=== PATIENT | female | born 1965 | race Hispanic/Latino ===

== ENCOUNTER 2017-08-22 13:16 | Day surgery (SDC) | payer MEDICAID ==
[2017-08-20 08:46] VITALS: BMI 32.5
[2017-08-22] MEDS ORDERED: Lidocaine 2% Inj (20ml) ONE (13:44)
[2017-08-22] MEDS ORDERED: Midazolam 2 MG/2 ML VIAL ONE ×3 (13:45→16:02)
[2017-08-22] MEDS ORDERED: Iodixanol 320 MG/ML 100 ML BOTTLE IV ONE (13:46)
[2017-08-22 13:48] LABS: BASO # 0.06 K/mm3 (0.0-2.0); BASO % 0.6 % (0.0-3.0); EOS # 0.1 (0.0-0.7); EOS % 1.5 % (1.5-5.0); GRAN # 7.24 (1.4-6.5); GRAN % 77.8 % (50.0-68.0); HEMOGLOBIN 13.5 g/dL (12.0-16.0); LYMPH # 1.4 (1.2-3.4); LYMPH % 14.9 % (22.0-35.0); MEAN CELL VOLUME 86.4 fl (80.0-105.0); MEAN CORPUSCULAR HEMOGLOBIN 30.1 pg (25.0-35.0); MEAN CORPUSCULAR HGB CONC 34.9 g/dl (31.0-37.0); MEAN PLATELET VOLUME 8.6 fl (7.0-11.0); MONO # 0.5 (0.1-0.6); MONO % 5.2 % (1.0-6.0); RBC 4.48 10^6/uL (3.5-6.1); RED CELL DISTRIBUTION WIDTH 13.7 % (11.5-14.5); WHITE BLOOD COUNT 9.3 10^3/ul (4.5-11.0)
[2017-08-22 13:58] LABS: BLOOD UREA NITROGEN 11 mg/dL (7-21); CALCIUM 9.7 mg/dL (8.4-10.5); GFR AFRICAN-AMERICAN > 60; GFR NON-AFRICAN AMERICAN > 60
[2017-08-22 14:03] LABS: INR 1.01 (0.93-1.08); PARTIAL THROMBOPLASTIN TIME 30.9 Seconds (25.1-36.5); PROTHROMBIN TIME 11.6 SECONDS (9.4-12.5)
[2017-08-22 14:18] VITALS: TEMP 98.4
[2017-08-22] MEDS ORDERED: Oxycodone/Acetaminophen 5/325 mg Tab PO PRN (16:42)
[2017-08-22] MEDS ORDERED: Sodium Chloride 0.45% 1,000 ML IV SCH (16:45)
[2017-08-22 16:54] VITALS: RESP 16
--- NOTE | 2017-08-22 17:00 | VASCULAR ---
PROCEDURE: Ultrasound and fluoroscopic right internal jugular venous access port. CLINICAL HISTORY: Metastatic breast carcinoma. Venous port for chemotherapy. PHYSICIAN(S): Zeus Blevins M.D. TECHNIQUE: The relative risks and indications of the procedure were explained to the patient and consent obtained. The patient was placed supine on the arteriogram table and the right neck and chest prepped and draped in the usual sterile fashion. Conscious sedation monitoring was provided throughout the procedure by a nurse. Antibiotics were given prior to the procedure. Under direct ultrasound guidance, the right internal jugular vein was punctured with a micro-puncture set. A 0.035 angled Glidewire was advanced into the IVC. A 4 cm incision was made below the right clavicle and the pocket blunted dissected. A 8French single-lumen catheter, 22 cm long, was advanced to the SVC/RA junction. The catheter was trimmed and attached to the port. The port aspirates and injects easily. The port was placed in the pocket and closed in 2 layers. The patient tolerated the procedure well. IMPRESSION: Ultrasound and fluoroscopically placed right internal jugular venous access port.
[2017-08-22 17:02] VITALS: O2SAT 98
[2017-08-22 17:24] VITALS: BP 129/88; PULSE 66
== END 2017-08-22 18:30 | disposition home or self-care (01) ==
LOC: SDS 13:16
PROVIDERS: ATTEND Radiology Vascular & Interventional Radiology
DX: C50.919 Malignant neoplasm of unspecified site of unspecified female breast (principal); C79.9 Secondary malignant neoplasm of unspecified site
CPT/HCPCS: 36415; 36561; 76937; 77001; 80048; 85025; 85610; 85730; 99152; C1769; C1788; J0690; J1644; J2250; J2405; J3010; J7030; Q9967

== ENCOUNTER 2017-10-04 12:44 | Observation (INO) | payer MEDICAID ==
--- NOTE | 2017-10-04 13:39 | ED PDOC ---
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 Patient states that she that for the past 2 months she has had back pain that radiates down her right leg posteriorly then wraps around anterior at the knee and goes down to her ankle. Patient states that ambulating is difficult. Patient denies LE paresthesias, saddle paresthesias, bowel/bladder incontinence, CP, SOB, n/v/d , abdominal pain, fever, chills, BRITO, or dizziness. PMD: Mirza Heme/onc: Fili (Vincent Robertson) Past Medical History - Provider Review Nursing Documentation Reviewed: Yes - Cardiac Hx Pacemaker: No - Neurological Hx Paralysis: No - Endocrine/Metabolic Hx Diabetes Mellitus Type 2: Yes - Hematological/Oncological Hx Blood Transfusions: No - Musculoskeletal/Rheumatological Hx Musculoskeletal Disorders: No - Genitourinary/Gynecological Other/Comment: Stage 4 metastatic breast cancer - Psychiatric Hx Emotional Abuse: No Hx Physical Abuse: No Hx Substance Use: No - Anesthesia Hx Anesthesia: Yes Hx Anesthesia Reactions: No Hx Malignant Hyperthermia: No - Suicidal Assessment Feels Threatened In Home Enviroment: No Family/Social History - Physician Review Nursing Documentation Reviewed: Yes Family/Social History: No Known Family HX Smoking Status: Never Smoked Hx Alcohol Use: Yes (PAST ETOH-NONE X 3 YRS) Hx Substance Use: No Allergies/Home Meds Allergies/Adverse Reactions: Allergies CONTRAST Allergy (Severe, Uncoded 08/20/17 08:48) RASH/HIVES Home Medications: Home Meds Medication Instructions Recorded Confirmed Alprazolam [Xanax] 0.5 mg PO QID 08/21/17 10/04/17 Ibuprofen [Motrin Tab] 200 mg PO QID 08/21/17 10/04/17 Levothyroxine [Synthroid] 125 mcg PO DAILY 08/21/17 10/04/17 PARoxetine [Paxil] 20 mg PO DAILY 08/21/17 10/04/17 Turmeric Root Extract [[facility] 500 mg PO DAILY 08/21/17 10/04/17 Turmeric] Ativan 0.5 mg PO BID PRN 08/30/17 10/04/17 Dexamethasone [Decadron] 4 mg PO BID 09/06/17 10/04/17 Docusate Sodium [Colace] 200 mg PO BID 09/06/17 10/04/17 Omeprazole [Omeprazole] 20 mg PO BID 09/06/17 10/04/17 Prochlorperazine [Compazine] 10 mg PO Q8H 09/06/17 10/04/17 Sucralfate [Carafate] 10 ml PO BID 09/06/17 10/04/17 Famotidine [Pepcid] 20 mg PO DAILY 10/04/17 10/04/17 Lactobacillus Combination No.8 1 cap PO DAILY 10/04/17 10/04/17 [Adult Probiotic] Morphine [Morphine Sulfate] 15 mg PO Q12 PRN 10/04/17 10/04/17 Mv,Min10/Folic Acid/D3/Ala/Lut 1 tab PO DAILY 10/04/17 10/04/17 [Strovite One Caplet] Review of Systems - Review of Systems Constitutional: Normal Eyes: Normal ENT: Normal Respiratory: Normal Cardiovascular: Normal Gastrointestinal: Normal Genitourinary Female: Normal Musculoskeletal: Back Pain Skin: Normal Neurological: Normal Endocrine: Normal Hemo/Lymphatic: Normal Psychiatric: Normal Physical Exam Temperature: Afebrile Blood Pressure: Normal Pulse: Regular Respiratory Rate: Normal Appearance: Positive for: Non-Toxic Pain Distress: Moderate Mental Status: Positive for: Alert and Oriented X 3 - Systems Exam Head: Present: Atraumatic, Normocephalic Pupils: Present: PERRL Extroacular Muscles: Present: EOMI Conjunctiva: Present: Normal Mouth: Present: Moist Mucous Membranes Neck: Present: Normal Range of Motion Respiratory/Chest: Present: Clear to Auscultation, Good Air Exchange. No: Respiratory Distress, Accessory Muscle Use Cardiovascular: Present: Regular Rate and Rhythm, Normal S1, S2. No: Murmurs Abdomen: No: Tenderness, Distention, Peritoneal Signs Back: Present: Normal Inspection Upper Extremity: Present: Normal Inspection. No: Cyanosis, Edema Lower Extremity: Present: NORMAL PULSES, Normal ROM (limited 2/2 pain), Neurovascularly Intact, Capillary Refill < 2 s, Other (positive straight leg raise R>L). No: Edema, CALF TENDERNESS, Cyanosis, Swelling, Erythema, Deformity Neurological: Present: GCS=15, CN II-XII Intact, Speech Normal Skin: Present: Warm, Dry, Normal Color. No: Rashes Psychiatric: Present: Alert, Oriented x 3, Normal Insight, Normal Concentration Vital Signs Temp Pulse Resp BP Pulse Ox 10/04/17 19:56 89 18 126/62 95 10/04/17 16:00 79 18 131/72 96 10/04/17 14:23 98.2 F 73 18 126/70 95 Medical Decision Making ED Course and Treatment: 10/04/17 13:43 52 yo F presents to ED with back pain. Plan: - CBC, CMP - Coags - UA - Nicotine patch - MRI without contrast ordered as patient has allergy to gadolinium - Thoracic wo contrast MRI - Lumbar wo contrast MRI - Pelvis wo contrast MRI - Hip wo contrast MRI - Reassess and disposition 10/04/17 17:58 Thoracic MRI Marrow: There are multifocal T1 hypo intense and T2/STIR hyperintense lesion throughout the visualized cervical and thoracic spine including the posterior elements. Impression: Findings are most compatible with diffuse osseous metastasis. No evidence for pathologic fracture or cord compression. Lumbar MRI Impression: Findings are most compatible with diffuse osseous metastasis in the lumbar spine and sacrum. No evidence for acute fracture, spinal canal stenosis or cord compression. Pelvis MRI Impression: Diffuse heterogeneous hypointense T1, hyperintense T2, lesions throughout the visualized bones, most consistent with metastatic disease. No definite fracture identified. Hip MRI Impression: Findings are consistent with diffuse osseous metastasis. no acute fracture 10/04/17 18:[address] Choudhary, who agrees with plan and accepts patient under his service. Patient admitted to med/surg. (Vincent Robertson) 10/05/17 08:01 pt seen with resident. 52 yo female, h/o ofbreast ca with back pain for 2 weeks difficulty ambulating. sent in to eval to ro cord comrpession. mri neg for cord comrpession dr carlton rquests inpt admission. (Jaguar Xiong) - Lab Interpretations Lab Results: 10/04/17 13:45 10/04/17 13:45 Lab Results 10/04/17 13:45: Sodium 137, Potassium 4.4, Chloride 104, Carbon Dioxide 22, Anion Gap 15, BUN 12, Creatinine 0.7, Est GFR ( Amer) > 60, Est GFR (Non- Af Amer) > 60, Random Glucose 186 H, Calcium 9.1, Magnesium 2.4 H, Total Bilirubin 0.2, AST 38 H, ALT 30, Alkaline Phosphatase 132 H, Total Protein 6.9, Albumin 4.1, Globulin 2.9, Albumin/Globulin Ratio 1.4 10/04/17 13:45: PT 10.7, INR 0.94, APTT 27.7 10/04/17 13:45: WBC 7.4, RBC 3.79, Hgb 11.3 L, Hct 33.3 L, MCV 87.9, MCH 29.8, MCHC 33.9, RDW 17.3 H, Plt Count 281, MPV 8.5, Gran % 87.7 H, Lymph % (Auto) 10.7 L, Bremer % (Auto) 1.5, Eos % (Auto) 0.0 L, Baso % (Auto) 0.1, Gran # 6.45, Lymph # (Auto) 0.8 L, Bremer # (Auto) 0.1, Eos # (Auto) 0.0, Baso # (Auto) 0.01 - RAD Interpretation Radiology Orders: 10/04/17 14:01 HIP W/O CONTRAST BILATERAL [MRI] Stat SPINAL CANAL LUMBAR W/O CONT [MRI] Stat SPINAL CANAL THORACIC W/O CONT [MRI] Stat 10/04/17 14:06 PELVIS WITHOUT CONTRAST [MRI] Stat 10/04/17 17:52 BRAIN WITHOUT CONTRAST [MRI] Routine SPINAL CANAL CERVICAL W/O CONT [MRI] Routine 10/05/17 08:00 BONE SCAN WHOLE BODY [NM] Urgent - Medication Orders Current Medication Orders: Acetaminophen (Tylenol 325mg Tab) 650 mg PO Q6H PRN PRN Reason: Fever >100.4 F Alprazolam (Xanax) 0.5 mg PO QID PRN; Protocol PRN Reason: Anxiety Last Admin: 10/04/17 22:56 Dose: 0.5 mg Behavioural Document 10/04/17 22:56 SD (Rec: 10/04/17 22:56 SD [id number]) Maintenance Maintenance Dose Yes Re-Assess: Reassess Psych Meds Document 10/04/17 23:56 SD (Rec: 10/05/17 06:19 SD [facility]-6) Reassess Psych Med Effective Docusate Sodium (Colace) 200 mg PO BID [facility] Last Admin: 10/04/17 19:49 Dose: 200 mg Levothyroxine Sodium (Synthroid) 125 mcg PO 0600 [facility] Last Admin: 10/05/17 06:33 Dose: 125 mcg Morphine Sulfate (Morphine Extended Release Tab) 15 mg PO Q12 [facility] Last Admin: 10/04/17 22:56 Dose: 15 mg [facility] Pain Assessment Document 10/04/17 22:56 SD (Rec: 10/04/17 22:[address]-6) Pain Reassessment Is this a pain reassessment? No Sleep Is patient sleeping during reassessment? No Presence of Pain Presence of Pain Yes Re-Assess: [facility] Pain Assessment Document 10/04/17 23:56 SD (Rec: 10/05/17 06:[address]-6) Pain Reassessment Is this a pain reassessment? No Sleep Is patient sleeping during reassessment? No Presence of Pain Presence of Pain No Morphine Sulfate (Morphine) 2 mg IVP Q6 PRN PRN Reason: PAIN, SEVERE[8-10] Multivitamins (Thera Tab) 1 tab PO DAILY [facility] Nicotine (Nicoderm Cq) 1 patch TD DAILY [facility] Last Admin: 10/04/17 15:01 Dose: 1 patch [facility] Transdermal Patch Site Document 10/04/17 15:01 EQ (Rec: 10/04/17 15:01 EQ [id number]) Transdermal Patch Site Transdermal Patch Site Left Shoulder Re-Assess: [facility] Transdermal Patch Removal Document 10/05/17 03:01 SD (Rec: 10/05/17 06:[address]) Transdermal Patch Removal Removal of Transdermal Patch done? No Pantoprazole Sodium (Protonix Ec Tab) 20 mg PO 0600,1600 [facility] Last Admin: 10/05/17 06:34 Dose: 20 mg Paroxetine HCl (Paxil) 20 mg PO DAILY [facility] Last Admin: 10/04/17 19:54 Dose: 20 mg Prochlorperazine (Compazine Tab) 5 mg PO TID PRN PRN Reason: Nausea/Vomiting Sucralfate (Carafate Oral Susp) 1 gm PO BID [facility] Last Admin: 10/04/17 19:54 Dose: 1 gm Discontinued Medications Morphine Sulfate (Morphine) 2 mg IVP Q6H PRN PRN Reason: Pain, severe (8-10) Disposition/Present on Arrival - Present on Arrival Any Indicators Present on Arrival: No History of DVT/PE: No History of Uncontrolled Diabetes: No Urinary Catheter: No History of Decub. Ulcer: No History Surgical Site Infection Following: None - Disposition Have Diagnosis and Disposition been Completed?: Yes Disposition Time: 18:52 Patient Plan: Admission - Disposition Diagnosis: Back pain Disposition: HOSPITALIZED Condition: STABLE
[2017-10-04 14:24] VITALS: RESP 18
[2017-10-04 14:26] LABS: BASO # 0.01 K/mm3 (0.0-2.0); BASO % 0.1 % (0.0-3.0); GRAN # 6.45 (1.4-6.5); GRAN % 87.7 % (50.0-68.0); HEMOGLOBIN 11.3 g/dL (12.0-16.0); LYMPH # 0.8 (1.2-3.4); LYMPH % 10.7 % (22.0-35.0); MEAN CELL VOLUME 87.9 fl (80.0-105.0); MEAN CORPUSCULAR HEMOGLOBIN 29.8 pg (25.0-35.0); MEAN CORPUSCULAR HGB CONC 33.9 g/dl (31.0-37.0); MEAN PLATELET VOLUME 8.5 fl (7.0-11.0); MONO # 0.1 (0.1-0.6); MONO % 1.5 % (1.0-6.0); RBC 3.79 10^6/uL (3.5-6.1); RED CELL DISTRIBUTION WIDTH 17.3 % (11.5-14.5); WHITE BLOOD COUNT 7.4 10^3/ul (4.5-11.0)
[2017-10-04 14:35] LABS: INR 0.94 (0.93-1.08); PARTIAL THROMBOPLASTIN TIME 27.7 Seconds (25.1-36.5); PROTHROMBIN TIME 10.7 SECONDS (9.4-12.5)
[2017-10-04 15:11] LABS: BLOOD UREA NITROGEN 12 mg/dL (7-21); GFR AFRICAN-AMERICAN > 60; GFR NON-AFRICAN AMERICAN > 60
[2017-10-04 15:12] LABS: CALCIUM 9.1 mg/dL (8.4-10.5)
[2017-10-04 15:13] LABS: ALB/GLOB RATIO 1.4 (1.1-1.8); ALBUMIN 4.1 g/dL (3.0-4.8); ALT/SGPT 30 U/L (7-56); AST/SGOT 38 U/L (14-36)
[2017-10-04] MEDS ORDERED: Morphine 5 MG/ML SYRINGE IVP PRN (15:43)
[2017-10-04] MEDS ORDERED: Morphine 2 mg/2 mL syringe IVP PRN (15:57)
--- NOTE | 2017-10-04 17:54 | CP.PCM.CON ---
History of Present Illness - History of Present Illness History of Present Illness: Neurology Consultation Note: Mrs. Franco is a 52-year-old woman with a past medical history of Stage IV breast cancer metastatic to multiple alexi and soft tissue areas including the cervical, thoracic and lumbar spine, who presents for progressive lower and upper extremity pain/weakness that appears to have worsened since having her most recent dose of chemotherapy on last Saturday. She states that she is feeling much better now, with regard to the numbness and pain/tingling in the extremities. On the first day after her chemo treatment, she felt that her "whole body was numb" and states that she had a dissociative feeling. Due to the pain/weakness and difficulty in ambulation, along with the history of spinal mets, there was concern that the patient may have cord compression. She was referred to the ED for further neurological evaluation. Review of Systems - Review of Systems All systems: reviewed and no additional remarkable complaints except Past Patient History - Past Social History Smoking Status: Never Smoked - CARDIAC Hx Pacemaker: No - NEUROLOGICAL Hx Paralysis: No - ENDOCRINE/METABOLIC Hx Diabetes Mellitus Type 2: Yes - HEMATOLOGICAL/ONCOLOGICAL Hx Blood Transfusions: No - MUSCULOSKELETAL/RHEUMATOLOGICAL Hx Musculoskeletal Disorders: No - GENITOURINARY/GYNECOLOGICAL Other/Comment: Stage 4 metastatic breast cancer - PSYCHIATRIC Hx Emotional Abuse: No Hx Physical Abuse: No Hx Substance Use: No - SURGICAL HISTORY Hx Surgeries: Yes - ANESTHESIA Hx Anesthesia: Yes Hx Anesthesia Reactions: No Hx Malignant Hyperthermia: No Meds Allergies/Adverse Reactions: Allergies Allergy/AdvReac Type Severity Reaction Status Date / Time CONTRAST Allergy Severe RASH/HIVES Uncoded 08/20/17 08:48 - Medications Medications: Current Medications Acetaminophen (Tylenol 325mg Tab) 650 mg PO Q6H PRN PRN Reason: Fever >100.4 F Alprazolam (Xanax) 0.5 mg PO QID PRN; Protocol PRN Reason: Anxiety Docusate Sodium (Colace) 200 mg PO BID [facility] Levothyroxine Sodium (Synthroid) 125 mcg PO 0600 [facility] Morphine Sulfate (Morphine Extended Release Tab) 15 mg PO Q12 [facility] Morphine Sulfate (Morphine) 2 mg IVP Q6 PRN PRN Reason: PAIN, SEVERE[8-10] Multivitamins (Thera Tab) 1 tab PO DAILY [facility] Nicotine (Nicoderm Cq) 1 patch TD DAILY [facility] Last Admin: 10/04/17 15:01 Dose: 1 patch Pantoprazole Sodium (Protonix Ec Tab) 20 mg PO 0600,1600 [facility] Paroxetine HCl (Paxil) 20 mg PO DAILY [facility] Prochlorperazine (Compazine Tab) 5 mg PO TID PRN PRN Reason: Nausea/Vomiting Sucralfate (Carafate Oral Susp) 1 gm PO BID [facility] Physical Exam - Neurological Exam Neurological exam: Abnormal Gait, Alert, CN II-XII Intact, Oriented x3 Additional comments: Reflexes are brisk throughout, more brisk on the left side. There was a slight pronator drift on the left side. Sensation was intact throughout to LT/P. Plantar responses were downgoing bilaterally. Gait was antalgic. Results - Vital Signs Recent Vital Signs: Last Vital Signs Temp 98.2 F 10/04/17 14:23 Pulse 73 10/04/17 14:23 Resp 18 10/04/17 14:23 BP 126/70 10/04/17 14:23 Pulse Ox 95 10/04/17 14:23 - Labs Result Diagrams: 10/04/17 13:45 10/04/17 13:45 Labs: Laboratory Results - last 24 hr 10/04/17 10/04/17 10/04/17 13:45 13:45 13:45 WBC 7.4 RBC 3.79 Hgb 11.3 L Hct 33.3 L MCV 87.9 MCH 29.8 MCHC 33.9 RDW 17.3 H Plt Count 281 MPV 8.5 Gran % 87.7 H Lymph % (Auto) 10.7 L Allen % (Auto) 1.5 Eos % (Auto) 0.0 L Baso % (Auto) 0.1 Gran # 6.45 Lymph # (Auto) 0.8 L Allen # (Auto) 0.1 Eos # (Auto) 0.0 Baso # (Auto) 0.01 PT 10.7 INR 0.94 APTT 27.7 Sodium 137 Potassium 4.4 Chloride 104 Carbon Dioxide 22 Anion Gap 15 BUN 12 Creatinine 0.7 Est GFR ( Amer) > 60 Est GFR (Non-Af Amer) > 60 Random Glucose 186 H Calcium 9.1 Magnesium 2.4 H Total Bilirubin 0.2 AST 38 H ALT 30 Alkaline Phosphatase 132 H Total Protein 6.9 Albumin 4.1 Globulin 2.9 Albumin/Globulin Ratio 1.4 Assessment & Plan (1) Right sided weakness Assessment and Plan: This is likely due to pain from alexi metastases, but could be due to cord or nerve root compression as well. I recommend obtaining an MRI of the cervical spine since the lumbar and thoracic do not show spinal cord involvement. Furthermore, the patient did have a slight pronator drift, I recommend obtaining MRI of the brain as well to rule out any potential brain mets. In addition, I recommend the followin. PT/OT eval and treatment 2. Fluids with NS at 100 mL/hr 3. Consider steroids depending on the MRI results Thank you for this consultation. Status: Acute
--- NOTE | 2017-10-04 17:57 | MRI ---
PROCEDURE: MR LUMBAR SPINE WITHOUT CONTRAST HISTORY: r/o cord compression COMPARISON: None available. TECHNIQUE: Multiecho multiplanar sequences were performed through the lumbar spine without the use of intravenous contrast. FINDINGS: There is normal alignment of the lumbar vertebral bodies. There is normal lumbar lordosis. There are multifocal T1 hypointense, T2 and STIR hyperintense lesion in the visualized lumbar spine and sacrum. There is no acute fracture. The conus medullaris terminates at a normal level and the nerve roots of cauda equina are normal. T12-L1: No disc herniation, spinal canal stenosis or neural foraminal narrowing. L1-2: No disc herniation, spinal canal stenosis or neural foraminal narrowing. L2-3: No disc herniation, spinal canal stenosis or neural foraminal narrowing. L3-4: No disc herniation, spinal canal stenosis or neural foraminal narrowing. L4-5: Mild posterior disc bulge and mild facet arthropathy with mild neural foraminal narrowing. No spinal canal stenosis. L5-S1: No disc herniation, spinal canal stenosis or neural foraminal narrowing. OTHER FINDINGS: The paraspinous soft tissues are normal. Imaged portion of the retroperitoneum is within normal limits. IMPRESSION: Findings are most compatible with diffuse osseous metastasis in the lumbar spine and sacrum. No evidence for acute fracture, spinal canal stenosis or cord compression.
--- NOTE | 2017-10-04 17:59 | MRI ---
PROCEDURE: MRI pelvis without contrast HISTORY: mets COMPARISON: Right hip x-rays 09/16/2017. TECHNIQUE: Multiplanar, multi sequence MR images of the pelvis were obtained. No intravenous gadolinium contrast was administered. FINDINGS: Motion artifact limits evaluation of the axial T1 sequence. UTERUS: Surgically absent. BOWEL: There is no abnormal small or large bowel dilatation of the visualized bowel. LYMPH NODES: There is no significant pelvic or inguinal lymphadenopathy. BLADDER: Incompletely distended. FREE FLUID: None. PELVIC BONES: There are diffuse heterogeneous hypointense T1, hyperintense T2 lesions throughout the visualized bones, most consistent with metastatic disease. No definite fracture identified. OTHER FINDINGS: None. IMPRESSION: Diffuse bony lesions as above, most consistent with metastatic disease.
[2017-10-04] MEDS ORDERED: Sucralfate 1 gm/10 ml Oral Susp UD PO SCH (18:00)
--- NOTE | 2017-10-04 18:06 | MRI ---
PROCEDURE: MR THORACIC SPINE WITHOUT CONTRAST HISTORY: r/o cord compression COMPARISON: None available. TECHNIQUE: Multiecho multiplanar sequences were performed through the thoracic spine without the use of intravenous contrast. FINDINGS: ALIGNMENT: There is normal alignment of the thoracic vertebral bodies. There is normal thoracic kyphosis. VERTEBRA: Vertebral body height are preserved. MARROW: There are multifocal T1 hypo intense and T2/ STIR hyperintense lesion throughout the visualized cervical and thoracic spine including the posterior elements. PARASPINAL SOFT TISSUES: The paraspinous soft tissues are normal. CORD: The thoracic cord is normal in contour, caliber and has normal intrinsic signal. DISCS: Mild posterior disc bulges in the mid thoracic spine. No large disc herniation, spinal canal stenosis, or neuroforaminal narrowing. OTHER FINDINGS: None. IMPRESSION: Findings are most compatible with diffuse osseous metastasis. No evidence for pathologic fracture or cord compression.
--- NOTE | 2017-10-04 18:16 | MRI ---
PROCEDURE: MRI bilateral hips TECHNIQUE: Multiecho multiplanar sequences were performed through bilateral hips without the use of intravenous contrast. HISTORY: Pain. COMPARISON: Plain radiographs from 09/26/2017. FINDINGS: BONES: There is multifocal abnormal T1 hypo intense and T2/stir hyperintense lesions in the visualized pelvis, sacrum and proximal femora. There is no acute fracture. Bone alignment is normal. MUSCLES:: No tear or myositis. JOINT FLUID:: There is a small right joint effusion. OTHER FINDINGS: None. IMPRESSION: Findings are consistent with diffuse osseous metastasis. No acute fracture.
[2017-10-04] MEDS: Pantoprazole 20 mg EC Tab PO SCH (19:50)
[2017-10-04 19:57] VITALS: O2SAT 95
[2017-10-04] MEDS ORDERED: Morphine 15 mg SR Tab PO SCH (22:00)
[2017-10-05 01:16] VITALS: BP 122/78; PULSE 86; TEMP 98.1; BMI 25.7
--- NOTE | 2017-10-05 03:52 | HP ---
DATE OF EXAM: 10/04/[address] Penn. CHIEF COMPLAINT: Numbness, weakness of the lower extremities. HISTORY OF PRESENT ILLNESS: The patient is a 52-year-old white female, admitted via the emergency room for evaluation of recent onset of gait weakness, numbness of her legs, post chemotherapy approximately 7 days prior. As patient received chemotherapy on Saturday, she reports last Saturday and Saturday, she was unable to walk due to severe numbness and weakness of the legs. She now ambulates with a cane with modest improvement. She states in the past 2 days it has modestly improved. She reports also that previous chemotherapy treatments here have caused different sensation changes including to her arms and hands with picking up a glass and forks which were dropped and now the gait weakness. She also previously had issues with headaches, at one point loose stool, nausea and vomiting which all are self-limited after approximately 3 days post treatment with her regimen of Taxol and Herceptin as per Dr. Penn's protocols. At present, she was due for chemotherapy; however, due to these most recent findings and since the gait is still quite unsteady, Dr. Penn recommends that the patient be evaluated for possible cord compression due to her bony metastatic disease from her stage IV metastatic breast cancer. Patient also suffers from intractable pain of cancer for which she is taking narcotic analgesics with modest effect. She is also a heavy smoker, at least 2 packs per day, which was the reason why the patient refused evaluation when the symptoms were more acute earlier in the week and now her daughter convinced the patient that there is a need for evaluation on an urgent basis as this may deteriorate with time. At present she is now being admitted via the emergency room reporting that her analgesics helped her pain; however her leg changes, she reports, have modestly improved. 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 Patient also suffers from hypothyroidism. Reports that she was within [place] miles of the [place] when living in [facility] with the patient speaking Indonesian as her first language. Patient also has anxiety, GERD, insomnia and again strong smoking history along with intractable pain of cancer, obesity, and status post hysterectomy. ALLERGIES: TO CONTRAST. ON FURTHER QUESTIONING, THE PATIENT REPORTS THAT SHE HAD AN MRI OF HER BREAST DONE IN JULY AT [facility] IN [place] WITH THE PATIENT HAVING AN ALLERGIC PHENOMENON REACTION AFTER THE CONTRAST WAS GIVEN. MEDICATIONS: Patient's medicines were reviewed. They include Strovite, probiotic, Xanax, Carafate, Compazine, Paxil, omeprazole, Synthroid, ibuprofen, Colace, Ativan, famotidine, morphine extended release and now a nicotine patch with dexamethasone have been discontinued recently. FAMILY HISTORY AND SOCIAL HISTORY: The patient admits to at least 2 packs per day smoking history over 35 years. She quit alcohol 3 years ago after increased use. 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 She has one daughter alive and well. She has no brothers, no sisters. Father at 82 years old of old age, mother at 79 years old of pneumonia and a CVA, with the father possibly having had tuberculosis and heart disease, the mother with dementia. REVIEW OF SYSTEMS: Twelve-point review of systems was done, which was negative to questions except for items mentioned in the history of present illness. PHYSICAL EXAMINATION: VITAL SIGNS: Temperature 98.2, pulse 73, respirations 18, blood pressure 126/70, pulse ox 95%. HEENT: Unremarkable. Tongue is moist and midline. NECK: Supple. HEART: Regular rate. LUNGS: Clear. ABDOMEN: Obese, soft, nontender. EXTREMITIES: No edema. NEUROLOGIC: Awake, alert, and oriented with equal audit clerk bilaterally with equal strength at this point; however, the patient does have a gait disturbance, uses a cane to ambulate. SKIN: She has resolving rash to the upper and lower breast for which Nizoral cream was recommended. LABORATORY DATA: The patient's labs were done to include white blood cell count of 7.4; hemoglobin 11.3; hematocrit 33.3; platelet count of 291,000 with a chem metabolic panel showing non-fasting glucose of 186, magnesium 2.4, AST of 38 with an alk phos of 132. Her INR is 0.94. The patient did have testing done recently to include a x-ray of her thoracic and lumbar spine, x-ray of the hips and pelvis on 09/26/2017, all these reports were read as negative with the hip only on the right side being done with her pain described on the left also. The patient also had treatment with Dr. Bryant in Radiosurgery in [facility] [place] with evaluation at that time in July with no treatment at that time. With this, patient also had a PET CT scan done on 07/23/2017. PET CT scan was read as FDG-avid nodule, right breast suggesting neoplasm, right axillary mediastinal bilateral hilar lymphadenopathy, multiple patchy osseous sclerotic lesions with increased FDG uptake concerning for osseous metastases including bilateral ribs, cervical, thoracic, lumbar spine, sacrum, right and left pelvis, right femoral head and neck, index lesion of the medial right ilium measures maximum SUV of 17.2. Hard copies of her previous testing will be uploaded to the computer system. Patient did have echocardiogram done on 08/06/2017 at [facility]. The impression showed normal biventricular dimension and systolic function. Ejection fraction of 60%. Trace mitral and tricuspid insufficiency. A CA 27-29 was done on 08/07/2017, it was 250.2 with a CA value of 2.5 and a CA 15-3 pending at that time, is not available. Other labs that have withdrawn and sent and will be reviewed upon return. PLAN: For this patient, after conversation with Dr. Penn, is to admit via the emergency room MRI to be done; however,without contrast at this point to the LS spine, thoracic spine, pelvis, hips. We will also ask for a bone scan to be done along with evaluation by Dr. Vicente, Neurology with the patient's cord compression evaluation paramount at this point. She will be at bedrest except for bathroom privileges with assist only. We will give her nicotine patch for her strong smoking history with monitoring clinically and with labs. Prognosis for this patient is guarded. This is a comprehensive medical evaluation in a complex patient with 90 minutes evaluation [id number] with the patient, also daughter was contacted. Dr. Vicente was contacted by phone and physically brought the patient to the emergency room in a wheelchair from the outpatient clinic where she was to have chemotherapy earlier today with patient's questions answered to her satisfaction. Alan Choudhary MD [facility] # [id number]
[2017-10-05] MEDS ORDERED: Levothyroxine 125 MCG TAB PO SCH (06:00)
[2017-10-05] MEDS: Pantoprazole 20 mg EC Tab PO SCH (06:34)
[2017-10-05 06:55] LABS: ALB/GLOB RATIO 1.4 (1.1-1.8); ALBUMIN 3.8 g/dL (3.0-4.8); ALT/SGPT 33 U/L (7-56); AST/SGOT 40 U/L (14-36); BLOOD UREA NITROGEN 13 mg/dL (7-21); CALCIUM 7.9 mg/dL (8.4-10.5); GFR AFRICAN-AMERICAN > 60; GFR NON-AFRICAN AMERICAN > 60
[2017-10-05 07:19] LABS: BASO # 0.01 K/mm3 (0.0-2.0); BASO % 0.1 % (0.0-3.0); GRAN # 5.64 (1.4-6.5); GRAN % 78.1 % (50.0-68.0); HEMOGLOBIN 10.4 g/dL (12.0-16.0); LYMPH # 0.8 (1.2-3.4); LYMPH % 11.4 % (22.0-35.0); MEAN CELL VOLUME 88.6 fl (80.0-105.0); MEAN CORPUSCULAR HEMOGLOBIN 29.7 pg (25.0-35.0); MEAN CORPUSCULAR HGB CONC 33.5 g/dl (31.0-37.0); MEAN PLATELET VOLUME 8.4 fl (7.0-11.0); MONO # 0.8 (0.1-0.6); MONO % 10.4 % (1.0-6.0); RBC 3.5 10^6/uL (3.5-6.1); RED CELL DISTRIBUTION WIDTH 17.6 % (11.5-14.5); WHITE BLOOD COUNT 7.2 10^3/ul (4.5-11.0)
--- NOTE | 2017-10-05 08:21 | CP.PCM.PN ---
Subjective - Date & Time of Evaluation Date of Evaluation: 10/05/17 Time of Evaluation: 08:00 - Subjective Subjective: [id number] Aguilar Ms Jenkins, 52 F, Hx stage 4 breast cancer, admitted for acute gait weakness , numbness, chemo 7 days prior to admission. pt wants to sign out AMA because she wants to smoke. She is dressed, with all her belongings, IV out, standing by nurse station with a cane. she refuse nicoderm. This is the first time she came to hospital in . I have explained to her in front of the nurse station that once she leaves the floor, she consider signed out AMA and cannot came straight to hospital. She will not get the original treatment scheduled for her at a later time. Pt understood, refuse nicoderm, insist going out in smoking. PE AAO x 3 able to ambulate independently with a cane A/P: AMA - AMA risk/benefit explained. pt understood and reasoned that she really has to leave for personal reason. nicoderm was offered. AMA form explained. Pt signed. - told to return to ed as needed. - call Dr. Choudhary answering service and left message Objective - Vital Signs/Intake and Output Vital Signs (last 24 hours): Temp Pulse Resp BP Pulse Ox 98.1 F 86 18 122/78 95 10/04/17 22:48 10/04/17 22:48 10/04/17 22:48 10/04/17 22:48 10/04/17 19:56 - Medications Medications: Current Medications Acetaminophen (Tylenol 325mg Tab) 650 mg PO Q6H PRN PRN Reason: Fever >100.4 F Alprazolam (Xanax) 0.5 mg PO QID PRN; Protocol PRN Reason: Anxiety Last Admin: 10/04/17 22:56 Dose: 0.5 mg Docusate Sodium (Colace) 200 mg PO BID LEXY Last Admin: 10/04/17 19:49 Dose: 200 mg Levothyroxine Sodium (Synthroid) 125 mcg PO 0600 LEXY Last Admin: 10/05/17 06:33 Dose: 125 mcg Morphine Sulfate (Morphine Extended Release Tab) 15 mg PO Q12 LEXY Last Admin: 10/04/17 22:56 Dose: 15 mg Morphine Sulfate (Morphine) 2 mg IVP Q6 PRN PRN Reason: PAIN, SEVERE[8-10] Multivitamins (Thera Tab) 1 tab PO DAILY [facility] Nicotine (Nicoderm Cq) 1 patch TD DAILY [facility] Last Admin: 10/04/17 15:01 Dose: 1 patch Pantoprazole Sodium (Protonix Ec Tab) 20 mg PO 0600,1600 [facility] Last Admin: 10/05/17 06:34 Dose: 20 mg Paroxetine HCl (Paxil) 20 mg PO DAILY [facility] Last Admin: 10/04/17 19:54 Dose: 20 mg Prochlorperazine (Compazine Tab) 5 mg PO TID PRN PRN Reason: Nausea/Vomiting Sucralfate (Carafate Oral Susp) 1 gm PO BID [facility] Last Admin: 10/04/17 19:54 Dose: 1 gm - Labs Labs: 10/05/17 05:00 10/05/17 05:00 PT 10.7 SECONDS (9.4-12.5) 10/04/17 13:45 INR 0.94 (0.93-1.08) 10/04/17 13:45 APTT 27.7 Seconds (25.1-36.5) 10/04/17 13:45
--- NOTE | 2017-10-05 08:57 | CP.PCM.PCO ---
Physician Communication Note - Physician Communication Note Physician Communication Note: pt left AMA
[2017-10-05] MEDS ORDERED: Multivitamin Therapeutic Tab PO SCH (10:00)
--- NOTE | 2017-10-05 11:34 | CP.PCM.CON ---
History of Present Illness - History of Present Illness History of Present Illness: Ms Franco has stage IV breast cancer with diffuse bone metastases. We were asked to see her today for possible palliative radiation. Unfortunately, when we came this morning, we found out that she had signed out AMA. We will be in touch with Dr Penn about her case. Past Patient History - Past Social History Smoking Status: Heavy Smoker > 10 Cigarettes Daily - CARDIAC Hx Pacemaker: No - NEUROLOGICAL Hx Paralysis: No - ENDOCRINE/METABOLIC Hx Diabetes Mellitus Type 2: Yes - HEMATOLOGICAL/ONCOLOGICAL Hx Blood Transfusions: No - MUSCULOSKELETAL/RHEUMATOLOGICAL Hx Falls: No - GENITOURINARY/GYNECOLOGICAL Other/Comment: Stage 4 metastatic breast cancer - PSYCHIATRIC Hx Emotional Abuse: No Hx Physical Abuse: No Hx Substance Use: No - SURGICAL HISTORY Hx Surgeries: Yes - ANESTHESIA Hx Anesthesia: Yes Hx Anesthesia Reactions: No Hx Malignant Hyperthermia: No Meds Allergies/Adverse Reactions: Allergies Allergy/AdvReac Type Severity Reaction Status Date / Time CONTRAST Allergy Severe RASH/HIVES Uncoded 08/20/17 08:48 Results - Vital Signs Recent Vital Signs: Last Vital Signs Temp 98.1 F 10/04/17 22:48 Pulse 86 10/04/17 22:48 Resp 18 10/04/17 22:48 BP 122/78 10/04/17 22:48 Pulse Ox 95 10/04/17 19:56 - Labs Result Diagrams: 10/05/17 05:00 10/05/17 05:00 Labs: Laboratory Results - last 24 hr 10/05/17 10/05/17 10/05/17 05:00 05:00 05:00 WBC 7.2 RBC 3.50 Hgb 10.4 L Hct 31.0 L MCV 88.6 MCH 29.7 MCHC 33.5 RDW 17.6 H Plt Count 273 MPV 8.4 Gran % 78.1 H Lymph % (Auto) 11.4 L [place] % (Auto) 10.4 H Eos % (Auto) 0.0 L Baso % (Auto) 0.1 Gran # 5.64 Lymph # (Auto) 0.8 L [place] # (Auto) 0.8 H Eos # (Auto) 0.0 Baso # (Auto) 0.01 Sodium 135 Potassium 4.6 Chloride 102 Carbon Dioxide 18 L Anion Gap 20 BUN 13 Creatinine 0.5 L Est GFR ( Amer) > 60 Est GFR (Non-Af Amer) > 60 Random Glucose 112 H Calcium 7.9 L Total Bilirubin 0.7 AST 40 H ALT 33 Alkaline Phosphatase 113 Total Protein 6.6 Albumin 3.8 Globulin 2.8 Albumin/Globulin Ratio 1.4 TSH 3rd Generation 3.91
== END 2017-10-05 09:38 | disposition left against medical advice (07) ==
LOC: ED 12:44 → INTOOBSV 18:29 → ERH 18:29 → 3RNO 20:19
PROVIDERS: ADMIT Family Medicine; ATTEND Family Medicine
DX: C79.51 Secondary malignant neoplasm of bone (principal); C50.919 Malignant neoplasm of unspecified site of unspecified female breast; G89.3 Neoplasm related pain (acute) (chronic); E11.9 Type 2 diabetes mellitus without complications; F41.9 Anxiety disorder, unspecified; R53.1 Weakness; E03.9 Hypothyroidism, unspecified; K21.9 Gastro-esophageal reflux disease without esophagitis; G47.00 Insomnia, unspecified; E66.9 Obesity, unspecified; Z68.25 Body mass index [BMI] 25.0-25.9, adult; F17.210 Nicotine dependence, cigarettes, uncomplicated; Z17.1 Estrogen receptor negative status [ER-]; Z90.710 Acquired absence of both cervix and uterus
CPT/HCPCS: 36415; 72146; 72148; 72195; 73721; 80053; 83735; 84443; 85025; 85610; 85730; 99285; G0378

== ENCOUNTER 2018-01-03 14:42 | Inpatient (IN) | payer MEDICAID ==
[2018-01-03 14:44] VITALS: BMI 25.7
--- NOTE | 2018-01-03 15:19 | ED PDOC ---
Arrival/HPI <David Pat - Last Filed: 01/03/18 20:59> - General Historian: Patient - History of Present Illness Narrative History of Present Illness (Text): 01/03/18 15:05 52 y/o female, pmh including stage 4 breast cancer with on going chemotherapy with metasis to spine and pelvis/gerd/hypothyroidism, post menopausal, allergic to contrast with systemic hives, biba daughter (power of welding machine operator electroslag), send in by Dr. Penn for evaluation of the rt. upper extremity weakness. As per daughter and patient, the patient has rt. upper extremity numbness and tingling for over 1 week and worsened for the past 4 days (last seen well) with weakness as she is unable to move it which she denies any pain or discomfort, no slurred speech, no night sweat, no dizziness, no change in vision, no chest pain or palpitation, no night sweat, no change in vision, no other medical or psychological complaints. <Luis Felipe Tilley - Last Filed: 01/03/18 21:28> - General Chief Complaint: Finger,Hand,&Wrist Time Seen by Provider: 01/03/18 15:03 Past Medical History - Provider Review Nursing Documentation Reviewed: Yes - Infectious Disease Hx of Infectious Diseases: None - Cardiac Hx Cardiac Disorders: No - Neurological Hx Paralysis: No - Endocrine/Metabolic Hx Diabetes Mellitus Type 2: Yes - Hematological/Oncological Hx Blood Transfusions: No Hx Cancer: Yes (Breast) - Musculoskeletal/Rheumatological Hx Falls: No - Genitourinary/Gynecological Other/Comment: Stage 4 metastatic breast cancer - Psychiatric Hx Emotional Abuse: No Hx Physical Abuse: No Hx Substance Use: No - Anesthesia Hx Anesthesia: Yes Hx Anesthesia Reactions: No Hx Malignant Hyperthermia: No - Suicidal Assessment Feels Threatened In Home Enviroment: No <Luis Felipe Tilley - Last Filed: 01/03/18 21:28> Family/Social History - Physician Review Nursing Documentation Reviewed: Yes Family/Social History: Unknown Family HX Smoking Status: Heavy Smoker > 10 Cigarettes Daily Hx Alcohol Use: Yes (PAST ETOH-NONE X 3 YRS) Hx Substance Use: No <Luis Felipe Tilley - Last Filed: 01/03/18 21:28> Allergies/Home Meds <David Pat - Last Filed: 01/03/18 20:59> <Tilley,Luis Felipe Q - Last Filed: 01/03/18 21:28> Allergies/Adverse Reactions: Allergies CONTRAST Allergy (Severe, Uncoded 01/03/18 14:54) RASH/HIVES Home Medications: Home Meds Medication Instructions Recorded Confirmed Alprazolam [Xanax] 0.5 mg PO QID 08/21/17 11/07/17 Ibuprofen [Motrin Tab] 200 mg PO QID 08/21/17 11/07/17 PARoxetine [Paxil] 20 mg PO DAILY 08/21/17 11/07/17 Turmeric Root Extract [[facility] 500 mg PO DAILY 08/21/17 11/07/17 Turmeric] Ativan 0.5 mg PO BID PRN 08/30/17 11/07/17 Dexamethasone [Decadron] 4 mg PO BID 09/06/17 11/07/17 Docusate Sodium [Colace] 200 mg PO BID 09/06/17 11/07/17 Omeprazole 20 mg PO BID 09/06/17 11/07/17 Prochlorperazine [Compazine] 10 mg PO Q8H 09/06/17 11/07/17 Sucralfate [Carafate] 10 ml PO BID 09/06/17 11/07/17 Lactobacillus Combination No.8 1 cap PO DAILY 10/04/17 11/07/17 [Adult Probiotic] Mv,Min10/Folic Acid/D3/Ala/Lut 1 tab PO DAILY 10/04/17 11/07/17 [Strovite One Caplet] Gas Relief 125 mg PO Q4 PRN 11/07/17 11/07/17 Hyoscyamine [Levsin] 0.125 mg PO Q4 PRN 11/07/17 11/07/17 Levothyroxine [Synthroid] 125 mcg PO DAILY 11/07/17 11/07/17 Loperamide [Imodium] 2 mg PO Q4 11/07/17 11/07/17 Ondansetron [Zofran] 8 mg PO Q8H 11/07/17 11/07/17 Pepto-Bismol 30 ml PO Q4H PRN 11/07/17 11/07/17 Zolpidem [Ambien] 10 mg PO HS 11/07/17 11/07/17 Levothyroxine Sodium [Levothroid] 137 mcg PO QAM 11/14/17 11/14/17 Morphine [Morphine Extended 60 mg PO Q12 11/14/17 11/14/17 Release Tab] Morphine [Morphine Sulfate] 30 mg PO Q4 11/14/17 12/05/17 metOLazone [Zaroxolyn] 2.5 mg PO MWF 11/14/17 11/14/17 Hemp Extract Drops 1 - 2 % PO TID 12/05/17 12/05/17 Review of Systems - Review of Systems Constitutional: absent: Fatigue, Fevers Eyes: absent: Vision Changes ENT: absent: Hearing Changes Respiratory: absent: SOB, Cough Cardiovascular: absent: Chest Pain Gastrointestinal: absent: Abdominal Pain, Diarrhea, Nausea, Vomiting, Hematemesis Skin: absent: Rash, Pruritis Neurological: Focal Weakness. absent: Headache, Dizziness, Gait Changes, Speech Changes, Facial Droop, Disequilibrium, Seizure Psychiatric: absent: Anxiety, Depression <Luis Felipe Tilley - Last Filed: 01/03/18 21:28> Physical Exam Vital Signs Temp Pulse Resp BP Pulse Ox 01/03/18 20:28 19 95 01/03/18 20:24 98.5 F 75 20 117/68 96 01/03/18 17:51 97.8 F 86 18 111/68 99 01/03/18 16:17 86 18 106/73 98 <Ryan Patoper - Last Filed: 01/03/18 20:59> Vital Signs Reviewed: Yes Temperature: Afebrile Blood Pressure: Normal Pulse: Regular Respiratory Rate: Normal Appearance: Positive for: Well-Appearing, Non-Toxic, Comfortable Pain Distress: None Mental Status: Positive for: Alert and Oriented X 3 - Systems Exam Head: Present: Atraumatic, Normocephalic Pupils: Present: PERRL Extroacular Muscles: Present: EOMI Conjunctiva: Present: Normal Ears: Present: NORMAL TM, Normal Canal. No: Erythema Mouth: Present: Moist Mucous Membranes Nose (External): Present: Atraumatic. No: Abrasion, Contusion, Laceration Nose (Internal): Present: Normal Inspection, No Active Bleeding. No: Rhinorrhea, Septal Hematoma, Epistaxis Neck: Present: Normal Range of Motion, Trachea Midline. No: Meningeal Signs, MIDLINE TENDERNESS, Paraspinal Tenderness, Lymphadenopathy Respiratory/Chest: Present: Clear to Auscultation, Good Air Exchange. No: Respiratory Distress, Accessory Muscle Use Cardiovascular: Present: Regular Rate and Rhythm, Normal S1, S2. No: Murmurs Abdomen: No: Tenderness, Distention, Peritoneal Signs, Rebound, Guarding Back: Present: Normal Inspection. No: CVA Tenderness, Midline Tenderness, Paraspinal Tenderness, Pain with Leg Raise, Decubitus Ulcer Upper Extremity: Present: Normal Inspection, NORMAL PULSES, Capillary Refill < 2s, Other (RUE: mild swelling, full sensation intact to sharp and dull, motor 1/5 on the RUE vs. LUE motor 5/5, +radial pulse, capillary refill< 2 seconds, neurovascular intact. ). No: Cyanosis, Edema, Deformity Lower Extremity: Present: Normal Inspection, NORMAL PULSES, Normal ROM, Neurovascularly Intact. No: Edema, Tenderness, Swelling, Deformity Neurological: Present: GCS=15, CN II-XII Intact, Speech Normal, Gait Normal, Memory Normal, Other (NIHSS is 3 as she is RUE drift) Skin: Present: Warm, Dry, Normal Color. No: Rashes Psychiatric: Present: Alert, Oriented x 3, Normal Insight, Normal Concentration <Luis Felipe Tilley Q - Last Filed: 01/03/18 21:28> Medical Decision Making - Lab Interpretations Lab Results: 01/03/18 15:59 01/03/18 15:59 Lab Results 01/03/18 18:22: Blood Type Confirm O POSITIVE 01/03/18 16:06: Urine Color Dark yellow, Urine Appearance Slight-cloudy, Urine pH 6.5, Ur Specific [place] 1.020, Urine Protein 30 H, Urine Glucose (UA) Negative, Urine Ketones Trace H, Urine Blood Large H, Urine Nitrate Negative, Urine Bilirubin Small H, Urine Urobilinogen 1.0 H, Ur Leukocyte Esterase Trace H , Urine RBC 25 - 30, Urine WBC 1 - 3, Ur Epithelial Cells 6 - 8, Urine Bacteria Mod 01/03/18 15:59: Sodium 134, Potassium 3.6, Chloride 104, Carbon Dioxide 24, Anion Gap 10, BUN 17, Creatinine 0.6 L, Est GFR ( Amer) > 60, Est GFR (Non-Af Amer) > 60, Random Glucose 95, Calcium 8.5, Magnesium 2.1, Total Bilirubin 0.4, AST 113 H D, ALT 79 H, Alkaline Phosphatase 346 H, Total Protein 6.0, Albumin 3.4, Globulin 2.6, Albumin/Globulin Ratio 1.3 01/03/18 15:59: PT 11.8, INR 1.03, APTT 23.1 L 01/03/18 15:59: WBC 10.3, RBC 3.21 L, Hgb 9.5 L, Hct 28.7 L, MCV 89.4, MCH 29.6, MCHC 33.1, RDW 19.8 H, Plt Count 183, MPV 9.1, Gran % 77.6 H, Lymph % (Auto) 14.4 L, [place] % (Auto) 6.8 H, Eos % (Auto) 0.2 L, Baso % (Auto) 1.0, Gran # 7.96 H, Lymph # (Auto) 1.5, [place] # (Auto) 0.7 H, Eos # (Auto) 0.0, Baso # (Auto) 0.10, Corrected WBC (Man) 9.7, Neutrophils % (Manual) 73 H, Band Neutrophils % 3 H, Lymphocytes % (Manual) 11 L, Monocytes % (Manual) 7 H, Eosinophils % (Manual) 1, Metamyelocytes % 5, Nucleated RBC % 6, Platelet Evaluation Normal, Polychromasia Slight, Anisocytosis (manual) Slight 01/03/18 15:59: Blood Type O POSITIVE, Antibody Screen Negative, BBK History Checked No verified bt 01/03/18 15:55: POC Glucose (mg/dL) 106 - RAD Interpretation Radiology Orders: 01/03/18 15:19 CHEST PORTABLE [RAD] Stat SPINAL CANAL CERVICAL W/O CONT [MRI] Stat 01/03/18 15:21 DUPLEX UPPER EXTRM VEIN RIGHT [US] Stat 01/03/18 15:25 HEAD W/O CONTRAST [CT] Stat 01/03/18 16:30 BRAIN WITHOUT CONTRAST [MRI] Stat 01/03/18 16:32 CERVICAL SPINE W/O CONTRAST [CT] Stat - Medication Orders Current Medication Orders: Discontinued Medications Dexamethasone (Decadron Inj) 10 mg IVP STAT STA Stop: 01/03/18 19:54 Last Admin: 01/03/18 20:10 Dose: 10 mg IVP Administration Document 01/03/18 20:10 OCS (Rec: 01/03/18 20:10 OCS [id number]) Charges for Administration # of IVP Administrations 1 Nicotine (Nicoderm Cq) 1 patch TD DAILY LEXY Nicotine (Nicoderm Cq) 1 patch TD STAT STA Stop: 01/03/18 19:54 Last Admin: 01/03/18 20:09 Dose: 1 patch MAR Transdermal Patch Site Document 01/03/18 20:09 OCS (Rec: 01/03/18 20:09 OCS [id number]) Transdermal Patch Site Transdermal Patch Site Left Outer Upper Arm <David Pat - Last Filed: 01/03/18 20:59> ED Course and Treatment: 01/03/18 15:30 -Labs/coag panel -CT head r/o bleed -MRI Head/Cervical w/o contrast (pt. had systematic hives) -RUE Venuous doppler r/o dvt as she is hypercoagulable -IVF -Observe and reassess 01/03/18 16:33 -MRI is backed up and busy, stated that the test can not be performed until 10pm tonight, will proceed with CT head/cervical first 01/03/18 18:00 -NIHSS is 3 -EKG: NSR @ 71 BPM, no ST elevation or depression, no T wave inversion. -Chest xray: Lower lobe infiltrates/atelectasis radiographically new findings. -CT head show Multiple intracranial metastases as described above with surrounding edema. No evidence of midline shift. A 2.1 cm high left parietal metastasis may contain a tiny amount of hemorrhage centrally. No evidence of epidural, subdural or subarachnoid hemorrhage. No gross calvarial metastasis. -CT Cervical: Straightening of the normal cervical lordosis may be related to muscle spasm or positioning. Mild grade 1 anterolisthesis of C4 on C5. Fracture involving the right temporomandibular joint in region of lucency possibly pathologic fracture. Multilevel sclerotic foci involving the cervical spine and included upper thoracic spine worrisome for metastases. Recommend further evaluation with nuclear medicine bone scan or MRI without and with IV contrast. Qjju-[id number]-zodr-right small effusions and ground-glass infiltrates/atelectasis. Limited visualization of the brain demonstrates evidence of metastases within the cerebellum and brainstem; please refer to CT performed concurrently for more detailed discussion. -RUE Venuous doppler: as per preliminary report, no acute DVT -Labs show no acute findings except hgb 9.5 from 10.1 (chronic anemia) -Mag within normal limit -UA show +UTI, IV rocephine and urine culture ordered -Pt. feels -All labs/radiology result discussed with the patient/daughter and DR. Pat, paged out to DR. Penn about these results. As per daughter, the patient is DNR and not DNI. 01/03/18 18:08 -DR. Ramirez/DR. Penn paged due to the inconclusive 2.1cm lt. parietal mass metasis with possible hemorrhage found. 01/03/18 18:23 -I consulted with DR. Padron and discussed about the case/CT head result, recommend decadron 10mg IV stat (ordered), recommend consult with Dr. Penn and neurologist on this case as well. Dr. Ramirez stated that this is not surgical removal case. no aspirin or anticoagulant ordered as the CT can not rule bleed, will order statin once the MRI r/o cord compression. 01/03/18 18:39 -I spoke to Dr. Penn, recommend to consult with neurologist pavel, request to r/o cored compression, discussed about the labs/radiology results, paged out to Dr. Estrella already. Pending MRI result -Pt. request nicotine patch, ordered. 01/03/18 19:32 -Dr. Penn called back, recommend to admit to his service to ICU. -I spoke to Dr. Zimmerman, discussed about the case/labs 01/03/18 20:09 -Dr. Penn on the blue list, will admit to his partner Dr. Alan Georges 01/03/18 21:02 MR Cervical Spine CONTRAST: Without COMPARISON: None provided. FINDINGS: VERTEBRAE: No acute fracture or aggressive appearing osseous lesion. ALIGNMENT: Bony alignment is anatomic. SPINAL CORD: Normal signal and contour. FINDINGS BY LEVEL: C2-C3: No central canal or foraminal stenosis. C3-C4: No central canal or foraminal stenosis. C4-C5: 1.5 mm central disk herniation. No central canal or foraminal stenosis. C5-C6: 2 mm broad based disk herniation. Both foramina are narrowed. Canal is patent. C6-C7: 2 mm broad based disk herniation. Both foramina are narrowed. Canal is patent. C7-T1: No central canal or foraminal stenosis. PARASPINAL SOFT TISSUES: Unremarkable. IMPRESSION: No acute cervical spinal abnormality Disk herniations as above. No cord compression. No evidence of metastatic disease. MR Brain CONTRAST: Without COMPARISON: None provided. FINDINGS: BRAIN: Multiple parenchymal masses are scattered throughout the brain associated with diffuse vasogenic edema compatible with metastatic disease including left parietal (larget mass with large are of edema), right frontoparietal, left basal ganglia, right internal capsule, flakito, right temporal, left occipital, right and left cerebellum as well medulla. Local mass effect. Further evaluation with contrast enhanced MRI is recommended. VENTRICLES: No hydrocephalus. ORBITS: The orbits are normal. SINUSES AND MASTOIDS: The sinuses and mastoid air cells are clear. BONES: No focal osseous lesion. IMPRESSION: Diffuse metastatic disease as above. No midline shift. Further evaluation with contract enhanced MRI is recommended. - Critical Care Critical Care Minutes: 30 minutes Critical Care Time: Unstable - Lab Interpretations I have reviewed the lab results: Yes - RAD Interpretation Narrative RAD Interpretations (Text): 01/03/18 16:25 CT head: PROCEDURE: CT HEAD WITHOUT CONTRAST. HISTORY: RUE drift, breast CA, r/o bleed COMPARISON: None available. TECHNIQUE: Axial computed tomography images were obtained through the head/brain without intravenous contrast. Radiation dose: Total exam DLP = 845.3 mGy-cm. This CT exam was performed using one or more of the following dose reduction techniques: Automated exposure control, adjustment of the mA and/or kV according to patient size, and/or use of iterative reconstruction technique. FINDINGS: HEMORRHAGE: Questionable focal area of central hemorrhage within a high left parietal lobe metastasis. BRAIN: Multiple cerebral and cerebellar metastases with surrounding edema. For example in the high left parietal lobe there is a 2.1 x 1.8 cm metastasis with surrounding edema. Edema is seen within the right frontal lobe adjacent to a 0.6 x 0.8 cm diastasis. A 1.2 cm metastasis is seen in the left caudate head. Additional metastases are seen in the right basal ganglia, flakito and both cerebellar hemispheres. No atrophy or chronic microvascular ischemic changes. VENTRICLES: Unremarkable. No hydrocephalus. CALVARIUM: Unremarkable. PARANASAL SINUSES: Unremarkable as visualized. No significant inflammatory changes. MASTOID AIR CELLS: Unremarkable as visualized. No inflammatory changes. OTHER FINDINGS: None. IMPRESSION: Multiple intracranial metastases as described above with surrounding edema. No evidence of midline shift. A 2.1 cm high left parietal metastasis may contain a tiny amount of hemorrhage centrally. No evidence of epidural, subdural or coello barachnoid hemorrhage. No gross calvarial metastasis. CT Cervical: CT cervical spine without IV contrast Indication: Right upper extremity drift, breast cancer stage IV Comparison: None available. Technique: Axial computed tomography images were obtained of the cervical spine without the use of intravenous contrast. Coronal and sagittal reformatted images were created and reviewed. This CT exam was performed using 1 or more of the following dose reduction techniques: Automated exposure control, adjustment of the MAA and/or kV according to patient size, and/or use of iterative reconstruction technique. Radiation dose: Total exam DLP = 209.22 mGy-cm. Findings: Straightening of the normal cervical lordosis may be related to muscle spasm or positioning. Apparent fracture involving the right temporomandibular joint in region lucency possibly pathologic fracture. Multilevel sclerosis worrisome for metastases. Mild grade 1 anterolisthesis of C4 on C5. No evidence of cervical spine fracture. Alignment appears satisfactory intervertebral disc space narrowing most prominent at C5-C6. The prevertebral soft tissues and spinolaminar lines appear intact. The lateral masses are preserved. The dens tip is intact. There is proper alignment of the lateral masses of C1 with the C2 vertebral body. Included portions of the thyroid gland appear unremarkable. Included portions of lung apices demonstrates moni-zqqxjyi-onjm-right small effusions and ground- glass infiltrates/atelectasis. Limited visualization of the brain demonstrates evidence of metastases within the cerebellum and brainstem; please refer to CT performed concurrently for more detailed discussion. Right-sided MediPort. Impression: Straightening of the normal cervical lordosis may be related to muscle spasm or positioning. Mild grade 1 anterolisthesis of C4 on C5. Fracture involving the right temporomandibular joint in region of lucency possibly pathologic fracture. Multilevel sclerotic foci involving the cervical spine and included upper thoracic spine worrisome for metastases. Recommend further evaluation with nuclear medicine bone scan or MRI without and with IV contrast. Oudg-fyheund-iaxm-right small effusions and ground-glass infiltrat es/atelectasis. Limited visualization of the brain demonstrates evidence of metastases within the cerebellum and brainstem; please refer to CT performed concurrently for more detailed discussion. Chest xray: Date of service: 01/03/2018 HISTORY: medical clearance COMPARISON: 11/07/2017 abdomen includes lower lung jang. FINDINGS: LUNGS: Lower lobe infiltrates/atelectasis. PLEURA: Possible small pleural effusions. CARDIOVASCULAR: No radiographic findings to suggest acute or significant cardiovascular disease. Venous access catheter in satisfactory position. OSSEOUS STRUCTURES: No significant abnormalities. VISUALIZED UPPER ABDOMEN: Normal. OTHER FINDINGS: None. IMPRESSION: Lower lobe infiltrates/atelectasis radiographically new findings. RUE Venuous doppler: as per preliminary report, no acute DVT MRI Head: MRI Cervical: MR Cervical Spine CONTRAST: Without COMPARISON: None provided. FINDINGS: VERTEBRAE: No acute fracture or aggressive appearing osseous lesion. ALIGNMENT: Bony alignment is anatomic. SPINAL CORD: Normal signal and contour. FINDINGS BY LEVEL: C2-C3: No central canal or foraminal stenosis. C3-C4: No central canal or foraminal stenosis. C4-C5: 1.5 mm central disk herniation. No central canal or foraminal stenosis. C5-C6: 2 mm broad based disk herniation. Both foramina are narrowed. Canal is patent. C6-C7: 2 mm broad based disk herniation. Both foramina are narrowed. Canal is patent. C7-T1: No central canal or foraminal stenosis. PARASPINAL SOFT TISSUES: Unremarkable. IMPRESSION: No acute cervical spinal abnormality Disk herniations as above. No cord compression. No evidence of metastatic disease. MR Brain CONTRAST: Without COMPARISON: None provided. FINDINGS: BRAIN: Multiple parenchymal masses are scattered throughout the brain associated with diffuse vasogenic edema compatible with metastatic disease including left parietal (larget mass with large are of edema), right frontoparietal, left basal ganglia, right internal capsule, flakito, right temporal, left occipital, right and left cerebellum as well medulla. Local mass effect. Further evaluation with contrast enhanced MRI is recommended. VENTRICLES: No hydrocephalus. ORBITS: The orbits are normal. SINUSES AND MASTOIDS: The sinuses and mastoid air cells are clear. BONES: No focal osseous lesion. IMPRESSION: Diffuse metastatic disease as above. No midline shift. Further evaluation with contract enhanced MRI is recommended. Automatic Door Mechanic: Radiologist - EKG Interpretation EKG Interpretation (Text): 01/03/18 15:45 NSR @ 71 BPM, no ST elevation or depression, no T wave inversion. Interpreted by ED Physician: Yes Type: 12 lead EKG <Luis Felipe Tilley - Last Filed: 01/03/18 21:28> NIHSS Scale ([place]) Time Performed: 15:33 - How Severe is the [place] Baseline Level of Consciousness: 0=Alert LOC to Questions: 0=Both comments correct LOC to commands: 0=Obeys both correctly Best Gaze: 0=Normal Visual: 0=No visual loss Facial: 0=Normal Motor Arm - Left: 0=No drift Motor Arm - Right: 3=No effort against gravity (falls immediately) Motor Leg - Left: 0=No drift Motor Leg - Right: 0=No drift Limb Ataxia: 0=Absent Sensory: 0=Normal Best Language: 0=No aphasia Dysarthia: 0=Normal articulation Extinction & Inattention (Neglect): 0=Normal, no object Score: 3 Risk Level: Minor Stroke Risk <Luis Felipe Tilley - Last Filed: 01/03/18 21:28> rTPA Inclusion/Exclusion - Refusal of Treatment Patient Refused Treatment: No - Inclusion Criteria for Altepase Patient is 18 years or Older: Yes The Clinical Diagnosis of Ischemic Stroke That is Causing a Potentially Disabling Neurological Deficit: Yes Time of Onset is Well Established to be Less Than 270 Minute Before Treatment Would Begin: No Risk/Benefit Discussed With Patient/Family Member Present: Yes - Exclusion Criteria for Altepase Uncontrolled Hypertension at Time of Treatment (Systolic BP above 185 or Diastolic BP above 110 mmHg): No Active Internal Bleeding: No Known Bleeding Diathesis Including but Not Limited to: Platelets Below 100,000/mm,PTT Above 40 sec After Heparin Use, Current Use of Oral Anitcoagulant With INR Greater Than 1.7 or PT Greater Than 15 secs: No Evidence of an Intracranial Hemorrhage: Yes Evidence of Major Acute Infarct With Signs Greater Than 1/3 MCA Territory: No Suspicion of Subarachnoid Hemorrhage on Pretreatment Evaluation Even if CT Head Negative For Hemorrhage: No - Warning to TPA With Conditions Following Conditions Weighed Against Anticipated Benefit: Yes Condition: Stroke Serevity Too Mild <Luis Felipe Tilley - Last Filed: 01/03/18 21:28> - PA / CERTIFIED MASTER LOCKSMITH / Resident Statement CLEVE has reviewed & agrees with the documentation as recorded. <David Pat - Last Filed: 01/03/18 20:59> - PA / CERTIFIED MASTER LOCKSMITH / Resident Statement CLEVE has reviewed & agrees with the documentation as recorded. <Luis Felipe Tilley - Last Filed: 01/03/18 21:28> Disposition/Present on Arrival <David Pat - Last Filed: 01/03/18 20:59> - Present on Arrival Any Indicators Present on Arrival: No History of DVT/PE: No History of Uncontrolled Diabetes: No Urinary Catheter: No History of Decub. Ulcer: No History Surgical Site Infection Following: None - Disposition Have Diagnosis and Disposition been Completed?: Yes Disposition Time: 15:45 Patient Plan: Admission, ICU <Luis Felpie Tilley - Last Filed: 01/03/18 21:28> - Disposition Diagnosis: Metastasis to brain, Spine metastasis, Arm weakness, Abnormal CT scan, head, Breast cancer metastasized to bone Disposition: HOSPITALIZED Patient Problems: Current Active Problems Problem Status Onset Metastasis to brain Acute Spine metastasis Acute Arm weakness Acute Abnormal CT scan, head Acute Breast cancer metastasized to bone Acute Condition: GUARDED
[2018-01-03 16:04] LABS: EOS % 0.2 % (1.5-5.0); GRAN # 7.96 (1.4-6.5); GRAN % 77.6 % (50.0-68.0); HEMOGLOBIN 9.5 g/dL (12.0-16.0); LYMPH # 1.5 (1.2-3.4); LYMPH % 14.4 % (22.0-35.0); MEAN CELL VOLUME 89.4 fl (80.0-105.0); MEAN CORPUSCULAR HEMOGLOBIN 29.6 pg (25.0-35.0); MEAN CORPUSCULAR HGB CONC 33.1 g/dl (31.0-37.0); MEAN PLATELET VOLUME 9.1 fl (7.0-11.0); MONO # 0.7 (0.1-0.6); MONO % 6.8 % (1.0-6.0); PLATELET COUNT 183 10^3/uL (120.0-450.0); RBC 3.21 10^6/uL (3.5-6.1); RED CELL DISTRIBUTION WIDTH 19.8 % (11.5-14.5); WHITE BLOOD COUNT 10.3 10^3/ul (4.5-11.0)
[2018-01-03 16:11] LABS: PH,URINE 6.5 (4.7-8.0); URINE APPEARANCE SLIGHT-CLOUDY (CLEAR); URINE BILIRUBIN SMALL (NEGATIVE); URINE BLOOD LARGE (NEGATIVE); URINE COLOR DARK YELLOW (YELLOW); URINE GLUCOSE (UA) NEGATIVE (NEGATIVE); URINE LEUKOCYTE ESTERASE TRACE Leu/uL (NEGATIVE); URINE PROTEIN 30 mg/dL (<30 mg/dL)
[2018-01-03 16:13] LABS: INR 1.03; PARTIAL THROMBOPLASTIN TIME 23.1 Seconds (25.1-36.5); PROTHROMBIN TIME 11.8 SECONDS (9.4-12.5)
[2018-01-03 16:16] LABS: ALB/GLOB RATIO 1.3 (1.1-1.8); ALBUMIN 3.4 g/dL (3.0-4.8); ALT/SGPT 79 U/L (7-56); AST/SGOT 113 U/L (14-36); BLOOD UREA NITROGEN 17 mg/dL (7-21); CALCIUM 8.5 mg/dL (8.4-10.5); GFR NON-AFRICAN AMERICAN > 60
--- NOTE | 2018-01-03 16:21 | RAD ---
Date of service: 01/03/2018 HISTORY: medical clearance COMPARISON: 11/07/2017 abdomen includes lower lung jang. FINDINGS: LUNGS: Lower lobe infiltrates/atelectasis. PLEURA: Possible small pleural effusions. CARDIOVASCULAR: No radiographic findings to suggest acute or significant cardiovascular disease. Venous access catheter in satisfactory position. OSSEOUS STRUCTURES: No significant abnormalities. VISUALIZED UPPER ABDOMEN: Normal. OTHER FINDINGS: None. IMPRESSION: Lower lobe infiltrates/atelectasis radiographically new findings.
[2018-01-03 16:28] LABS: URINE BACTERIA MOD (NEG); URINE RBC 25 - 30 /hpf (0-2)
[2018-01-03 16:37] LABS: ANISOCYTOSIS SLIGHT; BAND 3 % (0-2); CORRECTED WBC 9.7 K/mm3 (4.5-11.0); EOSINOPHIL 1 % (0.0-3.0); LYMPHOCYTE 11 % (22.0-35.0); METAMYELOCYTE 5 %; MONOCYTE 7 % (1.0-6.0); NEUTROPHIL 73 % (50.0-70.0); NUCLEATED RED BLOOD CELL 6 %; PLATELET ESTIMATE NORMAL (NORMAL); POLYCHROMASIA SLIGHT
--- NOTE | 2018-01-03 17:23 | CT ---
Date of service: 01/03/2018 PROCEDURE: CT HEAD WITHOUT CONTRAST. HISTORY: RUE drift, breast CA, r/o bleed COMPARISON: None available. TECHNIQUE: Axial computed tomography images were obtained through the head/brain without intravenous contrast. Radiation dose: Total exam DLP = 845.3 mGy-cm. This CT exam was performed using one or more of the following dose reduction techniques: Automated exposure control, adjustment of the mA and/or kV according to patient size, and/or use of iterative reconstruction technique. FINDINGS: HEMORRHAGE: Questionable focal area of central hemorrhage within a high left parietal lobe metastasis. BRAIN: Multiple cerebral and cerebellar metastases with surrounding edema. For example in the high left parietal lobe there is a 2.1 x 1.8 cm metastasis with surrounding edema. Edema is seen within the right frontal lobe adjacent to a 0.6 x 0.8 cm diastasis. A 1.2 cm metastasis is seen in the left caudate head. Additional metastases are seen in the right basal ganglia, flakito and both cerebellar hemispheres. No atrophy or chronic microvascular ischemic changes. VENTRICLES: Unremarkable. No hydrocephalus. CALVARIUM: Unremarkable. PARANASAL SINUSES: Unremarkable as visualized. No significant inflammatory changes. MASTOID AIR CELLS: Unremarkable as visualized. No inflammatory changes. OTHER FINDINGS: None. IMPRESSION: Multiple intracranial metastases as described above with surrounding edema. No evidence of midline shift. A 2.1 cm high left parietal metastasis may contain a tiny amount of hemorrhage centrally. No evidence of epidural, subdural or subarachnoid hemorrhage. No gross calvarial metastasis. Findings discussed with KONSTANTIN Tilley by Dr. Alvarez at 5:20 p.m. on 01/03/2018.
--- NOTE | 2018-01-03 17:36 | CT ---
Date of service: 01/03/18 CT cervical spine without IV contrast Indication: Right upper extremity drift, breast cancer stage IV Comparison: None available. Technique: Axial computed tomography images were obtained of the cervical spine without the use of intravenous contrast. Coronal and sagittal reformatted images were created and reviewed. This CT exam was performed using 1 or more of the following dose reduction techniques: Automated exposure control, adjustment of the MAA and/or kV according to patient size, and/or use of iterative reconstruction technique. Radiation dose: Total exam DLP = 209.22 mGy-cm. Findings: Straightening of the normal cervical lordosis may be related to muscle spasm or positioning. Apparent fracture involving the right temporomandibular joint in region lucency possibly pathologic fracture. Multilevel sclerosis worrisome for metastases. Mild grade 1 anterolisthesis of C4 on C5. No evidence of cervical spine fracture. Alignment appears satisfactory intervertebral disc space narrowing most prominent at C5-C6. The prevertebral soft tissues and spinolaminar lines appear intact. The lateral masses are preserved. The dens tip is intact. There is proper alignment of the lateral masses of C1 with the C2 vertebral body. Included portions of the thyroid gland appear unremarkable. Included portions of lung apices demonstrates [id number]-right small effusions and ground-glass infiltrates/atelectasis. Limited visualization of the brain demonstrates evidence of metastases within the cerebellum and brainstem; please refer to CT performed concurrently for more detailed discussion. Right-sided MediPort. Impression: Straightening of the normal cervical lordosis may be related to muscle spasm or positioning. Mild grade 1 anterolisthesis of C4 on C5. Fracture involving the right temporomandibular joint in region of lucency possibly pathologic fracture. Multilevel sclerotic foci involving the cervical spine and included upper thoracic spine worrisome for metastases. Recommend further evaluation with nuclear medicine bone scan or MRI without and with IV contrast. Bcsv-[id number]-[id number]-right small effusions and ground-glass infiltrates/atelectasis. Limited visualization of the brain demonstrates evidence of metastases within the cerebellum and brainstem; please refer to CT performed concurrently for more detailed discussion. Findings discussed with KONSTANTIN Jamison on 01/03/18 at 5:29 p.m.
[2018-01-03] MEDS ORDERED: Morphine 4 mg/ml ISec IM STA (21:07)
[2018-01-03] MEDS ORDERED: Morphine 2 mg/ml ISec IVP PRN (21:47)
--- NOTE | 2018-01-03 21:56 | CP.PCM.CON ---
<Quang Pollack - Last Filed: 01/04/18 02:09> History of Present Illness - History of Present Illness History of Present Illness: Quang Pollack PGY1 ICU Consult Note for Dr Zimmerman Pt is a 52yo female with a PMH of Stage IV breast cancer (no lumpectomy, no mastectomy) with metastasis to the pelvis, spine and brain which was diagnosed in July 2017, and hypothyroidism presents to the ED after being sent in by Dr Penn, complaining of weakness, numbness, and tingling of her RUE. Pt daughter Ella, her POA, is at bedside and acting as a district manager in training. Pt has been experiencing paralysis of her RUE with comes and goes. Pt states this has been made worse by the chemotherapy which she received yesterday, taxol and Herceptin. She noticed that the weakness, numbness, tingling has gotten progr essively worse since Saturday or Saturday and exacerbated by her chemo treatment. Pt reports trouble with walking, which could possibly be due to the mets to her hip. Pt also reports some "double vision" which occurs off and on. Pt daughter reports she has had some difficulty with speaking, but no trouble comprehension. Pt daughter also relates that she has noticed that her mother has had memory problems recently. Pt denies headache, chest pain, SOB, dizziness, or vomiting. A 12 point ROS was obtained and added to the HPI where appropriate. PMH: Stage IV breast cancer, Her2/cale positive, R breast radiation 16 sessions, R hip radiation 10 sessions hypothyroidism, anxiety, depression PSH: hysterectomy 2018 FH: Mother 78 dementia. Father 80 PAD double LE amputation. SH: tobacco 2ppd for over 30 years, current smoker, alcohol quit 3 years ago, used to drink heavily, denies drugs. Home Meds: levothyroxine 137mcg, Allergies: contrast, rash PMD/ Heme onc: Fili Review of Systems - Review of Systems Review of Systems: a 12 point ROS was obtained and added to the HPI where appropriate Past Patient History - Infectious Disease Hx of Infectious Diseases: None - Past Social History Smoking Status: Heavy Smoker > 10 Cigarettes Daily - CARDIAC Hx Cardiac Disorders: No - NEUROLOGICAL Hx Paralysis: No - ENDOCRINE/METABOLIC Hx Diabetes Mellitus Type 2: Yes - HEMATOLOGICAL/ONCOLOGICAL Hx Blood Transfusions: No Hx Cancer: Yes (Breast) - MUSCULOSKELETAL/RHEUMATOLOGICAL Hx Falls: No - GENITOURINARY/GYNECOLOGICAL Other/Comment: Stage 4 metastatic breast cancer - PSYCHIATRIC Hx Emotional Abuse: No Hx Physical Abuse: No Hx Substance Use: No - SURGICAL HISTORY Hx Surgeries: Yes - ANESTHESIA Hx Anesthesia: Yes Hx Anesthesia Reactions: No Hx Malignant Hyperthermia: No Meds Allergies/Adverse Reactions: Allergies Allergy/AdvReac Type Severity Reaction Status Date / Time CONTRAST Allergy Severe RASH/HIVES Uncoded 01/03/18 14:54 Physical Exam - Constitutional Appears: No Acute Distress - Head Exam Head Exam: ATRAUMATIC, NORMOCEPHALIC - Eye Exam Eye Exam: EOMI - ENT Exam ENT Exam: Mucous Membranes Moist - Respiratory Exam Respiratory Exam: Clear to Auscultation Bilateral, NORMAL BREATHING PATTERN. absent: Accessory Muscle Use, Respiratory Distress - Cardiovascular Exam Cardiovascular Exam: RRR, +S1, +S2 - GI/Abdominal Exam GI & Abdominal Exam: Normal Bowel Sounds, Soft - Neurological Exam Neurological exam: Alert, CN II-XII Intact, Oriented x3 Additional comments: 3/5 line manager strength in her RUE, 5/5 in LUE 4/5 strength in RLE, 5/5 LLE - Psychiatric Exam Psychiatric exam: Normal Affect, Normal Mood - Skin Skin Exam: Dry, Normal Color, Warm Results - Vital Signs Recent Vital Signs: Last Vital Signs Temp 98.5 F 01/03/18 20:24 Pulse 75 01/03/18 20:24 Resp 19 01/03/18 20:28 BP 117/68 01/03/18 20:24 Pulse Ox 95 01/03/18 20:28 - Labs Result Diagrams: 01/03/18 15:59 01/03/18 15:59 Labs: Laboratory Results - last 24 hr 01/03/18 01/03/18 01/03/18 15:55 15:59 15:59 WBC 10.3 RBC 3.21 L Hgb 9.5 L Hct 28.7 L MCV 89.4 MCH 29.6 MCHC 33.1 RDW 19.8 H Plt Count 183 MPV 9.1 Gran % 77.6 H Lymph % (Auto) 14.4 L [place] % (Auto) 6.8 H Eos % (Auto) 0.2 L Baso % (Auto) 1.0 Gran # 7.96 H Lymph # (Auto) 1.5 Z[place]ata # (Auto) 0.7 H Eos # (Auto) 0.0 Baso # (Auto) 0.10 Corrected WBC (Man) 9.7 Neutrophils % (Manual) 73 H Band Neutrophils % 3 H Lymphocytes % (Manual) 11 L Monocytes % (Manual) 7 H Eosinophils % (Manual) 1 Metamyelocytes % 5 Nucleated RBC % 6 Platelet Evaluation Normal Polychromasia Slight Anisocytosis (manual) Slight PT INR APTT Sodium Potassium Chloride Carbon Dioxide Anion Gap BUN Creatinine Est GFR ( Amer) Est GFR (Non-Af Amer) POC Glucose (mg/dL) 106 Random Glucose Calcium Magnesium Total Bilirubin AST ALT Alkaline Phosphatase Total Protein Albumin Globulin Albumin/Globulin Ratio Urine Color Urine Appearance Urine pH Ur Specific [place] Urine Protein Urine Glucose (UA) Urine Ketones Urine Blood Urine Nitrate Urine Bilirubin Urine Urobilinogen Ur Leukocyte Esterase Urine RBC Urine WBC Ur Epithelial Cells Urine Bacteria Blood Type O POSITIVE Blood Type Confirm Antibody Screen Negative BBK History Checked No verified bt 01/03/18 01/03/18 01/03/18 15:59 15:59 16:06 WBC RBC Hgb Hct MCV MCH MCHC RDW Plt Count MPV Gran % Lymph % (Auto) Z[place] % (Auto) Eos % (Auto) Baso % (Auto) Gran # Lymph # (Auto) [place] # (Auto) Eos # (Auto) Baso # (Auto) Corrected WBC (Man) Neutrophils % (Manual) Band Neutrophils % Lymphocytes % (Manual) Monocytes % (Manual) Eosinophils % (Manual) Metamyelocytes % Nucleated RBC % Platelet Evaluation Polychromasia Anisocytosis (manual) PT 11.8 INR 1.03 APTT 23.1 L Sodium 134 Potassium 3.6 Chloride 104 Carbon Dioxide 24 Anion Gap 10 BUN 17 Creatinine 0.6 L Est GFR ( Amer) > 60 Est GFR (Non-Af Amer) > 60 POC Glucose (mg/dL) Random Glucose 95 Calcium 8.5 Magnesium 2.1 Total Bilirubin 0.4 AST 113 H D ALT 79 H Alkaline Phosphatase 346 H Total Protein 6.0 Albumin 3.4 Globulin 2.6 Albumin/Globulin Ratio 1.3 Urine Color Dark yellow Urine Appearance Slight-cloudy Urine pH 6.5 Ur Specific [place] 1.020 Urine Protein 30 H Urine Glucose (UA) Negative Urine Ketones Trace H Urine Blood Large H Urine Nitrate Negative Urine Bilirubin Small H Urine Urobilinogen 1.0 H Ur Leukocyte Esterase Trace H Urine RBC 25 - 30 Urine WBC 1 - 3 Ur Epithelial Cells 6 - 8 Urine Bacteria Mod Blood Type Blood Type Confirm Antibody Screen BBK History Checked 01/03/18 18:22 WBC RBC Hgb Hct MCV MCH MCHC RDW Plt Count MPV Gran % Lymph % (Auto) Zap[place] % (Auto) Eos % (Auto) Baso % (Auto) Gran # Lymph # (Auto) [place] # (Auto) Eos # (Auto) Baso # (Auto) Corrected WBC (Man) Neutrophils % (Manual) Band Neutrophils % Lymphocytes % (Manual) Monocytes % (Manual) Eosinophils % (Manual) Metamyelocytes % Nucleated RBC % Platelet Evaluation Polychromasia Anisocytosis (manual) PT INR APTT Sodium Potassium Chloride Carbon Dioxide Anion Gap BUN Creatinine Est GFR ( Amer) Est GFR (Non-Af Amer) POC Glucose (mg/dL) Random Glucose Calcium Magnesium Total Bilirubin AST ALT Alkaline Phosphatase Total Protein Albumin Globulin Albumin/Globulin Ratio Urine Color Urine Appearance Urine pH Ur Specific [place] Urine Protein Urine Glucose (UA) Urine Ketones Urine Blood Urine Nitrate Urine Bilirubin Urine Urobilinogen Ur Leukocyte Esterase Urine RBC Urine WBC Ur Epithelial Cells Urine Bacteria Blood Type Blood Type Confirm O POSITIVE Antibody Screen BBK History Checked Assessment & Plan - Assessment and Plan (Free Text) Assessment: Pt is a 52yo female with a PMH of Stage IV breast cancer (no lumpectomy, no mastectomy) with metastasis to the pelvis, spine and brain which was diagnosed in July 2017, and hypothyroidism presents to the ED after being sent in by Dr Penn, complaining of weakness, numbness, and tingling of her RUE, being treated for a possible hemorrhagic stroke. Plan: Neuro Focal neurologic deficit - Decadron 10mg x1 was given in ED, day team should contact Dr Estrella regarding whether to start decadron, and what is the dosage to prevent cerebral edema - Dr Ramirez contacted in the ED, recommends no surgical intervention at this time. - will give 4mg of Decadron in the morning at 7am - neuro checks - speech and swallow eval - aspiration precautions - seizure precautions - fall precautions - atorvastain 20mg PO stat - CT head: Multiple intracranial metastases as described above with surrounding edema. No evidence of midline shift. A 2.1 cm high left parietal metastasis may contain a tiny amount of hemorrhage centrally. No evidence of epidural, subdural or subarachnoid hemorrhage. No gross calvarial metastasis. - neurosurgery following - neuro consulted, Dr Estrella - Brain MRI: results pending - hold zolpidem, until results of speech and swallow - 01/03/18 18:00 - NIHSS is 3 Heme/Onc History of Breast Cancer with mets - pain control, Morphine 2mg q4 PRN - continue to follow with Dr Penn - CT Cervical: Mild grade 1 anterolisthesis of C4 on C5. Fracture involving the right temporomandibular joint in region of lucency possibly pathologic fracture. Multilevel sclerotic foci involving the cervical spine and included upper th oracic spine worrisome for metastases. Recommend further evaluation with nuclear medicine bone scan or MRI without and with IV contrast. Pilf-[id number]-right small effusions and ground-glass infil trates/atelectasis. Limited visualization of the brain demonstrates evidence of metastases within the cerebellum and brainstem; please refer to CT performed concurrently for more detailed discussion. - consider ENT consult for orbital fracture Endocrinology History of Hypothyroidism - hold Levothyroxine 137mcg, until speech and swallow has been performed - follow up TSH - maintain euglycemia Cardio - HR 72, 112/65 - EKG: NSR, possible old anterior infarct - maintain MAP over 65 GI - hold docusate until speech and swallow Psyc History of Anxiety and Depression - psyc consulted, appreciate recommendations - hold paroxitine, until results of speech and swallow Pulm - keep PAO2 above 92% / Nephro UTI - follow up urine culture - monitor I/O - monitor electrolytes Ppx/ Diet - SCD - Protonix - NPO, until speech and swallow eval Pt seen, examined, assessment and plan with Dr Erasmo Pollack PGY1 - Date & Time Date: 01/03/18 Time: 23:22 NIHSS Stroke Scale - Date/Time Evaluation Performed Date Performed: 01/04/18 Time Performed: 00:32 When Was NIHSS Performed: Other - How Severe is the Stoke Level of Consciousness: 0=Alert LOC to Questions: 0=Both comments correct LOC to commands: 0=Obeys both correctly Best Gaze: 0=Normal Visual: 0=No visual loss Facial: 0=Normal Motor Arm - Left: 0=No drift Motor Arm - Right: 1=Drift noted before 10 sec Motor Leg - Left: 0=No drift Motor Leg - Right: 1=Drift before 5 sec Limb Ataxia: 0=Absent Sensory: 0=Normal Best Language: 0=No aphasia Dysarthia: 0=Normal articulation Extinction & Inattention (Neglect): 0=Normal, no object Score: 2 Severity Of Stroke: 1-4= Minor Stroke <John Zimmerman - Last Filed: 01/04/18 04:46> Meds - Medications Medications: Current Medications Dexamethasone (Decadron Inj) 4 mg IVP ONCE ONE Stop: 01/04/18 07:01 Morphine Sulfate (Morphine) 2 mg IVP Q4 PRN PRN Reason: Pain, moderate (4-7) Last Admin: 01/04/18 03:47 Dose: 2 mg Results - Vital Signs Recent Vital Signs: Last Vital Signs Temp 98.6 F 01/04/18 01:44 Pulse 77 01/04/18 01:44 Resp 18 01/04/18 01:44 BP 112/65 01/04/18 00:42 Pulse Ox 98 01/04/18 00:42 - Labs Result Diagrams: 01/03/18 15:59 01/03/18 15:59 Labs: Laboratory Results - last 24 hr 01/03/18 01/03/18 01/03/18 15:55 15:59 15:59 WBC 10.3 RBC 3.21 L Hgb 9.5 L Hct 28.7 L MCV 89.4 MCH 29.6 MCHC 33.1 RDW 19.8 H Plt Count 183 MPV 9.1 Gran % 77.6 H Lymph % (Auto) 14.4 L Zap[place] % (Auto) 6.8 H Eos % (Auto) 0.2 L Baso % (Auto) 1.0 Gran # 7.96 H Lymph # (Auto) 1.5 [place] # (Auto) 0.7 H Eos # (Auto) 0.0 Baso # (Auto) 0.10 Corrected WBC (Man) 9.7 Neutrophils % (Manual) 73 H Band Neutrophils % 3 H Lymphocytes % (Manual) 11 L Monocytes % (Manual) 7 H Eosinophils % (Manual) 1 Metamyelocytes % 5 Nucleated RBC % 6 Platelet Evaluation Normal Polychromasia Slight Anisocytosis (manual) Slight PT INR APTT Sodium Potassium Chloride Carbon Dioxide Anion Gap BUN Creatinine Est GFR ( Amer) Est GFR (Non-Af Amer) POC Glucose (mg/dL) 106 Random Glucose Calcium Magnesium Total Bilirubin AST ALT Alkaline Phosphatase Total Protein Albumin Globulin Albumin/Globulin Ratio Urine Color Urine Appearance Urine pH Ur Specific [place] Urine Protein Urine Glucose (UA) Urine Ketones Urine Blood Urine Nitrate Urine Bilirubin Urine Urobilinogen Ur Leukocyte Esterase Urine RBC Urine WBC Ur Epithelial Cells Urine Bacteria Blood Type O POSITIVE Blood Type Confirm Antibody Screen Negative BBK History Checked No verified bt 01/03/18 01/03/18 01/03/18 15:59 15:59 16:06 WBC RBC Hgb Hct MCV MCH MCHC RDW Plt Count MPV Gran % Lymph % (Auto) Z[place] % (Auto) Eos % (Auto) Baso % (Auto) Gran # Lymph # (Auto) [place] # (Auto) Eos # (Auto) Baso # (Auto) Corrected WBC (Man) Neutrophils % (Manual) Band Neutrophils % Lymphocytes % (Manual) Monocytes % (Manual) Eosinophils % (Manual) Metamyelocytes % Nucleated RBC % Platelet Evaluation Polychromasia Anisocytosis (manual) PT 11.8 INR 1.03 APTT 23.1 L Sodium 134 Potassium 3.6 Chloride 104 Carbon Dioxide 24 Anion Gap 10 BUN 17 Creatinine 0.6 L Est GFR ( Amer) > 60 Est GFR (Non-Af Amer) > 60 POC Glucose (mg/dL) Random Glucose 95 Calcium 8.5 Magnesium 2.1 Total Bilirubin 0.4 AST 113 H D ALT 79 H Alkaline Phosphatase 346 H Total Protein 6.0 Albumin 3.4 Globulin 2.6 Albumin/Globulin Ratio 1.3 Urine Color Dark yellow Urine Appearance Slight-cloudy Urine pH 6.5 Ur Specific [place] 1.020 Urine Protein 30 H Urine Glucose (UA) Negative Urine Ketones Trace H Urine Blood Large H Urine Nitrate Negative Urine Bilirubin Small H Urine Urobilinogen 1.0 H Ur Leukocyte Esterase Trace H Urine RBC 25 - 30 Urine WBC 1 - 3 Ur Epithelial Cells 6 - 8 Urine Bacteria Mod Blood Type Blood Type Confirm Antibody Screen BBK History Checked 01/03/18 18:22 WBC RBC Hgb Hct MCV MCH MCHC RDW Plt Count MPV Gran % Lymph % (Auto) [place] % (Auto) Eos % (Auto) Baso % (Auto) Gran # Lymph # (Auto) [place] # (Auto) Eos # (Auto) Baso # (Auto) Corrected WBC (Man) Neutrophils % (Manual) Band Neutrophils % Lymphocytes % (Manual) Monocytes % (Manual) Eosinophils % (Manual) Metamyelocytes % Nucleated RBC % Platelet Evaluation Polychromasia Anisocytosis (manual) PT INR APTT Sodium Potassium Chloride Carbon Dioxide Anion Gap BUN Creatinine Est GFR ( Amer) Est GFR (Non-Af Amer) POC Glucose (mg/dL) Random Glucose Calcium Magnesium Total Bilirubin AST ALT Alkaline Phosphatase Total Protein Albumin Globulin Albumin/Globulin Ratio Urine Color Urine Appearance Urine pH Ur Specific [place] Urine Protein Urine Glucose (UA) Urine Ketones Urine Blood Urine Nitrate Urine Bilirubin Urine Urobilinogen Ur Leukocyte Esterase Urine RBC Urine WBC Ur Epithelial Cells Urine Bacteria Blood Type Blood Type Confirm O POSITIVE Antibody Screen BBK History Checked Attending/Attestation - Attestation I have personally seen and examined this patient.: Yes I have fully participated in the care of the patient.: Yes I have reviewed all pertinent clinical information: Yes Notes (Text): 01/04/18 04:34 Patient was seen when she was in bed # 19 in the ER. Medical record was reviewed. Agree with history , physical examination, assessment and plan. This 52 year old woman with history of stage IV breast cancer ,hypothyroidism, had right hip pain,right arm floppiness, speech difficulty, CT head showed left parietal metastasis with tiny hemorrahge.
[2018-01-04] MEDS: Morphine 2 mg/ml ISec IVP PRN ×2 (03:47→10:17)
[2018-01-04] MEDS ORDERED: Morphine 2 mg/ml ISec IVP STA (05:55)
[2018-01-04] MEDS ORDERED: Dexamethasone 4 mg/1 ml IVP ONE (07:00)
--- NOTE | 2018-01-04 08:41 | PN ---
DATE: 01/04/2018 [facility] NOTE SUBJECTIVE: The patient is resting in bed, comfortable at this time, hemodynamically stable, O2 via nasal cannula. No respiratory distress. No complaints of significant pain.. No fever, chills, nausea or vomiting. She continues to have the weakness on the right lower right side. The patient is waiting for swollowing and evaluation for possible aphasia. PHYSICAL EXAMINATION: VITAL SIGNS: Note that her temperature is 98.4, her pulse is 74, respirations are 18, BP is 112/65. O2 saturation is 98%. HEENT: Head is atraumatic, normocephalic. Eyes: No change. Ears, nose and throat seemed to be within normal limits. NECK: Supple. No JVD. No thyroid enlargement. No lymph nodes. HEART: Has regular rate and rhythm. Normal S1, S2. LUNGS: Reveal good breath sounds bilaterally. ABDOMEN: Soft. Decreased bowel sounds. GENITALIA: Deferred. RECTAL: Deferred. MUSCULOSKELETAL: No joint deformities. EXTREMITIES: Reveal trace lower extremity edema. NEUROLOGIC: She has the weakness on the right side. DATA: The patient's laboratories reveal a white count of 10.3, hemoglobin of 9.5, hematocrit 28.7 with platelets of 183,000. Sodium is 134, potassium 3.6, chloride 104, CO2 of 24 with a BUN of 17, creatinine of 0.6 and a glucose of 95. Note that these are labs from 01/03/2018. Today's labs are pending. IMPRESSION: As far as impression, this patient has history of breast carcinoma stage IV with bone as well as brain metastatic lesions. She has a small cerebral hemorrhage and presents with right-sided weakness and aphasia. The patient has a history of right hip pathological fracture, hypothyroidism, mild increase in liver function tests as well as anemia. PLAN: As far as our plan, we will continue to observe closely in the Intensive Care Unit. She is being followed by Neurosurgery as well as Neurology and Oncology. The patient is scheduled for a MRI of the head and is getting morphine p.r.n. for pain. We will continue to treat aggressively along with the other consultants and the primary care doctor. Caesar Arzate MD MTDKevan
--- NOTE | 2018-01-04 09:01 | CARD ---
APPROVED REPORT Date of service: 01/03/2018 EKG Measurement Heart [id number] <Conclusion> Normal sinus rhythm Low voltage lateral precordial leads.
--- NOTE | 2018-01-04 09:43 | CP.PCM.PN ---
Subjective - Date & Time of Evaluation Date of Evaluation: 01/04/18 Time of Evaluation: 09:41 - Subjective Subjective: pt with stage [address]/MRI mult brain and bony spine mets mets included in flakito and cerebellum This is not surgical disease C-spine is stable suggest palliative care If pt and family want to be agressive then chemo/RT no place for surgery in managment Objective - Vital Signs/Intake and Output Vital Signs (last 24 hours): Temp Pulse Resp BP Pulse Ox 98.4 F 72 18 112/65 98 01/04/18 04:00 01/04/18 05:57 01/04/18 01:44 01/04/18 00:42 01/04/18 00:42 Intake and Output: 01/04/18 01/04/18 06:59 18:59 Intake Total 10 Output Total 600 Balance -590 - Medications Medications: Current Medications Morphine Sulfate (Morphine) 2 mg IVP Q4 PRN PRN Reason: Pain, moderate (4-7) Last Admin: 01/04/18 03:47 Dose: 2 mg - Labs Labs: 01/03/18 15:59 01/03/18 15:59 PT 11.8 SECONDS (9.4-12.5) 01/03/18 15:59 INR 1.03 01/03/18 15:59 APTT 23.1 Seconds (25.1-36.5) L 01/03/18 15:59
[2018-01-04 10:19] LABS: BASO # 0.03 K/mm3 (0.0-2.0); BASO % 0.3 % (0.0-3.0); GRAN # 7.6 (1.4-6.5); GRAN % 84.4 % (50.0-68.0); HEMOGLOBIN 9.2 g/dL (12.0-16.0); LYMPH # 0.9 (1.2-3.4); LYMPH % 9.9 % (22.0-35.0); MEAN CELL VOLUME 90.2 fl (80.0-105.0); MEAN CORPUSCULAR HEMOGLOBIN 29.1 pg (25.0-35.0); MEAN CORPUSCULAR HGB CONC 32.3 g/dl (31.0-37.0); MEAN PLATELET VOLUME 8.9 fl (7.0-11.0); MONO # 0.5 (0.1-0.6); MONO % 5.4 % (1.0-6.0); RBC 3.16 10^6/uL (3.5-6.1); RED CELL DISTRIBUTION WIDTH 19.9 % (11.5-14.5)
[2018-01-04 10:31] LABS: ALB/GLOB RATIO 1.2 (1.1-1.8); ALBUMIN 3.1 g/dL (3.0-4.8); ALT/SGPT 66 U/L (7-56); AST/SGOT 92 U/L (14-36); BLOOD UREA NITROGEN 16 mg/dL (7-21); CALCIUM 8.5 mg/dL (8.4-10.5); GFR NON-AFRICAN AMERICAN > 60
--- NOTE | 2018-01-04 10:34 | CP.PCM.PCO ---
Addendum Addendum: I met with patient at bedside. She is fairly alert and superficially oriented to location and circumstances. She defers on any psychiatric management at this time. She is not suicidal and denies thoughts to harm others. Delusions or paranoia were not elicited. Patient does not present as an acute danger to herself or others. At this time psychiatry will respect patient's wishes and sign off. Patient aware she may request our f/u at any time if she should change her mind.
[2018-01-04] MEDS ORDERED: HYDROmorphone 1 mg/ml ISec IVP STA (12:15)
[2018-01-04] MEDS: Enoxaparin 40 mg Syringe SC SCH (12:40)
[2018-01-04] MEDS: Dextrose 5%/0.45% NS 1,000 ML IV SCH (12:40)
[2018-01-04] MEDS: HYDROmorphone 1 mg/ml ISec IVP SCH ×5 (14:28→22:07)
--- NOTE | 2018-01-04 16:02 | CON ---
DATE: 01/04/2018 HISTORY OF PRESENT ILLNESS: The patient is a 52-year-old female, originally from [facility], has a history of stage IV breast cancer, underwent chemotherapy as well as local radiation therapy. According to the daughter, the patient had pelvic metastasis at the time of her diagnosis and was recently referred for x-ray. It revealed fracture in the right hip. The patient was noted to have flaccid right arm of acute onset. There is known cardiac history according to the daughter. MEDICATIONS: Current medications are Decadron 6 mg intravenously every 6 hours, Dilaudid 1 mg intravenously every 2 hours, Lovenox 40 mg subcutaneously once a day, Nicoderm patch, Protonix 40 mg intravenously once a day, Synthroid 125 mcg once a day. PHYSICAL EXAMINATION: GENERAL: The patient is a middle-aged female, who does not appear to be in acute respiratory distress. VITAL SIGNS: Blood pressure 112/65, heart rate 72, temperature 98.2, respirations 18. HEENT: Pale conjunctivae. NECK: No JVD. CHEST: Diminished breath sounds over the bases. HEART: S1 and S2 regular. EXTREMITIES: 1+ pitting edema. LABORATORY DATA: Today's SMA-7 is within normal limit except for creatinine of 0.5. AST and ALT are 92 and 66 respectively. TSH level is elevated at 6.22, alkaline phosphatase 323. INR 1.03, PTT 23.1. Hemoglobin and hematocrit 9.2 and 28.5. White count and platelet count are within normal limit. Cervical spine CT scan revealed straightening of the cervical lordosis. Mild grade I anterolisthesis of C4 on C5. Fracture involving the right temporomandibular joint in the region of lucency, possibly a pathologic fracture. Multiple sclerotic foci involving the cervical spine and included upper thoracic spine, worrisome for metastasis. Left greater than right small effusion and ground-glass infiltrate/atelectasis. Limited visualization of the brain demonstrated evidence of metastasis within the cerebellum and brainstem. Head CT scan done earlier revealed multiple intracranial metastasis. No evidence of midline shift. EKG revealed sinus rhythm at rate of 71. Reversed R-wave progression. A brain MRI was performed, the report is still pending. Pelvic CT scan performed 5 days ago revealed acute pathologic fracture through the right hemipelvis centered above the acetabulum with comminution and distracted fragments anteriorly and posteriorly. Femoral head, femoral neck regions are unaffected. ASSESSMENT: 1. Metastatic breast cancer with bilateral brain metastasis and comminuted fracture of the right hemipelvis as well as possible metastasis involving the cervical spines and the temporomandibular joint. 2. Anemia. 3. Hypothyroidism. RECOMMENDATIONS: Continue current Decadron 6 mg intravenously every 6 hours, Lovenox 40 mg subcutaneously once a day, Protonix 40 mg intravenously daily, Synthroid 125 mcg once a day. Venous Doppler of lower extremity was ordered and is still pending. The overall prognosis is grave and supportive and comfort measures are practically only justified at this time. Ang Whitman MD
[2018-01-04] MEDS: Dexamethasone 4 mg/1 ml IVP SCH (17:10)
--- NOTE | 2018-01-04 18:03 | MRI ---
Date of service: 01/03/2018 PROCEDURE: MRI BRAIN WITHOUT CONTRAST HISTORY: TIM sandra, breast cancer mestasis patient COMPARISON: Comparison made with prior CT scan brain 01/03/2018.. TECHNIQUE: Multiplanar, multisequence MR images of the brain were obtained without intravenous contrast enhancement. FINDINGS: HEMORRHAGE: The current study reveals numerous varying sized rounded metastatic lesions scattered throughout the supratentorial as well as the infratentorial compartment. Lesions are seen within both cerebral and cerebellar hemispheres as well as both basal nuclei and brainstem. The largest of these lesions is located in the left parietal lobe measuring approximately 18 mm and a exhibits a large surrounding rim of vasogenic white matter edema and secondary mass effect with overlying sulcal effacement and compression and slight inferior displacement of the posterior margin of the left lateral ventricle.. Note that this lesion also exhibits faint restricted diffusion. Additional lesions are present within both basal nuclei as well as scattered throughout the right cerebral hemisphere. The brainstem lesion of also is surrounded by a moderate amount of vasogenic edema with apparent early compression of the aqueduct and 4th ventricle. DWI: No evidence of acute infarct however see above discussion for additional details.. BRAIN PARENCHYMA: There may also be some minimal chronic periventricular white matter ischemic changes. VENTRICLES: No obstructive hydrocephalus seen at this time. CRANIUM: No obvious metastatic calvarial lesions seen at this time. ORBITS: Grossly unremarkable. PARANASAL SINUSES/MASTOIDS: Clear VASCULAR SYSTEM: Visualized major vascular flow voids at skull base appear patent. OTHER FINDINGS: None. IMPRESSION: There are numerous varying sized rounded metastatic lesions throughout both both cerebral and cerebellar hemispheres, both basal nuclei as well as within the brainstem. The largest lesion in the left parietal lobe has a very large surrounding rim of vasogenic edema exerts considerable surrounding mass effect. See above discussion for additional findings and details.
[2018-01-05] MEDS: HYDROmorphone 1 mg/ml ISec IVP SCH ×12 (01:55→22:07)
[2018-01-05] MEDS: Dexamethasone 4 mg/1 ml IVP SCH ×4 (05:15→17:00)
[2018-01-05 06:18] LABS: BASO # 0.02 K/mm3 (0.0-2.0); BASO % 0.3 % (0.0-3.0); GRAN # 6.22 (1.4-6.5); GRAN % 83.8 % (50.0-68.0); HEMOGLOBIN 9.7 g/dL (12.0-16.0); LYMPH # 0.8 (1.2-3.4); LYMPH % 10.4 % (22.0-35.0); MEAN CELL VOLUME 89.7 fl (80.0-105.0); MEAN CORPUSCULAR HEMOGLOBIN 28.6 pg (25.0-35.0); MEAN CORPUSCULAR HGB CONC 31.9 g/dl (31.0-37.0); MEAN PLATELET VOLUME 8.9 fl (7.0-11.0); MONO # 0.4 (0.1-0.6); MONO % 5.5 % (1.0-6.0); RBC 3.39 10^6/uL (3.5-6.1); RED CELL DISTRIBUTION WIDTH 19.5 % (11.5-14.5); WHITE BLOOD COUNT 7.4 10^3/ul (4.5-11.0)
[2018-01-05 06:23] LABS: INR 0.97; PROTHROMBIN TIME 11.1 SECONDS (9.4-12.5)
[2018-01-05] MEDS: Levothyroxine 125 MCG TAB PO SCH (07:31)
--- NOTE | 2018-01-05 08:10 | HP ---
LOCATION: The patient is admitted to the emergency room and currently is in ICU bed 7. HISTORY OF PRESENT ILLNESS: This is a 52-year-old female with documented diagnosis of ER negative, VT negative, HER-2/cale 3+ by IHC, breast carcinoma involving the right breast, which had presented as inflammatory type of breast carcinoma with documented mets to the spine and possibly in the liver based on the initial PET/CT scan, had been started on radiation to the breast by Dr. Bryant in [place] and then completed the radiation to the breast at his place while we started the patient on systemic chemotherapy with Taxol and Herceptin along with IV bisphosphonate for her widespread metastatic bone disease. The patient then went on to have increasing low back and right hip pain, which was secondary to worsening metastatic disease for which she had radiation to those areas while continuing the Taxol and Herceptin. More recently, the patient had developed ageing pain in the right hip. She was having trouble in lifting her right leg especially the foot, the ankle and she was dragging the foot. Because of this, additional x-rays were done including CT of the right hip, which showed a pathological fracture of the right acetabulum secondary to progressive tumor that was eroding into the acetabulum. In conjunction with this, when the patient was seen in the Outpatient Oncology Clinic for assessment and treatment plan for continuation of Taxol and Herceptin, she has been complaining of intermittent weakness, numbness, and tingling of the right upper extremity. She had noticed recent onset of weakness in the right upper extremity that was new in onset. The patient has also been complaining of tingling and numbness and pain along the right arm and also extending to involve the posterior aspect of right scapula and the right chest wall posteriorly. The patient also had been complaining in addition to this intermittently of double vision, but had no difficulty with speaking and no difficulty in comprehension. The patient has had some recent issues with the memory, but she has been on lot of narcotics for pain as the pain score throughout the treatment course has been in the range between 8 and 10, for which more recently she was started on MSIR long acting and short acting medicine along with oxycodone. The patient after having this documented complex fracture in the right hip, was evaluated by Dr. Oconnell at [facility] to see anything complex surgery moran could be done for the hip in the near future. By that time, he saw the patient, the patient's weakness in the right arm and the neck area was concerning to the doctor, who asked the patient to come back to see me and the patient was asked to go to the emergency room to prompt CAT scans of the head and CAT scans of the neck. In addition to that, the patient went on to have an MRI, all of which will be dictated in the dictation below. The patient denies any history of headache. She has been having increasing pain, cutting across the right chest wall in the inframammary region, which has improved since completion of radiation to the right breast area. No history of nausea or vomiting. Appetite has decreased. She tends to be constipated for which she is on medications for her bowels. The patient has been wheelchair bound and she gets help from her daughter to get up out of the chair or going to the bed or being getting up to use the bathroom. PAST MEDICAL HISTORY: The patient was diagnosed to have stage IV metastatic breast cancer in 05/2017 when she had initially presented with rapidly enlarging breast lesion, which was biopsied at [facility] and confirmed to be ER/VT negative and HER-2/cale positive. The patient had been seen by Dr. Bryant in [facility], where she initiated right breast radiation for 16 sessions. Since then, the patient had progressive pain in the hip and in the lower back for which she underwent 10 sessions. The patient's medical history is also significant for hypothyroidism for which she is on replacement Synthroid, which has been gradually up to 137 mcg. The patient has history of anxiety and depression for which she is on Zoloft. PAST SURGICAL HISTORY: The patient had history of hysterectomy in 2018. FAMILY HISTORY: Mother at 78 of dementia. Father at age 80 with peripheral arterial disease with double lower extremity amputation. 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 The patient smokes 2 packs of cigarettes a day for over 30 years. Current smoker. Quit alcohol 3 years ago. Used to drink heavily. Denies drugs, but has been taking Ampol to relieve the pain recently after the diagnosis of her cancer. HOME MEDICATIONS: Include several including levothyroxine, Marcaine extended release, Marcaine immediate release. MiraLax for constipation and Colace for constipation. In addition to this, the patient has also been in the past on prednisone as well. ALLERGIES: THE PATIENT HAS ALLERGIES TO CONTRAST WITH RASH A RESULT OF THE CONTRAST. REVIEW OF SYSTEMS: A 12-point review of systems was obtained and added to the HPI that appropriate. The patient in the pertinent review of system has been having progressive pain in multiple areas of bones including the right posterior chest wall involving the scapula, right shoulder, right arm, lower back, hip on the right side, hip on the left side, sacral area preventing her from being ambulatory and more recently with a documented fracture in the right hip, the patient has been wheelchair bound. PHYSICAL EXAMINATION: VITAL SIGNS: The patient is examined in bed. T-max is 98.4, pulse is 75, respirations 19, blood pressure 117/68, pulse ox is 94% on room air. GENERAL: The patient's daughter, Ella is at the bedside to act as an automobile sales representative if needed for complex discussion, but the patient is able to communicate with me and understand Cuban as well. Currently the patient appears to be in no acute distress, but definitely looks ill. She has had progressive weakness in the right arm, unable to raise her arm or move her arm to very minimal extent at this point in time. HEENT: Head is normocephalic and atraumatic. Conjunctivae are pale. Sclerae are anicteric. Pupils are equally reactive to light and accommodation. Examination of the oropharynx reveals pharyngeal lesions. Tongue is moist. No ulcerations are noted. NECK: Supple. There is no adenopathy. The patient has no meningismus at this time. LUNGS: Reveal it to be clear to percussion and auscultation bilaterally without any adventitious sounds. CARDIOVASCULAR SYSTEM: Reveals PMI to be in the fifth intercostal space inside the midclavicular line. S1 and S2 are normal. No gallop or murmur is heard. BREASTS: Reveals erythema of the right breast, previously noted mass, induration have all resolved. Right axilla reveals no palpable mass. The patient is unable to raise the arm, specifically the entire right arm and she has minimal movements in her right hand. Left breast is unremarkable. Left axilla is negative. Supraclavicular nodes are negative for any palpable adenopathy. ABDOMEN: Protuberant, nontender. Liver and spleen are not palpable. Bowel sounds are present. No rebound, rigidity, or guarding is noted. NEUROLOGIC: The patient is awake, alert, and oriented x3. The patient definitely has lack of strength and unable to move her right upper extremity. She has blender/braze applicator strength in the right upper extremity of 1/5 and 5/5 in the left upper extremity. She has 4/5 strength right lower extremity and 5/5 strength in the left lower extremity. PSYCHIATRIC: Normal affect. The patient has normal mood, though she is depressed. SKIN: Dry. No skin lesions per se are noted. GENITOURINARY AND RECTAL: Deferred. The patient has been having problems urinating as she is unable to get up because of the complex fracture in the right acetabulum. LABORATORY DATA: Reviewed from the emergency room. White count is 10.3, hemoglobin 9.5, hematocrit 28.7, platelet count is 183,000. Sodium is 134, K is 3.6, chloride is 104, CO2 is 24, BUN is 17, creatinine is 0.6, and blood sugar is 95. CAT scan of the head was done and CT of the spine was done as well. MRI of the cervical spine has been done, has not been officially read yet. Review of the x-ray including CAT scans showed that the patient has extensive metastatic disease in the brain both above and below the tentorium. Many of these lesions had hemorrhagic foci with significant edema. The patient has also lesion involving the mandibular joint as well. There is straightening of the cervical spine curvature probably secondary to spasm and there is extensive metastatic disease in the spine and there is possibility of discogenic disease or mets at C4-C5 region as well. MRI of the brain is pending. ASSESSMENT, NOTES AND PLAN: This is a 52-year-old female with history of stage IV ER/VT negative, HER-2 3+ metastatic carcinoma of the breast, currently on active chemotherapy, on radiation with steady progression as evidence on the more CTs, current CAT scan of the head and neck along with multiple other comorbid medical issues, who was admitted with progressive weakness, inability to ambulate with newly documented complex acetabular fracture in addition to progressive weakness of the right arm, the right lower extremity. The patient has already been seen by Neurosurgery, Dr. Ramirez, who felt that at this point in time, no surgical intervention is possible and they could recommend systemic therapy and palliative radiation. Neurologic evaluation has also been requested. Neurologic resident has seen the patient and we are awaiting the neurologist's input as well. In the meantime, the patient is going to be started on IV Decadron. Dr. Estrella, the neurologist has been contacted as well. The patient is also going to get Decadron 6 mg IV every 6-8, they going to control the pain. The patient has been given morphine. We will switch her to Dilaudid for relief of pain as the pain score on level of 0 to 10, it to be 9 out of 10. The patient to be on neuro check. Speech and swallow evaluation has been done. Aspiration precautions have been requested. Seizure precautions have been requested. Fall precautions had been requested. The patient has been started on atorvastatin p.o. stat. On the CAT scan, please make a note, there is no evidence of epidural, subdural, or subarachnoid hemorrhage. There is no gross curvier metastasis. We will continue to monitor the patient very aggressively in the unit over the next 48 to [address] Goddard has also been obtained. Our plan is to address the patient to see if she is a candidate for aggressive therapy. The patient is a DNR/DNI, but wants to still seek aggressive medical therapy. The patient is going to be assessed for radiation to the head and possibly the neck after assessment by Dr. Goddard. We are also planning to give her high-dose chemotherapy that will cross the blood-brain barrier as routine chemotherapy may not cross the blood-brain barrier to affect the metastasis. Plan would be to assess the patient for high-dose carboplatin, which crosses the blood-brain barrier and which is also effective in ER/VT negative tumors. In addition to that, we may have to assess for a drug, such as Kadcyla, which is targeted Herceptin based therapy, which can also be included into the regimen later on. Plan is to be aggressive while being cautiously optimistic. The patient is also going to be seen by Palliative team as well. We will put in a consult for Christina Tubbs as well. Overall condition and prognosis had been discussed in detail with the patient while the daughter is present in the room. The patient is fully cognizant of what is going on and what are limits are and where the lines have been drawn at this point in time. This is a complex patient with multiple comorbid medical issues. Time spent with the patient was greater than 80 minutes, out of which more than 50% of the time was [id number] contact. I told the patient we are going to give her the first dose of Dilaudid and recheck her in about 2 hours to see if the pain has been effectively controlled. The patient is also going to be placed on nicotine patches to alleviate the craving for her smoking. We will hold off on heavy duty sedation for sleeping at this point in time just to avoid aspiration. Kashif Penn MD
[2018-01-05] MEDS: Enoxaparin 40 mg Syringe SC SCH (10:37)
[2018-01-05] MEDS: Morphine 2 mg/ml ISec IVP PRN ×2 (11:19→23:30)
--- NOTE | 2018-01-05 11:30 | CP.PCM.CON ---
History of Present Illness - History of Present Illness History of Present Illness: 52 yr old woman, patient of Dr. Santoyo who is here for subacute onset of right arm weakness. As per daughter, Miss Franco who has metastasis to the brain previously and is undergoing oncology treatment, developed progressive weakness of her right arm over the last week, and is admitted for this weakness. MRI brain shows that she has several mets to the brain, including high left parietal and a left sided lesion that is close to the motor strip. No stroke is noted on the MRI brain from yesterday. She is otherwise well, with no headache, no left arm weakness or aphasia. PMh/PSH: Breast and lung ca FH/SH: Lives with daughter, no tobacco, no etoh. All: nkda on exam: AAOX3. PERRL. Cn 2-12 normal. Motor: Left arm is 3/5 proximally, and guest services lead is 4/5, deltoid is 3+/5, and triceps are 4/5 Rest of the neurological examination is normal. Past Patient History - Infectious Disease Hx of Infectious Diseases: None - Past Social History Smoking Status: Heavy Smoker > 10 Cigarettes Daily - CARDIAC Hx Cardiac Disorders: No - PULMONARY Other/Comment: active smoker - NEUROLOGICAL Hx Paralysis: No - RENAL Hx Chronic Kidney Disease: No - ENDOCRINE/METABOLIC Hx Diabetes Mellitus Type 2: Yes - HEMATOLOGICAL/ONCOLOGICAL Hx Cancer: Yes (breast, mets to spine) - INTEGUMENTARY Hx Dermatological Problems: No - MUSCULOSKELETAL/RHEUMATOLOGICAL Hx Falls: No - GASTROINTESTINAL Hx Gastrointestinal Disorders: No - GENITOURINARY/GYNECOLOGICAL Other/Comment: Stage 4 metastatic breast cancer - PSYCHIATRIC Hx Emotional Abuse: No Hx Physical Abuse: No Hx Substance Use: No - SURGICAL HISTORY Hx Surgeries: Yes - ANESTHESIA Hx Anesthesia: Yes Hx Anesthesia Reactions: No Hx Malignant Hyperthermia: No Meds Allergies/Adverse Reactions: Allergies Allergy/AdvReac Type Severity Reaction Status Date / Time CONTRAST Allergy Severe RASH/HIVES Uncoded 01/03/18 14:54 - Medications Medications: Current Medications Dexamethasone (Decadron Inj) 6 mg IVP Q6 LEXY Last Admin: 01/05/18 05:15 Dose: 6 mg Enoxaparin Sodium (Lovenox) 40 mg SC DAILY LEXY; Protocol Last Admin: 01/05/18 10:37 Dose: 40 mg Hydromorphone HCl (Dilaudid) 1 mg IVP Q2 LEXY Last Admin: 01/05/18 09:55 Dose: 1 mg Dextrose/Sodium Chloride (Dextrose 5%/0.45% Ns 1000 Ml) 1,000 mls @ 75 mls/hr IV .[id number] [facility] Last Admin: 01/04/18 12:40 Dose: 75 mls/hr Levothyroxine Sodium (Synthroid) 125 mcg PO 0600 [facility] Last Admin: 01/05/18 07:31 Dose: 125 mcg Morphine Sulfate (Morphine) 2 mg IVP Q4 PRN PRN Reason: Pain, moderate (4-7) Last Admin: 01/05/18 11:19 Dose: 2 mg Nicotine (Nicoderm Cq) 1 patch TD DAILY [facility] Last Admin: 01/05/18 10:00 Dose: 1 patch Pantoprazole Sodium (Protonix Inj) 40 mg IVP DAILY [facility] Last Admin: 01/05/18 10:38 Dose: 40 mg Results - Vital Signs Recent Vital Signs: Last Vital Signs Temp 97.5 F L 01/04/18 16:00 Pulse 67 01/05/18 06:50 Resp 14 01/05/18 06:50 BP 126/46 L 01/05/18 06:00 Pulse Ox 93 L 01/05/18 06:50 - Labs Result Diagrams: 01/12/18 05:30 01/12/18 05:30 Labs: Laboratory Results - last 24 hr 01/04/18 01/05/18 01/05/18 17:15 05:00 05:00 WBC 7.4 RBC 3.39 L Hgb 9.7 L Hct 30.4 L MCV 89.7 MCH 28.6 MCHC 31.9 RDW 19.5 H Plt Count 177 MPV 8.9 Gran % 83.8 H Lymph % (Auto) 10.4 L Jerauld % (Auto) 5.5 Eos % (Auto) 0.0 L Baso % (Auto) 0.3 Gran # 6.22 Lymph # (Auto) 0.8 L Jerauld # (Auto) 0.4 Eos # (Auto) 0.0 Baso # (Auto) 0.02 PT 11.1 INR 0.97 POC Glucose (mg/dL) 133 H 01/05/18 06:01 WBC RBC Hgb Hct MCV MCH MCHC RDW Plt Count MPV Gran % Lymph % (Auto) Jerauld % (Auto) Eos % (Auto) Baso % (Auto) Gran # Lymph # (Auto) Jerauld # (Auto) Eos # (Auto) Baso # (Auto) PT INR POC Glucose (mg/dL) 151 H Assessment & Plan - Assessment and Plan (Free Text) Assessment: Ct head: shows several intracranial lesions, with left parietal lesion with metastasis. MRI brain: shows significant edema in the left parietal region Patient with subacute onset of right sided weakness that is most likely secondary to either new metastasis to left parietal region, or to increasing edema from old lesion. We have asked daughter to obtain films from [facility]. PLan; 1. Physical therapy 2. Decadron 8 mg iV q 8 hours 3. protonix for gi prophylaxis. 4. no aeds at this point. Case discussed with Dr. Penn Thank you for consulting neurology Dr. trevizo
--- NOTE | 2018-01-05 16:18 | US ---
PROCEDURE: Right upper extremity venous US CLINICAL HISTORY: Arm pain and swelling Evaluate for deep venous thrombosis. PHYSICIAN(S): Zeus Blevins M.D FINDINGS: The visualized rightinternal jugular vein is sonographically normal and compressible. No evidence of obstruction or thrombus is seen. The visualized segments of the right subclavian vein are patent with normal waveforms. No sonographic evidence of obstruction or thrombosis is seen. The visualized deep venous system of the proximal right upper extremity is sonographically normal and compressible. IMPRESSION: 1. No sonographic evidence for deep venous thrombosis in the visualized segments of the right upper extremity.
[2018-01-05] MEDS: Silver Sulfadiazine 1% Cream (25 gm) TP SCH (16:55)
[2018-01-05] MEDS: Dextrose 5%/0.45% NS 1,000 ML IV SCH (16:55)
--- NOTE | 2018-01-05 16:58 | MRI ---
Date of service: 01/03/2018 PROCEDURE: MR CERVICAL SPINE WITHOUT CONTRAST HISTORY: TIM sandraing, r/o cord compression COMPARISON: Correlation made with CT scan of the cervical spine dated 01/03/2018. TECHNIQUE: Multiecho multiplanar sequences were performed through the cervical spine without the use of intravenous contrast. FINDINGS: No acute compression fractures nor retropulsed fragments. Vertebral bodies exhibit relatively normal stature. Diffuse prolonged T1 signal changes throughout the vertebral bodies with inhomogeneous prolonged T2 signal best seen on the sagittal T1 and sagittal STIR sequences respectively. Findings suggest an infiltrative marrow disease process including metastases.. There are no acute compression fractures no retropulsed fragments.. Vertebral bodies exhibit relatively normal stature. Chronic appearing Schmorl's node changes seen along the inferior C5 endplate. Previously noted slight anterior subluxation of C4 over C5 is not appreciated on this exam possibly due to some instability and motion. C2-C3: Minor age related disc desiccation with slight posterior disc space narrowing.. No disc herniation, spinal canal stenosis or neural foraminal narrowing. C3-C4: Mild age related disc desiccation and minimal posterior disc space narrowing. Minimal broad-based bulge of the posterior annulus flattens the ventral surface of the thecal sac though does not cause significant central canal stenosis nor cord compression. No significant neural foraminal narrowing. C4-C5: Mild age related disc desiccation. Minimal degenerative squaring of the uncovertebral joints. Additionally, there is right-sided facet joint is quite hypertrophic with mild right-sided foraminal narrowing. C5-C6: Disc desiccation and disc space narrowing with small broad-based disc ridge complex that flattens the ventral surface of the thecal sac and minimally flattens the ventral surface of the cord. Changes are contiguous with slightly over grown uncovertebral joints. Facets are prominent. Exit foramina are narrowed bilaterally. C6-C7: Disc desiccation with mild posterior disc space narrowing. Small broad-based bulge of the posterior annulus is present that flattens the ventral surface of the thecal sac without cord compression.. Central canal and exit foramina appear adequate. C7-T1: No disc herniation, spinal canal stenosis or neural foraminal narrowing. OTHER FINDINGS: Note is also made of multiple metastatic lesions within the cerebellum and brainstem. Please refer to concurrent MRI of the brain and corresponding report. IMPRESSION: Diffuse prolonged T1 signal changes throughout the vertebral bodies with inhomogeneous prolonged T2 signal best seen on the sagittal T1 and sagittal STIR sequences respectively. Findings suggest an infiltrative marrow disease process including metastases.. Multiple metastatic lesions seen within the cerebellum and brainstem; please refer to concurrent MRI of the brain and corresponding report.. Minor multilevel degenerative spondylosis as above.
--- NOTE | 2018-01-05 17:13 | PN ---
DATE: 01/05/2018 NEUROLOGY PROGRESS NOTE SUBJECTIVE: This morning, Ms. Doty is doing well. Her strength has improved minimally in her right arm and hand. She lifted the arm above the bed and squeezed my hand. There is no headache. There is no aphasia. There is no weakness. PHYSICAL EXAMINATION: GENERAL: A and O x3. HEENT: PERRL. NEUROLOGIC: Cranial nerves II through XII intact. Motor: Right deltoid is 4/5. Right sound engineer audio control is 4/5. Triceps is 4+/5. Rest of the muscle occupational therapist assistant are 5/5. Sensory: Intact to fine touch, pin, position, and vibration sense. Gait is not tested. [id number], there is dysmetria on the right arm secondary to weakness. MRI of the brain, no new findings as per previous imaging results. IMPRESSION: This is a 52-year-old woman with metastasis to the brain. MRI of the C-spine so far is normal which shows no pathological fracture. The patient also has a hip fracture which is chronic. Ms. Doty has new right-sided weakness secondary to vasogenic edema and/or new metastasis to the left parietotemporal region. Daughter has a pack of discs and we will review them to find a change in her metastasis level. PLAN: 1. Continue Decadron 8 mg every 8 hours. 2. Continue GI prophylaxis. 3. DVT prophylaxis on Venodyne. 4. Physical therapy need as soon as possible. Thank you for this consult. Nathaniel Estrella MD
--- NOTE | 2018-01-05 18:09 | PN ---
DATE: 01/05/2018 SUBJECTIVE: The patient is experiencing hip, shoulder, and neck pain. PHYSICAL EXAMINATION: VITAL SIGNS: Blood pressure 126/46, heart rate 67, respirations 18, temperature 97.5. HEENT: Pale conjunctivae. CHEST: Clear. HEART: S1 and S2 regular. EXTREMITIES: No edema. LABORATORY DATA: Hemoglobin and hematocrit 9.7 and 30.4, white count and platelet count are within normal limits. Today's blood sugars are 151 and 178 respectively. ASSESSMENT: 1. Stage IV metastatic breast cancer with comminuted fracture to right hemipelvis with possible cervical spine metastasis and temporomandibular joint metastasis. 2. Anemia. 3. Hypothyroidism. RECOMMENDATIONS: Continue current Decadron 6 mg intravenously every 6 hours, Dilaudid 1 mg intravenously every 2 hours, Lovenox 40 mg subcutaneously daily, Synthroid 125 mcg once a day. Optimize pain management. Venous Doppler of lower extremities is still pending. Ang Whitman MD
[2018-01-06] MEDS: HYDROmorphone 1 mg/ml ISec IVP SCH ×11 (00:20→22:30)
[2018-01-06] MEDS: Dextrose 5%/0.45% NS 1,000 ML IV SCH ×2 (01:00→21:12)
--- NOTE | 2018-01-06 04:46 | PN ---
DATE: 01/05/2018 ONCOLOGY PROGRESS NOTE LOCATION: Patient is in ICU, bed 7. PROBLEMS: This is a 52-year-old female with metastatic stage IV carcinoma of the breast, progressive, admitted to the hospital with progressive weakness involving the right arm, right shoulder, right lower extremities along with complex acetabular fracture of the right hip and new findings of metastatic disease in the brain, both above and below the tentorium, with multiple mets including the vital areas of the flakito and the cerebellum. Patient has been started on high dose IV steroids with TBI protection. She is also on venous DVT prophylaxis as well. It has improved significantly since admission, as she was completely having flaccidity of the right upper extremity and the right lower extremity. Patient's pain which on the scale was 10/10 in multiple areas including the shoulder, neck, both hips and lower back with Dilaudid has come down to a scale of 5-6, which is manageable at this time. Patient has been getting the pain medicines every 3 hours as needed for pain. Subjectively, patient feels a little bit better with pain. No nausea. No vomiting. She has been cleared by . Even though she has a left facial droop, she has no physiological issues with swallowing or aspiration. PHYSICAL EXAMINATION: GENERAL: Patient is examined in bed. VITAL SIGNS: Stable. Blood pressure is 125/46, heart rate is 67, respirations 18, T-max is 97.5. HEENT: Head is normocephalic and atraumatic. Left facial droop is noted. Examination of the oropharynx reveals no oropharyngeal lesions. NECK: Supple. There is no adenopathy. No jugular venous distention noted. BREASTS: Examination of the breast reveals no new findings. There is erythema of the right breast post radiation. New masses actually are negative. Supraclavicular nodes are negative. LUNGS: Clear to percussion and auscultation. HEART: S1 and S2 to be normal. No gallop or murmur is heard. ABDOMEN: Mildly distended. Liver and spleen are not palpable. No rebound, rigidity, or guarding is noted. EXTREMITIES: Reveal no cyanosis, clubbing, or edema. NEUROLOGIC: Grossly reveals improved function of the right upper extremity. Patient is able to raise her arm when I asked her to grasp my finger. She is able to raise all the way up to the shoulder, which is a fine and definite improvement. Patient is also able to move her right lower extremity, bend it on her own with gravity eliminated. No obvious focal findings are noted neurologically. GENITOURINARY AND RECTAL: Deferred. Patient is urinating well at this point in time. LABORATORY DATA: Reveals a hemoglobin of 9.7, hematocrit 30, white count and platelet count are within normal limits. Today's blood sugars are 151 and 178. ASSESSMENT, NOTES AND PLAN: Stage IV metastatic carcinoma of the breast with complex fracture of the right hip, extensive bone metastasis, brain metastasis with significant cerebrospinal edema, on intravenous steroids at this point in time, being assessed for radiation, high-dose chemotherapy, anemia, hypothyroidism, extensive bone metastasis, intractable pain of cancer. PLAN: Patient is still going to continue with Decadron IV every 6 hours, Dilaudid 1 mg IV every 3 hours, she is on Lovenox subcu daily, Synthroid 125 mcg daily. We are optimizing pain management and we are assessing for the treatment with radiation and systemic chemotherapy. Venous Dopplers of the lower extremity, results are still pending. Time spent with the patient is greater than 45 minutes. Discussed in detail with the patient and her daughter in the unit. I tying to tell her the plan will be to give her palliative radiation and then see which direction continues to improve. We will definitely give her chemotherapy while in the hospital, high-dose carboplatin, and then plan on the cooperating drugs such as Kadcyla. Labs for a.m. have been requested. Please make a note, this is a complex patient with multiple comorbid issues, and that is why a lot of time has to be spent in taking to the nurses, correlating the factors involving the management. Notes from both Neurology and Cardiology were noted and appreciated. Kashif Penn MD
[2018-01-06] MEDS: Dexamethasone 4 mg/1 ml IVP SCH ×4 (07:00→17:56)
[2018-01-06] MEDS: Levothyroxine 125 MCG TAB PO SCH (07:05)
[2018-01-06 07:17] LABS: BASO # 0.02 K/mm3 (0.0-2.0); BASO % 0.2 % (0.0-3.0); GRAN # 7.09 (1.4-6.5); MEAN CELL VOLUME 89.4 fl (80.0-105.0); MEAN CORPUSCULAR HGB CONC 32.5 g/dl (31.0-37.0); MONO # 0.6 (0.1-0.6); MONO % 6.8 % (1.0-6.0); RBC 3.1 10^6/uL (3.5-6.1); RED CELL DISTRIBUTION WIDTH 19.5 % (11.5-14.5); WHITE BLOOD COUNT 8.7 10^3/ul (4.5-11.0)
[2018-01-06 08:22] LABS: BLOOD UREA NITROGEN 11 mg/dL (7-21)
[2018-01-06 08:23] LABS: CALCIUM 8.2 mg/dL (8.4-10.5); GFR NON-AFRICAN AMERICAN > 60
[2018-01-06 08:24] LABS: ALB/GLOB RATIO 1.2 (1.1-1.8); ALT/SGPT 75 U/L (7-56); AST/SGOT 71 U/L (14-36)
--- NOTE | 2018-01-06 08:52 | CP.PCM.PN ---
Subjective - Date & Time of Evaluation Date of Evaluation: 01/06/18 Time of Evaluation: 08:49 - Subjective Subjective: post op day 1 pt has no deficits ambulating abdominal wound appears little less indurated flank and back wounds clean PT c/o sever pain in legs reports HEALTH AND WELLNESS COORDINATOR not adequate Abdominal dressing changed Called wound care team for further managment of abdominal wound Dr Caebzas on consult for pain management Would not consider reimplantation of intrathecal drug pump or even temporary catheter until infection is cleared Objective - Vital Signs/Intake and Output Vital Signs (last 24 hours): Temp Pulse Resp BP Pulse Ox 98 F 69 17 129/81 93 L 01/06/18 08:00 01/06/18 08:00 01/06/18 08:00 01/06/18 08:00 01/06/18 08:00 Intake and Output: 01/06/18 01/06/18 06:59 18:59 Intake Total 1300 Output Total 1650 Balance -350 - Medications Medications: Current Medications Dexamethasone (Decadron Inj) 6 mg IVP Q6 [facility] Last Admin: 01/06/18 07:00 Dose: 6 mg Enoxaparin Sodium (Lovenox) 40 mg SC DAILY [facility]; Protocol Last Admin: 01/05/18 10:37 Dose: 40 mg Hydromorphone HCl (Dilaudid) 1 mg IVP Q2 [facility] Last Admin: 01/06/18 08:16 Dose: Not Given Dextrose/Sodium Chloride (Dextrose 5%/0.45% Ns 1000 Ml) 1,000 mls @ 75 mls/hr IV .[id number] [facility] Last Admin: 01/06/18 01:00 Dose: 75 mls/hr Insulin Human Regular (Humulin R Med) 0 units SC [facility]; Protocol Levothyroxine Sodium (Synthroid) 125 mcg PO 0600 [facility] Last Admin: 01/06/18 07:05 Dose: 125 mcg Morphine Sulfate (Morphine) 2 mg IVP Q4 PRN PRN Reason: Pain, moderate (4-7) Last Admin: 01/05/18 23:30 Dose: 2 mg Nicotine (Nicoderm Cq) 1 patch TD DAILY [facility] Last Admin: 01/05/18 10:00 Dose: 1 patch Pantoprazole Sodium (Protonix Inj) 40 mg IVP DAILY [facility] Last Admin: 01/05/18 10:38 Dose: 40 mg Silver Sulfadiazine (Silvadene 1% 25 Gm) 1 gm TP DAILY [facility] Last Admin: 01/05/18 16:55 Dose: 1 gm - Labs Labs: 01/06/18 06:18 01/06/18 06:00 PT 11.1 SECONDS (9.4-12.5) 01/05/18 05:00 INR 0.97 01/05/18 05:00 APTT 23.1 Seconds (25.1-36.5) L 01/03/18 15:59
--- NOTE | 2018-01-06 08:59 | PN ---
DATE: 01/05/2018 NEW PATIENT ESCORT NOTE SUBJECTIVE: Patient is resting this morning, awake and alert. States that her pain is much better controlled with the pain medications that Dr. Penn had started. She is hemodynamically stable, comfortable with no respiratory distress. The patient is having no fever, chills or nauseousness or vomiting this morning. She is able to swallow and her speech is normal as well this morning. PHYSICAL EXAMINATION: VITAL SIGNS: Note that her temperature is 97.5, pulse is 67, respirations of 14, BP is 126/46. SKIN: Warm and dry. HEENT: Head atraumatic, normocephalic. Eyes reactive to light. Ears, nose and throat seemed to be within normal limits. NECK: Supple. No JVD. No thyroid enlargement. No lymph nodes. HEART: Has regular rate and rhythm. Normal S1, S2. LUNGS: Reveal good breath sounds bilaterally. ABDOMEN: Soft. Decreased bowel sounds. GENITALIA: Deferred. RECTAL: Deferred. MUSCULOSKELETAL: No joint deformities. EXTREMITIES: Reveal no significant edema. NEUROLOGIC: The patient still has weakness in her extremities, but no obvious aphasia. DATA: As far as laboratories are concerned, her white count is 7.4, hemoglobin is 9.7, hematocrit 30.4 with platelets of 177,000. Her sodium is 134, potassium 4.1, chloride 105, CO2 of 23 with a BUN of 16, creatinine 0.5 and a glucose of 151. IMPRESSION: As far as our impression, the patient has a history of breast carcinoma stage IV with bone metastases and brain metastases. She has a small cerebral hemorrhage and presents with right-sided weakness. The patient has pathological right hip fracture, hypothyroidism and anemia. PLAN: As far as our plan, we will continue with pain medications. The patient is on Decadron, IV fluids, Dilaudid, Lovenox, morphine, nicotine patch Protonix as well as Synthroid. We will continue to treat aggressively along with the other consultants and the primary care doctor. Caesar Arzate MD
--- NOTE | 2018-01-06 09:52 | CP.CCUPN ---
<Lane Austin - Last Filed: 01/06/18 13:26> CCU Subjective - Physician Review Subjective (Free Text): Lane Asutin DO, PGY-1 ICU Progress Note for Dr. Parker Adamson Patient was seen and examined at bedside this AM. She reports no change in her weakness but that her pain is worse. She states that her current dose helps her for about 45 minutes but then the pain returns. CCU Objective - Vital Signs / Intake & Output Vital Signs (Last 4 hours): Vital Signs Temp Pulse Resp BP Pulse Ox 01/06/18 08:00 98 F 69 17 129/81 93 L 01/06/18 07:00 75 17 130/76 94 L 01/06/18 06:00 73 14 145/81 94 L Intake and Output (Last 8hrs): Intake & Output 01/05/18 01/06/18 01/06/18 22:59 06:59 14:59 Intake Total 2140 1300 Output Total 1100 1650 Balance 1040 -350 Intake: IV 900 900 Left Forearm 900 900 Oral 1240 400 Output: Urine 1100 1650 Urine, Voided 1100 1650 Other: # Bowel Movements 0 0 - Physical Exam Head: Positive for: Atraumatic, Normocephalic Pupils: Positive for: PERRL Extroacular Muscles: Positive for: EOMI Conjunctiva: Positive for: Normal Mouth: Positive for: Moist Mucous Membranes Nose (External): Positive for: Atraumatic Nose (Internal): Positive for: Normal Inspection Neck: Positive for: Normal Range of Motion. Negative for: JVD, Lymphadenopathy Respiratory/Chest: Positive for: Clear to Auscultation, Good Air Exchange. Negative for: Respiratory Distress, Accessory Muscle Use, Wheezes, Rales, Rhonchi Cardiovascular: Positive for: Regular Rate and Rhythm, Normal S1, S2. Negative for: Murmurs, Rub, Gallop Abdomen: Negative for: Tenderness, Distention, Rebound, Guarding Breast/Axillary: Negative for: Axillary Lymphad Upper Extremity: Positive for: Normal Inspection, NORMAL PULSES, Neurovascularly Intact, Capillary Refill < 2s. Negative for: Cyanosis, Edema, Temperature Abnormalties, Deformity Lower Extremity: Positive for: Normal Inspection, NORMAL PULSES. Negative for: Edema, Swelling Neurological: Positive for: GCS=15, CN II-XII Intact, Speech Normal, Gait Normal, Memory Normal, Other (RUE quantitative associate 4/5, triceps 4/5, deltoid 4/5) Skin: Positive for: Warm, Dry, Normal Color. Negative for: Rashes Psychiatric: Positive for: Alert, Oriented x 3, Normal Affect, Normal Mood - Medications Active Medications: Active Medications Generic Name Dose Route Start Last Admin Trade Name Freq PRN Reason Stop Dose Admin Dexamethasone 6 mg 01/04/18 18:00 01/06/18 07:00 Decadron Inj IVP 6 mg Q6 LEXY Administration Enoxaparin Sodium 40 mg 01/04/18 12:15 01/05/18 10:37 Lovenox SC 40 mg DAILY LEXY Administration Protocol Hydromorphone HCl 1 mg 01/04/18 14:00 01/06/18 08:16 Dilaudid IVP Not Given Q2 LEXY Dextrose/Sodium Chloride 1,000 mls @ 75 mls/hr 01/04/18 12:15 01/06/18 01:00 Dextrose 5%/0.45% Ns 1000 Ml IV 75 mls/hr .[id number] LEXY Administration Insulin Human Regular 0 units 01/06/18 11:30 Humulin R Med SC ACHS [facility] Protocol Levothyroxine Sodium 125 mcg 01/05/18 06:00 01/06/18 07:05 Synthroid PO 125 mcg 0600 LEXY Administration Morphine Sulfate 2 mg 01/03/18 21:54 01/05/18 23:30 Morphine IVP 2 mg Q4 PRN Administration Pain, moderate (4-7) Nicotine 1 patch 01/04/18 14:00 01/05/18 10:00 Nicoderm Cq TD 1 patch DAILY LEXY Administration Pantoprazole Sodium 40 mg 01/04/18 12:30 01/05/18 10:38 Protonix Inj IVP 40 mg DAILY LEXY Administration Silver Sulfadiazine 1 gm 01/05/18 16:15 01/05/18 16:55 Silvadene 1% 25 Gm TP 1 gm DAILY LEXY Administration - Patient Studies Lab Studies: Microbiology Studies 01/04/18 03:00 MRSA Culture (Admit) - Final Nose MRSA NOT DETECTED Lab Studies 01/06/18 01/06/18 01/06/18 Range/Units 06:40 06:37 06:18 WBC 8.7 (4.5-11.0) 10^3/ul RBC 3.10 L (3.5-6.1) 10^6/uL Hgb 9.0 L (12.0-16.0) g/dL Hct 27.7 L (36.0-48.0) % MCV 89.4 (80.0-105.0) fl MCH 29.0 (25.0-35.0) pg MCHC 32.5 (31.0-37.0) g/dl RDW 19.5 H (11.5-14.5) % Plt Count 179 (120.0-450.0) 10^3/uL MPV 9.0 (7.0-11.0) fl Gran % 82.0 H (50.0-68.0) % Lymph % (Auto) 11.0 L (22.0-35.0) % [place] % (Auto) 6.8 H (1.0-6.0) % Eos % (Auto) 0.0 L (1.5-5.0) % Baso % (Auto) 0.2 (0.0-3.0) % Gran # 7.09 H (1.4-6.5) Lymph # (Auto) 1.0 L (1.2-3.4) [place] # (Auto) 0.6 (0.1-0.6) Eos # (Auto) 0.0 (0.0-0.7) Baso # (Auto) 0.02 (0.0-2.0) K/mm3 Sodium (132-148) mmol/L Potassium (3.6-5.0) mmol/L Chloride (98-107) mmol/L Carbon Dioxide (21-33) mmol/L Anion Gap (10-20) BUN (7-21) mg/dL Creatinine (0.7-1.2) mg/dl Est GFR ( Amer) Est GFR (Non-Af Amer) POC Glucose (mg/dL) 147 H > 500 H* (65-110) mg/dL Random Glucose (70-110) mg/dL Calcium (8.4-10.5) mg/dL Phosphorus (2.5-4.5) mg/dL Magnesium (1.7-2.2) mg/dL Total Bilirubin (0.2-1.3) mg/dL AST (14-36) U/L ALT (7-56) U/L Alkaline Phosphatase (38-126) U/L Total Protein (5.8-8.3) g/dL Albumin (3.0-4.8) g/dL Globulin gm/dL Albumin/Globulin Ratio (1.1-1.8) 01/06/18 01/06/18 01/05/18 Range/Units 06:00 00:36 18:16 WBC (4.5-11.0) 10^3/ul RBC (3.5-6.1) 10^6/uL Hgb (12.0-16.0) g/dL Hct (36.0-48.0) % MCV (80.0-105.0) fl MCH (25.0-35.0) pg MCHC (31.0-37.0) g/dl RDW (11.5-14.5) % Plt Count (120.0-450.0) 10^3/uL MPV (7.0-11.0) fl Gran % (50.0-68.0) % Lymph % (Auto) (22.0-35.0) % [place] % (Auto) (1.0-6.0) % Eos % (Auto) (1.5-5.0) % Baso % (Auto) (0.0-3.0) % Gran # (1.4-6.5) Lymph # (Auto) (1.2-3.4) [place] # (Auto) (0.1-0.6) Eos # (Auto) (0.0-0.7) Baso # (Auto) (0.0-2.0) K/mm3 Sodium 129 L (132-148) mmol/L Potassium 3.9 (3.6-5.0) mmol/L Chloride 99 (98-107) mmol/L Carbon Dioxide 22 (21-33) mmol/L Anion Gap 12 (10-20) BUN 11 (7-21) mg/dL Creatinine 0.5 L (0.7-1.2) mg/dl Est GFR ( Amer) > 60 Est GFR (Non-Af Amer) > 60 POC Glucose (mg/dL) 156 H 153 H (65-110) mg/dL Random Glucose 321 H* D (70-110) mg/dL Calcium 8.2 L (8.4-10.5) mg/dL Phosphorus 3.7 (2.5-4.5) mg/dL Magnesium 1.8 (1.7-2.2) mg/dL Total Bilirubin 0.2 (0.2-1.3) mg/dL AST 71 H D (14-36) U/L ALT 75 H (7-56) U/L Alkaline Phosphatase 291 H (38-126) U/L Total Protein 5.5 L (5.8-8.3) g/dL Albumin 3.0 (3.0-4.8) g/dL Globulin 2.5 gm/dL Albumin/Globulin Ratio 1.2 (1.1-1.8) 01/05/18 Range/Units 11:55 WBC (4.5-11.0) 10^3/ul RBC (3.5-6.1) 10^6/uL Hgb (12.0-16.0) g/dL Hct (36.0-48.0) % MCV (80.0-105.0) fl MCH (25.0-35.0) pg MCHC (31.0-37.0) g/dl RDW (11.5-14.5) % Plt Count (120.0-450.0) 10^3/uL MPV (7.0-11.0) fl Gran % (50.0-68.0) % Lymph % (Auto) (22.0-35.0) % [place] % (Auto) (1.0-6.0) % Eos % (Auto) (1.5-5.0) % Baso % (Auto) (0.0-3.0) % Gran # (1.4-6.5) Lymph # (Auto) (1.2-3.4) [place] # (Auto) (0.1-0.6) Eos # (Auto) (0.0-0.7) Baso # (Auto) (0.0-2.0) K/mm3 Sodium (132-148) mmol/L Potassium (3.6-5.0) mmol/L Chloride (98-107) mmol/L Carbon Dioxide (21-33) mmol/L Anion Gap (10-20) BUN (7-21) mg/dL Creatinine (0.7-1.2) mg/dl Est GFR ( Amer) Est GFR (Non-Af Amer) POC Glucose (mg/dL) 178 H (65-110) mg/dL Random Glucose (70-110) mg/dL Calcium (8.4-10.5) mg/dL Phosphorus (2.5-4.5) mg/dL Magnesium (1.7-2.2) mg/dL Total Bilirubin (0.2-1.3) mg/dL AST (14-36) U/L ALT (7-56) U/L Alkaline Phosphatase (38-126) U/L Total Protein (5.8-8.3) g/dL Albumin (3.0-4.8) g/dL Globulin gm/dL Albumin/Globulin Ratio (1.1-1.8) Laboratory Results - last 24 hr 01/05/18 01/05/18 01/06/18 11:55 18:16 00:36 WBC RBC Hgb Hct MCV MCH MCHC RDW Plt Count MPV Gran % Lymph % (Auto) [place] % (Auto) Eos % (Auto) Baso % (Auto) Gran # Lymph # (Auto) [place] # (Auto) Eos # (Auto) Baso # (Auto) Sodium Potassium Chloride Carbon Dioxide Anion Gap BUN Creatinine Est GFR ( Amer) Est GFR (Non-Af Amer) POC Glucose (mg/dL) 178 H 153 H 156 H Random Glucose Calcium Phosphorus Magnesium Total Bilirubin AST ALT Alkaline Phosphatase Total Protein Albumin Globulin Albumin/Globulin Ratio 01/06/18 01/06/18 01/06/18 06:00 06:18 06:37 WBC 8.7 RBC 3.10 L Hgb 9.0 L Hct 27.7 L MCV 89.4 MCH 29.0 MCHC 32.5 RDW 19.5 H Plt Count 179 MPV 9.0 Gran % 82.0 H Lymph % (Auto) 11.0 L [place] % (Auto) 6.8 H Eos % (Auto) 0.0 L Baso % (Auto) 0.2 Gran # 7.09 H Lymph # (Auto) 1.0 L [place] # (Auto) 0.6 Eos # (Auto) 0.0 Baso # (Auto) 0.02 Sodium 129 L Potassium 3.9 Chloride 99 Carbon Dioxide 22 Anion Gap 12 BUN 11 Creatinine 0.5 L Est GFR ( Amer) > 60 Est GFR (Non-Af Amer) > 60 POC Glucose (mg/dL) > 500 H* Random Glucose 321 H* D Calcium 8.2 L Phosphorus 3.7 Magnesium 1.8 Total Bilirubin 0.2 AST 71 H D ALT 75 H Alkaline Phosphatase 291 H Total Protein 5.5 L Albumin 3.0 Globulin 2.5 Albumin/Globulin Ratio 1.2 01/06/18 06:40 WBC RBC Hgb Hct MCV MCH MCHC RDW Plt Count MPV Gran % Lymph % (Auto) [place] % (Auto) Eos % (Auto) Baso % (Auto) Gran # Lymph # (Auto) [place] # (Auto) Eos # (Auto) Baso # (Auto) Sodium Potassium Chloride Carbon Dioxide Anion Gap BUN Creatinine Est GFR ( Amer) Est GFR (Non-Af Amer) POC Glucose (mg/dL) 147 H Random Glucose Calcium Phosphorus Magnesium Total Bilirubin AST ALT Alkaline Phosphatase Total Protein Albumin Globulin Albumin/Globulin Ratio Fingerstick Blood Sugar Results: 120 Review of Systems - Constitutional Constitutional: absent: Fever, Chills - EENT Eyes: absent: Blurred Vision, Change in Vision - Cardiovascular Cardiovascular: absent: Chest Pain, Diaphoresis, Dyspnea - Respiratory Respiratory: absent: Cough, Wheezing - Gastrointestinal Gastrointestinal: absent: Abdominal Pain, Nausea, Vomiting - Genitourinary Genitourinary: absent: Change in Urinary Stream - Neurological Neurological: absent: Confusion, Dizziness Critical Care Progress Note - Nutrition Nutrition: Nutrition Category Date Time Status Regular Diet [DIET] Diets 01/04/18 Lunch Ordered Assessment/Plan - Assessment and Plan (Free Text) Assessment: 52 year old F with known stage IV breast cancer with multiple brain and bone mets sent by Dr. Penn for RUE weakness. She was subsequently admitted to the ICU for concern of brain hemorrhage from left parietal metastatic lesion. Plan: Neuro: -A/o x 3 -RUE weakness unchanged from prior exams -RUE weakness 2/2 brain mets -Brain and C-spine MRI without infarct or other acute findings compared to CT head -Continue decadron 6 mg IVP Q6 hours -Neurology is following, recs appreciated Cardio: -RRR, normotensive, no signs of HD compromise -Maintain MAP>65 -Monitor for S/S, HD compromise Pulm: -No signs of respiratory distress. CTA B/L -Patient is stating well on room air -Maintain O2 saturation>95% -O2 NC PRN Heme/Onc: -Stage IV breast cancer -S/p 16 sessions of radiation of breast and 10 sessions of radiation for spine mets -Plan for brain radiation of mets today per Dr. Goddard -Further management per Dr. Penn and Dr. Goddard Endocrine: -Patient has hx of hypothyroidism -Last TSH 6.2 -Continue synthroid /Nephro: -Maintain euvolemia -BUN/Cr stable -UOP of 2750 overnight -Replete electrolytes as needed ID: -Afebrile, no leukocytosis -Continue to monitor for s/s of infection GI prophlaxis: protonix, DVT prophlaxis SCDs only Will transfer to med/surg Case and plan reviewed with my attending Dr. Parker Austin, DO IM Resident PGY-1 <Darryl Adamsno - Last Filed: 01/06/18 17:59> CCU Objective - Vital Signs / Intake & Output Vital Signs (Last 4 hours): Vital Signs Pulse Resp BP Pulse Ox 01/06/18 14:56 70 15 94 L 01/06/18 14:01 77 25 H 152/74 H 94 L 01/06/18 14:00 77 24 94 L Intake and Output (Last 8hrs): Intake & Output 01/06/18 01/06/18 01/06/18 06:59 14:59 22:59 Intake Total 1300 Output Total 1650 Balance -350 Intake: IV 900 Left Forearm 900 Oral 400 Output: Urine 1650 Urine, Voided 1650 Other: # Bowel Movements 0 - Medications Active Medications: Active Medications Generic Name Dose Route Start Last Admin Trade Name Freq PRN Reason Stop Dose Admin Dexamethasone 6 mg 01/04/18 18:00 01/06/18 12:34 Decadron Inj IVP 6 mg Q6 LEXY Administration Hydromorphone HCl 1 mg 01/04/18 14:00 01/06/18 16:06 Dilaudid IVP 1 mg Q2 LEXY Administration Dextrose/Sodium Chloride 1,000 mls @ 75 mls/hr 01/04/18 12:15 01/06/18 01:00 Dextrose 5%/0.45% Ns 1000 Ml IV 75 mls/hr .[id number] LEXY Administration Insulin Human Regular 0 units 01/06/18 11:30 01/06/18 16:44 Humulin R Med SC Not Given ACHS [facility] Protocol Levothyroxine Sodium 125 mcg 01/05/18 06:00 01/06/18 07:05 Synthroid PO 125 mcg 0600 LEXY Administration Morphine Sulfate 2 mg 01/03/18 21:54 01/05/18 23:30 Morphine IVP 2 mg Q4 PRN Administration Pain, moderate (4-7) Nicotine 1 patch 01/04/18 14:00 01/06/18 10:08 Nicoderm Cq TD 1 patch DAILY LEXY Administration Pantoprazole Sodium 40 mg 01/07/18 07:30 Protonix Ec Tab PO ACB LEXY Silver Sulfadiazine 1 gm 01/05/18 16:15 01/06/18 10:10 Silvadene 1% 25 Gm TP Not Given DAILY [facility] - Patient Studies Lab Studies: Microbiology Studies 01/03/18 20:37 Urine Culture - Final Urine,Clean Catch <10,000 CFU/ML. MULTIPLE SPECIES. PROBABLE CONTAMINATION. 01/04/18 03:00 MRSA Culture (Admit) - Final Nose MRSA NOT DETECTED Lab Studies 01/06/18 01/06/18 01/06/18 Range/Units 12:30 08:34 06:40 WBC (4.5-11.0) 10^3/ul RBC (3.5-6.1) 10^6/uL Hgb (12.0-16.0) g/dL Hct (36.0-48.0) % MCV (80.0-105.0) fl MCH (25.0-35.0) pg MCHC (31.0-37.0) g/dl RDW (11.5-14.5) % Plt Count (120.0-450.0) 10^3/uL MPV (7.0-11.0) fl Gran % (50.0-68.0) % Lymph % (Auto) (22.0-35.0) % [place] % (Auto) (1.0-6.0) % Eos % (Auto) (1.5-5.0) % Baso % (Auto) (0.0-3.0) % Gran # (1.4-6.5) Lymph # (Auto) (1.2-3.4) [place] # (Auto) (0.1-0.6) Eos # (Auto) (0.0-0.7) Baso # (Auto) (0.0-2.0) K/mm3 Sodium (132-148) mmol/L Potassium (3.6-5.0) mmol/L Chloride (98-107) mmol/L Carbon Dioxide (21-33) mmol/L Anion Gap (10-20) BUN (7-21) mg/dL Creatinine (0.7-1.2) mg/dl Est GFR ( Amer) Est GFR (Non-Af Amer) POC Glucose (mg/dL) 116 H 120 H 147 H (65-110) mg/dL Random Glucose (70-110) mg/dL Calcium (8.4-10.5) mg/dL Phosphorus (2.5-4.5) mg/dL Magnesium (1.7-2.2) mg/dL Total Bilirubin (0.2-1.3) mg/dL AST (14-36) U/L ALT (7-56) U/L Alkaline Phosphatase (38-126) U/L Total Protein (5.8-8.3) g/dL Albumin (3.0-4.8) g/dL Globulin gm/dL Albumin/Globulin Ratio (1.1-1.8) 01/06/18 01/06/18 01/06/18 Range/Units 06:37 06:18 06:00 WBC 8.7 (4.5-11.0) 10^3/ul RBC 3.10 L (3.5-6.1) 10^6/uL Hgb 9.0 L (12.0-16.0) g/dL Hct 27.7 L (36.0-48.0) % MCV 89.4 (80.0-105.0) fl MCH 29.0 (25.0-35.0) pg MCHC 32.5 (31.0-37.0) g/dl RDW 19.5 H (11.5-14.5) % Plt Count 179 (120.0-450.0) 10^3/uL MPV 9.0 (7.0-11.0) fl Gran % 82.0 H (50.0-68.0) % Lymph % (Auto) 11.0 L (22.0-35.0) % [place] % (Auto) 6.8 H (1.0-6.0) % Eos % (Auto) 0.0 L (1.5-5.0) % Baso % (Auto) 0.2 (0.0-3.0) % Gran # 7.09 H (1.4-6.5) Lymph # (Auto) 1.0 L (1.2-3.4) [place] # (Auto) 0.6 (0.1-0.6) Eos # (Auto) 0.0 (0.0-0.7) Baso # (Auto) 0.02 (0.0-2.0) K/mm3 Sodium 129 L (132-148) mmol/L Potassium 3.9 (3.6-5.0) mmol/L Chloride 99 (98-107) mmol/L Carbon Dioxide 22 (21-33) mmol/L Anion Gap 12 (10-20) BUN 11 (7-21) mg/dL Creatinine 0.5 L (0.7-1.2) mg/dl Est GFR ( Amer) > 60 Est GFR (Non-Af Amer) > 60 POC Glucose (mg/dL) > 500 H* (65-110) mg/dL Random Glucose 321 H* D (70-110) mg/dL Calcium 8.2 L (8.4-10.5) mg/dL Phosphorus 3.7 (2.5-4.5) mg/dL Magnesium 1.8 (1.7-2.2) mg/dL Total Bilirubin 0.2 (0.2-1.3) mg/dL AST 71 H D (14-36) U/L ALT 75 H (7-56) U/L Alkaline Phosphatase 291 H (38-126) U/L Total Protein 5.5 L (5.8-8.3) g/dL Albumin 3.0 (3.0-4.8) g/dL Globulin 2.5 gm/dL Albumin/Globulin Ratio 1.2 (1.1-1.8) 01/06/18 01/05/18 Range/Units 00:36 18:16 WBC (4.5-11.0) 10^3/ul RBC (3.5-6.1) 10^6/uL Hgb (12.0-16.0) g/dL Hct (36.0-48.0) % MCV (80.0-105.0) fl MCH (25.0-35.0) pg MCHC (31.0-37.0) g/dl RDW (11.5-14.5) % Plt Count (120.0-450.0) 10^3/uL MPV (7.0-11.0) fl Gran % (50.0-68.0) % Lymph % (Auto) (22.0-35.0) % [place] % (Auto) (1.0-6.0) % Eos % (Auto) (1.5-5.0) % Baso % (Auto) (0.0-3.0) % Gran # (1.4-6.5) Lymph # (Auto) (1.2-3.4) [place] # (Auto) (0.1-0.6) Eos # (Auto) (0.0-0.7) Baso # (Auto) (0.0-2.0) K/mm3 Sodium (132-148) mmol/L Potassium (3.6-5.0) mmol/L Chloride (98-107) mmol/L Carbon Dioxide (21-33) mmol/L Anion Gap (10-20) BUN (7-21) mg/dL Creatinine (0.7-1.2) mg/dl Est GFR ( Amer) Est GFR (Non-Af Amer) POC Glucose (mg/dL) 156 H 153 H (65-110) mg/dL Random Glucose (70-110) mg/dL Calcium (8.4-10.5) mg/dL Phosphorus (2.5-4.5) mg/dL Magnesium (1.7-2.2) mg/dL Total Bilirubin (0.2-1.3) mg/dL AST (14-36) U/L ALT (7-56) U/L Alkaline Phosphatase (38-126) U/L Total Protein (5.8-8.3) g/dL Albumin (3.0-4.8) g/dL Globulin gm/dL Albumin/Globulin Ratio (1.1-1.8) Laboratory Results - last 24 hr 01/05/18 01/06/18 01/06/18 18:16 00:36 06:00 WBC RBC Hgb Hct MCV MCH MCHC RDW Plt Count MPV Gran % Lymph % (Auto) [place] % (Auto) Eos % (Auto) Baso % (Auto) Gran # Lymph # (Auto) [place] # (Auto) Eos # (Auto) Baso # (Auto) Sodium 129 L Potassium 3.9 Chloride 99 Carbon Dioxide 22 Anion Gap 12 BUN 11 Creatinine 0.5 L Est GFR ( Amer) > 60 Est GFR (Non-Af Amer) > 60 POC Glucose (mg/dL) 153 H 156 H Random Glucose 321 H* D Calcium 8.2 L Phosphorus 3.7 Magnesium 1.8 Total Bilirubin 0.2 AST 71 H D ALT 75 H Alkaline Phosphatase 291 H Total Protein 5.5 L Albumin 3.0 Globulin 2.5 Albumin/Globulin Ratio 1.2 01/06/18 01/06/18 01/06/18 06:18 06:37 06:40 WBC 8.7 RBC 3.10 L Hgb 9.0 L Hct 27.7 L MCV 89.4 MCH 29.0 MCHC 32.5 RDW 19.5 H Plt Count 179 MPV 9.0 Gran % 82.0 H Lymph % (Auto) 11.0 L [place] % (Auto) 6.8 H Eos % (Auto) 0.0 L Baso % (Auto) 0.2 Gran # 7.09 H Lymph # (Auto) 1.0 L [place] # (Auto) 0.6 Eos # (Auto) 0.0 Baso # (Auto) 0.02 Sodium Potassium Chloride Carbon Dioxide Anion Gap BUN Creatinine Est GFR ( Amer) Est GFR (Non-Af Amer) POC Glucose (mg/dL) > 500 H* 147 H Random Glucose Calcium Phosphorus Magnesium Total Bilirubin AST ALT Alkaline Phosphatase Total Protein Albumin Globulin Albumin/Globulin Ratio 01/06/18 01/06/18 08:34 12:30 WBC RBC Hgb Hct MCV MCH MCHC RDW Plt Count MPV Gran % Lymph % (Auto) [place] % (Auto) Eos % (Auto) Baso % (Auto) Gran # Lymph # (Auto) [place] # (Auto) Eos # (Auto) Baso # (Auto) Sodium Potassium Chloride Carbon Dioxide Anion Gap BUN Creatinine Est GFR ( Amer) Est GFR (Non-Af Amer) POC Glucose (mg/dL) 120 H 116 H Random Glucose Calcium Phosphorus Magnesium Total Bilirubin AST ALT Alkaline Phosphatase Total Protein Albumin Globulin Albumin/Globulin Ratio Critical Care Progress Note - Nutrition Nutrition: Nutrition Category Date Time Status Regular Diet [DIET] Diets 01/04/18 Lunch Ordered Addendum Addendum: 01/06/18 17:58 ICU Attending Addendum: Patient seen and examined. Case reviewed on round with housestaff. Agree with resident note above with the following additions/exceptions: 52F with stage IV breast cancer with mets admitted for RUE weakness. Intially admitted to the ICU for concern of brain hemorrhage from left parietal metastatic lesion. F/u imaging does not specify actualy bleed; significant brain mets seen, neuro is on board, following their recs Onc on board as well for management of br cancer and mets hemodyncamically she is stable for transfer out of the ICU rest of care above Darryl Adamson MD Fermentation Scientist
[2018-01-06] MEDS: Enoxaparin 40 mg Syringe SC SCH (10:08)
[2018-01-06] MEDS: Silver Sulfadiazine 1% Cream (25 gm) TP SCH (10:10)
--- NOTE | 2018-01-06 11:42 | CP.PCM.CON ---
History of Present Illness - History of Present Illness History of Present Illness: Ms Franco is a 52 year old female with stage IV breast cancer. She completed palliative radiation to the right hemipelvis on October 30, 2017. She then started having increasing right hip pain with inability to ambulate on her leg. She had a CT of the pelvis which recently showed a fracture of the right acetabulum. She was evaluated by the orthopedic oncologist. He did not recommend surgical intervention given her other acute neurologic issues. On Saturday, she and her daughter noticed worsening right upper weakness and numbness. She also had been having issues with word finding difficulty. She was sent to [facility] [place] evaluation and management. A CT of the cervical spine on January 03, 2018 revealed multilevel foci of disease in the cervical and upper thoracic spine. A MRI of the brain on January 03, 2018 revealed lesions throughout supratentorial and infratentorial lesions. The largest was in the left parietal lobe measuring 1.8cm with edema. A MRI of the cervical spine revealed diffuse prolonged T1 signal changes throughout the vertebral bodies suggestive of infiltrative marrow disease. We were asked to see her for palliative radiation. Review of Systems - Constitutional Constitutional: Weakness - Musculoskeletal Musculoskeletal: Abnormal Gait, Back Pain, Muscle Weakness Past Patient History - Infectious Disease Hx of Infectious Diseases: None - Past Social History Smoking Status: Heavy Smoker > 10 Cigarettes Daily Alcohol: None Home Situation {Lives}: Alone - CARDIAC Hx Cardiac Disorders: No - PULMONARY Other/Comment: active smoker - NEUROLOGICAL Hx Paralysis: No - RENAL Hx Chronic Kidney Disease: No - ENDOCRINE/METABOLIC Hx Diabetes Mellitus Type 2: Yes - HEMATOLOGICAL/ONCOLOGICAL Hx Cancer: Yes (breast, mets to spine) - INTEGUMENTARY Hx Dermatological Problems: No - MUSCULOSKELETAL/RHEUMATOLOGICAL Hx Falls: No - GASTROINTESTINAL Hx Gastrointestinal Disorders: No - GENITOURINARY/GYNECOLOGICAL Other/Comment: Stage 4 metastatic breast cancer - PSYCHIATRIC Hx Emotional Abuse: No Hx Physical Abuse: No Hx Substance Use: No - SURGICAL HISTORY Hx Surgeries: Yes - ANESTHESIA Hx Anesthesia: Yes Hx Anesthesia Reactions: No Hx Malignant Hyperthermia: No Meds Allergies/Adverse Reactions: Allergies Allergy/AdvReac Type Severity Reaction Status Date / Time CONTRAST Allergy Severe RASH/HIVES Uncoded 01/03/18 14:54 - Medications Medications: Current Medications Dexamethasone (Decadron Inj) 6 mg IVP Q6 [facility] Last Admin: 01/06/18 07:00 Dose: 6 mg Enoxaparin Sodium (Lovenox) 40 mg SC DAILY [facility]; Protocol Last Admin: 01/06/18 10:08 Dose: 40 mg Hydromorphone HCl (Dilaudid) 1 mg IVP Q2 [facility] Last Admin: 01/06/18 10:02 Dose: 1 mg Dextrose/Sodium Chloride (Dextrose 5%/0.45% Ns 1000 Ml) 1,000 mls @ 75 mls/hr IV .[id number] [facility] Last Admin: 01/06/18 01:00 Dose: 75 mls/hr Insulin Human Regular (Humulin R Med) 0 units SC ACHS [facility]; Protocol Levothyroxine Sodium (Synthroid) 125 mcg PO 0600 [facility] Last Admin: 01/06/18 07:05 Dose: 125 mcg Morphine Sulfate (Morphine) 2 mg IVP Q4 PRN PRN Reason: Pain, moderate (4-7) Last Admin: 01/05/18 23:30 Dose: 2 mg Nicotine (Nicoderm Cq) 1 patch TD DAILY [facility] Last Admin: 01/06/18 10:08 Dose: 1 patch Pantoprazole Sodium (Protonix Ec Tab) 40 mg PO ACB [facility] Silver Sulfadiazine (Silvadene 1% 25 Gm) 1 gm TP DAILY [facility] Last Admin: 01/06/18 10:10 Dose: Not Given Physical Exam - Head Exam Head Exam: NORMAL INSPECTION - Eye Exam Eye Exam: EOMI - Respiratory Exam Respiratory Exam: Clear to Auscultation Bilateral - Cardiovascular Exam Cardiovascular Exam: REGULAR RHYTHM - GI/Abdominal Exam GI & Abdominal Exam: Normal Bowel Sounds - Neurological Exam Neurological exam: CN II-XII Intact, Oriented x3 Additional comments: right hand and arm strength is 4/5. Right leg range of motion limited due to fracture. Right dorsiflexion and plantar flexion is intact. Left arm and leg s trength is 5/5 Results - Vital Signs Recent Vital Signs: Last Vital Signs Temp 98 F 01/06/18 08:00 Pulse 69 01/06/18 08:00 Resp 17 01/06/18 08:00 BP 129/81 01/06/18 08:00 Pulse Ox 93 L 01/06/18 08:00 - Labs Result Diagrams: 01/06/18 06:18 01/06/18 06:00 Labs: Laboratory Results - last 24 hr 09/01/05/18 01/06/18 11:55 18:16 00:36 WBC RBC Hgb Hct MCV MCH MCHC RDW Plt Count MPV Gran % Lymph % (Auto) Thayer % (Auto) Eos % (Auto) Baso % (Auto) Gran # Lymph # (Auto) Thayer # (Auto) Eos # (Auto) Baso # (Auto) Sodium Potassium Chloride Carbon Dioxide Anion Gap BUN Creatinine Est GFR ( Amer) Est GFR (Non-Af Amer) POC Glucose (mg/dL) 178 H 153 H 156 H Random Glucose Calcium Phosphorus Magnesium Total Bilirubin AST ALT Alkaline Phosphatase Total Protein Albumin Globulin Albumin/Globulin Ratio 01/06/18 01/06/18 01/06/18 06:00 06:18 06:37 WBC 8.7 RBC 3.10 L Hgb 9.0 L Hct 27.7 L MCV 89.4 MCH 29.0 MCHC 32.5 RDW 19.5 H Plt Count 179 MPV 9.0 Gran % 82.0 H Lymph % (Auto) 11.0 L Thayer % (Auto) 6.8 H Eos % (Auto) 0.0 L Baso % (Auto) 0.2 Gran # 7.09 H Lymph # (Auto) 1.0 L Thayer # (Auto) 0.6 Eos # (Auto) 0.0 Baso # (Auto) 0.02 Sodium 129 L Potassium 3.9 Chloride 99 Carbon Dioxide 22 Anion Gap 12 BUN 11 Creatinine 0.5 L Est GFR ( Amer) > 60 Est GFR (Non-Af Amer) > 60 POC Glucose (mg/dL) > 500 H* Random Glucose 321 H* D Calcium 8.2 L Phosphorus 3.7 Magnesium 1.8 Total Bilirubin 0.2 AST 71 H D ALT 75 H Alkaline Phosphatase 291 H Total Protein 5.5 L Albumin 3.0 Globulin 2.5 Albumin/Globulin Ratio 1.2 01/06/18 06:40 WBC RBC Hgb Hct MCV MCH MCHC RDW Plt Count MPV Gran % Lymph % (Auto) Thayer % (Auto) Eos % (Auto) Baso % (Auto) Gran # Lymph # (Auto) Thayer # (Auto) Eos # (Auto) Baso # (Auto) Sodium Potassium Chloride Carbon Dioxide Anion Gap BUN Creatinine Est GFR ( Amer) Est GFR (Non-Af Amer) POC Glucose (mg/dL) 147 H Random Glucose Calcium Phosphorus Magnesium Total Bilirubin AST ALT Alkaline Phosphatase Total Protein Albumin Globulin Albumin/Globulin Ratio Assessment & Plan - Assessment and Plan (Free Text) Assessment: Ms Franco has metastatic breast cancer with new brain metastases. She is currently on decadron. We would concur that she would benefit from whole brain radiation therapy. We spoke to her about the radiation including the risks and benefits. Informed consent was obtained. We will schedule her for a simulation and start treatment today.
[2018-01-06] MEDS: Insulin Reg-MEDIUM-Coverage SC SCH ×3 (12:33→22:00)
--- NOTE | 2018-01-06 14:36 | CP.PCM.CON ---
History of Present Illness - History of Present Illness History of Present Illness: Palliative consult requested by Dr Kevan Penn Reason: Goals of care 52 year old female with history of ER+, [place]+, HER2/ cale + metastatic breast cancer who presented on 01/03/18 with right upper extremity weakness, limited ROM and tingling of one weak duration. She is currently receiving chemotherapy Taxol/Herceptin and had completed localized XRT to right breast . She denied chest/abdominal pain, palpitations, shortness of breath, nausea, vomiting, headache,dizziness, visual changes or dysphagia. She most recently was diagnosed with pathologic fracture of right acetabulum. CT of head: showed multiple intracranial metastasis with surrounding edema A 2.1 cm high left parietal metastasis which may contain small hemorrhage MRI of brain: numerous varying sized round metastatic lesions through out both the cerebral and cerebellar hemispheres, largest lesion in left parietal lobe has a very large surrounding rim vasogenic edema with considerable surrounding mass effect. Cervical CT: fractrue of right temporomandibular jont in region of lucency possibly pathological, multilevel sclerotic foci involving cervical spine and upper thoracic spine worrisome for metastasis, L>R small effusions ground glass infiltrates. Cervical MRI: diffuse prolonged T1 signal changes through out vertebral bodies with inhogonenous prolonged T2 signal suggestive of infiltrative marrow disease process of metastasis PHMx:ER+, [place]+, HER2/ cale + breast cancer metastatic to liver and bone,pathologic fracture of right acetabulum, intractable pain. PSH: hysterectomy Family History: Mother ,dementia.Father , PAD s/p double lower extremity amputations Social History: Current heavy smoker, used to drink Etoh regularly but quit three years ago, does not use recreational drugs. 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 Lived alone until recently,her daughter Maureen is now with her. Advance Care Planning: The patient has an advanced Directive, she is DNR/DNI. Her daughter Maureen Scott ( [phone])is her POA. Past Patient History - Infectious Disease Hx of Infectious Diseases: None - Past Social History Smoking Status: Heavy Smoker > 10 Cigarettes Daily Alcohol: None Home Situation {Lives}: Alone - CARDIAC Hx Cardiac Disorders: No - PULMONARY Other/Comment: active smoker - NEUROLOGICAL Hx Paralysis: No - RENAL Hx Chronic Kidney Disease: No - ENDOCRINE/METABOLIC Hx Diabetes Mellitus Type 2: Yes - HEMATOLOGICAL/ONCOLOGICAL Hx Cancer: Yes (breast, mets to spine) - INTEGUMENTARY Hx Dermatological Problems: No - MUSCULOSKELETAL/RHEUMATOLOGICAL Hx Falls: No - GASTROINTESTINAL Hx Gastrointestinal Disorders: No - GENITOURINARY/GYNECOLOGICAL Other/Comment: Stage 4 metastatic breast cancer - PSYCHIATRIC Hx Emotional Abuse: No Hx Physical Abuse: No Hx Substance Use: No - SURGICAL HISTORY Hx Surgeries: Yes - ANESTHESIA Hx Anesthesia: Yes Hx Anesthesia Reactions: No Hx Malignant Hyperthermia: No Meds Allergies/Adverse Reactions: Allergies Allergy/AdvReac Type Severity Reaction Status Date / Time CONTRAST Allergy Severe RASH/HIVES Uncoded 01/03/18 14:54 - Medications Medications: Current Medications Dexamethasone (Decadron Inj) 6 mg IVP Q6 [facility] Last Admin: 01/06/18 12:34 Dose: 6 mg Hydromorphone HCl (Dilaudid) 1 mg IVP Q2 [facility] Last Admin: 01/06/18 14:02 Dose: 1 mg Dextrose/Sodium Chloride (Dextrose 5%/0.45% Ns 1000 Ml) 1,000 mls @ 75 mls/hr IV .[id number] [facility] Last Admin: 01/06/18 01:00 Dose: 75 mls/hr Insulin Human Regular (Humulin R Med) 0 units SC ACHS [facility]; Protocol Last Admin: 01/06/18 12:33 Dose: Not Given Levothyroxine Sodium (Synthroid) 125 mcg PO 0600 [facility] Last Admin: 01/06/18 07:05 Dose: 125 mcg Morphine Sulfate (Morphine) 2 mg IVP Q4 PRN PRN Reason: Pain, moderate (4-7) Last Admin: 01/05/18 23:30 Dose: 2 mg Nicotine (Nicoderm Cq) 1 patch TD DAILY [facility] Last Admin: 01/06/18 10:08 Dose: 1 patch Pantoprazole Sodium (Protonix Ec Tab) 40 mg PO ACB [facility] Silver Sulfadiazine (Silvadene 1% 25 Gm) 1 gm TP DAILY [facility] Last Admin: 01/06/18 10:10 Dose: Not Given Physical Exam - Constitutional Appears: Chronically Ill - Head Exam Head Exam: NORMAL INSPECTION - Eye Exam Eye Exam: Normal appearance, PERRL - ENT Exam ENT Exam: Mucous Membranes Moist, Normal Oropharynx - Respiratory Exam Respiratory Exam: Decreased Breath Sounds, NORMAL BREATHING PATTERN - Cardiovascular Exam Cardiovascular Exam: REGULAR RHYTHM, +S1, +S2 - GI/Abdominal Exam GI & Abdominal Exam: Normal Bowel Sounds, Soft - Back Exam Back exam: vertebral tenderness - Neurological Exam Neurological exam: Altered, Oriented x3 - Skin Skin Exam: Dry, Pallor, Warm - Additional Findings Additional findings: palliative performance scale rating 40 % Results - Vital Signs Recent Vital Signs: Last Vital Signs Temp 98.4 F 01/06/18 12:00 Pulse 77 01/06/18 14:01 Resp 25 H 01/06/18 14:01 BP 152/74 H 01/06/18 14:01 Pulse Ox 94 L 01/06/18 14:01 - Labs Result Diagrams: 01/07/18 05:30 01/07/18 05:30 Labs: Laboratory Results - last 24 hr 01/05/18 01/06/18 01/06/18 18:16 00:36 06:00 WBC RBC Hgb Hct MCV MCH MCHC RDW Plt Count MPV Gran % Lymph % (Auto) Alexander % (Auto) Eos % (Auto) Baso % (Auto) Gran # Lymph # (Auto) Alexander # (Auto) Eos # (Auto) Baso # (Auto) Sodium 129 L Potassium 3.9 Chloride 99 Carbon Dioxide 22 Anion Gap 12 BUN 11 Creatinine 0.5 L Est GFR ( Amer) > 60 Est GFR (Non-Af Amer) > 60 POC Glucose (mg/dL) 153 H 156 H Random Glucose 321 H* D Calcium 8.2 L Phosphorus 3.7 Magnesium 1.8 Total Bilirubin 0.2 AST 71 H D ALT 75 H Alkaline Phosphatase 291 H Total Protein 5.5 L Albumin 3.0 Globulin 2.5 Albumin/Globulin Ratio 1.2 01/06/18 01/06/18 01/06/18 06:18 06:37 06:40 WBC 8.7 RBC 3.10 L Hgb 9.0 L Hct 27.7 L MCV 89.4 MCH 29.0 MCHC 32.5 RDW 19.5 H Plt Count 179 MPV 9.0 Gran % 82.0 H Lymph % (Auto) 11.0 L Alexander % (Auto) 6.8 H Eos % (Auto) 0.0 L Baso % (Auto) 0.2 Gran # 7.09 H Lymph # (Auto) 1.0 L Alexander # (Auto) 0.6 Eos # (Auto) 0.0 Baso # (Auto) 0.02 Sodium Potassium Chloride Carbon Dioxide Anion Gap BUN Creatinine Est GFR ( Amer) Est GFR (Non-Af Amer) POC Glucose (mg/dL) > 500 H* 147 H Random Glucose Calcium Phosphorus Magnesium Total Bilirubin AST ALT Alkaline Phosphatase Total Protein Albumin Globulin Albumin/Globulin Ratio 01/06/18 01/06/18 08:34 12:30 WBC RBC Hgb Hct MCV MCH MCHC RDW Plt Count MPV Gran % Lymph % (Auto) Alexander % (Auto) Eos % (Auto) Baso % (Auto) Gran # Lymph # (Auto) Alexander # (Auto) Eos # (Auto) Baso # (Auto) Sodium Potassium Chloride Carbon Dioxide Anion Gap BUN Creatinine Est GFR ( Amer) Est GFR (Non-Af Amer) POC Glucose (mg/dL) 120 H 116 H Random Glucose Calcium Phosphorus Magnesium Total Bilirubin AST ALT Alkaline Phosphatase Total Protein Albumin Globulin Albumin/Globulin Ratio Assessment & Plan - Assessment and Plan (Free Text) Assessment: 52 year old female with history of metastatic Er,[place], Her 2/cale positive breast cancer who was admitted with weakness and tingling in LUE, found to have multiple brain metastasis. The patient is pleasant, alert and oriented. Daughter Maureen is at bedside. The patient/daughter are aware of diagnosis, the extent of her illness as well as prognosis. The patient states she has started XRT to brain and intends to continue chemotherapy. She expressed some concerns about being able to compete XRT as she found it to be very taxing on her system the last time. She reports having extreme fatigue and " stomach issues" . She was also worried about traveling back and forth to appointments. Encouraged to take one day at the time. I explained that medical management of her symptoms would be incorporated inter her treatment plan. Raul CUADRA also present and able to assist patient with information regarding transportation and home care needs. I also explained that if she felt that treatment was impacting quality of life to a point that she no longer wished to continue, that hospice care could be provided. Hospice services explained in detail. Questions answered. Family appreciative of palliative interaction. Time spent in goals of care and advance care planning, 60 minutes
[2018-01-06] MEDS: Morphine 2 mg/ml ISec IVP PRN (21:13)
[2018-01-07] MEDS: HYDROmorphone 1 mg/ml ISec IVP SCH ×9 (00:15→12:26)
[2018-01-07] MEDS: Dexamethasone 4 mg/1 ml IVP SCH ×4 (02:22→17:56)
[2018-01-07] MEDS: Morphine 2 mg/ml ISec IVP PRN ×2 (03:51→18:59)
[2018-01-07] MEDS: Levothyroxine 125 MCG TAB PO SCH (06:33)
[2018-01-07 06:44] LABS: BASO # 0.03 K/mm3 (0.0-2.0); BASO % 0.3 % (0.0-3.0); GRAN # 7.87 (1.4-6.5); HEMOGLOBIN 9.4 g/dL (12.0-16.0); LYMPH # 1.1 (1.2-3.4); LYMPH % 11.4 % (22.0-35.0); MEAN CELL VOLUME 89.4 fl (80.0-105.0); MEAN CORPUSCULAR HEMOGLOBIN 29.2 pg (25.0-35.0); MEAN CORPUSCULAR HGB CONC 32.6 g/dl (31.0-37.0); MONO # 0.5 (0.1-0.6); MONO % 5.3 % (1.0-6.0); RBC 3.22 10^6/uL (3.5-6.1); RED CELL DISTRIBUTION WIDTH 19.4 % (11.5-14.5); WHITE BLOOD COUNT 9.5 10^3/ul (4.5-11.0)
[2018-01-07 07:18] LABS: ALB/GLOB RATIO 1.2 (1.1-1.8); ALBUMIN 3.1 g/dL (3.0-4.8); ALT/SGPT 89 U/L (7-56); AST/SGOT 74 U/L (14-36); BLOOD UREA NITROGEN 17 mg/dL (7-21); CALCIUM 8.5 mg/dL (8.4-10.5); GFR NON-AFRICAN AMERICAN > 60
[2018-01-07] MEDS: Insulin Reg-MEDIUM-Coverage SC SCH ×3 (08:04→21:59)
[2018-01-07] MEDS: Pantoprazole 40 mg EC Tab PO SCH (08:08)
--- NOTE | 2018-01-07 08:21 | PN ---
DATE: 01/06/2018 LOCATION: The patient is in ICU, bed 7. PROBLEM: This is a 52-year-old female with metastatic carcinoma of breast with documented bone metastasis, was admitted to the emergency room, the ER with progressive weakness of the right side including right arm, right leg, along with complex acetabular fracture of the right hip associated with increasing and progressively worsening pain involving multiple areas of body with failure to thrive as an outpatient, was admitted for further management. The patient was admitted to the unit because of the concern that the CAT scan of the head showed multiple mets and that patient could be evolving into herniation. The patient was promptly seen by the neurologist, neurosurgeon and started on broad-spectrum medications including high dose of IV Decadron. Since the admission, pain has gotten better with IV Dilaudid hours, weakness on the right arm has improved. The patient was able to raise her arm and make a fist, which she was completely on the day of the admission. She can move also her right lower extremity by herself. Overall the patient is feeling better since admission. The patient is going to be starting radiation today as Dr. Goddard has already seen her. PHYSICAL EXAMINATION: VITAL SIGNS: Stable. T-max is 98.4, pulse of 70, blood pressure is 129/81, pulse ox is 93% on 2 L of oxygen. HEENT: Head is normocephalic and atraumatic. Conjunctivae are pale. Sclerae are anicteric. Pupils are equally reactive to light and accommodation. Examination of the mouth, no oropharyngeal lesions. NECK: Supple. There is no adenopathy. No jugular venous distention noted. LUNGS: Clear to percussion and auscultation. HEART: Reveals PMI to be in the fifth intercostal space inside the midclavicular line. ABDOMEN: Soft and nontender. Mildly distended. Liver and spleen are palpable. No rebound, rigidity, or guarding is noted. BREASTS: Right breast to be erythematous. No masses per se felt in the breast. Left breast is unremarkable. Axilla negative. Supraclavicular nodes are negative. EXTREMITIES: Right upper extremity has edema, which has decreased, also found right upper extremity was negative. The patient is able to raise her arm with minimal help. Examination of the lower extremities revealed no cyanosis, clubbing or edema. NEUROLOGIC: Higher functions are normal except for weakness. 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 Right lower extremity again 4/5. Left lower extremity unremarkable. The patient has limitation of range of motion to right hip secondary to complex acetabular fracture. SKIN: Skin turgor is decreased. No skin lesions are noted. MEDICATIONS: The patient's medications are reviewed. She is on dexamethasone every 6 hours, Lovenox 40 mg subcu daily, 1 mg of Dilaudid IV every 2 hours. She is on D5 half normal saline at 75 mL/hour. She is on insulin coverage. She is on levothyroxine mcg p.o. daily. She is on morphine 2 mg IV every 4 hours p.r.n. Nicoderm patch 21 mg patch once a day, Protonix 40 mg IV daily, cream topically to the site above the port site on the right chest wall for protection. LABORATORY DATA: The patient's labs were reviewed. White count is 8.7, hemoglobin 9, hematocrit 27, and platelet count of 179,000. Electrolytes are grossly unremarkable. Blood sugars have been running over 147. Sodium is 129, K is 3.9, chloride 99, CO2 of 22, BUN of 11, and creatinine 0.5. ASSESSMENT AND PLAN: The patient is currently on regular diet. The patient is going to be seen by Radiation Oncology to start immediate radiation for the multiple mets on the head and currently starting the patient on high-dose chemotherapy as well with single agent carboplatin. While evaluating the patient for therapy with drugs such as Kadcyla once the patient's clinical condition improved. Brain and C spine MRI's are consistent with multifocal metastasis in the brain, both infra and supratentorially with edema associated with it. Neurology is following the patient. Cardiology is following the patient. We will continue to monitor the patient in the unit for another 24 hours before planning on transferring the patient to regular med-surg floor. Meantime, we will continue to maintain euvolemia, watch the BUN and creatinine, gastric prophylaxis, and DVT prophylaxis. We will continue all the medicines that previously ordered. Labs for a.m. have been requested. Kashif Penn MD
[2018-01-07] MEDS: Silver Sulfadiazine 1% Cream (25 gm) TP SCH (09:50)
[2018-01-07] MEDS: Dextrose 5%/0.45% NS 1,000 ML IV SCH (09:51)
--- NOTE | 2018-01-07 09:57 | CP.PCM.PN ---
Subjective - Date & Time of Evaluation Date of Evaluation: 01/07/18 Time of Evaluation: 09:38 - Subjective Subjective: Zander Echols PGY2 Heme/Onc Progress Note for Dr. Penn Patient was seen and examined at bedside in ICU. She states that her shoulder pain is a 10/10 and is exacerbated when she moves. She denies chest pain, abdominal pain, leg swelling, changes in vision/hearing and is moving all extremities. Otherwise there were no acute overnight events, and patient passed swallow eval and is tolerating her current diet. Per Dr. Goddard, the patient would benefit from whole brain radiation therapy, and she was mapped yesterday and will be receiving XRT today. Objective - Vital Signs/Intake and Output Vital Signs (last 24 hours): Temp Pulse Resp BP Pulse Ox 98.2 F 83 16 120/70 95 01/07/18 07:51 01/07/18 08:23 01/07/18 06:59 01/07/18 07:00 01/07/18 03:00 Intake and Output: 01/07/18 01/07/18 06:59 18:59 Intake Total 1300 Output Total 900 Balance 400 - Medications Medications: Current Medications Dexamethasone (Decadron Inj) 6 mg IVP Q6 [facility] Last Admin: 01/07/18 06:32 Dose: 6 mg Hydromorphone HCl (Dilaudid) 1 mg IVP Q2 [facility] Last Admin: 01/07/18 09:53 Dose: 1 mg Pamidronate Disodium 90 mg/ (Sodium Chloride) 510 mls @ 127.5 mls/hr IVPB ONCE ONE Stop: 01/07/18 13:11 Sodium Chloride (Sodium Chloride 0.9%) 1,000 mls @ 60 mls/hr IV .[id number] [facility] Insulin Human Regular (Humulin R Med) 0 units SC ACHS [facility]; Protocol Last Admin: 01/07/18 08:04 Dose: Not Given Levothyroxine Sodium (Synthroid) 125 mcg PO 0600 [facility] Last Admin: 01/07/18 06:33 Dose: 125 mcg Morphine Sulfate (Morphine) 2 mg IVP Q4 PRN PRN Reason: Pain, moderate (4-7) Last Admin: 01/07/18 03:51 Dose: 2 mg Nicotine (Nicoderm Cq) 1 patch TD DAILY [facility] Last Admin: 01/07/18 09:50 Dose: 1 patch Pantoprazole Sodium (Protonix Ec Tab) 40 mg PO ACB [facility] Last Admin: 01/07/18 08:08 Dose: 40 mg Silver Sulfadiazine (Silvadene 1% 25 Gm) 1 gm TP DAILY [facility] Last Admin: 01/07/18 09:50 Dose: Not Given Zolpidem Tartrate (Ambien) 5 mg PO HS PRN; Protocol PRN Reason: Insomnia - Labs Labs: 01/07/18 05:30 01/07/18 05:30 PT 11.1 SECONDS (9.4-12.5) 01/05/18 05:00 INR 0.97 01/05/18 05:00 APTT 23.1 Seconds (25.1-36.5) L 01/03/18 15:59 - Constitutional Appears: Well, Non-toxic, No Acute Distress - Head Exam Head Exam: NORMAL INSPECTION - Eye Exam Eye Exam: EOMI, Normal appearance, PERRL - ENT Exam ENT Exam: Mucous Membranes Moist - Neck Exam Neck Exam: Full ROM, Normal Inspection - Respiratory Exam Respiratory Exam: NORMAL BREATHING PATTERN. absent: Respiratory Distress - Cardiovascular Exam Cardiovascular Exam: RRR, +S1, +S2 - GI/Abdominal Exam GI & Abdominal Exam: Soft. absent: Distended, Tenderness - Extremities Exam Extremities Exam: Full ROM. 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 The patient also has associated pain. She is on Decadron IVP for the brain edema and has been started on XRT. Plan: Continue XRT per Dr. Goddard Patient will be started on chemo per Dr. Penn Patient is hemodynamically stable to transfer off ICU to [facility] D5/ 1/2 NS switched to NS due to hyperglycemia and pt now tolerating diet Pain regimen increased to Dilaudid to 2mg q2 and Morphine 2mg q4 PRN Continue Synthroid ISS for hypoglycemia (exacerbated by steroids) Continue Nicoderm PTX for GI PPX PT Eval recommending [facility] Palliative Care is following DNR/DNI Case was reviewed and discussed with attending, Dr. Fili Echols PGY2
[2018-01-07] MEDS: Sodium Chloride 0.9% 1,000 ML IV SCH (10:04)
[2018-01-07] MEDS: HYDROmorphone 2 mg/ml ISec IVP SCH ×5 (13:46→22:17)
[2018-01-08] MEDS: HYDROmorphone 2 mg/ml ISec IVP SCH ×11 (00:11→20:22)
[2018-01-08] MEDS: Dexamethasone 4 mg/1 ml IVP SCH ×4 (00:14→17:37)
[2018-01-08] MEDS: Levothyroxine 125 MCG TAB PO SCH (05:07)
[2018-01-08] MEDS: Sodium Chloride 0.9% 1,000 ML IV SCH ×2 (05:10→22:57)
[2018-01-08 05:53] LABS: BASO # 0.03 K/mm3 (0.0-2.0); BASO % 0.3 % (0.0-3.0); EOS % 0.1 % (1.5-5.0); GRAN # 9.43 (1.4-6.5); GRAN % 84.1 % (50.0-68.0); HEMOGLOBIN 9.3 g/dL (12.0-16.0); LYMPH % 8.9 % (22.0-35.0); MEAN CELL VOLUME 89.6 fl (80.0-105.0); MEAN CORPUSCULAR HEMOGLOBIN 29.3 pg (25.0-35.0); MEAN CORPUSCULAR HGB CONC 32.7 g/dl (31.0-37.0); MEAN PLATELET VOLUME 8.6 fl (7.0-11.0); MONO # 0.7 (0.1-0.6); MONO % 6.6 % (1.0-6.0); PLATELET COUNT 200 10^3/uL (120.0-450.0); RBC 3.17 10^6/uL (3.5-6.1); RED CELL DISTRIBUTION WIDTH 19.5 % (11.5-14.5); WHITE BLOOD COUNT 11.2 10^3/ul (4.5-11.0)
[2018-01-08 07:18] LABS: ALB/GLOB RATIO 1.2 (1.1-1.8); ALBUMIN 2.9 g/dL (3.0-4.8); ALT/SGPT 97 U/L (7-56); AST/SGOT 68 U/L (14-36); BLOOD UREA NITROGEN 21 mg/dL (7-21); CALCIUM 8.6 mg/dL (8.4-10.5); GFR NON-AFRICAN AMERICAN > 60
[2018-01-08] MEDS: Insulin Reg-MEDIUM-Coverage SC SCH ×4 (08:15→22:53)
[2018-01-08] MEDS: Pantoprazole 40 mg EC Tab PO SCH (08:23)
[2018-01-08 09:18] LABS: BAND 7 % (0-2); CORRECTED WBC 10.4 K/mm3 (4.5-11.0); LYMPHOCYTE 7 % (22.0-35.0); METAMYELOCYTE 6 %; MONOCYTE 3 % (1.0-6.0); NEUTROPHIL 77 % (50.0-70.0); NUCLEATED RED BLOOD CELL 8 %; PLATELET ESTIMATE NORMAL (NORMAL)
--- NOTE | 2018-01-08 11:28 | CP.PCM.PN ---
Subjective - Date & Time of Evaluation Date of Evaluation: 01/08/18 Time of Evaluation: 10:02 - Subjective Subjective: Zander Echols PGY2 Heme/Onc Progress Note for Dr. Penn Patient was seen and examined at bedside. She has been transferred out of ICU. She is still complaining of shoulder pain but it is better controlled on the updated pain regimen. There were no acute overnight events. Objective - Vital Signs/Intake and Output Vital Signs (last 24 hours): Temp Pulse Resp BP Pulse Ox 98.1 F 66 20 120/75 95 01/07/18 22:19 01/07/18 22:19 01/07/18 22:19 01/07/18 22:19 01/07/18 22:19 - Medications Medications: Current Medications Dexamethasone (Decadron Inj) 6 mg IVP Q6 [facility] Last Admin: 01/08/18 05:06 Dose: 6 mg Hydromorphone HCl (Dilaudid) 2 mg IVP Q2 [facility] Last Admin: 01/08/18 10:26 Dose: 2 mg Sodium Chloride (Sodium Chloride 0.9%) 1,000 mls @ 60 mls/hr IV .[id number] [facility] Last Admin: 01/08/18 05:10 Dose: 60 mls/hr Ibuprofen (Motrin Tab) 400 mg PO Q6H PRN PRN Reason: Headache Insulin Human Regular (Humulin R Med) 0 units SC ACHS [facility]; Protocol Last Admin: 01/08/18 11:27 Dose: Not Given Levothyroxine Sodium (Synthroid) 125 mcg PO 0600 [facility] Last Admin: 01/08/18 05:07 Dose: 125 mcg Nicotine (Nicoderm Cq) 1 patch TD DAILY [facility] Last Admin: 01/08/18 10:26 Dose: 1 patch Pantoprazole Sodium (Protonix Ec Tab) 40 mg PO ACB [facility] Last Admin: 01/08/18 08:23 Dose: 40 mg Silver Sulfadiazine (Silvadene 1% 25 Gm) 1 gm TP DAILY [facility] Last Admin: 01/07/18 09:50 Dose: Not Given Zolpidem Tartrate (Ambien) 5 mg PO HS PRN; Protocol PRN Reason: Insomnia - Labs Labs: 01/08/18 05:30 01/08/18 05:30 PT 11.1 SECONDS (9.4-12.5) 01/05/18 05:00 INR 0.97 01/05/18 05:00 APTT 23.1 Seconds (25.1-36.5) L 01/03/18 15:59 - Additional Findings Additional findings: - Constitutional Appears: Well, Non-toxic, No Acute Distress - Head Exam Head Exam: NORMAL INSPECTION - Eye Exam Eye Exam: EOMI, Normal appearance, PERRL - ENT Exam ENT Exam: Mucous Membranes Moist - Neck Exam Neck Exam: Full ROM, Normal Inspection - Respiratory Exam Respiratory Exam: NORMAL BREATHING PATTERN. absent: Respiratory Distress - Cardiovascular Exam Cardiovascular Exam: RRR, +S1, +S2 - GI/Abdominal Exam GI & Abdominal Exam: Soft. absent: Distended, Tenderness - Extremities Exam Extremities Exam: Full ROM. 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 The patient also has associated pain. She is on Decadron IVP for the brain edema and has been started on XRT. She was given Aredia yesterday. Plan: Continue XRT per Dr. Goddard Patient will be started on chemo per Dr. Penn, possibly after discharge cont Dilaudid 2mg q2 and Morphine 2mg q4 PRN Continue Synthroid ISS for hyperglycemia (exacerbated by steroids) Continue Nicoderm PTX for GI PPX PT Eval recommending [facility] Palliative Care is following DNR/DNI Case was reviewed and discussed with attending, Dr. Fili Echols PGY2
[2018-01-08] MEDS ORDERED: HYDROmorphone 1 mg/ml ISec IVP STA (16:04)
[2018-01-08] MEDS: Silver Sulfadiazine 1% Cream (25 gm) TP SCH (18:04)
[2018-01-09] MEDS: Dexamethasone 4 mg/1 ml IVP SCH ×4 (00:02→17:53)
[2018-01-09] MEDS: HYDROmorphone 2 mg/ml ISec IVP SCH ×5 (00:03→12:52)
[2018-01-09] MEDS: Levothyroxine 125 MCG TAB PO SCH (06:01)
[2018-01-09] MEDS: Insulin Reg-MEDIUM-Coverage SC SCH ×4 (07:00→22:21)
[2018-01-09 07:17] LABS: ALB/GLOB RATIO 1.2 (1.1-1.8); ALBUMIN 2.9 g/dL (3.0-4.8); ALT/SGPT 105 U/L (7-56); AST/SGOT 76 U/L (14-36); BLOOD UREA NITROGEN 25 mg/dL (7-21); CALCIUM 8.5 mg/dL (8.4-10.5); GFR NON-AFRICAN AMERICAN > 60
[2018-01-09 07:18] LABS: BASO # 0.03 K/mm3 (0.0-2.0); BASO % 0.3 % (0.0-3.0); EOS % 0.2 % (1.5-5.0); GRAN # 8.48 (1.4-6.5); GRAN % 83.9 % (50.0-68.0); LYMPH # 0.8 (1.2-3.4); LYMPH % 8.1 % (22.0-35.0); MEAN CELL VOLUME 88.7 fl (80.0-105.0); MEAN CORPUSCULAR HGB CONC 32.7 g/dl (31.0-37.0); MEAN PLATELET VOLUME 8.9 fl (7.0-11.0); MONO # 0.8 (0.1-0.6); MONO % 7.5 % (1.0-6.0); RBC 3.1 10^6/uL (3.5-6.1); RED CELL DISTRIBUTION WIDTH 19.9 % (11.5-14.5); WHITE BLOOD COUNT 10.1 10^3/ul (4.5-11.0)
--- NOTE | 2018-01-09 07:40 | CP.PCM.PN ---
Subjective - Date & Time of Evaluation Date of Evaluation: 01/09/18 Time of Evaluation: 07:15 - Subjective Subjective: Zander Echols PGY2 Heme/Onc Progress Note for Dr. Penn Patient was seen and examined at bedside. Per nursing notes, the patient is complaining of continued shoulder and pelvic pain but that is relieved on the increased pain regimen but recurs, and she has been noted to have episodes of moaning/groaning. There were no other overnight events. Objective - Vital Signs/Intake and Output Vital Signs (last 24 hours): Temp Pulse Resp BP Pulse Ox 98.1 F 66 20 120/75 95 01/07/18 22:19 01/07/18 22:19 01/07/18 22:19 01/07/18 22:19 01/07/18 22:19 Intake and Output: 01/09/18 01/09/18 06:59 18:59 Intake Total 1740 Balance 1740 - Medications Medications: Current Medications Dexamethasone (Decadron Inj) 6 mg IVP Q6 [facility] Last Admin: 01/09/18 06:01 Dose: 6 mg Hydromorphone HCl (Dilaudid) 3 mg IVP Q3 [facility] Last Admin: 01/09/18 06:00 Dose: 3 mg Sodium Chloride (Sodium Chloride 0.9%) 1,000 mls @ 60 mls/hr IV .[id number] [facility] Last Admin: 01/08/18 22:57 Dose: 60 mls/hr Ibuprofen (Motrin Tab) 400 mg PO Q6H PRN PRN Reason: Headache Insulin Human Regular (Humulin R Med) 0 units SC ACHS [facility]; Protocol Last Admin: 01/08/18 22:53 Dose: Not Given Levothyroxine Sodium (Synthroid) 125 mcg PO 0600 [facility] Last Admin: 01/09/18 06:01 Dose: 125 mcg Nicotine (Nicoderm Cq) 1 patch TD DAILY [facility] Last Admin: 01/08/18 10:26 Dose: 1 patch Pantoprazole Sodium (Protonix Ec Tab) 40 mg PO ACB [facility] Last Admin: 01/08/18 08:23 Dose: 40 mg Silver Sulfadiazine (Silvadene 1% 25 Gm) 1 gm TP DAILY [facility] Last Admin: 01/08/18 18:04 Dose: Not Given Zolpidem Tartrate (Ambien) 5 mg PO HS PRN; Protocol PRN Reason: Insomnia Last Admin: 01/08/18 22:56 Dose: 5 mg - Labs Labs: 01/09/18 06:40 01/09/18 06:40 PT 11.1 SECONDS (9.4-12.5) 01/05/18 05:00 INR 0.97 01/05/18 05:00 APTT 23.1 Seconds (25.1-36.5) L 01/03/18 15:59 - Additional Findings Additional findings: - Constitutional Appears: Well, Non-toxic, No Acute Distress - Head Exam Head Exam: NORMAL INSPECTION - Eye Exam Eye Exam: EOMI, Normal appearance, PERRL - ENT Exam ENT Exam: Mucous Membranes Moist - Neck Exam Neck Exam: Full ROM, Normal Inspection - Respiratory Exam Respiratory Exam: NORMAL BREATHING PATTERN. absent: Respiratory Distress - Cardiovascular Exam Cardiovascular Exam: RRR, +S1, +S2 - GI/Abdominal Exam GI & Abdominal Exam: Soft. absent: Distended, Tenderness - Extremities Exam Extremities Exam: Full ROM. 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 The patient also has associated pain. She is on Decadron IVP for the brain edema and has been started on XRT. Patient will require carboplatin chemorx. Plan: Continue XRT per Dr. Goddard Patient will be started on chemo per Dr. Penn, possibly after discharge will start dilaudid creative writer for pain Continue Synthroid ISS for hyperglycemia (exacerbated by steroids) Continue Nicoderm PTX for GI PPX PT Eval recommending [facility] Palliative Care is following DNR/DNI Case was reviewed and discussed with attending, Dr. Fili Echols PGY2
[2018-01-09] MEDS: Pantoprazole 40 mg EC Tab PO SCH (10:15)
[2018-01-09] MEDS: Silver Sulfadiazine 1% Cream (25 gm) TP SCH (10:18)
[2018-01-09] MEDS: Sodium Chloride 0.9% 1,000 ML IV SCH (11:35)
--- NOTE | 2018-01-09 12:36 | CP.PCM.PN ---
Subjective - Date & Time of Evaluation Date of Evaluation: 01/09/18 Time of Evaluation: 11:00 - Subjective Subjective: Alert, forgetful at times. Offers no complaints Objective - Vital Signs/Intake and Output Vital Signs (last 24 hours): Temp Pulse Resp BP Pulse Ox 98.2 F 64 20 94/60 L 99 01/09/18 06:00 01/09/18 06:00 01/09/18 06:00 01/09/18 06:00 01/09/18 06:00 Intake and Output: 01/09/18 01/09/18 06:59 18:59 Intake Total 1740 Balance 1740 - Medications Medications: Current Medications Dexamethasone (Decadron Inj) 6 mg IVP Q6 [facility] Last Admin: 01/09/18 11:34 Dose: 6 mg Hydromorphone HCl (Dilaudid) 3 mg IVP Q3 [facility] Last Admin: 01/09/18 10:15 Dose: 3 mg Sodium Chloride (Sodium Chloride 0.9%) 1,000 mls @ 60 mls/hr IV .[id number] [facility] Last Admin: 01/09/18 11:35 Dose: 60 mls/hr Ibuprofen (Motrin Tab) 400 mg PO Q6H PRN PRN Reason: Headache Insulin Human Regular (Humulin R Med) 0 units SC ACHS [facility]; Protocol Last Admin: 01/09/18 11:35 Dose: Not Given Levothyroxine Sodium (Synthroid) 125 mcg PO 0600 [facility] Last Admin: 01/09/18 06:01 Dose: 125 mcg Nicotine (Nicoderm Cq) 1 patch TD DAILY [facility] Last Admin: 01/09/18 10:15 Dose: 1 patch Pantoprazole Sodium (Protonix Ec Tab) 40 mg PO ACB [facility] Last Admin: 01/09/18 10:15 Dose: 40 mg Silver Sulfadiazine (Silvadene 1% 25 Gm) 1 gm TP DAILY [facility] Last Admin: 01/09/18 10:18 Dose: Not Given Zolpidem Tartrate (Ambien) 5 mg PO HS PRN; Protocol PRN Reason: Insomnia Last Admin: 01/08/18 22:56 Dose: 5 mg - Labs Labs: 01/09/18 06:40 01/09/18 06:40 PT 11.1 SECONDS (9.4-12.5) 01/05/18 05:00 INR 0.97 01/05/18 05:00 APTT 23.1 Seconds (25.1-36.5) L 01/03/18 15:59 - Constitutional Appears: No Acute Distress, Chronically Ill - Eye Exam Eye Exam: Normal appearance, PERRL - ENT Exam ENT Exam: Mucous Membranes Moist - Neck Exam Neck Exam: Normal Inspection - Respiratory Exam Respiratory Exam: Decreased Breath Sounds, NORMAL BREATHING PATTERN - Cardiovascular Exam Cardiovascular Exam: REGULAR RHYTHM, +S1, +S2 - GI/Abdominal Exam GI & Abdominal Exam: Soft, Normal Bowel Sounds - Extremities Exam Additional comments: right sided weakness - Neurological Exam Neurological Exam: Alert - Skin Skin Exam: Dry, Pallor Assessment and Plan - Assessment and Plan (Free Text) Assessment: 52 year old female with history of metastatic ER/SC/Her 2neu positive breast cancer who is admitted with weakness, intractable pain,anemia, altered mental status and new findings of brain metastasis. She is currently receiving XRT to brain The patient is alert. States she tolerating radiation treatments and plans on completing them in entirety. She affirms that she intends on continuing with chemotherapy treatment plan as recommended by [place]. She states that she wants to get her strength back.She knows that she will likely go to sub acute rehab once medically cleared. I spoke with patients daughter Maureen via phone.Maureen also in agreement with mother plans to continue treatment. Tie spent in goals of care discussion with patient and family, 40 minutes Plan: Pain: Receiving Dilaudid 3mg IVP every 3 hours, tolerating well. Would consider transitioning to continuous [facility] Brain metastasis: Continue Decadron, daily XRT Weakness/deconditioning: PT/OT Smoking cessation: Consuelo, counseling Goals of care
[2018-01-09] MEDS ORDERED: HYDROmorphone 1 mg/ml PCA 30 ML IV PRN ×5 (12:40→17:35)
[2018-01-09] MEDS ORDERED: HYDROmorphone 1 mg/ml PCA IV PRN (17:18)
[2018-01-09] MEDS: POLYETHYLENE GLYCOL 3350 17 GM/Dose PACKET PO SCH (17:53)
[2018-01-09] MEDS: HYDROmorphone 1 mg/ml PCA 30 ML IV PRN (17:56)
[2018-01-10] MEDS: Dexamethasone 4 mg/1 ml IVP SCH ×4 (00:26→18:18)
[2018-01-10] MEDS: HYDROmorphone 1 mg/ml PCA 30 ML IV PRN ×2 (04:58→21:09)
[2018-01-10] MEDS: Levothyroxine 125 MCG TAB PO SCH (05:13)
[2018-01-10 07:02] LABS: BASO # 0.02 K/mm3 (0.0-2.0); BASO % 0.2 % (0.0-3.0); GRAN # 6.65 (1.4-6.5); GRAN % 82.9 % (50.0-68.0); HEMOGLOBIN 8.4 g/dL (12.0-16.0); LYMPH # 0.6 (1.2-3.4); LYMPH % 7.2 % (22.0-35.0); MEAN CELL VOLUME 89.2 fl (80.0-105.0); MEAN CORPUSCULAR HEMOGLOBIN 29.2 pg (25.0-35.0); MEAN CORPUSCULAR HGB CONC 32.7 g/dl (31.0-37.0); MEAN PLATELET VOLUME 8.6 fl (7.0-11.0); MONO # 0.8 (0.1-0.6); MONO % 9.7 % (1.0-6.0); RBC 2.88 10^6/uL (3.5-6.1); RED CELL DISTRIBUTION WIDTH 19.9 % (11.5-14.5)
[2018-01-10 07:14] LABS: ALB/GLOB RATIO 1.1 (1.1-1.8); ALBUMIN 2.7 g/dL (3.0-4.8); ALT/SGPT 102 U/L (7-56); AST/SGOT 75 U/L (14-36); BLOOD UREA NITROGEN 25 mg/dL (7-21); CALCIUM 8.2 mg/dL (8.4-10.5); GFR NON-AFRICAN AMERICAN > 60
[2018-01-10] MEDS: Insulin Reg-MEDIUM-Coverage SC SCH ×4 (08:52→22:30)
--- NOTE | 2018-01-10 09:04 | CP.PCM.PN ---
<Zander Echols - Last Filed: 01/10/18 20:16> Subjective - Date & Time of Evaluation Date of Evaluation: 01/10/18 Time of Evaluation: 07:04 - Subjective Subjective: Zander Echols PGY2 Heme/Onc Progress Note for Dr. Penn Patient was seen and examined at bedside. Overnight, the patient's pain was tolerated much better using a HYDRO ELECTRIC STATION OPERATOR pump. The patient was informed that she will be receiving chemotherapy today, and consent is provided. The patient denies any symptoms of chest pain, abdominal pain, weakness or fever/chills. Objective - Vital Signs/Intake and Output Vital Signs (last 24 hours): Temp Pulse Resp BP Pulse Ox 98.2 F 71 18 110/75 94 L 01/09/18 16:58 01/09/18 16:58 01/09/18 16:58 01/09/18 16:58 01/09/18 16:58 Intake and Output: 01/10/18 01/10/18 06:59 18:59 Intake Total 480 Output Total 2000 Balance -1520 - Medications Medications: Current Medications Alprazolam (Xanax) 0.5 mg PO QID [facility]; Protocol Last Admin: 01/09/18 22:21 Dose: 0.5 mg Dexamethasone (Decadron Inj) 6 mg IVP Q6 [facility] Last Admin: 01/10/18 05:13 Dose: 6 mg Docusate Sodium (Colace) 100 mg PO TID [facility] Last Admin: 01/09/18 17:53 Dose: 100 mg Hydromorphone HCl (Dilaudid-Hp 1 Mg/Ml Plate And Frame Filter Operator) 30 mls @ 2 mls/hr IV PRN PRN; Protocol PRN Reason: HYDRO ELECTRIC STATION OPERATOR PER MD ORDER Last Admin: 01/10/18 04:58 Dose: 2 mls/hr Ibuprofen (Motrin Tab) 400 mg PO Q6H PRN PRN Reason: Headache Insulin Human Regular (Humulin R Med) 0 units SC ACHS [facility]; Protocol Last Admin: 01/09/18 22:21 Dose: Not Given Levothyroxine Sodium (Synthroid) 125 mcg PO 0600 [facility] Last Admin: 01/10/18 05:13 Dose: 125 mcg Nicotine (Nicoderm Cq) 1 patch TD DAILY [facility] Last Admin: 01/09/18 10:15 Dose: 1 patch Pantoprazole Sodium (Protonix Ec Tab) 40 mg PO ACB [facility] Last Admin: 01/09/18 10:15 Dose: 40 mg Polyethylene Glycol (Miralax) 17 gm PO BID [facility] Last Admin: 01/09/18 17:53 Dose: 17 gm Silver Sulfadiazine (Silvadene 1% 25 Gm) 1 gm TP DAILY [facility] Last Admin: 01/09/18 10:18 Dose: Not Given Zolpidem Tartrate (Ambien) 5 mg PO HS PRN; Protocol PRN Reason: Insomnia Last Admin: 01/09/18 22:21 Dose: 5 mg - Labs Labs: 01/10/18 06:30 01/10/18 06:30 PT 11.1 SECONDS (9.4-12.5) 01/05/18 05:00 INR 0.97 01/05/18 05:00 APTT 23.1 Seconds (25.1-36.5) L 01/03/18 15:59 - Additional Findings Additional findings: - Constitutional Appears: Well, Non-toxic, No Acute Distress - Head Exam Head Exam: NORMAL INSPECTION - Eye Exam Eye Exam: EOMI, Normal appearance, PERRL - ENT Exam ENT Exam: Mucous Membranes Moist - Neck Exam Neck Exam: Full ROM, Normal Inspection - Respiratory Exam Respiratory Exam: NORMAL BREATHING PATTERN. absent: Respiratory Distress - Cardiovascular Exam Cardiovascular Exam: RRR, +S1, +S2 - GI/Abdominal Exam GI & Abdominal Exam: Soft. absent: Distended, Tenderness - Extremities Exam Extremities Exam: Full ROM. 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 The patient also has associated pain. She is on Decadron IVP for the brain edema and has been started on XRT. Patient will receive carboplatin chemorx today and will be premedicated and hydrated to prevent side effects. Plan: Infuse carboplatin today Premedicate w/ Decardon (for anti-emetic purpose), benadryl, pepcid and zofran Continue XRT per Dr. Goddard Continue dilaudid racebook writer for pain Continue Synthroid ISS for hyperglycemia (exacerbated by steroids) Continue Nicoderm PTX for GI PPX PT Barry recommending [facility] Palliative Care is following DNR/DNI Case was reviewed and discussed with attending, Dr. Fili Echols PGY2 <Kashif Penn P - Last Filed: 01/11/18 12:12> Objective - Vital Signs/Intake and Output Vital Signs (last 24 hours): Temp Pulse Resp BP Pulse Ox 98.2 F 62 20 104/65 96 01/11/18 08:07 01/11/18 08:07 01/11/18 08:07 01/11/18 08:07 01/11/18 08:07 Intake and Output: 01/11/18 01/11/18 06:59 18:59 Intake Total 240 Output Total 1250 Balance -1010 - Medications Medications: Current Medications Alprazolam (Xanax) 0.5 mg PO QID [facility]; Protocol Last Admin: 01/11/18 10:17 Dose: 0.5 mg Dexamethasone (Decadron Inj) 6 mg IVP Q6 [facility] Last Admin: 01/11/18 06:41 Dose: 6 mg Docusate Sodium (Colace) 100 mg PO TID [facility] Last Admin: 01/11/18 10:14 Dose: 100 mg Hydromorphone HCl (Dilaudid-Hp 1 Mg/Ml Plate And Frame Filter Operator) 30 mls @ 2 mls/hr IV PRN PRN; Protocol PRN Reason: HYDRO ELECTRIC STATION OPERATOR PER MD ORDER Last Admin: 01/10/18 21:09 Dose: 2 mls/hr Ibuprofen (Motrin Tab) 400 mg PO Q6H PRN PRN Reason: Headache Last Admin: 01/10/18 11:06 Dose: 400 mg Insulin Human Regular (Humulin R Med) 0 units SC ACHS [facility]; Protocol Last Admin: 01/11/18 10:16 Dose: Not Given Levothyroxine Sodium (Synthroid) 125 mcg PO 0600 [facility] Last Admin: 01/11/18 06:42 Dose: 125 mcg Nicotine (Nicoderm Cq) 1 patch TD DAILY [facility] Last Admin: 01/11/18 10:16 Dose: 1 patch Pantoprazole Sodium (Protonix Ec Tab) 40 mg PO ACB [facility] Last Admin: 01/11/18 10:56 Dose: 40 mg Polyethylene Glycol (Miralax) 17 gm PO BID [facility] Last Admin: 01/11/18 10:16 Dose: 17 gm Silver Sulfadiazine (Silvadene 1% 25 Gm) 1 gm TP DAILY [facility] Last Admin: 01/10/18 14:11 Dose: Not Given Zolpidem Tartrate (Ambien) 5 mg PO HS PRN; Protocol PRN Reason: Insomnia Last Admin: 01/09/18 22:21 Dose: 5 mg - Labs Labs: 01/11/18 06:30 01/11/18 06:30 PT 11.1 SECONDS (9.4-12.5) 01/05/18 05:00 INR 0.97 01/05/18 05:00 APTT 23.1 Seconds (25.1-36.5) L 01/03/18 15:59 Attending/Attestation - Attestation I have personally seen and examined this patient.: Yes I have fully participated in the care of the patient.: Yes I have reviewed all pertinent clinical information, including history, physical exam and plan: Yes
[2018-01-10] MEDS: Pantoprazole 40 mg EC Tab PO SCH (11:07)
[2018-01-10] MEDS: POLYETHYLENE GLYCOL 3350 17 GM/Dose PACKET PO SCH ×2 (11:08→18:26)
[2018-01-10] MEDS ORDERED: Sodium Chloride 0.9% 750 ML IV SCH (13:30)
[2018-01-10] MEDS ORDERED: Dexamethasone 20 MG, DiphenhydrAMINE 25 MG, Famotidine 20 MG, Ondansetron 16 MG in Sodi... IVPB ONE (13:30)
[2018-01-10] MEDS: Silver Sulfadiazine 1% Cream (25 gm) TP SCH (14:11)
[2018-01-11] MEDS: Dexamethasone 4 mg/1 ml IVP SCH ×4 (06:41→23:08)
[2018-01-11] MEDS: Levothyroxine 125 MCG TAB PO SCH (06:42)
[2018-01-11 06:59] LABS: BASO # 0.03 K/mm3 (0.0-2.0); BASO % 0.5 % (0.0-3.0); GRAN # 5.44 (1.4-6.5); GRAN % 83.5 % (50.0-68.0); HEMOGLOBIN 8.5 g/dL (12.0-16.0); LYMPH # 0.7 (1.2-3.4); MEAN CELL VOLUME 90.2 fl (80.0-105.0); MEAN CORPUSCULAR HEMOGLOBIN 29.6 pg (25.0-35.0); MEAN CORPUSCULAR HGB CONC 32.8 g/dl (31.0-37.0); MEAN PLATELET VOLUME 8.4 fl (7.0-11.0); MONO # 0.4 (0.1-0.6); RBC 2.87 10^6/uL (3.5-6.1); RED CELL DISTRIBUTION WIDTH 20.1 % (11.5-14.5); WHITE BLOOD COUNT 6.5 10^3/ul (4.5-11.0)
[2018-01-11 07:24] LABS: ALB/GLOB RATIO 1.1 (1.1-1.8); ALBUMIN 2.7 g/dL (3.0-4.8); ALT/SGPT 208 U/L (7-56); AST/SGOT 145 U/L (14-36); BLOOD UREA NITROGEN 26 mg/dL (7-21); CALCIUM 7.9 mg/dL (8.4-10.5); GFR NON-AFRICAN AMERICAN > 60
[2018-01-11] MEDS ORDERED: Dexamethasone 20 MG, DiphenhydrAMINE 25 MG, Famotidine 20 MG, Ondansetron 16 MG in Sodi... IVPB ONE (10:00)
[2018-01-11] MEDS: POLYETHYLENE GLYCOL 3350 17 GM/Dose PACKET PO SCH ×2 (10:16→17:49)
[2018-01-11] MEDS: Insulin Reg-MEDIUM-Coverage SC SCH ×4 (10:16→21:53)
[2018-01-11] MEDS: Pantoprazole 40 mg EC Tab PO SCH (10:56)
[2018-01-11] MEDS: HYDROmorphone 1 mg/ml PCA 30 ML IV PRN (12:59)
[2018-01-11] MEDS: Silver Sulfadiazine 1% Cream (25 gm) TP SCH (13:12)
[2018-01-12] MEDS: HYDROmorphone 1 mg/ml PCA 30 ML IV PRN ×2 (03:20→17:48)
[2018-01-12] MEDS: Levothyroxine 125 MCG TAB PO SCH (05:52)
[2018-01-12] MEDS: Dexamethasone 4 mg/1 ml IVP SCH ×3 (05:52→17:35)
[2018-01-12 06:29] LABS: BASO # 0.03 K/mm3 (0.0-2.0); BASO % 0.5 % (0.0-3.0); EOS % 0.3 % (1.5-5.0); GRAN # 5.53 (1.4-6.5); GRAN % 85.3 % (50.0-68.0); HEMOGLOBIN 8.4 g/dL (12.0-16.0); LYMPH # 0.5 (1.2-3.4); LYMPH % 7.4 % (22.0-35.0); MEAN CELL VOLUME 90.2 fl (80.0-105.0); MEAN CORPUSCULAR HEMOGLOBIN 29.5 pg (25.0-35.0); MEAN CORPUSCULAR HGB CONC 32.7 g/dl (31.0-37.0); MEAN PLATELET VOLUME 8.5 fl (7.0-11.0); MONO # 0.4 (0.1-0.6); MONO % 6.5 % (1.0-6.0); RBC 2.85 10^6/uL (3.5-6.1); RED CELL DISTRIBUTION WIDTH 20.3 % (11.5-14.5); WHITE BLOOD COUNT 6.5 10^3/ul (4.5-11.0)
[2018-01-12] MEDS: Pantoprazole 40 mg EC Tab PO SCH (06:32)
[2018-01-12] MEDS: Insulin Reg-MEDIUM-Coverage SC SCH ×4 (08:33→22:49)
[2018-01-12] MEDS: POLYETHYLENE GLYCOL 3350 17 GM/Dose PACKET PO SCH ×2 (10:02→17:40)
[2018-01-12] MEDS: Silver Sulfadiazine 1% Cream (25 gm) TP SCH (10:03)
[2018-01-12 10:47] LABS: BLOOD UREA NITROGEN 21 mg/dL (7-21); CALCIUM 8.2 mg/dL (8.4-10.5); GFR NON-AFRICAN AMERICAN > 60
[2018-01-12 10:48] LABS: ALB/GLOB RATIO 1.1 (1.1-1.8); ALBUMIN 2.7 g/dL (3.0-4.8); ALT/SGPT 235 U/L (7-56); AST/SGOT 133 U/L (14-36)
[2018-01-12] MEDS ORDERED: DiphenhydrAMINE 50 mg/ml Inj IVP ONE (11:24)
--- NOTE | 2018-01-12 13:23 | RAD ---
Date of service: 01/12/2018 HISTORY: r/o bowel obstruction COMPARISON: CT 12/30/2017 FINDINGS: BOWEL: Normal. No obstruction. No free air. BONES: There is a right pelvic/acetabular fracture there was demonstrated previously. OTHER FINDINGS: None. IMPRESSION: No active disease.
[2018-01-13] MEDS: Dexamethasone 4 mg/1 ml IVP SCH ×4 (00:15→17:49)
[2018-01-13] MEDS: Levothyroxine 125 MCG TAB PO SCH (06:30)
[2018-01-13 07:08] LABS: BASO # 0.02 K/mm3 (0.0-2.0); BASO % 0.3 % (0.0-3.0); EOS % 0.2 % (1.5-5.0); GRAN # 5.22 (1.4-6.5); GRAN % 84.7 % (50.0-68.0); LYMPH # 0.4 (1.2-3.4); MEAN CELL VOLUME 87.6 fl (80.0-105.0); MEAN CORPUSCULAR HGB CONC 33.1 g/dl (31.0-37.0); MEAN PLATELET VOLUME 8.8 fl (7.0-11.0); MONO # 0.5 (0.1-0.6); MONO % 8.8 % (1.0-6.0); RBC 3.62 10^6/uL (3.5-6.1); WHITE BLOOD COUNT 6.2 10^3/ul (4.5-11.0)
[2018-01-13 07:15] LABS: HEMOGLOBIN 10.5 g/dL (12.0-16.0)
[2018-01-13] MEDS: Insulin Reg-MEDIUM-Coverage SC SCH ×4 (07:30→21:43)
[2018-01-13 07:44] LABS: ALB/GLOB RATIO 1.1 (1.1-1.8); ALBUMIN 2.8 g/dL (3.0-4.8); ALT/SGPT 209 U/L (7-56); AST/SGOT 113 U/L (14-36); BLOOD UREA NITROGEN 23 mg/dL (7-21); CALCIUM 8.1 mg/dL (8.4-10.5); GFR NON-AFRICAN AMERICAN > 60
--- NOTE | 2018-01-13 08:54 | PN ---
DATE: 01/12/2018 LOCATION: Patient is in room 362, bed 2. PROBLEM: This is a 52-year-old female with metastatic progressive stage IV carcinoma of the breast with documented brain and bone metastasis, right acetabular metastasis, was admitted with progressive pain, weakness on the right side with progressive weakness of the right arm along with intractable pain via the emergency room, while being assessed recently at [facility] for the complex fracture in the right hip. Patient is ER/AZ negative, HER-2/cale 3+ positive breast cancer, for which she is on Taxol and Herceptin along with intravenous bisphosphonate as an outpatient. Patient in the hospital had rapid imaging including CT of the head along with CT and MRI of the spine, which revealed extensive bone metastasis and multiple brain metastases both infra and supratentorial, some of which had point hemorrhages. Along with this, patient also had evidence of edema related to the metastatic disease. Patient since then has been started on IV steroids, had a Parker catheter inserted, and started with CATERING SERVICE MANAGER Dilaudid for pain control, received radiation and has one dose of chemotherapy with carboplatin AUC of 5 given yesterday. Patient also received IV Aredia for her bone metastasis. Patient was noted to become more anemic, especially, post chemotherapy, we decided to give 2 units of blood, which is infusing right now. SUBJECTIVE: Patient is examined in bed. She tells me pain is better. She was very anxious and agitated, for which she received IV Ativan along with p.o. Xanax she has been on that seemed to relax her nicely and the pain score right now on a scale of 0 to 10 is 3. Patient is constipated, for which she has an anticonstipation regimen, had of the abdomen and also received one dose of Relistor 10 mg. PHYSICAL EXAMINATION: GENERAL: Patient was examined in bed. VITAL SIGNS: T-max is 98.4, pulse is 68, blood pressure 111/69, respirations 18 per minute. HEENT: Head is normocephalic, atraumatic. Conjunctivae pale. Sclerae anicteric. Pupils are equally reactive to light and accommodation. Examination of the oropharynx reveals no oropharyngeal lesions. No fungal infection is noted. NECK: Supple. There is no adenopathy. LUNGS: Clear to percussion and auscultation. HEART: Reveals the PMI to be in the fifth intercostal space inside the midclavicular line. S1 and S2 are normal. No gallop or murmur is heard. ABDOMEN: Mildly distended, soft, nontender, tympanitic. Bowel sounds are noted. EXTREMITIES: There is no cyanosis, clubbing or edema. Patient is able to move both her lower extremities, still has complaints of pain in the right groin, though appears to be improved. NEUROLOGIC: The patient is awake, alert, and oriented. She was able to raise her arm above her shoulder, specifically the right arm, which she could not do so before. Patient has a Parker catheter in place. Appears to be awake, alert and oriented to time, place and person. LABORATORY DATA: Lab data from today were reviewed that revealed the following. Patient's white count is 6.5, hemoglobin 8.4, hematocrit 25.7, platelet count 176,000. Chemistries were reviewed and chemistries revealed sodium of 132, K 4.7, electrolytes are normal. BUN is 21, creatinine is 0.5, calcium is 8.2, magnesium is 2.4, total bilirubin is 0.5. AST is 133, ALT is 235, alkaline phosphatase is 302. Blood sugars have been running in the 120's and 150. MEDICATIONS: Patient's medications were reviewed. She is on zolpidem 5 mg at night p.r.n. for nausea, 0.5 mg of Ativan every 8 hours p.r.n. for agitation. She is on Colace 100 t.i.d. She is on dexamethasone every 6 hours. She is on hydromorphone CATERING SERVICE MANAGER continuous at rate of 2 mg an hour and 0.5 mg every 15 minutes bolus doses with no ceiling. She is on MiraLax 17 g b.i.d. She is on ibuprofen 400 mg every 6 hours p.r.n. She is on nicotine patch one daily, Protonix 40 mg p.o. daily. She is on silver sulfadiazine/Silvadene topically to the sites above the Port-A-Cath, it as an open area which is being treated. She is on levothyroxine 125 mcg daily. She is on Xanax 0.5 mg p.o. four times daily. ASSESSMENT, NOTES AND PLAN: Patient has progressive metastatic stage IV carcinoma of the breast, currently on radiation, status post chemotherapy, on IV Decadron, neurologically slightly improved, still in considerable amount of pain, for which she is on CATERING SERVICE MANAGER Dilaudid. At this time, it seems to be pain controlled. Patient has documented bone, brain and liver metastasis. Liver metastasis is most likely based on the current elevation of liver function tests, though in the past patient had on the PET/CT scan evidence definitely of brain metastasis, mediastinal disease and bone metastasis. PLAN: I had a long discussion with the daughter, spoke to the patient in great detail as well. Plan is continue radiation for the next treatment while in the hospital. We are going to see how the patient does over the next 3 to 5 days. The plan would be to try to get her into a subacute rehab if feasible, where she can continue to get all the medicines that she is currently on while we are waiting to see what else we can add to the regimen. Patient would be a candidate for Kadcyla which would not be eligible as an inpatient, we will try to get it as an outpatient in the outpatient oncology clinic once the patient is able to be discharged and transferred to home or to a subacute rehab. the patient is currently affected by and since her daughter is the only caregiver, it may be difficult for the patient to be discharged home and may have to go to subacute rehab where she can get all these combination of medicines that she is currently on. Patient at this point is total care and that also makes it difficult for the patient to be sent to a in-home situation. Daughter is quite cognizant of all these facts. We are going to see how patient does for the next 48 to 72 hours. Hospice evaluation is also entertained. At this time, daughter and the patient want to be as aggressive as possible given the fact that a sudden change in the nature of the disease as patient was still ambulatory till about a week ago. Time spent with the patient greater than 80 minutes, of which more than 50% of time was spent in face-to face contact with the patient. Blood work for a.m. has been requested to make sure it follow through on the labs in the a.m. I will also speak to the social director regarding the logistics for the patient once she is able to be transferred to either subacute rehab or to home like situation. Kashif Penn MD [facility] # [id number]
--- NOTE | 2018-01-13 09:08 | CP.PCM.PN ---
Subjective - Date & Time of Evaluation Date of Evaluation: 01/13/18 Time of Evaluation: 08:57 - Subjective Subjective: Zander Echols PGY2 Heme/Onc Progress Note for Dr. Penn Patient was seen and examined at bedside. The patient's pain has been better controlled with the BAKER PASTRY pump and she is more comfortable. She does wax and wane mentally and at times makes more sense than other times when she's confused. However, she does not become altered to the point that she cannot protect her airway. The patient has XRT planned for today. Per nursing staff, the patient is constipated and received Relistor and Miralax yesterday with no improvement. Objective - Vital Signs/Intake and Output Vital Signs (last 24 hours): Temp Pulse Resp BP Pulse Ox 98.2 F 70 20 116/69 95 01/13/18 08:16 01/13/18 08:16 01/13/18 08:16 01/13/18 08:16 01/13/18 08:16 Intake and Output: 01/13/18 01/13/18 06:59 18:59 Intake Total 570 Output Total 475 Balance 95 - Medications Medications: Current Medications Alprazolam (Xanax) 0.5 mg PO QID [facility]; Protocol Last Admin: 01/12/18 22:48 Dose: 0.5 mg Dexamethasone (Decadron Inj) 6 mg IVP Q6 [facility] Last Admin: 01/13/18 06:05 Dose: 6 mg Docusate Sodium (Colace) 100 mg PO TID [facility] Last Admin: 01/12/18 17:34 Dose: 100 mg Hydromorphone HCl (Dilaudid-Hp 1 Mg/Ml Administrative Manager) 30 mls @ 2 mls/hr IV PRN PRN; Protocol PRN Reason: BAKER PASTRY PER MD ORDER Last Admin: 01/12/18 17:48 Dose: 2 mls/hr Ibuprofen (Motrin Tab) 400 mg PO Q6H PRN PRN Reason: Headache Last Admin: 01/10/18 11:06 Dose: 400 mg Insulin Human Regular (Humulin R Med) 0 units SC ACHS [facility]; Protocol Last Admin: 01/12/18 22:49 Dose: Not Given Levothyroxine Sodium (Synthroid) 125 mcg PO 0600 [facility] Last Admin: 01/13/18 06:30 Dose: 125 mcg Lorazepam (Ativan) 0.5 mg IVP Q8H PRN; Protocol PRN Reason: Anxiety Last Admin: 01/13/18 07:01 Dose: 0.5 mg Nicotine (Nicoderm Cq) 1 patch TD DAILY [facility] Last Admin: 01/12/18 10:02 Dose: 1 patch Pantoprazole Sodium (Protonix Ec Tab) 40 mg PO ACB [facility] Last Admin: 01/12/18 06:32 Dose: 40 mg Polyethylene Glycol (Miralax) 17 gm PO BID [facility] Last Admin: 01/12/18 17:40 Dose: 17 gm Silver Sulfadiazine (Silvadene 1% 25 Gm) 1 gm TP DAILY [facility] Last Admin: 01/12/18 10:03 Dose: Not Given Zolpidem Tartrate (Ambien) 5 mg PO HS PRN; Protocol PRN Reason: Insomnia Last Admin: 01/09/18 22:21 Dose: 5 mg - Labs Labs: 01/13/18 06:40 01/13/18 06:40 PT 11.1 SECONDS (9.4-12.5) 01/05/18 05:00 INR 0.97 01/05/18 05:00 APTT 23.1 Seconds (25.1-36.5) L 01/03/18 15:59 - Additional Findings Additional findings: - Constitutional Appears: Well, Non-toxic, No Acute Distress - Head Exam Head Exam: NORMAL INSPECTION - Eye Exam Eye Exam: EOMI, Normal appearance, PERRL - ENT Exam ENT Exam: Mucous Membranes Moist - Neck Exam Neck Exam: Full ROM, Normal Inspection - Respiratory Exam Respiratory Exam: NORMAL BREATHING PATTERN. absent: Respiratory Distress - Cardiovascular Exam Cardiovascular Exam: RRR, +S1, +S2 - GI/Abdominal Exam GI & Abdominal Exam: Soft, Diminshed Bowel Sounds. absent: Distended, Tenderness - Extremities Exam Extremities Exam: Full ROM. 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 The patient also has associated pain. She is on Decadron IVP for the brain edema and has been started on XRT. Patient received carboplatin chemorx on 01/10, which should suffice for 3 weeks till next dose according to Dr. Penn. Her pain has improved as is her ROM. The patient does require large amounts of opioid medication due to her pain caused by metastatic bone lesions. Her length of stay and placement should depend on maximizing her XRT sessions while meeting the comfort measures due to her excessive pain. Plan: Continue XRT per Dr. Goddard Continue dilaudid outreach analyst for pain Will consider pain management consult for better control Continue Synthroid Continue decadron ISS for hyperglycemia (exacerbated by steroids) Continue Nicoderm PTX for GI PPX PT Eval recommending KAREEM Placement should be at facility with means of pain management for patient w/ extensive metastatic cancer Palliative Care is following DNR/DNI Case was reviewed and discussed with attending, Dr. Fili Echols PGY2
[2018-01-13] MEDS: HYDROmorphone 1 mg/ml PCA 30 ML IV PRN (11:52)
[2018-01-13] MEDS: POLYETHYLENE GLYCOL 3350 17 GM/Dose PACKET PO SCH ×2 (11:56→17:48)
[2018-01-13] MEDS: Pantoprazole 40 mg EC Tab PO SCH (11:57)
[2018-01-13] MEDS: Silver Sulfadiazine 1% Cream (25 gm) TP SCH (11:58)
[2018-01-14] MEDS: Dexamethasone 4 mg/1 ml IVP SCH ×4 (00:24→17:39)
[2018-01-14] MEDS: HYDROmorphone 1 mg/ml PCA 30 ML IV PRN (03:11)
[2018-01-14] MEDS: Levothyroxine 125 MCG TAB PO SCH (05:28)
--- NOTE | 2018-01-14 09:38 | CP.PCM.PN ---
Subjective - Date & Time of Evaluation Date of Evaluation: 01/14/18 Time of Evaluation: 09:07 - Subjective Subjective: Zander Echols PGY2 Heme/Onc Progress Note for Dr. Penn Patient was seen and examined at bedside. The patient has completed XRT this morning. Her pain has been better controlled with the APPLIANCE ASSEMBLER pump and she is more comfortable overall but is complaining of a headache today. She does wax and wane and this morning, she is confused and doesn't know where she is. Labs, VS, nursing notes and chart were reviewed. Objective - Vital Signs/Intake and Output Vital Signs (last 24 hours): Temp Pulse Resp BP Pulse Ox 97.9 F 75 20 100/63 95 01/14/18 08:39 01/14/18 08:39 01/14/18 08:39 01/14/18 08:39 01/14/18 08:39 - Medications Medications: Current Medications Alprazolam (Xanax) 0.5 mg PO QID [facility]; Protocol Last Admin: 01/13/18 21:48 Dose: 0.5 mg Dexamethasone (Decadron Inj) 6 mg IVP Q6 [facility] Last Admin: 01/14/18 05:29 Dose: 6 mg Docusate Sodium (Colace) 100 mg PO TID [facility] Last Admin: 01/13/18 17:48 Dose: 100 mg Hydromorphone HCl (Dilaudid-Hp 1 Mg/Ml Rail Car Operator) 30 mls @ 2 mls/hr IV PRN PRN; Protocol PRN Reason: APPLIANCE ASSEMBLER PER MD ORDER Last Admin: 01/14/18 03:11 Dose: 2 mls/hr Ibuprofen (Motrin Tab) 400 mg PO Q6H PRN PRN Reason: Headache Last Admin: 01/10/18 11:06 Dose: 400 mg Insulin Human Regular (Humulin R Med) 0 units SC ACHS [facility]; Protocol Last Admin: 01/13/18 21:43 Dose: Not Given Levothyroxine Sodium (Synthroid) 125 mcg PO 0600 [facility] Last Admin: 01/14/18 05:28 Dose: 125 mcg Lorazepam (Ativan) 0.5 mg IVP Q8H PRN; Protocol PRN Reason: Anxiety Last Admin: 01/13/18 15:01 Dose: 0.5 mg Nicotine (Nicoderm Cq) 1 patch TD DAILY [facility] Last Admin: 01/13/18 11:56 Dose: 1 patch Pantoprazole Sodium (Protonix Ec Tab) 40 mg PO ACB [facility] Last Admin: 01/13/18 11:57 Dose: 40 mg Polyethylene Glycol (Miralax) 17 gm PO BID [facility] Last Admin: 01/13/18 17:48 Dose: 17 gm Silver Sulfadiazine (Silvadene 1% 25 Gm) 1 gm TP DAILY [facility] Last Admin: 01/13/18 11:58 Dose: Not Given Zolpidem Tartrate (Ambien) 5 mg PO HS PRN; Protocol PRN Reason: Insomnia Last Admin: 01/09/18 22:21 Dose: 5 mg - Labs Labs: 01/13/18 06:40 01/13/18 06:40 PT 11.1 SECONDS (9.4-12.5) 01/05/18 05:00 INR 0.97 01/05/18 05:00 APTT 23.1 Seconds (25.1-36.5) L 01/03/18 15:59 - Additional Findings Additional findings: - Constitutional Appears: Well, Non-toxic, No Acute Distress - Head Exam Head Exam: NORMAL INSPECTION - Eye Exam Eye Exam: EOMI, Normal appearance, PERRL - ENT Exam ENT Exam: Mucous Membranes Moist - Neck Exam Neck Exam: Full ROM, Normal Inspection - Respiratory Exam Respiratory Exam: NORMAL BREATHING PATTERN. absent: Respiratory Distress - Cardiovascular Exam Cardiovascular Exam: RRR, +S1, +S2 - GI/Abdominal Exam GI & Abdominal Exam: Soft, Diminshed Bowel Sounds. absent: Distended, Tenderness - Extremities Exam Extremities Exam: Full ROM. 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 The patient also has associated pain. She is on Decadron IVP for the brain edema and has been started on XRT. Patient received carboplatin chemorx on 01/10, which should suffice for 3 weeks till next dose according to Dr. Penn. Her pain is better controlled on Dilaudid APPLIANCE ASSEMBLER. Her length of stay and placement should depend on maximizing her XRT sessions while meeting the comfort measures due to her excessive pain. Medical team did discuss with a pain specialist today regarding her regimen and he recommends Methadone to be titrated up as the dilaudid APPLIANCE ASSEMBLER is titrated down to meet the patient's comfort needs. Plan: Continue XRT per Dr. Goddard Continue dilaudid surgeon/president for pain, but will decreased to 1.5mg/h continuous dose Start methadone 10mg TID and titrate up to meet pain relief requirements Continue Synthroid Continue decadron ISS for hyperglycemia (exacerbated by steroids) Continue Nicoderm PTX for GI PPX PT Eval recommending KAREEM Placement should be at facility with means of pain management for patient w/ extensive metastatic cancer Palliative Care is following DNR/DNI Case was reviewed and discussed with attending, Dr. Fili Echols PGY2
[2018-01-14] MEDS: Pantoprazole 40 mg EC Tab PO SCH (10:19)
[2018-01-14] MEDS: POLYETHYLENE GLYCOL 3350 17 GM/Dose PACKET PO SCH ×2 (10:19→17:39)
[2018-01-14] MEDS: Insulin Reg-MEDIUM-Coverage SC SCH ×4 (10:45→21:35)
[2018-01-14] MEDS ORDERED: HYDROmorphone 1 mg/ml PCA 30 ML IV PRN (11:54)
[2018-01-15] MEDS: Dexamethasone 4 mg/1 ml IVP SCH ×4 (00:31→17:58)
--- NOTE | 2018-01-15 03:57 | CON ---
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 The patient newly diagnosed with numerous new brain lesions which seems to be metastatic disease. Psych consult was called for evaluation of agitation and possible anxiety. This marketing underwriter attempted to speak to the patient. The patient appears to be confused, but was able to hold these in conversation. The patient reported that she feels okay. She denied that she is in any pain or discomfort. The patient's pain is well controlled with current medication management. The patient denied any thoughts of dying, any thoughts of killing herself whatsoever. The patient denied hearing voices or seeing things, but the patient obviously had difficulty to stay focused and concentrate. As per nursing report, the patient does not have any agitation or aggression. Dilaudid was increased today. The patient is on Xanax 0.5 mg four times day schedule. Also, patient is on Humulin, Synthroid, Ativan, methadone 10 mg three times a day scheduled, Nicoderm, also Protonix, MiraLax and Ambien. LABORATORY DATA: Reviewed. Most recent was from yesterday. The patient denied any history of mental illness, denied suicidal attempts in the past. MENTAL STATUS EXAM: The patient appears to be alert. The patient knows that she is in the hospital, was not aware what is the date today and described as I feel better. Affect was constricted and appears to be confused. Thought process circumstantial. Thought content, the patient denied any thoughts of harming herself or others, transient episodes of confusion and anxiety could be related to multiple medical issues what the patient has right now. Insight and judgment seems to be limited, but improving. Impulses are well controlled as of now. IMPRESSION: The patient obviously is in delirium stage. The patient has multiple medical comorbidities including metastasis and brain. The patient is on multiple medication for pain as well as anxiety which could contribute to confusion. The patient does not appear to be agitated or restless. The patient appears to be comfortable. This marketing underwriter will not add any psychotropic medications as of now because Dilaudid was increased and also added methadone. The patient is on Xanax. We will continue everything as it is with the hope that the patient will be start feeling better. The patient is in DNI and DNR, palliative care. I wish the patient best of luck. This marketing underwriter will sign off. Should you have any questions give me a call back. Kenya Campbell MD
[2018-01-15] MEDS: Levothyroxine 125 MCG TAB PO SCH (05:14)
[2018-01-15 06:32] LABS: GRAN # 4.71 (1.4-6.5); GRAN % 87.6 % (50.0-68.0); HEMOGLOBIN 9.7 g/dL (12.0-16.0); LYMPH # 0.3 (1.2-3.4); LYMPH % 6.3 % (22.0-35.0); MEAN CELL VOLUME 88.7 fl (80.0-105.0); MEAN CORPUSCULAR HEMOGLOBIN 28.8 pg (25.0-35.0); MEAN CORPUSCULAR HGB CONC 32.4 g/dl (31.0-37.0); MEAN PLATELET VOLUME 8.5 fl (7.0-11.0); MONO # 0.3 (0.1-0.6); MONO % 6.1 % (1.0-6.0); RBC 3.37 10^6/uL (3.5-6.1); RED CELL DISTRIBUTION WIDTH 18.8 % (11.5-14.5); WHITE BLOOD COUNT 5.4 10^3/ul (4.5-11.0)
[2018-01-15] MEDS: Insulin Reg-MEDIUM-Coverage SC SCH ×4 (07:00→21:46)
[2018-01-15 07:17] LABS: ALB/GLOB RATIO 1.2 (1.1-1.8); ALBUMIN 2.7 g/dL (3.0-4.8); ALT/SGPT 175 U/L (7-56); AST/SGOT 100 U/L (14-36); BLOOD UREA NITROGEN 18 mg/dL (7-21); CALCIUM 8.3 mg/dL (8.4-10.5); GFR NON-AFRICAN AMERICAN > 60
--- NOTE | 2018-01-15 11:00 | CP.PCM.PN ---
Subjective - Date & Time of Evaluation Date of Evaluation: 01/15/18 Time of Evaluation: 09:59 - Subjective Subjective: Zander Echols PGY2 Heme/Onc Progress Note for Dr. Penn Patient was seen and examined at bedside. The patient has completed XRT this morning. Her pain is very well controlled with the methadone combination right now, and she reports pain 0/10. Per nurse, the patient had a BM w/ soap enema. Labs, VS, nursing notes and chart were reviewed. Objective - Vital Signs/Intake and Output Vital Signs (last 24 hours): Temp Pulse Resp BP Pulse Ox 98.0 F 72 19 102/66 95 01/15/18 06:00 01/15/18 06:00 01/15/18 06:00 01/15/18 06:00 01/15/18 06:00 Intake and Output: 01/15/18 01/15/18 06:59 18:59 Intake Total 980 Output Total 800 Balance 180 - Medications Medications: Current Medications Alprazolam (Xanax) 0.5 mg PO QID [facility]; Protocol Last Admin: 01/14/18 22:23 Dose: Not Given Dexamethasone (Decadron Inj) 6 mg IVP Q6 [facility] Last Admin: 01/15/18 05:14 Dose: 6 mg Docusate Sodium (Colace) 100 mg PO TID [facility] Last Admin: 01/14/18 17:39 Dose: 100 mg Hydromorphone HCl (Dilaudid-Hp 1 Mg/Ml Equipment Services Associate) 30 mls @ 1.5 mls/hr IV PRN PRN; Protocol PRN Reason: PROJECT DESIGNER PER MD ORDER Last Admin: 01/14/18 19:45 Dose: 1.5 mls/hr Ibuprofen (Motrin Tab) 400 mg PO Q6H PRN PRN Reason: Headache Last Admin: 01/10/18 11:06 Dose: 400 mg Insulin Human Regular (Humulin R Med) 0 units SC ACHS [facility]; Protocol Last Admin: 01/14/18 21:35 Dose: Not Given Levothyroxine Sodium (Synthroid) 125 mcg PO 0600 [facility] Last Admin: 01/15/18 05:14 Dose: 125 mcg Lorazepam (Ativan) 0.5 mg IVP Q8H PRN; Protocol PRN Reason: Anxiety Last Admin: 10/08/18 15:01 Dose: 0.5 mg Methadone HCl (Methadone) 10 mg PO TID [facility] Last Admin: 01/14/18 17:39 Dose: 10 mg Methylnaltrexone [place] (Relistor) 10 mg SC ONCE ONE Stop: 01/15/18 10:54 Nicotine (Nicoderm Cq) 1 patch TD DAILY [facility] Last Admin: 01/14/18 10:19 Dose: 1 patch Pantoprazole Sodium (Protonix Ec Tab) 40 mg PO ACB [facility] Last Admin: 01/14/18 10:19 Dose: 40 mg Polyethylene Glycol (Miralax) 17 gm PO BID [facility] Last Admin: 01/14/18 17:39 Dose: 17 gm Silver Sulfadiazine (Silvadene 1% 25 Gm) 1 gm TP DAILY [facility] Last Admin: 01/13/18 11:58 Dose: Not Given Zolpidem Tartrate (Ambien) 5 mg PO HS PRN; Protocol PRN Reason: Insomnia Last Admin: 01/09/18 22:21 Dose: 5 mg - Labs Labs: 01/15/18 06:00 01/15/18 06:00 PT 11.1 SECONDS (9.4-12.5) 01/05/18 05:00 INR 0.97 01/05/18 05:00 APTT 23.1 Seconds (25.1-36.5) L 01/03/18 15:59 - Additional Findings Additional findings: - Constitutional Appears: Well, Non-toxic, No Acute Distress - Head Exam Head Exam: NORMAL INSPECTION - Eye Exam Eye Exam: EOMI, Normal appearance, PERRL - ENT Exam ENT Exam: Mucous Membranes Moist - Neck Exam Neck Exam: Full ROM, Normal Inspection - Respiratory Exam Respiratory Exam: NORMAL BREATHING PATTERN. absent: Respiratory Distress - Cardiovascular Exam Cardiovascular Exam: RRR, +S1, +S2 - GI/Abdominal Exam GI & Abdominal Exam: Soft, Diminshed Bowel Sounds. absent: Distended, Tenderness - Extremities Exam Extremities Exam: Full ROM. 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 The patient also has associated pain. She is on Decadron IVP for the brain edema and has been started on XRT. Patient received carboplatin chemorx on 01/10, which should suffice for 3 weeks till next dose according to Dr. Penn. Her pain is better controlled on Dilaudid PROJECT DESIGNER, howeverm we are working on tapering her off it. Her length of stay and placement should depend on maximizing her XRT sessions while meeting the comfort measures due to her excessive pain. Medical team did discuss with a pain specialist regarding her regimen and he recommends Methadone to be titrated up as the dilaudid PROJECT DESIGNER is titrated down to meet the patient's comfort needs. Patient had soap enema with successful BM today. Plan: Continue XRT per Dr. Goddard Continue Dilaudid PROJECT DESIGNER for pain, but will decreased to 0.5mg/h continuous dose Increased methadone to 20mg TID and titrate up to meet pain relief requirements Monitor for BM's, change bowel regimen as needed Continue Synthroid Continue decadron ISS for hyperglycemia (exacerbated by steroids) Continue Nicoderm PTX for GI PPX PT Eval recommending KAREEM Placement should be at facility with means of pain management for patient w/ extensive metastatic cancer Palliative Care is following DNR/DNI Case was reviewed and discussed with attending, Dr. Fili Echols PGY2
[2018-01-15] MEDS: Pantoprazole 40 mg EC Tab PO SCH (11:23)
[2018-01-15] MEDS: POLYETHYLENE GLYCOL 3350 17 GM/Dose PACKET PO SCH ×2 (11:24→17:58)
[2018-01-15] MEDS: Silver Sulfadiazine 1% Cream (25 gm) TP SCH (11:26)
[2018-01-15] MEDS ORDERED: HYDROmorphone 1 mg/ml PCA 30 ML IV PRN ×3 (11:31→16:28)
[2018-01-16] MEDS: Dexamethasone 4 mg/1 ml IVP SCH ×4 (00:07→17:56)
[2018-01-16] MEDS: Levothyroxine 125 MCG TAB PO SCH (05:01)
[2018-01-16 06:19] LABS: BASO # 0.01 K/mm3 (0.0-2.0); BASO % 0.2 % (0.0-3.0); EOS % 0.2 % (1.5-5.0); GRAN # 5.09 (1.4-6.5); GRAN % 88.2 % (50.0-68.0); HEMOGLOBIN 9.5 g/dL (12.0-16.0); LYMPH # 0.3 (1.2-3.4); LYMPH % 4.5 % (22.0-35.0); MEAN CELL VOLUME 88.8 fl (80.0-105.0); MEAN CORPUSCULAR HEMOGLOBIN 28.9 pg (25.0-35.0); MEAN CORPUSCULAR HGB CONC 32.5 g/dl (31.0-37.0); MEAN PLATELET VOLUME 8.6 fl (7.0-11.0); MONO # 0.4 (0.1-0.6); MONO % 6.9 % (1.0-6.0); PLATELET COUNT 110 10^3/uL (120.0-450.0); RBC 3.29 10^6/uL (3.5-6.1); RED CELL DISTRIBUTION WIDTH 18.4 % (11.5-14.5); WHITE BLOOD COUNT 5.8 10^3/ul (4.5-11.0)
[2018-01-16 07:10] LABS: ALB/GLOB RATIO 1.2 (1.1-1.8); ALBUMIN 2.7 g/dL (3.0-4.8); ALT/SGPT 149 U/L (7-56); AST/SGOT 80 U/L (14-36); BLOOD UREA NITROGEN 17 mg/dL (7-21); CALCIUM 8.6 mg/dL (8.4-10.5); GFR NON-AFRICAN AMERICAN > 60
[2018-01-16 07:57] LABS: BAND 3 % (0-2); LYMPHOCYTE 3 % (22.0-35.0); MONOCYTE 6 % (1.0-6.0); NEUTROPHIL 88 % (50.0-70.0); PLATELET ESTIMATE LOW (NORMAL)
[2018-01-16] MEDS: Pantoprazole 40 mg EC Tab PO SCH (08:17)
[2018-01-16] MEDS: Insulin Reg-MEDIUM-Coverage SC SCH ×5 (08:17→22:02)
[2018-01-16] MEDS ORDERED: HYDROmorphone 1 mg/ml PCA 30 ML IV PRN ×2 (09:56→11:27)
--- NOTE | 2018-01-16 09:58 | CP.PCM.PN ---
Subjective - Date & Time of Evaluation Date of Evaluation: 01/16/18 Time of Evaluation: 09:18 - Subjective Subjective: Zander Echols PGY2 Heme/Onc Progress Note for Dr. Penn Patient was seen and examined at bedside. The patient is planned for XRT today, and according to [facility], tomorrow is her last day of XRT for a total of 10 sessions. She is confused today but offers no complaints. Her pain is very well controlled on the combination of Dilaudid MOSQUITO SPRAYER pump with methadone. Objective - Vital Signs/Intake and Output Vital Signs (last 24 hours): Temp Pulse Resp BP Pulse Ox 98 F 63 19 104/67 96 01/16/18 08:16 01/16/18 08:16 01/16/18 08:16 01/16/18 08:16 01/16/18 08:16 Intake and Output: 01/16/18 01/16/18 06:59 18:59 Intake Total 1280 Output Total 3600 Balance -2320 - Medications Medications: Current Medications Alprazolam (Xanax) 0.5 mg PO QID [facility]; Protocol Last Admin: 01/15/18 23:38 Dose: Not Given Dexamethasone (Decadron Inj) 6 mg IVP Q6 [facility] Last Admin: 01/16/18 05:01 Dose: 6 mg Docusate Sodium (Colace) 100 mg PO TID [facility] Last Admin: 01/15/18 17:58 Dose: 100 mg Hydromorphone HCl (Dilaudid-Hp 1 Mg/Ml Store Merchandiser) 30 mls @ 0.2 mls/hr IV PRN PRN; Protocol PRN Reason: MOSQUITO SPRAYER PER MD ORDER Ibuprofen (Motrin Tab) 400 mg PO Q6H PRN PRN Reason: Headache Last Admin: 01/10/18 11:06 Dose: 400 mg Insulin Human Regular (Humulin R Med) 0 units SC ACHS [facility]; Protocol Last Admin: 01/16/18 08:17 Dose: Not Given Levothyroxine Sodium (Synthroid) 125 mcg PO 0600 [facility] Last Admin: 01/16/18 05:01 Dose: 125 mcg Lorazepam (Ativan) 0.5 mg IVP Q8H PRN; Protocol PRN Reason: Anxiety Last Admin: 01/13/18 15:01 Dose: 0.5 mg Methadone HCl (Methadone) 20 mg PO TID [facility] Last Admin: 01/15/18 17:58 Dose: 20 mg Nicotine (Nicoderm Cq) 1 patch TD DAILY [facility] Last Admin: 01/15/18 11:21 Dose: 1 patch Ondansetron HCl (Zofran Inj) 4 mg IVP Q6H PRN PRN Reason: Nausea/Vomiting Last Admin: 01/15/18 20:09 Dose: 4 mg Pantoprazole Sodium (Protonix Ec Tab) 40 mg PO ACB [facility] Last Admin: 01/16/18 08:17 Dose: Not Given Polyethylene Glycol (Miralax) 17 gm PO BID [facility] Last Admin: 01/15/18 17:58 Dose: 17 gm Zolpidem Tartrate (Ambien) 5 mg PO HS PRN; Protocol PRN Reason: Insomnia Last Admin: 01/09/18 22:21 Dose: 5 mg - Labs Labs: 01/16/18 05:40 01/16/18 05:40 PT 11.1 SECONDS (9.4-12.5) 01/05/18 05:00 INR 0.97 01/05/18 05:00 APTT 23.1 Seconds (25.1-36.5) L 01/03/18 15:59 - Additional Findings Additional findings: - Constitutional Appears: Well, Non-toxic, No Acute Distress - Head Exam Head Exam: NORMAL INSPECTION - Eye Exam Eye Exam: EOMI, Normal appearance, PERRL - ENT Exam ENT Exam: Mucous Membranes Moist - Neck Exam Neck Exam: Full ROM, Normal Inspection - Respiratory Exam Respiratory Exam: NORMAL BREATHING PATTERN. absent: Respiratory Distress - Cardiovascular Exam Cardiovascular Exam: RRR, +S1, +S2 - GI/Abdominal Exam GI & Abdominal Exam: Soft, Diminshed Bowel Sounds. absent: Distended, Tenderness - Extremities Exam Extremities Exam: Full ROM. 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 The patient also has associated pain. She is on Decadron IVP for the brain edema and XRT. Patient received carboplatin chemorx on 01/10, which should suffice for 3 weeks till next dose according to Dr. Penn. Her pain is better controlled on Dilaudid MOSQUITO SPRAYER, however, we are working on tapering her off it. Her length of stay and placement is dependent on maximizing her XRT sessions while meeting the comfort measures due to her excessive pain. Medical team did discuss with a pain specialist (Dr. Syeda Wheeler) regarding her regimen and he recommends Methadone to be titrated up as the dilaudid MOSQUITO SPRAYER is titrated down to meet the patient's comfort needs. Tomorrow is the patient's last day and we are working on getting authorization for Kadcyla for her (discussed with pharmacy today, who recommended to speak to administration for clearance prior to administering the drug). Plan: Continue XRT per Dr. Goddard, last session tomorrow Continue Dilaudid MOSQUITO SPRAYER for pain, but will decrease to 0.2mg/h continuous dose; plan to d/c MOSQUITO SPRAYER tomorrow Continue methadone 20mg TID and titrate up to meet pain relief requirements Will reach out to Dr. Hernandez and management regarding Kadcyla Monitor for BM's, change bowel regimen as needed Continue Synthroid Continue decadron ISS for hyperglycemia (exacerbated by steroids) Continue Nicoderm PTX for GI PPX PT Eval recommending KAREEM Placement should be at facility with means of pain management for patient w/ extensive metastatic cancer Palliative Care is following DNR/DNI Case was reviewed and discussed with attending, Dr. Fili Echols PGY2
[2018-01-16] MEDS: POLYETHYLENE GLYCOL 3350 17 GM/Dose PACKET PO SCH ×2 (10:06→17:58)
[2018-01-17] MEDS: Dexamethasone 4 mg/1 ml IVP SCH ×4 (00:55→17:13)
[2018-01-17] MEDS: Levothyroxine 125 MCG TAB PO SCH (05:49)
[2018-01-17 06:36] LABS: GRAN # 5.93 (1.4-6.5); GRAN % 88.3 % (50.0-68.0); HEMOGLOBIN 9.5 g/dL (12.0-16.0); LYMPH # 0.5 (1.2-3.4); MEAN CORPUSCULAR HEMOGLOBIN 29.3 pg (25.0-35.0); MEAN CORPUSCULAR HGB CONC 33.3 g/dl (31.0-37.0); MEAN PLATELET VOLUME 8.9 fl (7.0-11.0); MONO # 0.3 (0.1-0.6); MONO % 3.7 % (1.0-6.0); RBC 3.24 10^6/uL (3.5-6.1); RED CELL DISTRIBUTION WIDTH 18.2 % (11.5-14.5); WHITE BLOOD COUNT 6.7 10^3/ul (4.5-11.0)
[2018-01-17 07:03] LABS: ALBUMIN 2.8 g/dL (3.0-4.8)
[2018-01-17 07:13] LABS: ALT/SGPT 144 U/L (7-56); AST/SGOT 78 U/L (14-36); BLOOD UREA NITROGEN 21 mg/dL (7-21); CALCIUM 8.7 mg/dL (8.4-10.5); GFR NON-AFRICAN AMERICAN > 60
[2018-01-17 07:38] LABS: ALB/GLOB RATIO 1.2 (1.1-1.8)
[2018-01-17] MEDS: Pantoprazole 40 mg EC Tab PO SCH (08:10)
[2018-01-17] MEDS: Insulin Reg-MEDIUM-Coverage SC SCH ×4 (08:37→22:30)
[2018-01-17] MEDS: POLYETHYLENE GLYCOL 3350 17 GM/Dose PACKET PO SCH ×2 (09:12→17:13)
[2018-01-17] MEDS ORDERED: HYDROmorphone 1 mg/ml PCA 30 ML IV PRN (14:11)
--- NOTE | 2018-01-17 14:44 | CP.PCM.PN ---
Subjective - Date & Time of Evaluation Date of Evaluation: 01/17/18 Time of Evaluation: 14:00 - Subjective Subjective: Alert, denies pain Objective - Vital Signs/Intake and Output Vital Signs (last 24 hours): Temp Pulse Resp BP Pulse Ox 97.2 F L 68 19 117/74 94 L 01/17/18 08:00 01/17/18 08:00 01/17/18 08:00 01/17/18 08:00 01/17/18 08:00 - Medications Medications: Current Medications Alprazolam (Xanax) 0.5 mg PO QID [facility]; Protocol Last Admin: 01/17/18 13:54 Dose: 0.5 mg Dexamethasone (Decadron Inj) 6 mg IVP Q6 [facility] Last Admin: 01/17/18 12:52 Dose: 6 mg Docusate Sodium (Colace) 100 mg PO TID [facility] Last Admin: 01/17/18 13:54 Dose: 100 mg Hydromorphone HCl (Dilaudid-Hp 1 Mg/Ml Card Fixer) 30 mls @ 0 mls/hr IV PRN PRN; Protocol PRN Reason: KETTLEMAN PER MD ORDER Insulin Human Regular (Humulin R Med) 0 units SC ACHS [facility]; Protocol Last Admin: 01/17/18 12:46 Dose: Not Given Levothyroxine Sodium (Synthroid) 125 mcg PO 0600 [facility] Last Admin: 01/17/18 05:49 Dose: 125 mcg Lorazepam (Ativan) 0.5 mg IVP Q8H PRN; Protocol PRN Reason: Anxiety Last Admin: 01/17/18 04:49 Dose: 0.5 mg Memantine (Namenda) 10 mg PO DAILY [facility] Last Admin: 01/17/18 13:59 Dose: 10 mg Methadone HCl (Methadone) 20 mg PO Q8 [facility] Last Admin: 01/17/18 13:54 Dose: 20 mg Nicotine (Nicoderm Cq) 1 patch TD DAILY [facility] Last Admin: 01/17/18 09:11 Dose: 1 patch Ondansetron HCl (Zofran Inj) 4 mg IVP Q6H PRN PRN Reason: Nausea/Vomiting Last Admin: 01/15/18 20:09 Dose: 4 mg Pantoprazole Sodium (Protonix Ec Tab) 40 mg PO ACB [facility] Last Admin: 01/17/18 08:10 Dose: 40 mg Polyethylene Glycol (Miralax) 17 gm PO BID [facility] Last Admin: 01/17/18 09:12 Dose: 17 gm Zolpidem Tartrate (Ambien) 5 mg PO HS PRN; Protocol PRN Reason: Insomnia Last Admin: 01/16/18 21:22 Dose: 5 mg - Labs Labs: 01/17/18 06:00 01/17/18 06:00 PT 11.1 SECONDS (9.4-12.5) 01/05/18 05:00 INR 0.97 01/05/18 05:00 APTT 23.1 Seconds (25.1-36.5) L 01/03/18 15:59 - Constitutional Appears: Chronically Ill - Eye Exam Eye Exam: Normal appearance, PERRL - ENT Exam ENT Exam: Mucous Membranes Moist - Respiratory Exam Respiratory Exam: Clear to Ausculation Bilateral, NORMAL BREATHING PATTERN - Cardiovascular Exam Cardiovascular Exam: REGULAR RHYTHM, +S1, +S2 - GI/Abdominal Exam GI & Abdominal Exam: Soft, Normal Bowel Sounds - Extremities Exam Extremities Exam: Full ROM, Normal Capillary Refill - Neurological Exam Neurological Exam: Alert - Skin Skin Exam: Dry, Pallor Assessment and Plan - Assessment and Plan (Free Text) Assessment: 52 year old female with history of ER ,NH, HER 2 cale positive breast cancer who is admitted with intractable pain, altered mental status, brain metastasis s/p palliative XRT, deconditioning. The patient is alert, able to follow simple commands. She is able to move her right arm, appears to have less generalized weakness than when admitted. Patients daughter at bedside. POLST directive explained. POLST DNR/DNI completed. Patients pain medication been adjusted. Dilaudid KETTLEMAN being weaned. Methadone added three time daily. The patient states her pain level is tolerable. She reports no untoward side effects. Her appetite is good ,denies constipation. Patient is expected to transition to [facility] when medically cleared Goals of care and advance care planning, 30 minutes Plan: POLST: DNR/DNI Pain: Methadone 20 mg every 8 hours, Dilaudid 0.5 q 15 /4 hr max. Continue Colace/ Miralax bowel regimen Anxiety: Ativan as needed brain mets: S/p XRT, Decadron daily, Namenda Deconditioning: PT/OT> KAREEM Breast cancer: Dr Penn following
[2018-01-18] MEDS: Dexamethasone 4 mg/1 ml IVP SCH ×4 (00:40→17:20)
[2018-01-18] MEDS: Levothyroxine 125 MCG TAB PO SCH (06:33)
[2018-01-18 07:46] LABS: GRAN # 6.3 (1.4-6.5); GRAN % 88.1 % (50.0-68.0); HEMOGLOBIN 9.4 g/dL (12.0-16.0); LYMPH # 0.4 (1.2-3.4); MEAN CELL VOLUME 88.5 fl (80.0-105.0); MEAN CORPUSCULAR HEMOGLOBIN 29.3 pg (25.0-35.0); MEAN CORPUSCULAR HGB CONC 33.1 g/dl (31.0-37.0); MEAN PLATELET VOLUME 8.5 fl (7.0-11.0); MONO # 0.5 (0.1-0.6); MONO % 6.9 % (1.0-6.0); RBC 3.21 10^6/uL (3.5-6.1); RED CELL DISTRIBUTION WIDTH 18.5 % (11.5-14.5); WHITE BLOOD COUNT 7.2 10^3/ul (4.5-11.0)
[2018-01-18] MEDS: Insulin Reg-MEDIUM-Coverage SC SCH ×4 (07:53→21:51)
[2018-01-18 08:04] LABS: ALB/GLOB RATIO 1.2 (1.1-1.8); ALT/SGPT 126 U/L (7-56); AST/SGOT 66 U/L (14-36); BLOOD UREA NITROGEN 21 mg/dL (7-21); CALCIUM 8.7 mg/dL (8.4-10.5); GFR NON-AFRICAN AMERICAN > 60
[2018-01-18] MEDS: Pantoprazole 40 mg EC Tab PO SCH (08:14)
[2018-01-18] MEDS: POLYETHYLENE GLYCOL 3350 17 GM/Dose PACKET PO SCH ×2 (09:03→17:20)
--- NOTE | 2018-01-18 13:45 | PN ---
DATE: 01/18/2018 FOLLOWUP NOTE SUBJECTIVE: The patient has multiple medical issues including breast cancer, brain metastasis. The patient was admitted on the medical site for evaluation of altered mental status. This business writer evaluated the patient couple of days ago, signed off. Medical team requested consultation again for confusion and the patient was calling her daughter over nighttime frequently. The patient was seen and examined today. The patient presented to be alert, somewhat confused. The patient knows that she is in the hospital. The patient denied feeling depressed or uncomfortable. The patient has some apraxia. The patient was not able to pour milk into the cup, needs assistance. The patient had difficulty to sustain and focus during the conversation, seems to be disengaged, was preoccupied with her task of pouring milk into the cup. The patient does not present to be acutely psychotic, but confused, which is expected with metastasis to the brain. In regards of confusion over night time, as per nursing staff, the patient was calling her daughter, asking why she is in the hospital multiple times. Vital signs reviewed. Temperature 97.7, pulse is 79, blood pressure 117/82, respirations 18, oxygen saturation is 94. Medications reviewed. The patient is on Xanax 0.5 mg four times a day scheduled. The patient is on dexamethasone, Colace, Humulin, Synthroid, Ativan 0.5 mg IV push every 8 hours p.r.n., Namenda 10 mg daily, methadone 20 mg every 8 hours scheduled, Nicoderm, Zofran, Protonix, MiraLax as well as Ambien 5 mg, which was as needed, but this business writer will switch it to scheduled dose. Labs reviewed. Most recent was from today. MENTAL STATUS EXAMINATION: The patient presented to be alert, confused. The patient knows that she is in the hospital. The patient denied being depressed. Denied any thoughts of killing herself. Mood described as okay. Affect was flat. Thought process concrete. Thought content, the patient is not acutely psychotic, but mostly confused. Insight and judgment seems to be limited. Impulses are well controlled. IMPRESSION: Most likely, the patient's confusion is related to the multiple medical issues, which including metastatic cancer into the brain. The patient is on multiple pain medications as well as benzodiazepines. Rule out mood disorder and anxiety disorder due to general medical condition. PLAN: Comfort measures. The patient is DNI and DNR. The patient was seen by Palliative Care. In regards of the patient's presentation, this business writer feels that the patient presented relatively well considering all of the medical issues what the patient is going through. This business writer did not want to give increased dose of Ambien, but we will switch for scheduled dose. Staff was advised to remove telephone during the nighttime and the patient will be not calling frequently to her family if it is possible. The patient is not psychotic. The patient is not anxious. The patient is not depressed based on this business writer's evaluation. This business writer will sign off. Should you have any questions, give me a call back. Thank you very much for letting me participate in the care of your patient. Kenya Campbell MD
--- NOTE | 2018-01-18 15:37 | PN ---
DATE: 01/18/2018 This is [facility] visit on the medical floor. For Dr. Penn. SUBJECTIVE: The patient is a 52-year-old female with stage IV metastatic progressive cancer of the breast with documented brain metastasis and bone metastasis with severe pain, now relieved, PCI pump and methadone with the patient having weakness of the right side with history of fracture of the right hip. With this, the patient is now sitting up in a chair, being treated with IV steroids with narcotic analgesics as listed above, feeling better with mental status change possibly secondary to analgesics as above. With this, the patient is otherwise reporting that her appetite is good and her pain is well controlled. OBJECTIVE PHYSICAL EXAMINATION: VITAL SIGNS: Temperature 97.7, pulse 79, respirations 18, blood pressure 117/82, pulse ox 94%. HEENT: Unremarkable. NECK: Supple. HEART: Regular rate. LUNGS: Clear. ABDOMEN: Obese, soft, nontender. EXTREMITIES: No edema. SKIN: Warm and dry. 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 Otherwise, awake and alert. LABORATORY DATA: The patient's labs were done. White blood cell count is 7.2, hemoglobin 9.4, hematocrit 28.4, platelet count of 116,000. The chem metabolic panel showing a sodium of 130 with a chloride of 95. Nonfasting glucose 196. AST of 66, ALT of 126. Otherwise, normal chem panel. ASSESSMENT: The assessment for this patient is that of metastatic stage IV cancer of the breast, which is progressive, currently on radiation, status post chemotherapy with brain metastasis, on IV steroids with intractable pain, now improved. Bony metastasis. The patient is also a smoker with a history of anxiety. Also, hypothyroidism. PLAN: The plan for this patient after conversation with Dr. Penn is to discontinue her PCI, Dilaudid as she was on tapering doses. We will continue her methadone for her pain and observe her. We will continue her nicotine patch for her smoking cessation with IV steroids to continue as per area development consultant's recommendations. The input by Dr. Campbell, Psychiatry is appreciated with the patient to be reevaluated after the narcotic analgesics are tapered off to see if the patient would qualify for competency. This is a complex patient with comprehensive medically necessary and appropriate visit carried out in excess of 25 minutes with the recommendations to be implemented as above. Alan Choudhary MD
[2018-01-19] MEDS: Dexamethasone 4 mg/1 ml IVP SCH ×4 (00:19→17:18)
[2018-01-19] MEDS: Levothyroxine 125 MCG TAB PO SCH (05:49)
[2018-01-19 06:37] LABS: BASO # 0.01 K/mm3 (0.0-2.0); BASO % 0.1 % (0.0-3.0); EOS % 0.1 % (1.5-5.0); GRAN # 6.56 (1.4-6.5); GRAN % 89.5 % (50.0-68.0); HEMOGLOBIN 9.1 g/dL (12.0-16.0); LYMPH # 0.3 (1.2-3.4); LYMPH % 3.4 % (22.0-35.0); MEAN CELL VOLUME 89.4 fl (80.0-105.0); MEAN CORPUSCULAR HEMOGLOBIN 29.3 pg (25.0-35.0); MEAN CORPUSCULAR HGB CONC 32.7 g/dl (31.0-37.0); MONO # 0.5 (0.1-0.6); MONO % 6.9 % (1.0-6.0); PLATELET COUNT 121 10^3/uL (120.0-450.0); RBC 3.11 10^6/uL (3.5-6.1); RED CELL DISTRIBUTION WIDTH 18.6 % (11.5-14.5); WHITE BLOOD COUNT 7.3 10^3/ul (4.5-11.0)
[2018-01-19 07:34] LABS: ALB/GLOB RATIO 1.2 (1.1-1.8); ALBUMIN 2.8 g/dL (3.0-4.8); ALT/SGPT 112 U/L (7-56); AST/SGOT 63 U/L (14-36); BLOOD UREA NITROGEN 18 mg/dL (7-21); CALCIUM 8.7 mg/dL (8.4-10.5); GFR NON-AFRICAN AMERICAN > 60
[2018-01-19] MEDS: Insulin Reg-MEDIUM-Coverage SC SCH ×4 (08:02→22:16)
[2018-01-19] MEDS: Pantoprazole 40 mg EC Tab PO SCH (08:20)
[2018-01-19] MEDS: POLYETHYLENE GLYCOL 3350 17 GM/Dose PACKET PO SCH ×2 (09:28→17:19)
[2018-01-19 10:17] LABS: BAND 3 % (0-2); LYMPHOCYTE 6 % (22.0-35.0); MONOCYTE 3 % (1.0-6.0); NEUTROPHIL 88 % (50.0-70.0)
[2018-01-19 10:18] LABS: PLATELET ESTIMATE LOW (NORMAL)
[2018-01-19 10:19] LABS: ANISOCYTOSIS SLIGHT; HYPOCHROMIA SLIGHT; TEAR DROP CELLS SLIGHT
--- NOTE | 2018-01-19 20:15 | PN ---
DATE: 01/19/2018 This is [facility]'s hospital visit on the medical floor. For Dr. Penn. SUBJECTIVE: The patient is a 52-year-old female with stage IV metastatic cancer of the breast with documented brain metastasis, bony metastasis with severe pain, now relieved with methadone with a ART INSTALLER pump. Dilaudid now being discontinued with the patient still having relief of her pain. She is now sitting up in the chair with the patient being continued with IV steroids and mental status change, evaluated again by Dr. Campbell with the patient answering questions appropriately, but with lethargy noted and forgetfulness. Otherwise, she is in no acute distress. Reported that her appetite is good and the patient is requesting when she can drive again. This is recommended to be referred to Dr. Penn for further recommendations eventually once the patient is treated. OBJECTIVE/PHYSICAL EXAMINATION: VITAL SIGNS: Temperature 97.9, pulse 70, respirations 19, blood pressure 126/76, and pulse ox 95%. HEENT: Unremarkable. NECK: Supple. HEART: Regular rate. LUNGS: Clear. ABDOMEN: Obese, soft, nontender. EXTREMITIES: No edema. SKIN: Warm and dry. 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 Otherwise, awake and alert, but confused. LABORATORY DATA: The patient's labs were done. White blood cell count of 7.3, hemoglobin 9.1, hematocrit 27.8, and platelet count of 121,000. Chem metabolic panel showing a sodium of 131 with a chloride of 95. AST of 63, ALT of 112. The patient's TSH was also noted to be 6.22 early in her hospital stay, we will repeat this. The patient was transfused early in her hospital stay with her labs being monitored now as per Dr. Penn's recommendation. ASSESSMENT: Stage IV metastatic cancer of the breast, which is progressive, currently on radiation with brain metastasis, on IV steroids with intractable pain, now improved. Bony metastasis. Pain is also improved. History of smoking, anxiety, hypothyroidism, hyponatremia, and anemia of chronic disease. PLAN: The plan for this patient after conversation with Dr. Penn is to continue present medical regimen with her ART INSTALLER Dilaudid being discontinued with IV steroids also continued. Also, reevaluation with Dr. Abduakhadov, Psychiatry is appreciated with the patient's confusion modestly improved after the ART INSTALLER narcotics were discontinued. We will monitor clinically and with labs with continuation of her radiation as indicated. This is a complex patient with comprehensive medically necessary and appropriate visit carried out in excess of 20 minutes with nursing staff informed recommendations for continued care of this patient. She was also advised to add salt her diet in the interim with considerations for a workup for her hyponatremia as indicated and nicotine patch to continue. Alan Choudhary MD
[2018-01-20] MEDS: Dexamethasone 4 mg/1 ml IVP SCH ×4 (00:39→21:47)
[2018-01-20] MEDS: Levothyroxine 125 MCG TAB PO SCH (06:09)
[2018-01-20 07:17] LABS: ALB/GLOB RATIO 1.3 (1.1-1.8); ALBUMIN 3.1 g/dL (3.0-4.8); ALT/SGPT 117 U/L (7-56); AST/SGOT 69 U/L (14-36); BLOOD UREA NITROGEN 19 mg/dL (7-21); CALCIUM 8.3 mg/dL (8.4-10.5); GFR NON-AFRICAN AMERICAN > 60
[2018-01-20 07:18] LABS: BASO # 0.01 K/mm3 (0.0-2.0); BASO % 0.1 % (0.0-3.0); GRAN # 7.28 (1.4-6.5); GRAN % 89.8 % (50.0-68.0); HEMOGLOBIN 9.5 g/dL (12.0-16.0); LYMPH # 0.5 (1.2-3.4); LYMPH % 5.8 % (22.0-35.0); MEAN CELL VOLUME 90.2 fl (80.0-105.0); MEAN CORPUSCULAR HEMOGLOBIN 29.1 pg (25.0-35.0); MEAN CORPUSCULAR HGB CONC 32.3 g/dl (31.0-37.0); MEAN PLATELET VOLUME 8.8 fl (7.0-11.0); MONO # 0.4 (0.1-0.6); MONO % 4.3 % (1.0-6.0); RBC 3.26 10^6/uL (3.5-6.1); WHITE BLOOD COUNT 8.1 10^3/ul (4.5-11.0)
[2018-01-20] MEDS: Pantoprazole 40 mg EC Tab PO SCH (08:01)
[2018-01-20] MEDS: Insulin Reg-MEDIUM-Coverage SC SCH ×4 (08:04→21:41)
[2018-01-20] MEDS: POLYETHYLENE GLYCOL 3350 17 GM/Dose PACKET PO SCH ×2 (10:00→17:28)
--- NOTE | 2018-01-20 10:11 | CP.PCM.PN ---
Subjective - Date & Time of Evaluation Date of Evaluation: 01/20/18 Time of Evaluation: 09:31 - Subjective Subjective: Zander Echols PGY2 Heme/Onc Progress Note for Dr. Penn Patient was seen and examined at bedside. The patient states that her pain is gone, and that it is well controlled with the current regimen. The patient is a bit more confused today but offers no other complaints. Per nursing staff, there were no acute overnight events. Objective - Vital Signs/Intake and Output Vital Signs (last 24 hours): Temp Pulse Resp BP Pulse Ox 98.3 F 74 18 107/61 94 L 01/20/18 08:08 01/20/18 08:08 01/20/18 08:08 01/20/18 08:08 01/20/18 08:08 Intake and Output: 01/20/18 01/20/18 06:59 18:59 Intake Total 500 Output Total 1400 Balance -900 - Medications Medications: Current Medications Alprazolam (Xanax) 0.5 mg PO QID [facility]; Protocol Last Admin: 01/20/18 10:01 Dose: 0.5 mg Dexamethasone (Decadron Inj) 6 mg IVP Q6 [facility] Last Admin: 01/20/18 05:59 Dose: 6 mg Docusate Sodium (Colace) 100 mg PO TID [facility] Last Admin: 01/20/18 10:00 Dose: 100 mg Insulin Human Regular (Humulin R Med) 0 units SC ACHS [facility]; Protocol Last Admin: 01/20/18 08:04 Dose: Not Given Levothyroxine Sodium (Synthroid) 125 mcg PO 0600 [facility] Last Admin: 01/20/18 06:09 Dose: 125 mcg Lorazepam (Ativan) 0.5 mg IVP Q8H PRN; Protocol PRN Reason: Anxiety Last Admin: 01/20/18 05:53 Dose: 0.5 mg Memantine (Namenda) 10 mg PO DAILY [facility] Last Admin: 01/20/18 10:00 Dose: 10 mg Methadone HCl (Methadone) 20 mg PO Q8 [facility] Last Admin: 01/20/18 06:01 Dose: 20 mg Nicotine (Nicoderm Cq) 1 patch TD DAILY [facility] Last Admin: 01/20/18 10:01 Dose: 1 patch Ondansetron HCl (Zofran Inj) 4 mg IVP Q6H PRN PRN Reason: Nausea/Vomiting Last Admin: 01/15/18 20:09 Dose: 4 mg Pantoprazole Sodium (Protonix Ec Tab) 40 mg PO ACB [facility] Last Admin: 01/20/18 08:01 Dose: 40 mg Polyethylene Glycol (Miralax) 17 gm PO BID [facility] Last Admin: 01/20/18 10:00 Dose: 17 gm Zolpidem Tartrate (Ambien) 5 mg PO HS [facility]; Protocol Last Admin: 01/19/18 22:13 Dose: 5 mg - Labs Labs: 01/20/18 06:30 01/20/18 06:30 PT 11.1 SECONDS (9.4-12.5) 01/05/18 05:00 INR 0.97 01/05/18 05:00 APTT 23.1 Seconds (25.1-36.5) L 01/03/18 15:59 - Additional Findings Additional findings: - Constitutional Appears: Well, Non-toxic, No Acute Distress - Head Exam Head Exam: NORMAL INSPECTION - Eye Exam Eye Exam: EOMI, Normal appearance, PERRL - ENT Exam ENT Exam: Mucous Membranes Moist - Neck Exam Neck Exam: Full ROM, Normal Inspection - Respiratory Exam Respiratory Exam: NORMAL BREATHING PATTERN. absent: Respiratory Distress - Cardiovascular Exam Cardiovascular Exam: RRR, +S1, +S2 - GI/Abdominal Exam GI & Abdominal Exam: Soft, Diminshed Bowel Sounds. absent: Distended, Tenderness - Extremities Exam Extremities Exam: Full ROM. absent: Pedal Edema - Neurological Exam Neurological Exam: Alert, Awake, Oriented x1, Confused - Additional Findings Additional findings: obrien catheter inserted right chest port Assessment and Plan - Assessment and Plan (Free Text) Assessment: 52-year-old female with a PMH of stage IV carcinoma of breast with known extensive metastases to bone and complex fracture of right hip, anemia, and hypothyroidism who was admitted for progressive right-sided weakness and found to have numerous new brain lesions consistent with metastatic disease, associated with large amount of vasogenic edema and considerable mass-effect. The patient also has associated pain. She is on Decadron IVP for the brain edema and XRT. Patient received carboplatin chemorx on 01/10, which should suffice for 3 weeks till next dose according to Dr. Penn. Her pain was better controlled on Dilaudid COMPUTER ENGINEER, however, she was tapered off it due to placement issues. Her length of stay and placement is dependent on maximizing her XRT sessions (which she completed 01/17) while meeting the comfort measures due to her excessive pain. Medical team did discuss with a pain specialist (Dr. Syeda Wheeler) regarding her regimen and he recommended Methadone to be titrated up as the dilaudid COMPUTER ENGINEER was titrated down to meet the patient's comfort needs, and then to scale back to meet comfort needs while avoiding side-effects. Plan: D/c pending placement decrease methadone 20mg TID to BID to meet pain relief requirements Monitor for BM's, change bowel regimen as needed Continue Synthroid Continue decadron ISS for hyperglycemia (exacerbated by steroids) Continue Nicoderm PTX for GI PPX PT Eval recommending [facility] Placement should be at facility with means of pain management for patient w/ extensive metastatic cancer Palliative Care is following DNR/DNI Case was reviewed and discussed with attending, Dr. Fili Echols PGY2
--- NOTE | 2018-01-20 10:24 | PN ---
DATE: 01/17/2018 ONCOLOGY PROGRESS NOTE LOCATION: The patient is in room 362, bed 2. SUBJECTIVE: The patient is seen sitting out of bed in the chair. The patient's daughter is by her side. The patient appears to be cognitively alert and oriented though she according to the daughter, has had periods of confusion, specifically at nighttime. The patient completed last day of radiation today to the brain. The patient has no significant complaints at this time. Subjectively, the patient tells me her pain scale on a scale of 0 to 10, which is to be around 14, is down to 0 at this time. The patient is able to move her legs very well. She can make a fist. She has good strength in her hand as well as the left hand as well. The patient was able to stand up for me and she was not able to do so when she got admitted on 01/03/2918. Denies any history of fevers, night sweats. No history of nausea or vomiting. Appetite is fair. The patient had a bowel movement as well. PHYSICAL EXAMINATION: GENERAL: The patient is awake, alert, and oriented as mentioned. VITAL SIGNS: The patient's T-max is 97.2, pulse is 68, respirations 18, blood pressure is 117/74, pulse ox is 84 without any oxygen. HEENT: Head is normocephalic, atraumatic. Conjunctivae pale. Sclerae are anicteric. Examination of the eyes shows that the patient has a narcotic effect with pupils that are constricted, but she is awake, alert, and oriented to time, place and person and fully functional at this point in time. Examination of the oropharynx reveals no oropharyngeal lesions. Tongue is moist. No ulcerations are noted. NECK: Supple. There is no adenopathy. BREASTS: Reveals erythema on the right breast to be decreased. Left breast is unremarkable. Axillae are negative. Previously noted pain in the right subcostal region extending under the surface of the breast has dissipated at this time. CARDIOVASCULAR SYSTEM: Reveals PMI to be in the fifth intercostal space, inside the midclavicular line. S1 and S2 are normal. No gallops or murmurs heard. LUNGS: Clear to percussion and auscultation. ABDOMEN: Soft, mildly protuberant, nontender. No rebound, rigidity, or guarding is noted. Liver and spleen are not palpable. EXTREMITIES: Reveal no significant cyanosis, clubbing, or edema. The patient is able to move all 4 extremities. NEUROLOGIC: The patient definitely has issues with expressing herself, but overall appears to be significantly improved. I was able to have a decent intelligent conversation with her. No focal deficits are noted at this point in time. Previously noted flaccid paralysis of the right upper extremity appears to be improved. The patient was on IV Decadron. GENITOURINARY AND RECTAL: Deferred. LABORATORY DATA: Reveals a white count of 6.7, hemoglobin of 9.5, hematocrit 28.5, platelet count of 115,000. Sodium is 131, K is 4.3, chloride is 93, CO2 is 30, BUN is 21, creatinine is 0.5, blood sugar is 110. PT/INR within normal limits. MEDICATIONS: The patient's medications were reviewed and they include the following: She is on Xanax 0.5 mg p.o. 4 times a day, dexamethasone 6 mg IV every 6 hours, Colace 100 mg t.i.d., she is on Dilaudid FRUIT TESTER at 0.5 an hour which has been tapered. I am going to keep her just on the FRUIT TESTER mode, hopefully will be able to discontinue the IV Dilaudid tomorrow. She is on insulin coverage. She is on Synthroid 125 mcg daily. She is on lorazepam 0.25 mg IV every 8 hours p.r.n., methadone 20 mg p.o. every 8 hours. She is on Nicoderm patch 21 mg every 24 hours. She is on Zofran 4 mg IV every 4 hours p.r.n. for nausea, pantoprazole 40 mg p.o. daily, MiraLax 17 g p.o. daily, Ambien 5 mg at bedtime. ASSESSMENT NOTES: The patient has metastatic stage IV carcinoma of the breast, ER/[place] negative, HER-2/cale positive, status post 1 dose of high-dose carboplatin, status post completion of radiation therapy to the brain for documented with mass edema, which is significantly improved and surveillance is for the documented bone metastasis. PLAN: I had detailed discussion with the patient and the patient's daughter, Maureen. I also spoke to our palliative care nurse, Christina Tubbs, who is going to talk to her about . In the meantime, our plan at this point in time after completion of radiation is going to try to adjust the pain medications. We are going to see if we can take her off the FRUIT TESTER, keep her on Dolophine or methadone 20 mg every 8 hours and see if we can cut back a little bit and make it every 12 hours for easier mode of administration. Plan is to see how she reacts to this. The patient unfortunately cannot be accepted in TCU, she is going to be sent over to subacute rehab probably sometime next week after we assess her response to the tapering of the narcotics. The patient is going to continue aggressive physical therapy for now, we are going to make sure about the moving valve, she is not due for any chemotherapy at least for 3 weeks as an outpatient. We will try to get for her as an outpatient as well. Orders for that will be written in the process. Time spent with the patient is greater than 80 minutes, out of which more than 50% of the time was spent in [id number] contact with the patient, the daughter, and also correlating all the information and coordinating the efforts with the discharge planning nurse, Design Agent and the other doctors involved in her care at this time. I have asked neurologic assessment again to reevaluate her for her intermittent contusion. In the meantime, I am going to proceed to start her on Namenda 10 mg once a day, it has been shown to reduce cognitive deficits post radiation. Kashif Penn MD
--- NOTE | 2018-01-20 13:06 | CP.PCM.PN ---
Subjective - Date & Time of Evaluation Date of Evaluation: 01/20/18 Time of Evaluation: 12:58 - Subjective Subjective: Brooklynn Gorodn, PGY2, Neurology Progress Note for Dr Vicente: Patient seen and examined at bedside. No acute events overnight. Patient alert, awake, answering questions appropriately. Patient having uninhibited motor movements, patient states that "it just happens." States that her right sided weakness has improved, patient walking with PT using a walker. Denies blurred vision, dizziness, nausea, vomiting. Objective - Vital Signs/Intake and Output Vital Signs (last 24 hours): Temp Pulse Resp BP Pulse Ox 98.3 F 74 18 107/61 94 L 01/20/18 08:08 01/20/18 08:08 01/20/18 08:08 01/20/18 08:08 01/20/18 08:08 Intake and Output: 01/20/18 01/20/18 06:59 18:59 Intake Total 500 Output Total 1400 Balance -900 - Medications Medications: Current Medications Alprazolam (Xanax) 0.5 mg PO QID [facility]; Protocol Last Admin: 01/20/18 10:01 Dose: 0.5 mg Dexamethasone (Decadron Inj) 6 mg IVP Q6 [facility] Last Admin: 01/20/18 12:22 Dose: 6 mg Docusate Sodium (Colace) 100 mg PO TID [facility] Last Admin: 01/20/18 10:00 Dose: 100 mg Insulin Human Regular (Humulin R Med) 0 units SC ACHS [facility]; Protocol Last Admin: 01/20/18 08:04 Dose: Not Given Levothyroxine Sodium (Synthroid) 125 mcg PO 0600 [facility] Last Admin: 01/20/18 06:09 Dose: 125 mcg Lorazepam (Ativan) 0.5 mg IVP Q8H PRN; Protocol PRN Reason: Anxiety Last Admin: 01/20/18 05:53 Dose: 0.5 mg Memantine (Namenda) 10 mg PO DAILY [facility] Last Admin: 01/20/18 10:00 Dose: 10 mg Methadone HCl (Methadone) 20 mg PO Q8 [facility] Last Admin: 01/20/18 06:01 Dose: 20 mg Nicotine (Nicoderm Cq) 1 patch TD DAILY [facility] Last Admin: 01/20/18 10:01 Dose: 1 patch Ondansetron HCl (Zofran Inj) 4 mg IVP Q6H PRN PRN Reason: Nausea/Vomiting Last Admin: 01/15/18 20:09 Dose: 4 mg Pantoprazole Sodium (Protonix Ec Tab) 40 mg PO ACB [facility] Last Admin: 01/20/18 08:01 Dose: 40 mg Polyethylene Glycol (Miralax) 17 gm PO BID [facility] Last Admin: 01/20/18 10:00 Dose: 17 gm Zolpidem Tartrate (Ambien) 5 mg PO HS [facility]; Protocol Last Admin: 01/19/18 22:13 Dose: 5 mg - Labs Labs: 01/20/18 06:30 01/20/18 06:30 PT 11.1 SECONDS (9.4-12.5) 01/05/18 05:00 INR 0.97 01/05/18 05:00 APTT 23.1 Seconds (25.1-36.5) L 01/03/18 15:59 - Constitutional Appears: Non-toxic, No Acute Distress - Head Exam Head Exam: ATRAUMATIC, NORMOCEPHALIC - Eye Exam Eye Exam: EOMI, PERRL. absent: Conjunctival injection, Nystagmus, Scleral icterus Pupil Exam: NORMAL ACCOMODATION, PERRL. absent: Irregular, Miosis, Mydriatic, Unequal - ENT Exam ENT Exam: Mucous Membranes Moist - Neck Exam Neck Exam: Full ROM - Respiratory Exam Respiratory Exam: Clear to Ausculation Bilateral, NORMAL BREATHING PATTERN. absent: Chest Wall Tenderness, Rales, Rhonchi, Wheezes, Respiratory Distress, Stridor - Cardiovascular Exam Cardiovascular Exam: RRR, +S1, +S2. absent: Murmur - GI/Abdominal Exam GI & Abdominal Exam: Soft, Normal Bowel Sounds. absent: Guarding, Tenderness - Extremities Exam Extremities Exam: Full ROM, Normal Inspection. absent: Calf Tenderness, Pedal Edema - Back Exam Back Exam: NORMAL INSPECTION. absent: CVA tenderness (L), CVA tenderness (R) - Neurological Exam Neurological Exam: Alert, Awake, CN II-XII Intact, Oriented x3 Neuro motor strength exam: Left Upper Extremity: 5, Right Upper Extremity: 4, Left Lower Extremity: 5, Right Lower Extremity: 4 Additional comments: Follows commands. Having uninhibited motor movements with arms. - Psychiatric Exam Psychiatric exam: Normal Affect - Skin Skin Exam: Dry, Normal Color, Warm Assessment and Plan - Assessment and Plan (Free Text) Assessment: 52 year old female with PMH Stage IV breast cancer, Her2/cale positive, R breast radiation 16 sessions, R hip radiation 10 sessions hypothyroidism, anxiety, de pression, initially presented for right sided weakness, found to have several brain mets involving cerebral, cerebellar hemispheres, brainstem, basal nuclei along with significant edema. Patient started on IV dexamethasone, received 10 session of radiation therapy: - unlikely stroke - will wean down decadron to 6 mg IV q 12h - protonix - PT recommends [facility], patient awaiting placement - monitor Case seen and discussed with Dr Vicente.
[2018-01-21] MEDS: Levothyroxine 125 MCG TAB PO SCH (05:18)
[2018-01-21 07:35] VITALS: BP 100/57; PULSE 65; RESP 20; TEMP 98.2; O2SAT 97
[2018-01-21] MEDS: Insulin Reg-MEDIUM-Coverage SC SCH ×2 (08:09→11:38)
--- NOTE | 2018-01-21 09:10 | CP.PCM.PN ---
Subjective - Date & Time of Evaluation Date of Evaluation: 01/21/18 Time of Evaluation: 07:30 - Subjective Subjective: Zander Echols PGY2 Heme/Onc Progress Note for Dr. Penn Patient was seen and examined at bedside. The patient states that her pain is well controlled. She has no other complaints. there were no acute overnight events, and the dose of her medication has been decreased to methadone 20mg BID. she is pending placement. We discussed with Raul the secondary social studies teacher, and the patient has been accepted to [facility] and will go there for continued strengthening and therapy. The patient's last chemo was carboplatin on 01/10/18 and will be due for another dose of carboplatin and Kadcyla on 01/31/18. Per Raul, the daughter will be able to contact the community leader at the rehab center to be transferred to [facility] and back for her chemotherapy. An appointment will be made for her at the infusion clinic on 01/31/18 for the infusion. Objective - Vital Signs/Intake and Output Vital Signs (last 24 hours): Temp Pulse Resp BP Pulse Ox 98.2 F 65 20 100/57 L 97 01/21/18 07:35 01/21/18 07:35 01/21/18 07:35 01/21/18 07:35 01/21/18 07:35 Intake and Output: 01/21/18 01/21/18 06:59 18:59 Intake Total 120 Output Total 900 Balance -780 - Medications Medications: Current Medications Alprazolam (Xanax) 0.5 mg PO QID [facility]; Protocol Last Admin: 01/20/18 21:48 Dose: 0.5 mg Dexamethasone (Decadron Inj) 6 mg IVP Q12 [facility] Last Admin: 01/20/18 21:47 Dose: 6 mg Docusate Sodium (Colace) 100 mg PO TID [facility] Last Admin: 01/20/18 17:28 Dose: 100 mg Insulin Human Regular (Humulin R Med) 0 units SC ACHS [facility]; Protocol Last Admin: 01/20/18 21:41 Dose: Not Given Levothyroxine Sodium (Synthroid) 125 mcg PO 0600 [facility] Last Admin: 01/21/18 05:18 Dose: 125 mcg Lorazepam (Ativan) 0.5 mg IVP Q8H PRN; Protocol PRN Reason: Anxiety Last Admin: 01/20/18 05:53 Dose: 0.5 mg Memantine (Namenda) 10 mg PO DAILY [facility] Last Admin: 01/20/18 10:00 Dose: 10 mg Methadone HCl (Methadone) 20 mg PO Q12 [facility] Last Admin: 01/20/18 21:48 Dose: 20 mg Nicotine (Nicoderm Cq) 1 patch TD DAILY [facility] Last Admin: 01/20/18 10:01 Dose: 1 patch Ondansetron HCl (Zofran Inj) 4 mg IVP Q6H PRN PRN Reason: Nausea/Vomiting Last Admin: 01/15/18 20:09 Dose: 4 mg Pantoprazole Sodium (Protonix Ec Tab) 40 mg PO ACB [facility] Last Admin: 01/20/18 08:01 Dose: 40 mg Polyethylene Glycol (Miralax) 17 gm PO BID [facility] Last Admin: 01/20/18 17:28 Dose: 17 gm Zolpidem Tartrate (Ambien) 5 mg PO HS [facility]; Protocol Last Admin: 01/20/18 21:47 Dose: 5 mg - Labs Labs: 01/20/18 06:30 01/20/18 06:30 PT 11.1 SECONDS (9.4-12.5) 01/05/18 05:00 INR 0.97 01/05/18 05:00 APTT 23.1 Seconds (25.1-36.5) L 01/03/18 15:59 - Additional Findings Additional findings: - Constitutional Appears: Well, Non-toxic, No Acute Distress - Head Exam Head Exam: NORMAL INSPECTION - Eye Exam Eye Exam: EOMI, Normal appearance, PERRL - ENT Exam ENT Exam: Mucous Membranes Moist - Neck Exam Neck Exam: Full ROM, Normal Inspection - Respiratory Exam Respiratory Exam: NORMAL BREATHING PATTERN. absent: Respiratory Distress - Cardiovascular Exam Cardiovascular Exam: RRR, +S1, +S2 - GI/Abdominal Exam GI & Abdominal Exam: Soft, Diminshed Bowel Sounds. absent: Distended, Tenderness - Extremities Exam Extremities Exam: Full ROM. absent: Pedal Edema - Neurological Exam Neurological Exam: Alert, Awake, Oriented x1, Confused - Additional Findings Additional findings: obrien catheter right chest port Assessment and Plan - Assessment and Plan (Free Text) Assessment: 52-year-old female with a PMH of stage IV carcinoma of breast with known extensive metastases to bone and complex fracture of right hip, anemia, and hypothyroidism who was admitted for progressive right-sided weakness and found to have numerous new brain lesions consistent with metastatic disease, associated with large amount of vasogenic edema and considerable mass-effect. The patient also has associated pain. She is on Decadron IVP for the brain ed chavez and XRT. Patient received carboplatin chemorx on 01/10, which should suffice for 3 weeks till next dose according to Dr. Penn. Her pain was better controlled on Dilaudid FRONT OFFICE DIRECTOR, however, she was tapered off it due to placement issues. Her length of stay and placement is dependent on maximizing her XRT sessions (which she completed 01/17) while meeting the comfort measures due to her excessive pain. Medical team did discuss with a pain specialist (Dr. Syeda Wheeler) regarding her regimen and he recommended Methadone to be titrated up as the dilaudid FRONT OFFICE DIRECTOR was titrated down to meet the patient's comfort needs, and then to scale back to meet comfort needs while avoiding side-effects. She's currently well controlled on methadone 20mg BID. Plan: D/c to [facility] cont methadone 20mg BID to meet pain relief requirements Monitor for BM's, change bowel regimen as needed Continue Synthroid Continue decadron ISS for hyperglycemia (exacerbated by steroids) Continue Nicoderm PTX for GI PPX PT Eval recommending [facility] Placement should be at facility with means of pain management for patient w/ extensive metastatic cancer Palliative Care is following DNR/DNI Case was reviewed and discussed with attending, Dr. Fili Echols PGY2
[2018-01-21] MEDS: Dexamethasone 4 mg/1 ml IVP SCH (10:08)
[2018-01-21] MEDS: POLYETHYLENE GLYCOL 3350 17 GM/Dose PACKET PO SCH (10:08)
--- NOTE | 2018-01-21 17:12 | CP.PCM.DIS ---
Provider - Provider Date of Admission: 01/03/18 19:35 Attending physician: Alan Choudhary MD Primary care physician: Jada Song MD Time Spent in preparation of Discharge (in minutes): 40 Hospital Course - Lab Results Lab Results: Micro Results 01/03/18 20:37 Urine,Clean Catch Urine Culture - Final <10,000 CFU/ML. MULTIPLE SPECIES. PROBABLE CONTAMINATION. 01/04/18 03:00 Nose MRSA Culture (Admit) - Final MRSA NOT DETECTED Most Recent Lab Values WBC 8.1 10^3/ul (4.5-11.0) 01/20/18 06:30 RBC 3.26 10^6/uL (3.5-6.1) L 01/20/18 06:30 Hgb 9.5 g/dL (12.0-16.0) L 01/20/18 06:30 Hct 29.4 % (36.0-48.0) L 01/20/18 06:30 MCV 90.2 fl (80.0-105.0) 01/20/18 06:30 MCH 29.1 pg (25.0-35.0) 01/20/18 06:30 MCHC 32.3 g/dl (31.0-37.0) 01/20/18 06:30 RDW 19.0 % (11.5-14.5) H 01/20/18 06:30 Plt Count 127 10^3/uL (120.0-450.0) 01/20/18 06:30 MPV 8.8 fl (7.0-11.0) 01/20/18 06:30 Gran % 89.8 % (50.0-68.0) H 01/20/18 06:30 Lymph % (Auto) 5.8 % (22.0-35.0) L 01/20/18 06:30 Charles % (Auto) 4.3 % (1.0-6.0) 01/20/18 06:30 Eos % (Auto) 0.0 % (1.5-5.0) L 01/20/18 06:30 Baso % (Auto) 0.1 % (0.0-3.0) 01/20/18 06:30 Gran # 7.28 (1.4-6.5) H 01/20/18 06:30 Lymph # (Auto) 0.5 (1.2-3.4) L 01/20/18 06:30 Charles # (Auto) 0.4 (0.1-0.6) 01/20/18 06:30 Eos # (Auto) 0.0 (0.0-0.7) 01/20/18 06:30 Baso # (Auto) 0.01 K/mm3 (0.0-2.0) 01/20/18 06:30 Corrected WBC (Man) 10.4 K/mm3 (4.5-11.0) 01/08/18 05:30 Neutrophils % (Manual) 88 % (50.0-70.0) H 01/19/18 06:00 Band Neutrophils % 3 % (0-2) H 01/19/18 06:00 Lymphocytes % (Manual) 6 % (22.0-35.0) L 01/19/18 06:00 Monocytes % (Manual) 3 % (1.0-6.0) 01/19/18 06:00 Eosinophils % (Manual) 1 % (0.0-3.0) 01/03/18 15:59 Metamyelocytes % 6 % 01/08/18 05:30 Nucleated RBC % 8 % 01/08/18 05:30 Platelet Evaluation Low (NORMAL) 01/19/18 06:00 Polychromasia Slight 01/03/18 15:59 Hypochromasia Slight 01/19/18 06:00 Anisocytosis (manual) Slight 01/19/18 06:00 Tear Drop Cells Slight 01/19/18 06:00 PT 11.1 SECONDS (9.4-12.5) 01/05/18 05:00 INR 0.97 01/05/18 05:00 APTT 23.1 Seconds (25.1-36.5) L 01/03/18 15:59 Sodium 132 mmol/L (132-148) 01/20/18 06:30 Potassium 4.4 mmol/L (3.6-5.0) 01/20/18 06:30 Chloride 95 mmol/L (98-107) L 01/20/18 06:30 Carbon Dioxide 30 mmol/L (21-33) 01/20/18 06:30 Anion Gap 12 (10-20) 01/20/18 06:30 BUN 19 mg/dL (7-21) 01/20/18 06:30 Creatinine 0.5 mg/dl (0.7-1.2) L 01/20/18 06:30 Est GFR ( Amer) > 60 01/20/18 06:30 Est GFR (Non-Af Amer) > 60 01/20/18 06:30 POC Glucose (mg/dL) 93 mg/dL (65-110) 01/21/18 11:21 Random Glucose 112 mg/dL (70-110) H 01/20/18 06:30 Calcium 8.3 mg/dL (8.4-10.5) L 01/20/18 06:30 Phosphorus 6.2 mg/dL (2.5-4.5) H 01/17/18 06:00 Magnesium 1.9 mg/dL (1.7-2.2) 01/17/18 06:00 Total Bilirubin 0.2 mg/dL (0.2-1.3) 01/20/18 06:30 AST 69 U/L (14-36) H 01/20/18 06:30 ALT 117 U/L (7-56) H 01/20/18 06:30 Alkaline Phosphatase 285 U/L (38-126) H 01/20/18 06:30 Total Protein 5.5 g/dL (5.8-8.3) L 01/20/18 06:30 Albumin 3.1 g/dL (3.0-4.8) 01/20/18 06:30 Globulin 2.4 gm/dL 01/20/18 06:30 Albumin/Globulin Ratio 1.3 (1.1-1.8) 01/20/18 06:30 TSH 3rd Generation 0.97 mIU/mL (0.46-4.68) 01/20/18 06:30 Urine Color Dark yellow (YELLOW) 01/03/18 16:06 Urine Appearance Slight-cloudy (CLEAR) 01/03/18 16:06 Urine pH 6.5 (4.7-8.0) 01/03/18 16:06 Ur Specific [place] 1.020 (1.005-1.035) 01/03/18 16:06 Urine Protein 30 mg/dL (<30 mg/dL) H 01/03/18 16:06 Urine Glucose (UA) Negative mg/dL (NEGATIVE) 01/03/18 16:06 Urine Ketones Trace mg/dL (NEGATIVE) H 01/03/18 16:06 Urine Blood Large (NEGATIVE) H 01/03/18 16:06 Urine Nitrate Negative (NEGATIVE) 01/03/18 16:06 Urine Bilirubin Small (NEGATIVE) H 01/03/18 16:06 Urine Urobilinogen 1.0 E.U./dL (<1 E.U./dL) H 01/03/18 16:06 Ur Leukocyte Esterase Trace Kevin/uL (NEGATIVE) H 01/03/18 16:06 Urine RBC 25 - 30 /hpf (0-2) 01/03/18 16:06 Urine WBC 1 - 3 /hpf (0-6) 01/03/18 16:06 Ur Epithelial Cells 6 - 8 /hpf (0-5) 01/03/18 16:06 Urine Bacteria Mod (NEG) 01/03/18 16:06 Blood Type O POSITIVE 01/10/18 18:52 Blood Type Confirm O POSITIVE 01/03/18 18:22 Antibody Screen Negative 01/10/18 18:52 Crossmatch See Detail 01/10/18 18:52 BBK History Checked Patient has bt 01/10/18 18:52 - Hospital Course Hospital Course: 52-year-old female with a PMH of stage IV carcinoma of breast with known e xtensive metastases to bone and complex fracture of right hip, anemia, and hypothyroidism who was admitted for progressive right-sided weakness and found to have numerous new brain lesions consistent with metastatic disease, associated with large amount of vasogenic edema and considerable mass-effect. The patient also had associated pain. She was started on Decadron IVP for the brain edema and receiving brain XRT. Patient received carboplatin chemorx on 01/10, which should suffice for 3 weeks till next dose which is scheduled for 01/22/18 (Kadcyla and Aredia +/- Carboplatin). She completed her XRT sessions on 01/17. Her pain was initially controlled on Dilaudid LAB HEAD, however, she was tapered off it due to d/c placement issues. Medical team did discuss with a pain specialist (Dr. Syeda Wheeler) regarding her regimen and he recommended Methadone to be titrated up as the dilaudid LAB HEAD was titrated down to meet the patient's comfort needs, and then to scale back to meet comfort needs while avoiding side- effects. She is currently well controlled on methadone 20mg BID. Namenda was started and should be continued for at least 6 weeks to prevent cognitive dysfunction associated with whole brain radiation therapy. Patient will be discharged to [facility], and the information was relayed to the pt's daughter. The patient is to follow-up in the infusion clinic on 01/31 for the chemo outlined above. On day of discharge, her pain was non-existent and she was comfortable having made excellent progress with physical therapy. Discharge Exam - Head Exam Head Exam: ATRAUMATIC, NORMOCEPHALIC - Eye Exam Eye Exam: EOMI, Normal appearance, PERRL - ENT Exam ENT Exam: Mucous Membranes Moist - Neck Exam Neck exam: Normal Inspection - Respiratory Exam Respiratory Exam: NORMAL BREATHING PATTERN, UNREMARKABLE. absent: Respiratory Distress - Cardiovascular Exam Cardiovascular Exam: RRR, +S1, +S2 - GI/Abdominal Exam GI & Abdominal Exam: Normal Bowel Sounds, Soft. absent: Distended, Tenderness - Exam Additional comments: obrien in place - Extremities Exam Extremities exam: full ROM Additional comments: no pedal edema - Back Exam Back exam: NORMAL INSPECTION - Neurological Exam Neurological exam: Alert (but confused) - Psychiatric Exam Psychiatric exam: Normal Mood - Skin Skin Exam: Normal Color, Warm - Additional Findings Additional findings: right chest port Discharge Plan - Follow Up Plan Condition: GUARDED Disposition: REHAB FACILITY/REHAB UNIT Instructions: Breast Cancer (DC), Brain Metastases Additional Instructions: - please continue Decadron 6mg IVP q12 until 01/24/18 then taper down to 4mg PO q12 - continue namenda at least until 02/28 (to complete 42 total days) - please call Dr. Penn (Oncology) at [phone] if you have any questions - the patient is scheduled for chemotherapy on 01/31/18 at our infusion clinic on [address] at [facility], please call to confirm - please continue medications as outlined in the med rec, and for any further questions, please contact Dr. Penn Referrals: Duncan BOWMAN,MD Jada [Primary Care Provider] - Kashif Penn MD [Staff Provider] -
== END 2018-01-21 15:54 | DRG 533 ==
LOC: ED 14:42 → ERH 19:35 → ICU 01-04 00:58 → 3RNO 01-07 21:58
PROVIDERS: ADMIT Family Medicine; ATTEND Family Medicine
PROC: D0001ZZ Beam Radiation of Brain using Photons 1 - 10 MeV (ICD-10-PCS; principal; 2018-01-06)
PROC: 3E03305 Introduction of Other Antineoplastic into Peripheral Vein, Percutaneous Approach (ICD-10-PCS; 2018-01-10)
DX: C79.31 Secondary malignant neoplasm of brain (principal); I61.9 Nontraumatic intracerebral hemorrhage, unspecified; C79.51 Secondary malignant neoplasm of bone; M84.454A Pathological fracture, pelvis, initial encounter for fracture; G93.6 Cerebral edema; C50.911 Malignant neoplasm of unspecified site of right female breast; R62.7 Adult failure to thrive; G89.3 Neoplasm related pain (acute) (chronic); D63.8 Anemia in other chronic diseases classified elsewhere; E11.9 Type 2 diabetes mellitus without complications; H53.2 Diplopia; R47.01 Aphasia; R29.810 Facial weakness; E03.9 Hypothyroidism, unspecified; Z66 Do not resuscitate; Z17.1 Estrogen receptor negative status [ER-]; K59.00 Constipation, unspecified; K21.9 Gastro-esophageal reflux disease without esophagitis; F41.9 Anxiety disorder, unspecified; F17.210 Nicotine dependence, cigarettes, uncomplicated; Z91.041 Radiographic dye allergy status; Z99.3 Dependence on wheelchair

== ENCOUNTER 2018-03-19 14:37 | Inpatient (IN) | payer MEDICAID ==
[2018-03-19 14:52] VITALS: BMI 30.5
--- NOTE | 2018-03-19 15:06 | CP.PCM.HP ---
<Mnia Carney - Last Filed: 03/19/18 18:33> History of Present Illness - History of Present Illness History of Present Illness: Mina Carney DO, PGY-2: Hematology and Oncology HPI for Dr. Penn 52 year old female with a past medical history of stage IV HER-2-YVROSE breast cancer with metastasis to bone, brain, and liver maintained on Kadycyla and s/p WBRT who is presenting with 5 days of worsening weakness and failure to thrive. She gabrielle become bed-bound in past 5 or so days when prior to that she was able to ambulate with a walker. Her daughter, the sole mechanic recovery, now has to change her mother's diapers and states that the patient also has no appetite. The patient was seen by her primary oncologist today who noted some left sided facial swelling concerning for parotitis and agrees that the patient functional status has declined significantly in the interim. The patient has been being weaned off dexamethasone that was initially started for her brain metastasis in late December of this year. The patient denies any fever, chills, nausea, or vomiting. PMHx: stage IV metastatic breast ca with mets to hip, spine, shoulder blades, and brain s/p XRT and chemo, tobacco use disorder, hypothyroidism, and anemia PSurgHx: hysterectomy (2011), L foot bunion surgery Allergies: constrast dye Home meds: Ambien 10 mg daily, Colace 100 mg bid, Decadron 4 mg daily, Methadone 10 mg daily, Prilosec 20 mg bid, Synthroid 137 mcg daily, Xanax 0.5 mg bid Fam hx: denies Soc hx: smokes 3 ppd for 30+ years; denies EtOH or illicit drug use PMD: Dr. Song Primary Oncologist: Dr. Penn Present on Admission - Present on Admission Any Indicators Present on Admission: No Review of Systems - Review of Systems All systems: reviewed and no additional remarkable complaints except (as per HPI) Past Patient History - Infectious Disease Hx of Infectious Diseases: None - Past Social History Smoking Status: Heavy Smoker > 10 Cigarettes Daily - CARDIAC Hx Cardiac Disorders: No - PULMONARY Other/Comment: active smoker - NEUROLOGICAL Hx Neurological Disorder: No - HEENT Other/Comment: acute parotitis - RENAL Hx Chronic Kidney Disease: No - ENDOCRINE/METABOLIC Hx Diabetes Mellitus Type 2: Yes - HEMATOLOGICAL/ONCOLOGICAL Hx Cancer: Yes (breast, mets to spine/brain) - INTEGUMENTARY Hx Dermatological Problems: No - MUSCULOSKELETAL/RHEUMATOLOGICAL Hx Musculoskeletal Disorders: No Hx Falls: No - GASTROINTESTINAL Hx Gastrointestinal Disorders: No - GENITOURINARY/GYNECOLOGICAL Other/Comment: Stage 4 metastatic breast cancer - PSYCHIATRIC Hx Substance Use: No - SURGICAL HISTORY Hx Surgeries: Yes Hx Hysterectomy: Yes - ANESTHESIA Hx Anesthesia: Yes Hx Anesthesia Reactions: No Hx Malignant Hyperthermia: No Meds Allergies/Adverse Reactions: Allergies Allergy/AdvReac Type Severity Reaction Status Date / Time CONTRAST Allergy Severe RASH/HIVES Uncoded 01/03/18 14:54 Physical Exam - Constitutional Appears: Non-toxic, No Acute Distress - Head Exam Head Exam: ATRAUMATIC, NORMOCEPHALIC Additional comments: left cheek is swollen more than right - Eye Exam Eye Exam: EOMI, Scleral icterus Pupil Exam: NORMAL ACCOMODATION, PERRL - ENT Exam ENT Exam: Mucous Membranes Moist, Normal Oropharynx - Neck Exam Neck exam: Positive for: Normal Inspection - Respiratory Exam Respiratory Exam: Clear to Auscultation Bilateral, NORMAL BREATHING PATTERN. a bsent: Accessory Muscle Use - Cardiovascular Exam Cardiovascular Exam: Tachycardia, RRR, +S1, +S2 - GI/Abdominal Exam GI & Abdominal Exam: absent: Guarding, Organomegaly, Rebound - Extremities Exam Extremities exam: Positive for: normal inspection. Negative for: calf tenderness - Neurological Exam Neurological exam: Alert, CN II-XII Intact, Oriented x3 Additional comments: difficult extending right hip and difficulty abducting or extending left shoulder - Psychiatric Exam Psychiatric exam: Normal Affect, Normal Mood - Skin Skin Exam: Dry, Intact, Warm Additional comments: jaundiced Results - Vital Signs Recent Vital Signs: Last Vital Signs Temp 98.1 F 03/19/18 14:58 Pulse 118 H 03/19/18 14:58 Resp 20 03/19/18 14:58 BP 109/86 03/19/18 14:58 Pulse Ox 95 03/19/18 14:58 - Labs Result Diagrams: 03/19/18 15:30 03/19/18 15:30 Assessment & Plan - Assessment and Plan (Free Text) Assessment: 52 year old female with stage IV metastatic breast cancer involving brain, bone, and liver who presents with jaundice and failure to thrive along with oral thrush and clinical parotitis. CT of head shows near complete lesions of infra and supra-tentorial metastasis. 1) Parotitis, clinically - No CT evidence for acute parotiditis. Asymmetric subcentimeter left posterior triangle lymph nodes, the largest measures 9 mm these are nonspecific and may be infectious, inflammatory or neoplastic in etiology. Clinical follow-up is advised. If clinically indicated correlation with may be performed with PET-CT. Diffuse osteoblastic metastasis in the cervical spine. - 100 mls/hr of NS - Zosyn 4.5 q8h LEXY - Infectious disease consulted - Toradol 15 mg q8h PRN folr severe pain - Follow up serum amylase and procalcitonin 2) Cancer pain - Methadone 10 mg PO daily - Colace 100 mg PO BID 3) Brain metastasis with vasogenic edema, resolving - Dexamethasone 2 mg PO BID - Dr. Vicetne consulted - CT head shows No acute intracranial abnormality. Interval near complete resolution of presumable metastatic supra and infratentorial lesions and vasogenic edema. 4) Hypothyroidism - Levothyroxine 137 mcg 5) GERD - Protonix 20 mg PO daily 6) Transmaminitis and hyperbilrubinemia - Likely secondary to liver metastasis 7) Thrombocytopenia - Will monitor, current platelet count of 72 8) DVT/GI prophylaxis - SCD and Protonix 20 mg 9) Oral Thrush - Nystatin 5 ml QID 10) Failure to thrive - Palliative care consulted - Radiation Oncology consulted Case reviewed and discussed with attending physician, Dr. Penn - Date & Time Date: 03/19/18 Time: 18:35 <Kashif Penn - Last Filed: 03/22/18 19:28> Results - Vital Signs Recent Vital Signs: Last Vital Signs Temp 98.6 F 03/22/18 17:03 Pulse 92 H 03/22/18 17:03 Resp 19 03/22/18 17:03 BP 115/69 03/22/18 17:03 Pulse Ox 93 L 03/22/18 17:03 - Labs Result Diagrams: 03/22/18 06:00 03/22/18 06:00 Labs: Laboratory Results - last 24 hr 03/22/18 03/22/18 06:00 06:00 WBC 8.2 RBC 2.96 L Hgb 9.0 L Hct 28.4 L MCV 95.9 MCH 30.4 MCHC 31.7 RDW 22.0 H Plt Count 55 L MPV 9.4 Gran % 83.4 H Lymph % (Auto) 12.2 L [place] % (Auto) 4.0 Eos % (Auto) 0.0 L Baso % (Auto) 0.4 Gran # 6.83 H Lymph # (Auto) 1.0 L [place] # (Auto) 0.3 Eos # (Auto) 0.0 Baso # (Auto) 0.03 Sodium 131 L Potassium 3.6 Chloride 101 Carbon Dioxide 22 Anion Gap 12 BUN 15 Creatinine 0.5 L Est GFR ( Amer) > 60 Est GFR (Non-Af Amer) > 60 Random Glucose 111 H Calcium 8.4 Total Bilirubin 8.6 H AST 276 H ALT 444 H Alkaline Phosphatase 1190 H Total Protein 6.3 Albumin 3.0 Globulin 3.3 Albumin/Globulin Ratio 0.9 L Attending/Attestation - Attestation I have personally seen and examined this patient.: Yes I have fully participated in the care of the patient.: Yes I have reviewed all pertinent clinical information: Yes
[2018-03-19] MEDS ORDERED: Sodium Chloride 0.9% 1,000 ML IV STA (15:14)
[2018-03-19] MEDS ORDERED: metroNIDAZOLE IV 500 mg/100 ml 500 MG/100 ML BAG IVPB STA (15:19)
[2018-03-19] MEDS ORDERED: Vancomycin 1gm in NS 250ml 1 GM/250 ML BAG IVPB STA (15:19)
--- NOTE | 2018-03-19 15:20 | ED PDOC ---
Arrival/HPI - General Historian: Patient, Family (Daughter) - History of Present Illness Narrative History of Present Illness (Text): 03/19/18 15:19 52 y o female PMhx stage IV metastatic breast ca with mets to hip, spine, shoulder blades, and brain s/p XRT and chemo, tobacco use disorder, hypothyroidism, and anemia, who presents to the ED sent in by Dr. Penn for failure to thrive. Pt's daughter states that pt has had decreased PO appetite worsening over the past several days. Also c/o worsening swelling/parotitis anterior to the L ear that has been worsening x 1 week. States that she also noticed that the pt's b/l eyes were also yellow in color today. Denies fever or chills. Denies headache, dizziness, chest pain, sob, n/v/d/c, abd pain, urinary complaints, or other symptoms. Pt's daughter states that pt also has hx of chronic diffuse body pain. Pt ambulates via wheelchair currently, unable to go to bathroom on own, wears diapers. PMHx: stage IV metastatic breast ca with mets to hip, spine, shoulder blades, and brain s/p XRT and chemo, tobacco use disorder, hypothyroidism, and anemia PSurgHx: hysterectomy (2011), L foot bunion surgery Allergies: IV contrast Home meds: Ambien 10 mg daily, Colace 100 mg bid, Decadron 4 mg daily, Methadone 10 mg daily, Prilosec 20 mg bid, Synthroid 137 mcg daily, Xanax 0.5 mg bid Fam hx: denies Soc hx: smokes 3 ppd for 30+ years; denies EtOH or illicit drug use PMD: Dr. Song Primary oncologist: Dr. Penn Time/Duration: 24 hours Symptom Onset: Gradual Symptom Course: Worsening Quality: Unable to Describe Severity Level: Moderate Activities at Onset: Rest Context: Home <Kd Tilley - Last Filed: 03/19/18 17:21> <Mallika Garcia - Last Filed: 03/19/18 18:10> - General Chief Complaint: ENT Problem Past Medical History - Provider Review Nursing Documentation Reviewed: Yes - Infectious Disease Hx of Infectious Diseases: None - Cardiac Hx Cardiac Disorders: No - Pulmonary Other/Comment: active smoker - Neurological Hx Neurological Disorder: No - HEENT Other/Comment: acute parotitis - Renal Hx Renal Disorder: No - Endocrine/Metabolic Hx Diabetes Mellitus Type 2: Yes - Hematological/Oncological Hx Cancer: Yes (breast, mets to spine/brain) - Integumentary Hx Dermatological Disorder: No - Musculoskeletal/Rheumatological Hx Musculoskeletal Disorders: No Hx Falls: No - Gastrointestinal Hx Gastrointestinal Disorders: No - Genitourinary/Gynecological Other/Comment: Stage 4 metastatic breast cancer - Psychiatric Hx Substance Use: No - Surgical History Hx Hysterectomy: Yes - Anesthesia Hx Anesthesia: Yes Hx Anesthesia Reactions: No Hx Malignant Hyperthermia: No - Suicidal Assessment Feels Threatened In Home Enviroment: No <Kd Tilley - Last Filed: 03/19/18 17:21> Family/Social History - Physician Review Nursing Documentation Reviewed: Yes Family/Social History: No Known Family HX Smoking Status: Heavy Smoker > 10 Cigarettes Daily Hx Alcohol Use: No Hx Substance Use: No <Kd Tilley - Last Filed: 03/19/18 17:21> Allergies/Home Meds <Kd Tilley - Last Filed: 03/19/18 17:21> <Mallika Garcia - Last Filed: 03/19/18 18:10> Allergies/Adverse Reactions: Allergies CONTRAST Allergy (Severe, Uncoded 01/03/18 14:54) RASH/HIVES Home Medications: Home Meds Medication Instructions Recorded Confirmed RX: Alprazolam [Xanax] 0.5 mg PO QID 08/21/17 02/10/18 RX: Docusate Sodium [Colace] 200 mg PO BID 09/06/17 02/10/18 RX: Levothyroxine [Synthroid] 125 mcg PO DAILY 11/07/17 02/10/18 RX: Ondansetron [Zofran Tab] 8 mg PO Q8H 11/07/17 02/10/18 RX: Dexamethasone [Decadron Inj] 6 mg PO Q12 01/31/18 02/10/18 RX: Zolpidem [Ambien] 10 mg PO HS 01/31/18 02/10/18 Psyllium Husk/Aspartame [Metamucil 174 pow PO DAILY 02/05/18 02/10/18 Powder] RX: Methadone 10 mg PO DAILY 02/10/18 02/10/18 Review of Systems - Physician Review All systems were reviewed & negative as marked: Yes - Review of Systems Constitutional: Fatigue. absent: Weight Change, Fevers, Night Sweats Eyes: absent: Vision Changes, Photophobia ENT: absent: Hearing Changes Respiratory: absent: SOB, Cough, Sputum, Wheezing Cardiovascular: Edema. absent: Chest Pain, Palpitations, Calf Pain, REED Gastrointestinal: Appetite Changes. absent: Abdominal Pain, Stool Changes, Constipation, Diarrhea, Nausea, Vomiting Genitourinary Female: absent: Dysuria, Frequency, Urine Output Changes Musculoskeletal: Arthralgias, Back Pain Neurological: absent: Headache, Dizziness <Kd Tilley - Last Filed: 03/19/18 17:21> Physical Exam Vital Signs Reviewed: Yes Vital Signs Temp Pulse Resp BP Pulse Ox 03/19/18 14:58 98.1 F 118 H 20 109/86 95 Temperature: Afebrile Blood Pressure: Normal Pulse: Tachycardic Respiratory Rate: Normal Appearance: Positive for: Non-Toxic, Comfortable, Ill-Appearing Pain Distress: Moderate Mental Status: Positive for: Alert and Oriented X 3 - Systems Exam Head: Present: Atraumatic, Normocephalic Pupils: Present: PERRL Extroacular Muscles: Present: EOMI Conjunctiva: Present: Icteric Mouth: Present: Moist Mucous Membranes Pharnyx: No: ERYTHEMA, EXUDATE Neck: Present: Normal Range of Motion. No: JVD, Lymphadenopathy Respiratory/Chest: Present: Clear to Auscultation, Good Air Exchange. No: Respiratory Distress, Accessory Muscle Use, Wheezes, Rales, Rhonchi Abdomen: Present: Normal Bowel Sounds. No: Tenderness, Distention, Guarding, Mass/Organomegaly Back: Present: Normal Inspection, Paraspinal Tenderness Upper Extremity: Present: Normal Inspection, Edema, Normal ROM, NORMAL PULSES, Capillary Refill < 2s. No: Cyanosis Lower Extremity: Present: Normal Inspection, NORMAL PULSES, Neurovascularly Intact, Capillary Refill < 2 s. No: Edema, CALF TENDERNESS Neurological: Present: GCS=15, CN II-XII Intact, Speech Normal, Motor Func Grossly Intact, Normal Sensory Function Skin: Present: Warm, Dry, Normal Color. No: Rashes Lymphatic: No: Cervical Adenopathy Psychiatric: Present: Alert, Oriented x 3, Normal Insight, Normal Concentration <Kd Tilley - Last Filed: 03/19/18 17:21> Vital Signs Temp Pulse Resp BP Pulse Ox 03/19/18 14:58 98.1 F 118 H 20 109/86 95 <Mallika Garcia - Last Filed: 03/19/18 18:10> Medical Decision Making ED Course and Treatment: 03/19/18 15:34 52 y o female PMhx stage IV metastatic breast ca with mets to hip, spine, shoulder blades, and brain s/p XRT and chemo, tobacco use disorder, hypothyroidism, and anemia, who presents to the ED sent in by Dr. Penn for failure to thrive. Plan: -Labs -EKG -CXR -CT head -IVF; IV antibiotics Will continue to monitor. 03/19/18 17:21 Spoke about case with Dr. Penn, who will accept admission under his service. Pt to be admitted for parotitis, failure to thrive, dehydration. Elevated transaminases noted on CMP; total bili 7.2. - RAD Interpretation Radiology Orders: 03/19/18 15:15 HEAD W/O CONTRAST [CT] Stat CHEST PORTABLE [RAD] Stat 03/19/18 15:16 NECK SOFT TISSUE W/O CONTRAST [CT] Stat - Medication Orders Current Medication Orders: Sodium Chloride (Sodium Chloride 0.9%) 1,000 mls @ 999 mls/hr IV .Q1H1M STA Stop: 03/19/18 16:14 <Kd Tilley - Last Filed: 03/19/18 17:21> ED Course and Treatment: Patient seen by resident and then seen by me. Sent in by Dr. Penn for dehydration and failure to thrive. 03/19/18 16:04 EKG shows sinus tachycardia at 101 bpm with non-specific st changes 03/19/18 16:[address] head IMPRESSION: No acute intracranial abnormality. Interval near complete resolution of presumable metastatic supra and infratentorial lesions and vasogenic edema. CT soft tissue IMPRESSION: No CT evidence for acute parotiditis. Asymmetric subcentimeter left posterior triangle lymph nodes, the largest measures 9 mm these are nonspecific and may be infectious, inflammatory or neoplastic in etiology. Clinical follow-up is advised. If clinically indicated correlation with may be performed with PET-CT. Diffuse osteoblastic metastasis in the cervical spine. 03/19/18 18:10 Antibiotics as requested by Dr. Penn ordered and his resident is at bedside. IVF also ordered - RAD Interpretation Radiology Orders: 03/19/18 15:15 HEAD W/O CONTRAST [CT] Stat CHEST PORTABLE [RAD] Stat 03/19/18 15:16 NECK SOFT TISSUE W/O CONTRAST [CT] Stat - Medication Orders Current Medication Orders: Sodium Chloride (Sodium Chloride 0.9%) 1,000 mls @ 999 mls/hr IV .Q1H1M STA Stop: 03/19/18 16:14 Metronidazole (Flagyl) 500 mg in 100 mls @ 100 mls/hr IVPB STAT STA; Protocol Stop: 03/19/18 16:18 Vancomycin HCl (Vancomycin 1gm) 1 gm in 250 mls @ 167 mls/hr IVPB STAT STA; Protocol Stop: 03/19/18 16:48 <Mallika Garcia - Last Filed: 03/19/18 18:10> Disposition/Present on Arrival - Present on Arrival Any Indicators Present on Arrival: No History of DVT/PE: No History of Uncontrolled Diabetes: No Urinary Catheter: No History of Decub. Ulcer: No History Surgical Site Infection Following: None - Disposition Have Diagnosis and Disposition been Completed?: Yes Disposition Time: 15:26 Patient Plan: Admission <Kd Tilley - Last Filed: 03/19/18 17:21> - Present on Arrival Any Indicators Present on Arrival: No <Mallika Garcia - Last Filed: 03/19/18 18:10> - Disposition Diagnosis: Parotitis, Failure to thrive, Dehydration, Thrombocytopenia, Transaminitis, Total bilirubin, elevated Disposition: HOSPITALIZED Patient Problems: Current Active Problems Problem Status Onset Dehydration Acute Failure to thrive Acute Parotitis Acute Thrombocytopenia Acute Total bilirubin, elevated Acute Transaminitis Acute Condition: GUARDED
[2018-03-19 16:11] LABS: BASO # 0.04 K/mm3 (0.0-2.0); BASO % 0.4 % (0.0-3.0); GRAN # 8.64 (1.4-6.5); GRAN % 86.3 % (50.0-68.0); HEMOGLOBIN 10.8 g/dL (12.0-16.0); LYMPH % 9.6 % (22.0-35.0); MEAN CELL VOLUME 95.4 fl (80.0-105.0); MEAN CORPUSCULAR HEMOGLOBIN 31.1 pg (25.0-35.0); MEAN CORPUSCULAR HGB CONC 32.6 g/dl (31.0-37.0); MEAN PLATELET VOLUME 10.6 fl (7.0-11.0); MONO # 0.4 (0.1-0.6); MONO % 3.7 % (1.0-6.0); RBC 3.47 10^6/uL (3.5-6.1); RED CELL DISTRIBUTION WIDTH 23.3 % (11.5-14.5)
--- NOTE | 2018-03-19 16:16 | RAD ---
Date of service: 03/19/2018 HISTORY: cancer, admission COMPARISON: 01/03/2018 FINDINGS: Right-sided central venous catheter terminates in the right atrium LUNGS: The lungs are well inflated and clear. There is discoid atelectasis/scarring in the left lung base PLEURA: No pleural effusions or pneumothorax. CARDIOVASCULAR: The heart is normal in size. No aortic atherosclerotic calcification present. OSSEOUS STRUCTURES: Within normal limits for the patient's age. VISUALIZED UPPER ABDOMEN: Normal. OTHER FINDINGS: None. IMPRESSION: No acute findings.
[2018-03-19 16:18] LABS: INR 1.01; PARTIAL THROMBOPLASTIN TIME 23.7 Seconds (25.1-36.5); PROTHROMBIN TIME 11.5 SECONDS (9.4-12.5)
[2018-03-19 16:23] LABS: ALB/GLOB RATIO 0.9 (1.1-1.8); ALBUMIN 3.4 g/dL (3.0-4.8); ALT/SGPT 624 U/L (7-56); AST/SGOT 279 U/L (14-36); BLOOD UREA NITROGEN 29 mg/dL (7-21); CALCIUM 9.1 mg/dL (8.4-10.5); GFR NON-AFRICAN AMERICAN > 60
[2018-03-19] MEDS ORDERED: Sodium Chloride 0.9% 500 ML IV STA (16:25)
--- NOTE | 2018-03-19 16:29 | CT ---
Date of service: 03/19/2018 PROCEDURE: CT HEAD WITHOUT CONTRAST. HISTORY: ams with metastatic cnacer COMPARISON: 12/26/2017 TECHNIQUE: Axial computed tomography images were obtained through the head/brain without intravenous contrast. Radiation dose: Total exam DLP = 844.5 mGy-cm. This CT exam was performed using one or more of the following dose reduction techniques: Automated exposure control, adjustment of the mA and/or kV according to patient size, and/or use of iterative reconstruction technique. FINDINGS: HEMORRHAGE: No intracranial hemorrhage. BRAIN: There is interval near complete resolution of previously demonstrated variable-sized supra and infratentorial hyperdense presumable metastatic lesions with surrounding vasogenic edema. There is a coarse calcification in the left posterior frontal lobe, nonspecific and likely treatment-related change. Yoon-white matter differentiation is preserved. There is no mass, mass effect or abnormal extra-axial fluid collection. There is no territorial infarction. The midline sagittal structures are normal. VENTRICLES: There is mild age advanced global parenchymal volume loss and proportionate enlargement of the ventricles and cortical sulci. CALVARIUM: There is no calvarial fracture or extracranial soft tissue swelling. PARANASAL SINUSES: Predominantly clear. MASTOID AIR CELLS: Predominantly clear. OTHER FINDINGS: None. IMPRESSION: No acute intracranial abnormality. Interval near complete resolution of presumable metastatic supra and infratentorial lesions and vasogenic edema.
--- NOTE | 2018-03-19 16:54 | CT ---
Date of service: 03/19/2018 PROCEDURE: CT NECK WITHOUT CONTRAST HISTORY: eval for parotiditis COMPARISON: None available. TECHNIQUE: CT of the neck without intravenous contrast. Coronal and sagittal reformats generated. Radiation dose: Total exam DLP = 449.6 mGy-cm. This CT exam was performed using one or more of the following dose reduction techniques: Automated exposure control, adjustment of the mA and/or kV according to patient size, and/or use of iterative reconstruction technique. FINDINGS: NASOPHARYNX: Within normal limits. SUPRAHYOID NECK: No bulky mass in the oropharynx, oral cavity, parapharyngeal space and retropharyngeal space. INFRAHYOID NECK: No bulky mass in larynx, hypopharynx, and supraglottic space. Vocal cords intact. MASS: None. GLANDS: Parotid and submandibular glands unremarkable. Normal size thyroid gland, without nodule. LYMPH NODES: There asymmetric subcentimeter left posterior triangle lymph nodes, the largest measures 9 mm in transverse diameter. CERVICAL SPINE: Diffuse increased bone density in the visualized cervical spine.. Advanced degenerative disc disease at C5-6 and degenerative grade 1 anterior listhesis of C4 on C5. OTHER FINDINGS: None. IMPRESSION: No CT evidence for acute parotiditis. Asymmetric subcentimeter left posterior triangle lymph nodes, the largest measures 9 mm these are nonspecific and may be infectious, inflammatory or neoplastic in etiology. Clinical follow-up is advised. If clinically indicated correlation with may be performed with PET-CT. Diffuse osteoblastic metastasis in the cervical spine.
[2018-03-19] MEDS: Sodium Chloride 0.9% 1,000 ML IV SCH (17:43)
[2018-03-19] MEDS: Nystatin 100,000 Units/ml Oral Susp 5 ml UD PO SCH ×2 (18:57→22:25)
--- NOTE | 2018-03-19 20:21 | CARD ---
APPROVED REPORT Date of service: 03/19/2018 EKG Measurement Heart [id number] <Conclusion> Sinus tachycardia Possible anterior infarct, age undetermined Abnormal ECG
[2018-03-19] MEDS: Piperacill/Tazo 4.5gm in NS 4.5 GM/100 ML BAG IVPB SCH (23:30)
[2018-03-20] MEDS: Pantoprazole 20 mg EC Tab PO SCH (05:44)
[2018-03-20] MEDS: Levothyroxine 25 MCG TAB PO SCH (05:45)
[2018-03-20] MEDS: Levothyroxine 112 MCG TAB PO SCH (05:45)
[2018-03-20] MEDS: Piperacill/Tazo 4.5gm in NS 4.5 GM/100 ML BAG IVPB SCH (05:46)
[2018-03-20 07:15] LABS: BASO # 0.02 K/mm3 (0.0-2.0); BASO % 0.3 % (0.0-3.0); GRAN # 5.86 (1.4-6.5); GRAN % 85.4 % (50.0-68.0); LYMPH # 0.7 (1.2-3.4); LYMPH % 9.8 % (22.0-35.0); MEAN CELL VOLUME 96.6 fl (80.0-105.0); MEAN CORPUSCULAR HGB CONC 31.1 g/dl (31.0-37.0); MEAN PLATELET VOLUME 10.3 fl (7.0-11.0); MONO # 0.3 (0.1-0.6); MONO % 4.5 % (1.0-6.0); RBC 2.93 10^6/uL (3.5-6.1); WHITE BLOOD COUNT 6.9 10^3/uL (4.5-11.0)
[2018-03-20 07:18] LABS: HEMOGLOBIN 8.8 g/dL (12.0-16.0)
[2018-03-20 07:26] LABS: ALB/GLOB RATIO 0.8 (1.1-1.8); ALBUMIN 2.8 g/dL (3.0-4.8); ALT/SGPT 469 U/L (7-56); AST/SGOT 211 U/L (14-36); BLOOD UREA NITROGEN 21 mg/dL (7-21); CALCIUM 8.1 mg/dL (8.4-10.5); GFR NON-AFRICAN AMERICAN > 60
--- NOTE | 2018-03-20 09:29 | CP.PCM.CON ---
History of Present Illness - History of Present Illness History of Present Illness: Ms Franco is a 52 year old female with metastatic breast cancer. She completed whole brain radiation therapy in January 2018 and had right pelvic radiation in October 2017. She has been on steroids for some time for her brain metastases. She also has a known pathologic fracture of the right hip. Most recently, she has been having worsening failure to thrive. Also, she has had increasing fullness in the left face most significantly around the lateral left commissure with no associated pain or skin lesions. She also has had decreased range of motion of the left shoulder with no focal motor weakness or numbness. She also states that she has had increasingly difficult time getting out of bed. She is currently on kadycyla. On admission to [facility], she had a CT of the head on March 19, 2018 which revealed near complete resolution of the metastases. A CT of the neck revealed asymmetry of the left posterior triangle lymph nodes, but no acute parotiditis. We were asked to see the patient for our input. Review of Systems - Constitutional Constitutional: Weakness - Musculoskeletal Musculoskeletal: Limited Range of Motion, Muscle Weakness Past Patient History - Infectious Disease Hx of Infectious Diseases: None - Past Social History Smoking Status: Current Some Days Smoker - CARDIAC Hx Cardiac Disorders: No - PULMONARY Hx Respiratory Disorders: No Other/Comment: active smoker - NEUROLOGICAL Hx Neurological Disorder: No - HEENT Hx HEENT Problems: Yes Other/Comment: acute parotitis - RENAL Hx Chronic Kidney Disease: No - ENDOCRINE/METABOLIC Hx Endocrine Disorders: Yes Hx Diabetes Mellitus Type 2: Yes (unsure) - HEMATOLOGICAL/ONCOLOGICAL Hx Blood Disorders: Yes Hx Cancer: Yes (breast, mets to spine/brain) Hx Metastesis: Yes - INTEGUMENTARY Hx Dermatological Problems: No - MUSCULOSKELETAL/RHEUMATOLOGICAL Hx Musculoskeletal Disorders: No Hx Falls: No - GASTROINTESTINAL Hx Gastrointestinal Disorders: No - GENITOURINARY/GYNECOLOGICAL Hx Genitourinary Disorders: Yes Hx Incontinence: Yes Other/Comment: Stage 4 metastatic breast cancer - PSYCHIATRIC Hx Psychophysiologic Disorder: No Hx Emotional Abuse: No Hx Physical Abuse: No Hx Substance Use: No - SURGICAL HISTORY Hx Surgeries: Yes Hx Hysterectomy: Yes - ANESTHESIA Hx Anesthesia: Yes Hx Anesthesia Reactions: No Hx Malignant Hyperthermia: No Meds Allergies/Adverse Reactions: Allergies Allergy/AdvReac Type Severity Reaction Status Date / Time CONTRAST Allergy Severe RASH/HIVES Uncoded 01/03/18 14:54 - Medications Medications: Current Medications Dexamethasone (Decadron) 2 mg PO BID [facility] Last Admin: 03/19/18 18:56 Dose: 2 mg Docusate Sodium (Colace) 100 mg PO BID [facility] Last Admin: 03/19/18 18:56 Dose: 100 mg Sodium Chloride (Sodium Chloride 0.9%) 1,000 mls @ 100 mls/hr IV .Q10H [facility] Stop: 03/20/18 13:29 Last Admin: 03/19/18 17:43 Dose: 100 mls/hr Piperacillin Sod/Tazobactam Sod (Zosyn 4.5 Gm In Ns 100ml) 4.5 gm in 100 mls @ 25 mls/hr IVPB Q8 [facility]; Protocol Stop: 03/26/18 22:01 Last Admin: 03/20/18 05:46 Dose: 25 mls/hr Ketorolac Tromethamine (Toradol) 15 mg IVP Q8H PRN PRN Reason: Pain, severe (8-10) Levothyroxine Sodium (Synthroid) 112 mcg PO 0600 [facility] Last Admin: 03/20/18 05:45 Dose: 112 mcg Levothyroxine Sodium (Synthroid) 25 mcg PO 0600 [facility] Last Admin: 03/20/18 05:45 Dose: 25 mcg Methadone HCl (Methadone) 10 mg PO DAILY [facility] Nystatin (Nystatin Oral Susp) 5 ml PO QID [facility] Last Admin: 03/19/18 22:25 Dose: 5 ml Pantoprazole Sodium (Protonix Ec Tab) 20 mg PO 0600 [facility] Last Admin: 03/20/18 05:44 Dose: 20 mg Zolpidem Tartrate (Ambien) 5 mg PO HS [facility]; Protocol Last Admin: 03/19/18 22:25 Dose: 5 mg Physical Exam - Constitutional Appears: Chronically Ill - Head Exam Additional comments: Agustin facies from the steroids along with focal swelling near left commissure - Respiratory Exam Respiratory Exam: Clear to Auscultation Bilateral - Cardiovascular Exam Cardiovascular Exam: REGULAR RHYTHM - GI/Abdominal Exam GI & Abdominal Exam: Normal Bowel Sounds - Neurological Exam Neurological exam: Alert, CN II-XII Intact Additional comments: decreased range of motion of the left shoulder Results - Vital Signs Recent Vital Signs: Last Vital Signs Temp 97.2 F L 03/20/18 09:08 Pulse 72 03/20/18 09:08 Resp 20 03/20/18 09:08 BP 130/75 03/20/18 09:08 Pulse Ox 94 L 03/20/18 09:08 - Labs Result Diagrams: 03/20/18 06:15 03/20/18 06:15 Labs: Laboratory Results - last 24 hr 03/19/18 03/19/18 03/19/18 15:00 15:30 15:30 WBC RBC Hgb Hct MCV MCH MCHC RDW Plt Count MPV Gran % Lymph % (Auto) [place] % (Auto) Eos % (Auto) Baso % (Auto) Gran # Lymph # (Auto) [place] # (Auto) Eos # (Auto) Baso # (Auto) PT 11.5 INR 1.01 APTT 23.7 L Sodium 134 Potassium 3.8 Chloride 103 Carbon Dioxide 20 L Anion Gap 15 BUN 29 H Creatinine 0.6 L Est GFR ( Amer) > 60 Est GFR (Non-Af Amer) > 60 Random Glucose 126 H Calcium 9.1 Phosphorus 3.7 Magnesium 2.4 H Total Bilirubin 7.2 H AST 279 H D ALT 624 H Alkaline Phosphatase 1064 H Total Protein 7.1 Albumin 3.4 Globulin 3.8 Albumin/Globulin Ratio 0.9 L Amylase 88 03/19/18 03/20/18 03/20/18 15:30 06:15 06:15 WBC 10.0 D 6.9 D RBC 3.47 L 2.93 L Hgb 10.8 L 8.8 L D Hct 33.1 L 28.3 L MCV 95.4 96.6 MCH 31.1 30.0 MCHC 32.6 31.1 RDW 23.3 H 23.0 H Plt Count 72 L 55 L MPV 10.6 10.3 Gran % 86.3 H 85.4 H Lymph % (Auto) 9.6 L 9.8 L [place] % (Auto) 3.7 4.5 Eos % (Auto) 0.0 L 0.0 L Baso % (Auto) 0.4 0.3 Gran # 8.64 H 5.86 Lymph # (Auto) 1.0 L 0.7 L [place] # (Auto) 0.4 0.3 Eos # (Auto) 0.0 0.0 Baso # (Auto) 0.04 0.02 PT INR APTT Sodium 134 Potassium 3.7 Chloride 107 Carbon Dioxide 22 Anion Gap 9 L BUN 21 Creatinine 0.5 L Est GFR ( Amer) > 60 Est GFR (Non-Af Amer) > 60 Random Glucose 102 Calcium 8.1 L Phosphorus 3.3 Magnesium 2.2 Total Bilirubin 6.5 H AST 211 H D ALT 469 H Alkaline Phosphatase 848 H D Total Protein 6.2 Albumin 2.8 L Globulin 3.4 Albumin/Globulin Ratio 0.8 L Amylase Assessment & Plan - Assessment and Plan (Free Text) Assessment: Ms Franco is a 52 year old female with metastatic breast cancer who is currently admitted with left facial swelling of unclear etiology based on tramaine ging study. She is being treated for parotidis. Her impaired range of motion of the left shoulder is most likely secondary to metastases which was visualized on her PET in February. As per our discussion, we have ordered a x-ray of the left shoulder. From our understanding, she will be getting additional testing to assess her disease status given suggestion that she may be having progression .
--- NOTE | 2018-03-20 11:02 | US ---
Date of service: 03/20/2018 HISTORY: hyperbilirubinemia COMPARISON: None. TECHNIQUE: Grayscale imaging was performed. FINDINGS: LIVER: Measures 21.4 cm. There is diffuse coarse heterogeneous echotexture. No mass. No intrahepatic bile duct dilatation. GALLBLADDER: The gallbladder is contracted. COMMON BILE DUCT: Measures 8.7 mm. No stones. No dilatation. PANCREAS: Unremarkable as visualized. No mass. No ductal dilatation. RIGHT KIDNEY: Measures 12.0cm. Normal echogenicity. No calculus, mass, or hydronephrosis. LEFT KIDNEY: Measures 11.2cm. Normal echogenicity. No calculus, mass, or hydronephrosis. SPLEEN: Normal in size and contour. No mass. AORTA: No aneurysmal dilatation. IVC: Unremarkable. OTHER FINDINGS: None. IMPRESSION: Moderate hepatomegaly and diffuse heterogeneous echotexture likely related to metastatic disease. The gallbladder is contracted.
--- NOTE | 2018-03-20 11:13 | CP.PCM.CON ---
History of Present Illness - History of Present Illness History of Present Illness: Palliative consult requested by Dr Kevan Penn Reason: Goals of care and advance care planning 52 year old female with history of metastatic breast cancer who presented to ED on 03/19 with weakness, inability to ambulate and poor appetite. She also noted to have left sided facial swelling. Currently receiving treatment with Kadcyla, was scheduled for next dose 03/21/18. The patient denied fever,chills,nausea, vomiting, shortness of breath, chest pain,headache diarrhea or constipation. Chest x ray: No acute findings. Head CT: No acute intracranial abnormality. CT of Neck: No acute paroditis. Asymmetrical subcentimeter left posterior triangle lymph nodes, the largest measuring 9 mm,they are non specific and may be infectious, inflammatory or neoplastic. Diffuse osteoblastic metastasis in cervical spine. Labs: Wbc 10.0, Hgb 10.8, Plt 72,Na 134, BUN 29, Pharmacovigilance Safety Expert 0.6, glucose 126, Ca 9.1, Mag 2.4, T Bili 7.2, AST 279, ALT 624, Alp Phos 1064, Alb 3.4 Blood/urine cultures pending. EKG: Sinus tachycardia, possible anterior infract, age undetermined. 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 PHSx: Hysterectomy 201, L foot bunionectomy Social History: Former smoker and former alcohol use, deniers illicit drug use.Lives with daughter. Family History : Non contributory. Advance Care Planning: POLST, DNR/DNI. Her daughter Ella is POA ([phone]) Review of Systems: As per HPI, 12 pint review otherwise negative Past Patient History - Infectious Disease Hx of Infectious Diseases: None - Past Social History Smoking Status: Current Some Days Smoker - CARDIAC Hx Cardiac Disorders: No - PULMONARY Hx Respiratory Disorders: No Other/Comment: active smoker - NEUROLOGICAL Hx Neurological Disorder: No - HEENT Hx HEENT Problems: Yes Other/Comment: acute parotitis - RENAL Hx Chronic Kidney Disease: No - ENDOCRINE/METABOLIC Hx Endocrine Disorders: Yes Hx Diabetes Mellitus Type 2: Yes (unsure) - HEMATOLOGICAL/ONCOLOGICAL Hx Blood Disorders: Yes Hx Cancer: Yes (breast, mets to spine/brain) Hx Metastesis: Yes - INTEGUMENTARY Hx Dermatological Problems: No - MUSCULOSKELETAL/RHEUMATOLOGICAL Hx Musculoskeletal Disorders: No Hx Falls: No - GASTROINTESTINAL Hx Gastrointestinal Disorders: No - GENITOURINARY/GYNECOLOGICAL Hx Genitourinary Disorders: Yes Hx Incontinence: Yes Other/Comment: Stage 4 metastatic breast cancer - PSYCHIATRIC Hx Psychophysiologic Disorder: No Hx Emotional Abuse: No Hx Physical Abuse: No Hx Substance Use: No - SURGICAL HISTORY Hx Surgeries: Yes Hx Hysterectomy: Yes - ANESTHESIA Hx Anesthesia: Yes Hx Anesthesia Reactions: No Hx Malignant Hyperthermia: No Meds Allergies/Adverse Reactions: Allergies Allergy/AdvReac Type Severity Reaction Status Date / Time CONTRAST Allergy Severe RASH/HIVES Uncoded 01/03/18 14:54 - Medications Medications: Current Medications Dexamethasone (Decadron) 2 mg PO BID [facility] Last Admin: 03/19/18 18:56 Dose: 2 mg Docusate Sodium (Colace) 100 mg PO BID [facility] Last Admin: 03/19/18 18:56 Dose: 100 mg Sodium Chloride (Sodium Chloride 0.9%) 1,000 mls @ 100 mls/hr IV .Q10H [facility] Stop: 03/20/18 13:29 Last Admin: 03/19/18 17:43 Dose: 100 mls/hr Piperacillin Sod/Tazobactam Sod (Zosyn 4.5 Gm In Ns 100ml) 4.5 gm in 100 mls @ 25 mls/hr IVPB Q8 [facility]; Protocol Stop: 03/26/18 22:01 Last Admin: 03/20/18 05:46 Dose: 25 mls/hr Ketorolac Tromethamine (Toradol) 15 mg IVP Q8H PRN PRN Reason: Pain, severe (8-10) Levothyroxine Sodium (Synthroid) 112 mcg PO 0600 [facility] Last Admin: 03/20/18 05:45 Dose: 112 mcg Levothyroxine Sodium (Synthroid) 25 mcg PO 0600 [facility] Last Admin: 03/20/18 05:45 Dose: 25 mcg Methadone HCl (Methadone) 10 mg PO DAILY [facility] Nystatin (Nystatin Oral Susp) 5 ml PO QID [facility] Last Admin: 03/19/18 22:25 Dose: 5 ml Pantoprazole Sodium (Protonix Ec Tab) 20 mg PO 0600 [facility] Last Admin: 03/20/18 05:44 Dose: 20 mg Zolpidem Tartrate (Ambien) 5 mg PO HS [facility]; Protocol Last Admin: 03/19/18 22:25 Dose: 5 mg Physical Exam - Constitutional Appears: Chronically Ill - ENT Exam ENT Exam: Mucous Membranes Moist - Neck Exam Additional comments: left sided facial swelling - Respiratory Exam Respiratory Exam: Clear to Auscultation Bilateral, NORMAL BREATHING PATTERN - Cardiovascular Exam Cardiovascular Exam: Irregular Rhythm, +S1, +S2 - GI/Abdominal Exam GI & Abdominal Exam: Normal Bowel Sounds, Soft Additional comments: no tenderness - Extremities Exam Extremities exam: Positive for: pedal pulses present Additional comments: 2+ bilateral lower extremity edema - Neurological Exam Neurological exam: Alert - Skin Skin Exam: Dry, Pallor Additional comments: jaundice, anasarca - Additional Findings Additional findings: Palliative performance scale rating 30 % Results - Vital Signs Recent Vital Signs: Last Vital Signs Temp 97.2 F L 03/20/18 09:08 Pulse 72 03/20/18 09:08 Resp 20 03/20/18 09:08 BP 130/75 03/20/18 09:08 Pulse Ox 94 L 03/20/18 09:08 - Labs Result Diagrams: 03/20/18 06:15 03/20/18 06:15 Labs: Laboratory Results - last 24 hr 03/19/18 03/19/18 03/19/18 15:00 15:30 15:30 WBC RBC Hgb Hct MCV MCH MCHC RDW Plt Count MPV Gran % Lymph % (Auto) [place] % (Auto) Eos % (Auto) Baso % (Auto) Gran # Lymph # (Auto) [place] # (Auto) Eos # (Auto) Baso # (Auto) PT 11.5 INR 1.01 APTT 23.7 L Sodium 134 Potassium 3.8 Chloride 103 Carbon Dioxide 20 L Anion Gap 15 BUN 29 H Creatinine 0.6 L Est GFR ( Amer) > 60 Est GFR (Non-Af Amer) > 60 Random Glucose 126 H Calcium 9.1 Phosphorus 3.7 Magnesium 2.4 H Total Bilirubin 7.2 H AST 279 H D ALT 624 H Alkaline Phosphatase 1064 H Total Protein 7.1 Albumin 3.4 Globulin 3.8 Albumin/Globulin Ratio 0.9 L Amylase 88 12/12/18 12/13/18 12/13/18 15:30 06:15 06:15 WBC 10.0 D 6.9 D RBC 3.47 L 2.93 L Hgb 10.8 L 8.8 L D Hct 33.1 L 28.3 L MCV 95.4 96.6 MCH 31.1 30.0 MCHC 32.6 31.1 RDW 23.3 H 23.0 H Plt Count 72 L 55 L MPV 10.6 10.3 Gran % 86.3 H 85.4 H Lymph % (Auto) 9.6 L 9.8 L [place] % (Auto) 3.7 4.5 Eos % (Auto) 0.0 L 0.0 L Baso % (Auto) 0.4 0.3 Gran # 8.64 H 5.86 Lymph # (Auto) 1.0 L 0.7 L [place] # (Auto) 0.4 0.3 Eos # (Auto) 0.0 0.0 Baso # (Auto) 0.04 0.02 PT INR APTT Sodium 134 Potassium 3.7 Chloride 107 Carbon Dioxide 22 Anion Gap 9 L BUN 21 Creatinine 0.5 L Est GFR ( Amer) > 60 Est GFR (Non-Af Amer) > 60 Random Glucose 102 Calcium 8.1 L Phosphorus 3.3 Magnesium 2.2 Total Bilirubin 6.5 H AST 211 H D ALT 469 H Alkaline Phosphatase 848 H D Total Protein 6.2 Albumin 2.8 L Globulin 3.4 Albumin/Globulin Ratio 0.8 L Amylase Assessment & Plan - Assessment and Plan (Free Text) Assessment: 52 year old female with history of ER/OK/Her 2 stella + metastatic breast cancer, s/p pelvic XRT( 10/23) and brain XRT( 01/23), hypothyroidism, intractable pain who is admitted with left sided facial swelling, anemia, thrombocytopenia, transaminitis,hyperbilirubenemia, jaundice,anorexia and deconditioning The patient is alert, oriented. Complains of weakness and fatigue. She is upset because and feels that she is becoming a burden to her daughter. She asked if she is eligible for help in the home The patient states that she wishes to continue with treatment when cleared by doctor. I also spoke with patient daughter Maureen via phone. She admits to be physically/mentally exhausted from caring for her mother. Maureen states that her mother has become very weak and unable to ambulate to bathroom. She is hoping that her condition can be stabilized as in the past Maureen is willing to support her mother if she able and wants to continue treatment. Maureen also understands that her mother condition may not improve and that she may continue to decline. I explained that if this occurs we can discuss option for hospice care. Time spent with patient and daughter in goals of care discussion, 55 minutes Plan: Advance care planning; POLST: DNR/DNI Goals of care Left sided facial swelling: CT showed no evidence of parotitis, lymph nodes enlarged, further clinical evaluation and imaging in progress. Breast Cancer: Was receiving immunotherapy with Kadycla. Oncology/ Rad Onc following. ID consulted for further recommendation.Blood/urine cultures pending.Continue Zosyn and Vancomycin Pain : Continue Methadone 10 mg daily. Toradol as needed Colace daily, will add Miralax PRN.
[2018-03-20] MEDS: Nystatin 100,000 Units/ml Oral Susp 5 ml UD PO SCH ×4 (11:22→21:35)
--- NOTE | 2018-03-20 11:26 | CP.PCM.CON ---
<Vincent Robertson - Last Filed: 03/20/18 16:05> History of Present Illness - History of Present Illness History of Present Illness: Neurology Consult Note for Dr. Vicente Reason for Consultation: h/o brain mets Patient is a 52 yo F with PMH of stage IV breast CA with metastasis to bone, brain, and liver currently on chemo and s/p radiation presents to [facility] [place] for 5 days of worsening weakness. According to the family, patient has had decreased appetite over the last few days. Patient was seen by her oncologist and noted left sided facial swelling, concerning for parotitis vs. other infiltrative etiology. Neurology was consulted due to her history of brain mets. Patient denies CP, SOB, n/v/d, abdominal pain, fever, chills, BRITO, or dizziness. PMHx: stage IV metastatic breast ca with mets to hip, spine, shoulder blades, and brain s/p XRT and chemo, tobacco use disorder, hypothyroidism, and anemia PSurgHx: hysterectomy (2011), L foot bunion surgery All: Contrast Fam hx: denies Soc hx: smokes 3 ppd for 30+ years; denies EtOH or illicit drug use Review of Systems - Review of Systems All systems: reviewed and no additional remarkable complaints except (12 point ROS reviewed and is negative other than what is stated in HPI.) Past Patient History - Infectious Disease Hx of Infectious Diseases: None - Past Social History Smoking Status: Current Some Days Smoker - CARDIAC Hx Cardiac Disorders: No - PULMONARY Hx Respiratory Disorders: No Other/Comment: active smoker - NEUROLOGICAL Hx Neurological Disorder: No - HEENT Hx HEENT Problems: Yes Other/Comment: acute parotitis - RENAL Hx Chronic Kidney Disease: No - ENDOCRINE/METABOLIC Hx Endocrine Disorders: Yes Hx Diabetes Mellitus Type 2: Yes (unsure) - HEMATOLOGICAL/ONCOLOGICAL Hx Blood Disorders: Yes Hx Cancer: Yes (breast, mets to spine/brain) Hx Metastesis: Yes - INTEGUMENTARY Hx Dermatological Problems: No - MUSCULOSKELETAL/RHEUMATOLOGICAL Hx Musculoskeletal Disorders: No Hx Falls: No - GASTROINTESTINAL Hx Gastrointestinal Disorders: No - GENITOURINARY/GYNECOLOGICAL Hx Genitourinary Disorders: Yes Hx Incontinence: Yes Other/Comment: Stage 4 metastatic breast cancer - PSYCHIATRIC Hx Psychophysiologic Disorder: No Hx Emotional Abuse: No Hx Physical Abuse: No Hx Substance Use: No - SURGICAL HISTORY Hx Surgeries: Yes Hx Hysterectomy: Yes - ANESTHESIA Hx Anesthesia: Yes Hx Anesthesia Reactions: No Hx Malignant Hyperthermia: No Meds Allergies/Adverse Reactions: Allergies Allergy/AdvReac Type Severity Reaction Status Date / Time CONTRAST Allergy Severe RASH/HIVES Uncoded 01/03/18 14:54 - Medications Medications: Current Medications Dexamethasone (Decadron) 2 mg PO BID [facility] Last Admin: 03/19/18 18:56 Dose: 2 mg Docusate Sodium (Colace) 100 mg PO BID [facility] Last Admin: 03/19/18 18:56 Dose: 100 mg Sodium Chloride (Sodium Chloride 0.9%) 1,000 mls @ 100 mls/hr IV .Q10H [facility] Stop: 03/20/18 13:29 Last Admin: 03/19/18 17:43 Dose: 100 mls/hr Piperacillin Sod/Tazobactam Sod (Zosyn 4.5 Gm In Ns 100ml) 4.5 gm in 100 mls @ 25 mls/hr IVPB Q8 [facility]; Protocol Stop: 03/26/18 22:01 Last Admin: 03/20/18 05:46 Dose: 25 mls/hr Ketorolac Tromethamine (Toradol) 15 mg IVP Q8H PRN PRN Reason: Pain, severe (8-10) Levothyroxine Sodium (Synthroid) 112 mcg PO 0600 [facility] Last Admin: 03/20/18 05:45 Dose: 112 mcg Levothyroxine Sodium (Synthroid) 25 mcg PO 0600 [facility] Last Admin: 03/20/18 05:45 Dose: 25 mcg Methadone HCl (Methadone) 10 mg PO DAILY [facility] Nystatin (Nystatin Oral Susp) 5 ml PO QID [facility] Last Admin: 03/19/18 22:25 Dose: 5 ml Pantoprazole Sodium (Protonix Ec Tab) 20 mg PO 0600 [facility] Last Admin: 03/20/18 05:44 Dose: 20 mg Zolpidem Tartrate (Ambien) 5 mg PO HS [facility]; Protocol Last Admin: 03/19/18 22:25 Dose: 5 mg Physical Exam - Constitutional Appears: No Acute Distress - Head Exam Head Exam: ATRAUMATIC, NORMOCEPHALIC Additional comments: alopecia - Eye Exam Eye Exam: Normal appearance - ENT Exam ENT Exam: Mucous Membranes Moist - Neck Exam Neck exam: Positive for: Normal Inspection - Respiratory Exam Respiratory Exam: Clear to Auscultation Bilateral, NORMAL BREATHING PATTERN - Cardiovascular Exam Cardiovascular Exam: REGULAR RHYTHM, RRR - GI/Abdominal Exam GI & Abdominal Exam: Normal Bowel Sounds, Soft - Extremities Exam Extremities exam: Positive for: normal inspection - Back Exam Back exam: NORMAL INSPECTION - Neurological Exam Neurological exam: Alert, CN II-XII Intact, Oriented x3 - Psychiatric Exam Psychiatric exam: Normal Mood - Skin Skin Exam: Normal Color Results - Vital Signs Recent Vital Signs: Last Vital Signs Temp 97.2 F L 03/20/18 09:08 Pulse 72 03/20/18 09:08 Resp 20 03/20/18 09:08 BP 130/75 03/20/18 09:08 Pulse Ox 94 L 03/20/18 09:08 - Labs Result Diagrams: 03/20/18 06:15 03/20/18 06:15 Labs: Laboratory Results - last 24 hr 03/19/18 03/19/18 03/19/18 15:00 15:30 15:30 WBC RBC Hgb Hct MCV MCH MCHC RDW Plt Count MPV Gran % Lymph % (Auto) [place] % (Auto) Eos % (Auto) Baso % (Auto) Gran # Lymph # (Auto) [place] # (Auto) Eos # (Auto) Baso # (Auto) PT 11.5 INR 1.01 APTT 23.7 L Sodium 134 Potassium 3.8 Chloride 103 Carbon Dioxide 20 L Anion Gap 15 BUN 29 H Creatinine 0.6 L Est GFR ( Amer) > 60 Est GFR (Non-Af Amer) > 60 Random Glucose 126 H Calcium 9.1 Phosphorus 3.7 Magnesium 2.4 H Total Bilirubin 7.2 H AST 279 H D ALT 624 H Alkaline Phosphatase 1064 H Total Protein 7.1 Albumin 3.4 Globulin 3.8 Albumin/Globulin Ratio 0.9 L Amylase 88 03/19/18 03/20/18 03/20/18 15:30 06:15 06:15 WBC 10.0 D 6.9 D RBC 3.47 L 2.93 L Hgb 10.8 L 8.8 L D Hct 33.1 L 28.3 L MCV 95.4 96.6 MCH 31.1 30.0 MCHC 32.6 31.1 RDW 23.3 H 23.0 H Plt Count 72 L 55 L MPV 10.6 10.3 Gran % 86.3 H 85.4 H Lymph % (Auto) 9.6 L 9.8 L [place] % (Auto) 3.7 4.5 Eos % (Auto) 0.0 L 0.0 L Baso % (Auto) 0.4 0.3 Gran # 8.64 H 5.86 Lymph # (Auto) 1.0 L 0.7 L [place] # (Auto) 0.4 0.3 Eos # (Auto) 0.0 0.0 Baso # (Auto) 0.04 0.02 PT INR APTT Sodium 134 Potassium 3.7 Chloride 107 Carbon Dioxide 22 Anion Gap 9 L BUN 21 Creatinine 0.5 L Est GFR ( Amer) > 60 Est GFR (Non-Af Amer) > 60 Random Glucose 102 Calcium 8.1 L Phosphorus 3.3 Magnesium 2.2 Total Bilirubin 6.5 H AST 211 H D ALT 469 H Alkaline Phosphatase 848 H D Total Protein 6.2 Albumin 2.8 L Globulin 3.4 Albumin/Globulin Ratio 0.8 L Amylase Assessment & Plan - Assessment and Plan (Free Text) Assessment: 52 yo F with PMH of stage IV HER-2-YVROSE breast cancer with metastasis to bone, brain, and liver presents to [facility] [place] for weakness. Neurology consulted due to h/o brain mets. Continue treatment as per primary. Patient discussed with Dr. Vicente. Montez Robertson DO PGY2 <Domingo Vicente - Last Filed: 03/20/18 17:41> Meds - Medications Medications: Current Medications Dexamethasone (Decadron) 2 mg PO BID [facility] Last Admin: 03/20/18 11:21 Dose: 2 mg Docusate Sodium (Colace) 100 mg PO BID [facility] Last Admin: 03/20/18 11:21 Dose: 100 mg Piperacillin Sod/Tazobactam Sod (Zosyn 3.375 In Ns 100ml) 100 mls @ 25 mls/hr IVPB Q8 [facility]; Protocol Stop: 03/28/18 14:01 Last Admin: 03/20/18 15:06 Dose: 25 mls/hr Vancomycin HCl (Vancomycin 1gm) 1 gm in 250 mls @ 167 mls/hr IVPB Q12H [facility]; Protocol Last Admin: 03/20/18 11:52 Dose: 167 mls/hr Ketorolac Tromethamine (Toradol) 15 mg IVP Q8H PRN PRN Reason: Pain, severe (8-10) Levothyroxine Sodium (Synthroid) 112 mcg PO 0600 [facility] Last Admin: 03/20/18 05:45 Dose: 112 mcg Levothyroxine Sodium (Synthroid) 25 mcg PO 0600 [facility] Last Admin: 03/20/18 05:45 Dose: 25 mcg Methadone HCl (Methadone) 10 mg PO DAILY [facility] Last Admin: 03/20/18 11:53 Dose: 10 mg Nystatin (Nystatin Oral Susp) 5 ml PO QID [facility] Last Admin: 03/20/18 15:07 Dose: 5 ml Pantoprazole Sodium (Protonix Ec Tab) 20 mg PO 0600 [facility] Last Admin: 03/20/18 05:44 Dose: 20 mg Polyethylene Glycol (Miralax) 17 gm PO DAILY PRN PRN Reason: Constipation Zolpidem Tartrate (Ambien) 5 mg PO HS [facility]; Protocol Last Admin: 03/19/18 22:25 Dose: 5 mg Results - Vital Signs Recent Vital Signs: Last Vital Signs Temp 97.2 F L 03/20/18 09:08 Pulse 72 03/20/18 09:08 Resp 20 03/20/18 09:08 BP 130/75 03/20/18 09:08 Pulse Ox 94 L 03/20/18 09:08 - Labs Result Diagrams: 03/20/18 06:15 03/20/18 06:15 Labs: Laboratory Results - last 24 hr 03/19/18 03/19/18 03/20/18 15:00 15:00 06:15 WBC 6.9 D RBC 2.93 L Hgb 8.8 L D Hct 28.3 L MCV 96.6 MCH 30.0 MCHC 31.1 RDW 23.0 H Plt Count 55 L MPV 10.3 Gran % 85.4 H Lymph % (Auto) 9.8 L [place] % (Auto) 4.5 Eos % (Auto) 0.0 L Baso % (Auto) 0.3 Gran # 5.86 Lymph # (Auto) 0.7 L [place] # (Auto) 0.3 Eos # (Auto) 0.0 Baso # (Auto) 0.02 Sodium Potassium Chloride Carbon Dioxide Anion Gap BUN Creatinine Est GFR ( Amer) Est GFR (Non-Af Amer) Random Glucose Calcium Phosphorus Magnesium Total Bilirubin Direct Bilirubin AST ALT Alkaline Phosphatase Total Protein Albumin Globulin Albumin/Globulin Ratio Amylase 88 Procalcitonin 0.83 H 03/20/18 03/20/18 06:15 13:46 WBC RBC Hgb Hct MCV MCH MCHC RDW Plt Count MPV Gran % Lymph % (Auto) [place] % (Auto) Eos % (Auto) Baso % (Auto) Gran # Lymph # (Auto) [place] # (Auto) Eos # (Auto) Baso # (Auto) Sodium 134 Potassium 3.7 Chloride 107 Carbon Dioxide 22 Anion Gap 9 L BUN 21 Creatinine 0.5 L Est GFR ( Amer) > 60 Est GFR (Non-Af Amer) > 60 Random Glucose 102 Calcium 8.1 L Phosphorus 3.3 Magnesium 2.2 Total Bilirubin 6.5 H Direct Bilirubin 5.6 H AST 211 H D ALT 469 H Alkaline Phosphatase 848 H D Total Protein 6.2 Albumin 2.8 L Globulin 3.4 Albumin/Globulin Ratio 0.8 L Amylase Procalcitonin Attending/Attestation - Attestation I have personally seen and examined this patient.: Yes I have fully participated in the care of the patient.: Yes I have reviewed all pertinent clinical information: Yes Notes (Text): 03/20/18 17:41 I agree with the assessment and plan. Will continue current management.
[2018-03-20] MEDS: Vancomycin 1gm in NS 250ml 1 GM/250 ML BAG IVPB SCH (11:52)
--- NOTE | 2018-03-20 13:20 | CP.PCM.PN ---
<Mina Carney - Last Filed: 03/20/18 16:43> Subjective - Date & Time of Evaluation Date of Evaluation: 03/20/18 Time of Evaluation: 13:20 - Subjective Subjective: Mina Carney DO, PGY-2: Hematology and Oncology Progress Note Patient was seen and examined at bedside. Patient was feeling well. She reports having 0/10 pain in intensity. She is moving all extremities. She reports urinating 7 or eight times overnight. She is eating about half the plate of breakfast and lunch. She has no fever or chills. Objective - Vital Signs/Intake and Output Vital Signs (last 24 hours): Temp Pulse Resp BP Pulse Ox 97.2 F L 72 20 130/75 94 L 03/20/18 09:08 03/20/18 09:08 03/20/18 09:08 03/20/18 09:08 03/20/18 09:08 Intake and Output: 03/20/18 03/20/18 06:59 18:59 Intake Total 795 Balance 795 - Medications Medications: Current Medications Dexamethasone (Decadron) 2 mg PO BID [facility] Last Admin: 03/20/18 11:21 Dose: 2 mg Docusate Sodium (Colace) 100 mg PO BID [facility] Last Admin: 03/20/18 11:21 Dose: 100 mg Sodium Chloride (Sodium Chloride 0.9%) 1,000 mls @ 100 mls/hr IV .Q10H [facility] Stop: 03/20/18 13:29 Last Admin: 03/19/18 17:43 Dose: 100 mls/hr Piperacillin Sod/Tazobactam Sod (Zosyn 3.375 In Ns 100ml) 100 mls @ 25 mls/hr IVPB Q8 [facility]; Protocol Stop: 03/28/18 14:01 Vancomycin HCl (Vancomycin 1gm) 1 gm in 250 mls @ 167 mls/hr IVPB Q12H [facility]; Protocol Last Admin: 03/20/18 11:52 Dose: 167 mls/hr Ketorolac Tromethamine (Toradol) 15 mg IVP Q8H PRN PRN Reason: Pain, severe (8-10) Levothyroxine Sodium (Synthroid) 112 mcg PO 0600 [facility] Last Admin: 03/20/18 05:45 Dose: 112 mcg Levothyroxine Sodium (Synthroid) 25 mcg PO 0600 [facility] Last Admin: 03/20/18 05:45 Dose: 25 mcg Methadone HCl (Methadone) 10 mg PO DAILY [facility] Last Admin: 03/20/18 11:53 Dose: 10 mg Nystatin (Nystatin Oral Susp) 5 ml PO QID [facility] Last Admin: 03/20/18 11:22 Dose: 5 ml Pantoprazole Sodium (Protonix Ec Tab) 20 mg PO 0600 [facility] Last Admin: 03/20/18 05:44 Dose: 20 mg Zolpidem Tartrate (Ambien) 5 mg PO HS [facility]; Protocol Last Admin: 03/19/18 22:25 Dose: 5 mg - Labs Labs: 03/20/18 06:15 03/20/18 06:15 PT 11.5 SECONDS (9.4-12.5) 03/19/18 15:30 INR 1.01 03/19/18 15:30 APTT 23.7 Seconds (25.1-36.5) L 03/19/18 15:30 - Constitutional Appears: Well, Non-toxic - Head Exam Head Exam: ATRAUMATIC, NORMOCEPHALIC - Eye Exam Eye Exam: EOMI, Normal appearance - ENT Exam ENT Exam: Mucous Membranes Moist, Normal Oropharynx - Neck Exam Neck Exam: Normal Inspection - Respiratory Exam Respiratory Exam: Clear to Ausculation Bilateral, NORMAL BREATHING PATTERN. absent: Accessory Muscle Use - Cardiovascular Exam Cardiovascular Exam: RRR, +S1, +S2 - GI/Abdominal Exam GI & Abdominal Exam: Soft, Normal Bowel Sounds - Extremities Exam Extremities Exam: Normal Inspection. absent: Calf Tenderness - Neurological Exam Neurological Exam: Alert, Awake, Oriented x3 - Psychiatric Exam Psychiatric exam: Normal Affect, Normal Mood - Skin Skin Exam: Dry, Intact, Warm Additional comments: jaundiced Assessment and Plan - Assessment and Plan (Free Text) Assessment: 52 year old female with stage IV metastatic breast cancer involving brain, bone, and liver who presents with jaundice and failure to thrive along with oral thrush and clinical parotitis. CT of head shows near complete lesions of infra and supra-tentorial metastasis. 1) Parotitis, clinically - No CT evidence for acute parotiditis. Asymmetric subcentimeter left posterior triangle lymph nodes, the largest measures 9 mm these are nonspecific and may be infectious, inflammatory or neoplastic in etiology. Clinical follow-up is advised. If clinically indicated correlation with may be performed with PET-CT. Diffuse osteoblastic metastasis in the cervical spine. - 100 mls/hr of NS - Zosyn 4.5 q8h [facility] - Vancomycin 1 gram q - Infectious disease consulted - Toradol 15 mg q8h PRN folr severe pain - Follow up serum amylase and procalcitonin 2) Cancer pain - Methadone 10 mg PO daily - Colace 100 mg PO BID 3) Brain metastasis with vasogenic edema, resolving - Dexamethasone 2 mg PO BID - Dr. Vicente consulted - CT head shows No acute intracranial abnormality. Interval near complete resolution of presumable metastatic supra and infratentorial lesions and vasogenic edema. 4) Hypothyroidism - Levothyroxine 137 mcg 5) GERD - Protonix 20 mg PO daily 6) Transmaminitis and hyperbilrubinemia - Likely secondary to liver metastasis and/or hepatotoxicity from ado- transtuzumab emtansine (Kadcyla); Kadcyla has a 28.8 incidence of causing transaminases, according to [employer]. - Abdominal US shows Moderate hepatomegaly and diffuse heterogeneous echotexture likely related to metastatic disease. The gallbladder is contracted. 7) Thrombocytopenia - Will monitor, current platelet count of 72,000 now 52,000; Kadcyla has a 31.2% incidence of causing thrombocytopenia according to [employer] 8) DVT/GI prophylaxis - SCD and Protonix 20 mg 9) Oral Thrush - Nystatin 5 ml QID 10) Failure to thrive - Palliative care consulted - Radiation Oncology consulted - Physical therapy and occuptational therapy 11) Anemia - Likely secondary to Kacydala 12) Inability to abduct left shoulder - Radiographs performed, pending interpretation Case reviewed and discussed with attending physician, Dr. Penn <Kashif Penn P - Last Filed: 03/22/18 19:27> Objective - Vital Signs/Intake and Output Vital Signs (last 24 hours): Temp Pulse Resp BP Pulse Ox 98.6 F 92 H 19 115/69 93 L 03/22/18 17:03 03/22/18 17:03 03/22/18 17:03 03/22/18 17:03 03/22/18 17:03 Intake and Output: 03/22/18 03/23/18 18:59 06:59 Intake Total 1880 Output Total 900 Balance 980 - Medications Medications: Current Medications Dexamethasone (Decadron) 2 mg PO BID [facility] Last Admin: 03/22/18 18:13 Dose: 2 mg Docusate Sodium (Colace) 100 mg PO BID [facility] Last Admin: 03/22/18 18:12 Dose: 100 mg Piperacillin Sod/Tazobactam Sod (Zosyn 3.375 In Ns 100ml) 100 mls @ 25 mls/hr IVPB Q8 [facility]; Protocol Stop: 03/28/18 14:01 Last Admin: 03/22/18 16:01 Dose: 25 mls/hr Vancomycin HCl (Vancomycin 1gm) 1 gm in 250 mls @ 167 mls/hr IVPB Q12H [facility]; Protocol Last Admin: 03/22/18 11:24 Dose: 167 mls/hr Sodium Chloride (Sodium Chloride 0.9%) 1,000 mls @ 60 mls/hr IV .[id number] [facility] Last Admin: 03/22/18 18:17 Dose: 60 mls/hr Levothyroxine Sodium (Synthroid) 112 mcg PO 0600 [facility] Last Admin: 03/22/18 06:07 Dose: 112 mcg Levothyroxine Sodium (Synthroid) 25 mcg PO 0600 [facility] Last Admin: 03/22/18 06:07 Dose: 25 mcg Methadone HCl (Methadone) 10 mg PO Q12H [facility] Last Admin: 03/22/18 09:49 Dose: 10 mg Morphine Sulfate (Morphine) 2 mg IVP Q3H PRN PRN Reason: Pain, severe (8-10) Last Admin: 03/22/18 11:23 Dose: 2 mg Nystatin (Nystatin Oral Susp) 5 ml PO QID [facility] Last Admin: 03/22/18 18:14 Dose: 5 ml Pantoprazole Sodium (Protonix Ec Tab) 20 mg PO 0600 [facility] Last Admin: 03/22/18 06:07 Dose: 20 mg Polyethylene Glycol (Miralax) 17 gm PO DAILY PRN PRN Reason: Constipation Zolpidem Tartrate (Ambien) 5 mg PO HS [facility]; Protocol Last Admin: 03/21/18 22:01 Dose: 5 mg - Labs Labs: 03/22/18 06:00 03/22/18 06:00 PT 11.5 SECONDS (9.4-12.5) 03/19/18 15:30 INR 1.01 03/19/18 15:30 APTT 23.7 Seconds (25.1-36.5) L 03/19/18 15:30 Attending/Attestation - Attestation I have personally seen and examined this patient.: Yes I have fully participated in the care of the patient.: Yes I have reviewed all pertinent clinical information, including history, physical exam and plan: Yes
[2018-03-20] MEDS: Piperacillin/Tazobact 3.375 gm 100 ML IVPB SCH ×2 (15:06→21:34)
--- NOTE | 2018-03-20 15:47 | RAD ---
Date of service: 03/20/2018 PROCEDURE: <SHOULDER LEFT> HISTORY: left shoulder limited range of motion COMPARISON: No prior. FINDINGS: BONES: Bone alignment and mineralization are normal. There is no acute displaced fracture or bone destruction. JOINTS: Mild degenerative osteoarthrosis in the acromioclavicular joint. The glenohumeral joint is normal. SOFT TISSUES: Normal. OTHER FINDINGS: None. IMPRESSION: No acute fracture or dislocation. Mild degenerative osteoarthrosis in the acromioclavicular joint.
--- NOTE | 2018-03-20 18:34 | US ---
HISTORY: Leg pain and swelling. Evaluate for DVT PHYSICIAN(S): Zeus Blevins MD. TECHNIQUE: Duplex sonography and color-flow Doppler with graded compression were used to evaluate the deep venous systems of both lower extremities. FINDINGS: The visualized deep venous systems of both lower extremities are sonographically normal and compressible. Normal wave forms and augmentation are seen. There is no sonographic evidence for deep venous thrombosis in the visualized segments of both lower extremities. IMPRESSION: No sonographic evidence for deep venous thrombosis in the visualized segments of both lower extremities.
[2018-03-20] MEDS: Sodium Chloride 0.9% 1,000 ML IV SCH (18:52)
--- NOTE | 2018-03-20 22:11 | CON ---
DATE: 03/20/2018 The patient seen in room 375, bed 1. CHIEF COMPLAINT: Left facial swelling x1 week duration. HISTORY OF PRESENT ILLNESS: This is a 52-year-old female with past medical history significant for stage IV breast cancer with metastasis to the bone, brain and liver, status post radiation and chemo, who has hypothyroidism and anemia, who has just had chemotherapy and radiation, now admitted with 1 week of facial swelling, no fevers, no chills, has minimal headaches, no chest pain, no abdominal pain, no dysuria or frequency. REVIEW OF SYSTEMS: Fourteen-point review of system is performed. PAST MEDICAL HISTORY: Significant for stage IV breast cancer with metastasis to the bone, brain and liver; hypothyroidism; anemia. PAST SURGICAL HISTORY: She has a Port-A-Cath on her right chest, hysterectomy and left foot surgery. ALLERGIES: THE PATIENT IS ALLERGIC TO CONTRAST. MEDICATIONS AT HOME: Reveal the patient to be on Ambien, Zofran, methadone and Xanax. PHYSICAL EXAMINATION: GENERAL: The patient is in bed. VITAL SIGNS: Temperature of 97, heart rate of 118, respiratory rate of 20, blood pressure is 109/86. HEENT: Examination of HEENT reveals the left side of face is swollen, mild erythema, induration in the left cheek and induration around her . She does have oral thrush. NECK: Supple. LUNGS: Clear. HEART: Normal S1, S2. ABDOMEN: Soft, nontender. LABORATORY EXAMINATION: Reveals a white count of 10,000, hemoglobin of 10, BUN of 29, creatinine 0.6. LFTs are elevated. The patient had a CAT scan of the neck which was done without contrast, which shows asymmetric subcentimeter left posterior triangle nodes measuring 9 mm, nonspecific. ASSESSMENT AND PLAN: This is a 52-year-old obese female with a body mass index of 31 with stage IV breast cancer with brain, bone and liver metastasis, status post chemotherapy, radiation, with left facial cellulitis, must rule out parotitis, most likely from underlying malignancy. We will treat the patient with vancomycin and Zosyn based on clinical response and culture results. We will order an HIV based on her age. Overall prognosis is quite poor for this patient. Vance Avalos MD [facility] # [id number]
[2018-03-21] MEDS ORDERED: DiphenhydrAMINE 50 mg/ml Inj IVP ONE (00:15)
[2018-03-21] MEDS: Vancomycin 1gm in NS 250ml 1 GM/250 ML BAG IVPB SCH ×2 (00:29→11:00)
[2018-03-21] MEDS: Piperacillin/Tazobact 3.375 gm 100 ML IVPB SCH ×3 (05:44→22:00)
[2018-03-21] MEDS: Levothyroxine 112 MCG TAB PO SCH (05:45)
[2018-03-21] MEDS: Pantoprazole 20 mg EC Tab PO SCH (05:45)
[2018-03-21] MEDS: Levothyroxine 25 MCG TAB PO SCH (05:45)
[2018-03-21 06:44] LABS: BASO # 0.03 K/mm3 (0.0-2.0); BASO % 0.4 % (0.0-3.0); GRAN # 6.76 (1.4-6.5); GRAN % 85.3 % (50.0-68.0); HEMOGLOBIN 9.3 g/dL (12.0-16.0); LYMPH # 0.8 (1.2-3.4); LYMPH % 10.5 % (22.0-35.0); MEAN CELL VOLUME 95.5 fl (80.0-105.0); MEAN CORPUSCULAR HEMOGLOBIN 29.9 pg (25.0-35.0); MEAN CORPUSCULAR HGB CONC 31.3 g/dl (31.0-37.0); MEAN PLATELET VOLUME 10.5 fl (7.0-11.0); MONO # 0.3 (0.1-0.6); MONO % 3.8 % (1.0-6.0); PLATELET COUNT 62 10^3/uL (120.0-450.0); RBC 3.11 10^6/uL (3.5-6.1); RED CELL DISTRIBUTION WIDTH 22.5 % (11.5-14.5); WHITE BLOOD COUNT 7.9 10^3/uL (4.5-11.0)
[2018-03-21 07:22] LABS: ALB/GLOB RATIO 0.8 (1.1-1.8); ALT/SGPT 457 U/L (7-56); AST/SGOT 256 U/L (14-36); BLOOD UREA NITROGEN 12 mg/dL (7-21); CALCIUM 8.3 mg/dL (8.4-10.5); GFR NON-AFRICAN AMERICAN > 60
[2018-03-21] MEDS ORDERED: HYDROmorphone 2 mg/ml ISec IVP ONE (08:23)
--- NOTE | 2018-03-21 09:27 | CP.PCM.CON ---
<Norbert Valente - Last Filed: 03/21/18 11:59> History of Present Illness - History of Present Illness History of Present Illness: PGY6 GI Fellow Consult Note Patient is a 52yo female with PMHx significant for breast cancer with metastases to brain, liver and bone on chemotherapy and s/p whole brain XRT with near complete resolution of brain metastases who presented to the hospital with progr essive weakness and malaise. At present, the patient expresses significant discomfort in her left shoulder and back which limits my ability to obtain history and perform a physical examination. Our service has been consulted for abnormal LFTs. In the weeks leading up to admission, patient's physical status had declined with difficulty ambulating. Moreover, her oncologist noted left sided facial swelling, concerning for parotitis prior to arrival. Only recent medication change was weaning the patient off of dexamethasone which she had been previously on for brain metastases. No EtOH or chronic liver disease history. 12 system ROS limited given clinical condition PMHx: See HPI PSHx: Hysterectomy, Port-a-cath placement FHx: Patient denies Social: Prior tobacco use with 90+ pack years, denies EtOH or illicit drug use Endo: None documented previously, patient unable to augment history Past Patient History - Infectious Disease Hx of Infectious Diseases: None - Past Social History Smoking Status: Current Some Days Smoker - CARDIAC Hx Cardiac Disorders: No - PULMONARY Hx Respiratory Disorders: No Other/Comment: active smoker - NEUROLOGICAL Hx Neurological Disorder: No - HEENT Hx HEENT Problems: Yes Other/Comment: acute parotitis - RENAL Hx Chronic Kidney Disease: No - ENDOCRINE/METABOLIC Hx Endocrine Disorders: Yes Hx Diabetes Mellitus Type 2: Yes (unsure) - HEMATOLOGICAL/ONCOLOGICAL Hx Blood Disorders: Yes Hx Cancer: Yes (breast, mets to spine/brain) Hx Metastesis: Yes - INTEGUMENTARY Hx Dermatological Problems: No - MUSCULOSKELETAL/RHEUMATOLOGICAL Hx Musculoskeletal Disorders: No Hx Falls: No - GASTROINTESTINAL Hx Gastrointestinal Disorders: No - GENITOURINARY/GYNECOLOGICAL Hx Genitourinary Disorders: Yes Hx Incontinence: Yes Other/Comment: Stage 4 metastatic breast cancer - PSYCHIATRIC Hx Psychophysiologic Disorder: No Hx Emotional Abuse: No Hx Physical Abuse: No Hx Substance Use: No - SURGICAL HISTORY Hx Surgeries: Yes Hx Hysterectomy: Yes - ANESTHESIA Hx Anesthesia: Yes Hx Anesthesia Reactions: No Hx Malignant Hyperthermia: No Meds Allergies/Adverse Reactions: Allergies Allergy/AdvReac Type Severity Reaction Status Date / Time CONTRAST Allergy Severe RASH/HIVES Uncoded 01/03/18 14:54 - Medications Medications: Current Medications Dexamethasone (Decadron) 2 mg PO BID [facility] Last Admin: 03/20/18 18:51 Dose: 2 mg Docusate Sodium (Colace) 100 mg PO BID [facility] Last Admin: 03/20/18 18:51 Dose: 100 mg Piperacillin Sod/Tazobactam Sod (Zosyn 3.375 In Ns 100ml) 100 mls @ 25 mls/hr IVPB Q8 [facility]; Protocol Stop: 03/28/18 14:01 Last Admin: 03/21/18 05:44 Dose: 25 mls/hr Vancomycin HCl (Vancomycin 1gm) 1 gm in 250 mls @ 167 mls/hr IVPB Q12H [facility]; Protocol Last Admin: 03/21/18 00:29 Dose: 167 mls/hr Levothyroxine Sodium (Synthroid) 112 mcg PO 0600 [facility] Last Admin: 03/21/18 05:45 Dose: 112 mcg Levothyroxine Sodium (Synthroid) 25 mcg PO 0600 [facility] Last Admin: 03/21/18 05:45 Dose: 25 mcg Methadone HCl (Methadone) 10 mg PO DAILY [facility] Last Admin: 03/20/18 11:53 Dose: 10 mg Nystatin (Nystatin Oral Susp) 5 ml PO QID [facility] Last Admin: 03/20/18 21:35 Dose: 5 ml Pantoprazole Sodium (Protonix Ec Tab) 20 mg PO 0600 [facility] Last Admin: 03/21/18 05:45 Dose: 20 mg Polyethylene Glycol (Miralax) 17 gm PO DAILY PRN PRN Reason: Constipation Zolpidem Tartrate (Ambien) 5 mg PO HS [facility]; Protocol Last Admin: 03/20/18 21:36 Dose: 5 mg Physical Exam - Constitutional Appears: In Acute Distress (pain), Chronically Ill - Eye Exam Eye Exam: PERRL - ENT Exam ENT Exam: Mucous Membranes Dry - Respiratory Exam Respiratory Exam: Clear to Auscultation Bilateral. absent: Rales, Rhonchi, Wheezes - Cardiovascular Exam Cardiovascular Exam: Tachycardia, +S1, +S2 - GI/Abdominal Exam GI & Abdominal Exam: Normal Bowel Sounds, Soft, Tenderness (diffusely, mild). absent: Distended, Firm, Guarding, Organomegaly, Rigid - Extremities Exam Extremities exam: Positive for: normal inspection. Negative for: pedal edema Additional comments: Limited ROM left arm - Neurological Exam Neurological exam: Alert, Oriented x3 - Psychiatric Exam Psychiatric exam: Anxious - Skin Skin Exam: Dry, Warm Results - Vital Signs Recent Vital Signs: Last Vital Signs Temp 97.2 F L 03/20/18 09:08 Pulse 72 03/20/18 09:08 Resp 20 03/20/18 09:08 BP 130/75 03/20/18 09:08 Pulse Ox 94 L 03/20/18 09:08 - Labs Result Diagrams: 03/21/18 05:55 03/21/18 05:55 Labs: Laboratory Results - last 24 hr 03/19/18 03/20/18 03/21/18 15:00 13:46 05:55 WBC 7.9 RBC 3.11 L Hgb 9.3 L Hct 29.7 L MCV 95.5 MCH 29.9 MCHC 31.3 RDW 22.5 H Plt Count 62 L MPV 10.5 Gran % 85.3 H Lymph % (Auto) 10.5 L [place] % (Auto) 3.8 Eos % (Auto) 0.0 L Baso % (Auto) 0.4 Gran # 6.76 H Lymph # (Auto) 0.8 L [place] # (Auto) 0.3 Eos # (Auto) 0.0 Baso # (Auto) 0.03 Sodium Potassium Chloride Carbon Dioxide Anion Gap BUN Creatinine Est GFR ( Amer) Est GFR (Non-Af Amer) Random Glucose Calcium Magnesium Total Bilirubin Direct Bilirubin 5.6 H AST ALT Alkaline Phosphatase Total Protein Albumin Globulin Albumin/Globulin Ratio Procalcitonin 0.83 H 03/21/18 05:55 WBC RBC Hgb Hct MCV MCH MCHC RDW Plt Count MPV Gran % Lymph % (Auto) [place] % (Auto) Eos % (Auto) Baso % (Auto) Gran # Lymph # (Auto) [place] # (Auto) Eos # (Auto) Baso # (Auto) Sodium 132 Potassium 3.7 Chloride 101 Carbon Dioxide 24 Anion Gap 11 BUN 12 Creatinine 0.5 L Est GFR ( Amer) > 60 Est GFR (Non-Af Amer) > 60 Random Glucose 95 Calcium 8.3 L Magnesium 2.1 Total Bilirubin 7.7 H Direct Bilirubin AST 256 H D ALT 457 H Alkaline Phosphatase 1092 H Total Protein 6.6 Albumin 3.0 Globulin 3.6 Albumin/Globulin Ratio 0.8 L Procalcitonin Assessment & Plan - Assessment and Plan (Free Text) Assessment: Patient is a 52yo female with PMHx significant for breast cancer with metastases to brain, liver and bone on chemotherapy and s/p whole brain XRT with near complete resolution of brain metastases who presented to the hospital with progressive weakness and malaise -Abnormal LFTs -Breast cancer with metastases to brain/liver/bone on chemotherapy and s/p whole brain XRT -Parotitis Plan: -Suspect abnormal liver function to be a result of known metastatic disease and possibly 2/2 recent chemotherapy -Rule out thrombotic event such as Budd-Chiari or Portal vein thrombus with abdomen duplex -Defer pain management to primary service, patient may require more frequent analgesia -Bowel regimen with Miralax 17g PO QHS recommended to prevent OIC -Diet changed to bite site, thin liquid -Patient with advanced disease, appreciate palliative care consultation -Will monitor clinical course - Date & Time Date: 03/21/18 Time: 07:30 <Braden Rivera V - Last Filed: 03/21/18 23:19> Meds - Medications Medications: Current Medications Dexamethasone (Decadron) 2 mg PO BID [facility] Last Admin: 03/21/18 17:44 Dose: 2 mg Docusate Sodium (Colace) 100 mg PO BID [facility] Last Admin: 03/21/18 17:44 Dose: 100 mg Piperacillin Sod/Tazobactam Sod (Zosyn 3.375 In Ns 100ml) 100 mls @ 25 mls/hr IVPB Q8 [facility]; Protocol Stop: 03/28/18 14:01 Last Admin: 03/21/18 22:00 Dose: 25 mls/hr Vancomycin HCl (Vancomycin 1gm) 1 gm in 250 mls @ 167 mls/hr IVPB Q12H [facility]; Protocol Last Admin: 03/21/18 11:00 Dose: 167 mls/hr Sodium Chloride (Sodium Chloride 0.9%) 1,000 mls @ 60 mls/hr IV .[id number] [facility] Last Admin: 03/21/18 17:45 Dose: 60 mls/hr Levothyroxine Sodium (Synthroid) 112 mcg PO 0600 [facility] Last Admin: 03/21/18 05:45 Dose: 112 mcg Levothyroxine Sodium (Synthroid) 25 mcg PO 0600 [facility] Last Admin: 03/21/18 05:45 Dose: 25 mcg Methadone HCl (Methadone) 10 mg PO Q12H [facility] Last Admin: 03/21/18 22:01 Dose: 10 mg Morphine Sulfate (Morphine) 2 mg IVP Q3H PRN PRN Reason: Pain, severe (8-10) Last Admin: 03/21/18 17:46 Dose: 2 mg Nystatin (Nystatin Oral Susp) 5 ml PO QID [facility] Last Admin: 03/21/18 22:01 Dose: 5 ml Pantoprazole Sodium (Protonix Ec Tab) 20 mg PO 0600 [facility] Last Admin: 03/21/18 05:45 Dose: 20 mg Polyethylene Glycol (Miralax) 17 gm PO DAILY PRN PRN Reason: Constipation Zolpidem Tartrate (Ambien) 5 mg PO HS [facility]; Protocol Last Admin: 03/21/18 22:01 Dose: 5 mg Results - Vital Signs Recent Vital Signs: Last Vital Signs Temp 98.4 F 03/21/18 15:55 Pulse 92 H 03/21/18 15:55 Resp 20 03/21/18 15:55 BP 132/90 03/21/18 15:55 Pulse Ox 92 L 03/21/18 15:55 - Labs Result Diagrams: 03/21/18 05:55 03/21/18 05:55 Labs: Laboratory Results - last 24 hr 03/20/18 03/21/18 03/21/18 06:00 05:55 05:55 WBC 7.9 RBC 3.11 L Hgb 9.3 L Hct 29.7 L MCV 95.5 MCH 29.9 MCHC 31.3 RDW 22.5 H Plt Count 62 L MPV 10.5 Gran % 85.3 H Lymph % (Auto) 10.5 L [place] % (Auto) 3.8 Eos % (Auto) 0.0 L Baso % (Auto) 0.4 Gran # 6.76 H Lymph # (Auto) 0.8 L [place] # (Auto) 0.3 Eos # (Auto) 0.0 Baso # (Auto) 0.03 Corrected WBC (Man) 7.3 Neutrophils % (Manual) 82 H Band Neutrophils % 3 H Lymphocytes % (Manual) 8 L Monocytes % (Manual) 3 Metamyelocytes % 4 Nucleated RBC % 8 Platelet Evaluation Low Polychromasia Slight Anisocytosis (manual) Slight Sodium 132 Potassium 3.7 Chloride 101 Carbon Dioxide 24 Anion Gap 11 BUN 12 Creatinine 0.5 L Est GFR ( Amer) > 60 Est GFR (Non-Af Amer) > 60 Random Glucose 95 Calcium 8.3 L Magnesium 2.1 Total Bilirubin 7.7 H AST 256 H D ALT 457 H Alkaline Phosphatase 1092 H Total Protein 6.6 Albumin 3.0 Globulin 3.6 Albumin/Globulin Ratio 0.8 L HIV 1&2 Ag/Ab, 4th Gen Nonreactive Attending/Attestation - Attestation I have personally seen and examined this patient.: Yes I have fully participated in the care of the patient.: Yes I have reviewed all pertinent clinical information: Yes Notes (Text): This is an addendum to GI consult report dictated by the GI Fellow.The patient was seen and examined earlier. Medical records, lab studies, imagings were reviewed. Last 24 hours events reviewed. Agreed with the above treatment plan as outlined in GI Fellow 's notes with the addition of the following 03/21/18 23:18
--- NOTE | 2018-03-21 10:40 | US ---
PROCEDURE: Portal vein duplex ultrasound. CLINICAL HISTORY: Cirrhosis. Deteriorating liver function. Evaluate for portal vein thrombosis. PHYSICIAN(S): Zeus Blevins M.D. FINDINGS: The liver parenchyma is heterogeneous and not well visualized The extrahepatic portal vein is patent with hepatopetal flow. The hepatic artery is prominent and with a normal waveform. The visualized segments of the central patent veins are patent The spleen is not enlarged. No significant ascites is appreciated IMPRESSION: 1. Patent portal vein with hepatopetal flow.
[2018-03-21] MEDS: Nystatin 100,000 Units/ml Oral Susp 5 ml UD PO SCH ×4 (10:58→22:01)
[2018-03-21 11:49] LABS: ANISOCYTOSIS SLIGHT; BAND 3 % (0-2); CORRECTED WBC 7.3 K/mm3 (4.5-11.0); LYMPHOCYTE 8 % (22.0-35.0); METAMYELOCYTE 4 %; MONOCYTE 3 % (1.0-6.0); NEUTROPHIL 82 % (50.0-70.0); NUCLEATED RED BLOOD CELL 8 %; PLATELET ESTIMATE LOW (NORMAL); POLYCHROMASIA SLIGHT
--- NOTE | 2018-03-21 12:03 | CP.PCM.PN ---
<Mina Carney - Last Filed: 03/21/18 15:02> Subjective - Date & Time of Evaluation Date of Evaluation: 03/21/18 Time of Evaluation: 07:30 - Subjective Subjective: Mina Carney DO, PGY-2: Hematology and Oncology Progress Note for Dr. Penn Patient was seen and examined at bedside. Patient was in extreme pain at the time of my evaluation. She was requesting to be moved. Otherwise, chart review indicates no adverse events overnight. Objective - Vital Signs/Intake and Output Vital Signs (last 24 hours): Temp Pulse Resp BP Pulse Ox 97.2 F L 72 20 130/75 94 L 03/20/18 09:08 03/20/18 09:08 03/20/18 09:08 03/20/18 09:08 03/20/18 09:08 Intake and Output: 03/21/18 03/21/18 06:59 18:59 Intake Total 1650 Output Total 1200 Balance 450 - Medications Medications: Current Medications Dexamethasone (Decadron) 2 mg PO BID [facility] Last Admin: 03/21/18 10:58 Dose: 2 mg Docusate Sodium (Colace) 100 mg PO BID [facility] Last Admin: 03/21/18 10:58 Dose: 100 mg Piperacillin Sod/Tazobactam Sod (Zosyn 3.375 In Ns 100ml) 100 mls @ 25 mls/hr IVPB Q8 [facility]; Protocol Stop: 03/28/18 14:01 Last Admin: 03/21/18 05:44 Dose: 25 mls/hr Vancomycin HCl (Vancomycin 1gm) 1 gm in 250 mls @ 167 mls/hr IVPB Q12H [facility]; Protocol Last Admin: 03/21/18 11:00 Dose: 167 mls/hr Levothyroxine Sodium (Synthroid) 112 mcg PO 0600 [facility] Last Admin: 03/21/18 05:45 Dose: 112 mcg Levothyroxine Sodium (Synthroid) 25 mcg PO 0600 [facility] Last Admin: 03/21/18 05:45 Dose: 25 mcg Methadone HCl (Methadone) 10 mg PO BID [facility] Nystatin (Nystatin Oral Susp) 5 ml PO QID [facility] Last Admin: 03/21/18 10:58 Dose: 5 ml Pantoprazole Sodium (Protonix Ec Tab) 20 mg PO 0600 [facility] Last Admin: 03/21/18 05:45 Dose: 20 mg Polyethylene Glycol (Miralax) 17 gm PO DAILY PRN PRN Reason: Constipation Zolpidem Tartrate (Ambien) 5 mg PO HS [facility]; Protocol Last Admin: 03/20/18 21:36 Dose: 5 mg - Labs Labs: 03/21/18 05:55 03/21/18 05:55 PT 11.5 SECONDS (9.4-12.5) 03/19/18 15:30 INR 1.01 03/19/18 15:30 APTT 23.7 Seconds (25.1-36.5) L 03/19/18 15:30 - Constitutional Appears: Non-toxic - Head Exam Head Exam: ATRAUMATIC, NORMOCEPHALIC Additional comments: left sided facial swelling - Eye Exam Eye Exam: EOMI, Normal appearance - ENT Exam ENT Exam: Mucous Membranes Moist, Normal Oropharynx - Neck Exam Neck Exam: Normal Inspection - Respiratory Exam Respiratory Exam: Clear to Ausculation Bilateral, NORMAL BREATHING PATTERN. absent: Accessory Muscle Use - Cardiovascular Exam Cardiovascular Exam: RRR, +S1, +S2 - GI/Abdominal Exam GI & Abdominal Exam: Soft, Normal Bowel Sounds - Extremities Exam Extremities Exam: Normal Inspection. absent: Calf Tenderness - Neurological Exam Neurological Exam: Alert, Awake, Oriented x3 - Psychiatric Exam Psychiatric exam: Normal Affect, Normal Mood - Skin Skin Exam: Dry, Intact, Warm Additional comments: jaundiced Assessment and Plan - Assessment and Plan (Free Text) Assessment: 52 year old female with stage IV metastatic breast cancer involving brain, bone, and liver who presents with jaundice and failure to thrive along with oral thrush and clinical parotitis. CT of head shows near complete lesions of infra and supra-tentorial metastasis. Patient will need placement. 1) Parotitis, clinically - No CT evidence for acute parotiditis. Asymmetric subcentimeter left posterior triangle lymph nodes, the largest measures 9 mm these are nonspecific and may be infectious, inflammatory or neoplastic in etiology. Clinical follow-up is advised. If clinically indicated correlation with may be performed with PET-CT. Diffuse osteoblastic metastasis in the cervical spine. - Zosyn 4.5 q8h [facility] - Vancomycin 1 gram q12h - Infectious disease consulted Follow up serum amylase and procalcitonin 2) Cancer pain - Methadone 10 mg PO BID - Colace 100 mg PO BID 3) Brain metastasis with vasogenic edema, resolving - Dexamethasone 2 mg PO BID - Dr. Vicente consulted - CT head shows No acute intracranial abnormality. Interval near complete resolution of presumable metastatic supra and infratentorial lesions and vasogenic edema. 4) Hypothyroidism - Levothyroxine 137 mcg 5) GERD - Protonix 20 mg PO daily 6) Transmaminitis and hyperbilrubinemia - Likely secondary to liver metastasis and/or hepatotoxicity from ado-hubbard stuzumab emtansine (Kadcyla); Kadcyla has a 28.8 incidence of causing transaminases, according to [employer]. - Abdominal US shows Moderate hepatomegaly and diffuse heterogeneous echotexture likely related to metastatic disease. The gallbladder is contracted. - GI consulted, appreciate recommendations 7) Thrombocytopenia - Will monitor, current platelet count now 65,000; Kadcyla has a 31.2% incidence of causing thrombocytopenia according to [employer] 8) DVT/GI prophylaxis - SCD and Protonix 20 mg 9) Oral Thrush with dysphagia - Nystatin 5 ml QID - Advanced bite size, liquid diet per [employer] 10) Failure to thrive - Palliative care consulted - Radiation Oncology consulted - Physical therapy and occuptational therapy 11) Anemia - Likely secondary to Kacydala 12) Inability to abduct left shoulder - Radiographs show mild osteoarthritis in the left AC joint Case reviewed and discussed with attending physician, Dr. Penn <Kashif Penn P - Last Filed: 03/22/18 19:26> Objective - Vital Signs/Intake and Output Vital Signs (last 24 hours): Temp Pulse Resp BP Pulse Ox 98.6 F 92 H 19 115/69 93 L 03/22/18 17:03 03/22/18 17:03 03/22/18 17:03 03/22/18 17:03 03/22/18 17:03 Intake and Output: 03/22/18 03/23/18 18:59 06:59 Intake Total 1880 Output Total 900 Balance 980 - Medications Medications: Current Medications Dexamethasone (Decadron) 2 mg PO BID [facility] Last Admin: 03/22/18 18:13 Dose: 2 mg Docusate Sodium (Colace) 100 mg PO BID [facility] Last Admin: 03/22/18 18:12 Dose: 100 mg Piperacillin Sod/Tazobactam Sod (Zosyn 3.375 In Ns 100ml) 100 mls @ 25 mls/hr IVPB Q8 [facility]; Protocol Stop: 03/28/18 14:01 Last Admin: 03/22/18 16:01 Dose: 25 mls/hr Vancomycin HCl (Vancomycin 1gm) 1 gm in 250 mls @ 167 mls/hr IVPB Q12H [facility]; Protocol Last Admin: 03/22/18 11:24 Dose: 167 mls/hr Sodium Chloride (Sodium Chloride 0.9%) 1,000 mls @ 60 mls/hr IV .[id number] [facility] Last Admin: 03/22/18 18:17 Dose: 60 mls/hr Levothyroxine Sodium (Synthroid) 112 mcg PO 0600 [facility] Last Admin: 03/22/18 06:07 Dose: 112 mcg Levothyroxine Sodium (Synthroid) 25 mcg PO 0600 [facility] Last Admin: 03/22/18 06:07 Dose: 25 mcg Methadone HCl (Methadone) 10 mg PO Q12H [facility] Last Admin: 03/22/18 09:49 Dose: 10 mg Morphine Sulfate (Morphine) 2 mg IVP Q3H PRN PRN Reason: Pain, severe (8-10) Last Admin: 03/22/18 11:23 Dose: 2 mg Nystatin (Nystatin Oral Susp) 5 ml PO QID [facility] Last Admin: 03/22/18 18:14 Dose: 5 ml Pantoprazole Sodium (Protonix Ec Tab) 20 mg PO 0600 [facility] Last Admin: 03/22/18 06:07 Dose: 20 mg Polyethylene Glycol (Miralax) 17 gm PO DAILY PRN PRN Reason: Constipation Zolpidem Tartrate (Ambien) 5 mg PO HS [facility]; Protocol Last Admin: 03/21/18 22:01 Dose: 5 mg - Labs Labs: 03/22/18 06:00 03/22/18 06:00 PT 11.5 SECONDS (9.4-12.5) 03/19/18 15:30 INR 1.01 03/19/18 15:30 APTT 23.7 Seconds (25.1-36.5) L 03/19/18 15:30 Attending/Attestation - Attestation I have personally seen and examined this patient.: Yes I have fully participated in the care of the patient.: Yes I have reviewed all pertinent clinical information, including history, physical exam and plan: Yes
--- NOTE | 2018-03-21 13:40 | CP.PCM.PN ---
Subjective - Date & Time of Evaluation Date of Evaluation: 03/21/18 Time of Evaluation: 10:00 - Subjective Subjective: Complaining of intractable back and neck pain Objective - Vital Signs/Intake and Output Vital Signs (last 24 hours): Temp Pulse Resp BP Pulse Ox 97.2 F L 72 20 130/75 94 L 03/20/18 09:08 03/20/18 09:08 03/20/18 09:08 03/20/18 09:08 03/20/18 09:08 Intake and Output: 03/21/18 03/21/18 06:59 18:59 Intake Total 1650 Output Total 1200 Balance 450 - Medications Medications: Current Medications Dexamethasone (Decadron) 2 mg PO BID [facility] Last Admin: 03/21/18 10:58 Dose: 2 mg Docusate Sodium (Colace) 100 mg PO BID [facility] Last Admin: 03/21/18 10:58 Dose: 100 mg Piperacillin Sod/Tazobactam Sod (Zosyn 3.375 In Ns 100ml) 100 mls @ 25 mls/hr IVPB Q8 [facility]; Protocol Stop: 03/28/18 14:01 Last Admin: 03/21/18 05:44 Dose: 25 mls/hr Vancomycin HCl (Vancomycin 1gm) 1 gm in 250 mls @ 167 mls/hr IVPB Q12H [facility]; Protocol Last Admin: 03/21/18 11:00 Dose: 167 mls/hr Levothyroxine Sodium (Synthroid) 112 mcg PO 0600 [facility] Last Admin: 03/21/18 05:45 Dose: 112 mcg Levothyroxine Sodium (Synthroid) 25 mcg PO 0600 [facility] Last Admin: 03/21/18 05:45 Dose: 25 mcg Methadone HCl (Methadone) 10 mg PO BID [facility] Nystatin (Nystatin Oral Susp) 5 ml PO QID [facility] Last Admin: 03/21/18 10:58 Dose: 5 ml Pantoprazole Sodium (Protonix Ec Tab) 20 mg PO 0600 [facility] Last Admin: 03/21/18 05:45 Dose: 20 mg Polyethylene Glycol (Miralax) 17 gm PO DAILY PRN PRN Reason: Constipation Zolpidem Tartrate (Ambien) 5 mg PO HS [facility]; Protocol Last Admin: 03/20/18 21:36 Dose: 5 mg - Labs Labs: 03/21/18 05:55 03/21/18 05:55 PT 11.5 SECONDS (9.4-12.5) 03/19/18 15:30 INR 1.01 03/19/18 15:30 APTT 23.7 Seconds (25.1-36.5) L 03/19/18 15:30 - Constitutional Appears: Chronically Ill - Eye Exam Eye Exam: PERRL, Scleral icterus - ENT Exam ENT Exam: Mucous Membranes Moist - Respiratory Exam Respiratory Exam: Decreased Breath Sounds, NORMAL BREATHING PATTERN - Cardiovascular Exam Cardiovascular Exam: REGULAR RHYTHM, +S1, +S2 - GI/Abdominal Exam GI & Abdominal Exam: Soft, Normal Bowel Sounds - Extremities Exam Extremities Exam: Pedal Edema - Back Exam Back Exam: tenderness - Neurological Exam Neurological Exam: Alert - Skin Skin Exam: Dry Additional comments: jaundice Assessment and Plan - Assessment and Plan (Free Text) Assessment: 52 year old female with history of metastatic breast cancer, pathological hip fracture s/p XRT, brain metastasis s/p XRT who is admitted with weakness, transaminitis, hyperbilirubenemia, intractable pain Complaining of severe, intractable back pain. Denies nausea, vomiting,constipation Plan: Methadone 10 mg twice daily Colace twice dialy, Miralax as needed Continue Zosyn and Vancomycin
[2018-03-21] MEDS: Sodium Chloride 0.9% 1,000 ML IV SCH (17:45)
[2018-03-21] MEDS: Morphine 2 mg/ml ISec IVP PRN (17:46)
--- NOTE | 2018-03-21 20:57 | CP.PCM.PN ---
Subjective - Date & Time of Evaluation Date of Evaluation: 03/21/18 Time of Evaluation: 12:00 - Subjective Subjective: Still with left facial swelling, no fevers, no nausea. Objective - Vital Signs/Intake and Output Vital Signs (last 24 hours): Temp Pulse Resp BP Pulse Ox 98.4 F 92 H 20 132/90 92 L 03/21/18 15:55 03/21/18 15:55 03/21/18 15:55 03/21/18 15:55 03/21/18 15:55 - Medications Medications: Current Medications Dexamethasone (Decadron) 2 mg PO BID [facility] Last Admin: 03/21/18 17:44 Dose: 2 mg Docusate Sodium (Colace) 100 mg PO BID [facility] Last Admin: 03/21/18 17:44 Dose: 100 mg Piperacillin Sod/Tazobactam Sod (Zosyn 3.375 In Ns 100ml) 100 mls @ 25 mls/hr IVPB Q8 [facility]; Protocol Stop: 03/28/18 14:01 Last Admin: 03/21/18 14:41 Dose: 25 mls/hr Vancomycin HCl (Vancomycin 1gm) 1 gm in 250 mls @ 167 mls/hr IVPB Q12H [facility]; Protocol Last Admin: 03/21/18 11:00 Dose: 167 mls/hr Sodium Chloride (Sodium Chloride 0.9%) 1,000 mls @ 60 mls/hr IV .[id number] [facility] Last Admin: 03/21/18 17:45 Dose: 60 mls/hr Levothyroxine Sodium (Synthroid) 112 mcg PO 0600 [facility] Last Admin: 03/21/18 05:45 Dose: 112 mcg Levothyroxine Sodium (Synthroid) 25 mcg PO 0600 [facility] Last Admin: 03/21/18 05:45 Dose: 25 mcg Methadone HCl (Methadone) 10 mg PO Q12H [facility] Morphine Sulfate (Morphine) 2 mg IVP Q3H PRN PRN Reason: Pain, severe (8-10) Last Admin: 03/21/18 17:46 Dose: 2 mg Nystatin (Nystatin Oral Susp) 5 ml PO QID [facility] Last Admin: 03/21/18 17:44 Dose: 5 ml Pantoprazole Sodium (Protonix Ec Tab) 20 mg PO 0600 [facility] Last Admin: 03/21/18 05:45 Dose: 20 mg Polyethylene Glycol (Miralax) 17 gm PO DAILY PRN PRN Reason: Constipation Zolpidem Tartrate (Ambien) 5 mg PO HS [facility]; Protocol Last Admin: 03/20/18 21:36 Dose: 5 mg - Labs Labs: 03/21/18 05:55 03/21/18 05:55 PT 11.5 SECONDS (9.4-12.5) 03/19/18 15:30 INR 1.01 03/19/18 15:30 APTT 23.7 Seconds (25.1-36.5) L 03/19/18 15:30 - Constitutional Appears: Chronically Ill - Head Exam Head Exam: NORMAL INSPECTION - ENT Exam Additional comments: left facial swelling - Respiratory Exam Respiratory Exam: Decreased Breath Sounds - Cardiovascular Exam Cardiovascular Exam: +S1, +S2 - GI/Abdominal Exam GI & Abdominal Exam: Soft. absent: Tenderness Assessment and Plan - Assessment and Plan (Free Text) Plan: Assessment Left facial cellulitis stage 4 breast cancer with metastases to brain, liver, bone, on chemotherapy S/P port-a-cath placement Plan continue Vancomycin and Zosyn day 2 and will continue to monitor clinically overall prognosis is poor
[2018-03-22] MEDS: Vancomycin 1gm in NS 250ml 1 GM/250 ML BAG IVPB SCH ×2 (00:20→11:24)
[2018-03-22] MEDS: Piperacillin/Tazobact 3.375 gm 100 ML IVPB SCH ×3 (06:07→21:27)
[2018-03-22] MEDS: Pantoprazole 20 mg EC Tab PO SCH (06:07)
[2018-03-22] MEDS: Levothyroxine 25 MCG TAB PO SCH (06:07)
[2018-03-22] MEDS: Levothyroxine 112 MCG TAB PO SCH (06:07)
[2018-03-22 06:49] LABS: BASO # 0.03 K/mm3 (0.0-2.0); BASO % 0.4 % (0.0-3.0); GRAN # 6.83 (1.4-6.5); GRAN % 83.4 % (50.0-68.0); LYMPH % 12.2 % (22.0-35.0); MEAN CELL VOLUME 95.9 fl (80.0-105.0); MEAN CORPUSCULAR HEMOGLOBIN 30.4 pg (25.0-35.0); MEAN CORPUSCULAR HGB CONC 31.7 g/dl (31.0-37.0); MEAN PLATELET VOLUME 9.4 fl (7.0-11.0); MONO # 0.3 (0.1-0.6); RBC 2.96 10^6/uL (3.5-6.1); WHITE BLOOD COUNT 8.2 10^3/uL (4.5-11.0)
[2018-03-22 07:38] LABS: ALB/GLOB RATIO 0.9 (1.1-1.8); ALT/SGPT 444 U/L (7-56); AST/SGOT 276 U/L (14-36); BLOOD UREA NITROGEN 15 mg/dL (7-21); CALCIUM 8.4 mg/dL (8.4-10.5); GFR NON-AFRICAN AMERICAN > 60
[2018-03-22] MEDS: Nystatin 100,000 Units/ml Oral Susp 5 ml UD PO SCH ×4 (09:49→21:31)
[2018-03-22] MEDS: Morphine 2 mg/ml ISec IVP PRN ×2 (11:23→20:07)
[2018-03-22] MEDS: Sodium Chloride 0.9% 1,000 ML IV SCH (18:17)
--- NOTE | 2018-03-22 19:44 | CP.PCM.PN ---
Subjective - Date & Time of Evaluation Date of Evaluation: 03/22/18 Time of Evaluation: 10:00 - Subjective Subjective: Left sided of face feels better, less swollen, no fevers. Objective - Vital Signs/Intake and Output Vital Signs (last 24 hours): Temp Pulse Resp BP Pulse Ox 98.4 F 92 H 20 132/90 92 L 03/21/18 15:55 03/21/18 15:55 03/21/18 15:55 03/21/18 15:55 03/21/18 15:55 - Medications Medications: Current Medications Dexamethasone (Decadron) 2 mg PO BID [facility] Last Admin: 03/21/18 17:44 Dose: 2 mg Docusate Sodium (Colace) 100 mg PO BID [facility] Last Admin: 03/21/18 17:44 Dose: 100 mg Piperacillin Sod/Tazobactam Sod (Zosyn 3.375 In Ns 100ml) 100 mls @ 25 mls/hr IVPB Q8 [facility]; Protocol Stop: 03/28/18 14:01 Last Admin: 03/21/18 14:41 Dose: 25 mls/hr Vancomycin HCl (Vancomycin 1gm) 1 gm in 250 mls @ 167 mls/hr IVPB Q12H [facility]; Protocol Last Admin: 03/21/18 11:00 Dose: 167 mls/hr Sodium Chloride (Sodium Chloride 0.9%) 1,000 mls @ 60 mls/hr IV .[id number] [facility] Last Admin: 03/21/18 17:45 Dose: 60 mls/hr Levothyroxine Sodium (Synthroid) 112 mcg PO 0600 [facility] Last Admin: 03/21/18 05:45 Dose: 112 mcg Levothyroxine Sodium (Synthroid) 25 mcg PO 0600 [facility] Last Admin: 03/21/18 05:45 Dose: 25 mcg Methadone HCl (Methadone) 10 mg PO Q12H [facility] Morphine Sulfate (Morphine) 2 mg IVP Q3H PRN PRN Reason: Pain, severe (8-10) Last Admin: 03/21/18 17:46 Dose: 2 mg Nystatin (Nystatin Oral Susp) 5 ml PO QID [facility] Last Admin: 03/21/18 17:44 Dose: 5 ml Pantoprazole Sodium (Protonix Ec Tab) 20 mg PO 0600 [facility] Last Admin: 03/21/18 05:45 Dose: 20 mg Polyethylene Glycol (Miralax) 17 gm PO DAILY PRN PRN Reason: Constipation Zolpidem Tartrate (Ambien) 5 mg PO HS [facility]; Protocol Last Admin: 03/20/18 21:36 Dose: 5 mg - Labs Labs: 03/21/18 05:55 03/21/18 05:55 PT 11.5 SECONDS (9.4-12.5) 03/19/18 15:30 INR 1.01 03/19/18 15:30 APTT 23.7 Seconds (25.1-36.5) L 03/19/18 15:30 - Constitutional Appears: Chronically Ill - Head Exam Head Exam: NORMAL INSPECTION - Respiratory Exam Respiratory Exam: Decreased Breath Sounds - Cardiovascular Exam Cardiovascular Exam: +S1, +S2 - GI/Abdominal Exam GI & Abdominal Exam: Soft. 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
[2018-03-22] MEDS: POLYETHYLENE GLYCOL 3350 17 GM/Dose PACKET PO PRN (20:13)
[2018-03-23] MEDS: Levothyroxine 25 MCG TAB PO SCH (06:17)
[2018-03-23] MEDS: Pantoprazole 20 mg EC Tab PO SCH (06:17)
[2018-03-23] MEDS: Levothyroxine 112 MCG TAB PO SCH (06:17)
[2018-03-23] MEDS: Morphine 2 mg/ml ISec IVP PRN ×6 (06:17→23:17)
[2018-03-23] MEDS: Piperacillin/Tazobact 3.375 gm 100 ML IVPB SCH ×3 (06:17→21:30)
[2018-03-23 08:08] LABS: ALB/GLOB RATIO 0.8 (1.1-1.8); ALT/SGPT 482 U/L (7-56); AST/SGOT 347 U/L (14-36); BLOOD UREA NITROGEN 10 mg/dL (7-21); CALCIUM 8.4 mg/dL (8.4-10.5); GFR NON-AFRICAN AMERICAN > 60
[2018-03-23] MEDS: Nystatin 100,000 Units/ml Oral Susp 5 ml UD PO SCH ×4 (09:07→21:30)
--- NOTE | 2018-03-23 19:10 | CP.PCM.PN ---
Subjective - Date & Time of Evaluation Date of Evaluation: 03/23/18 Time of Evaluation: 10:00 - Subjective Subjective: Face feels better, no fevers. Objective - Vital Signs/Intake and Output Vital Signs (last 24 hours): Temp Pulse Resp BP Pulse Ox 98.6 F 92 H 19 115/69 93 L 03/22/18 17:03 03/22/18 17:03 03/22/18 17:03 03/22/18 17:03 03/22/18 17:03 Intake and Output: 03/22/18 03/23/18 18:59 06:59 Intake Total 1880 Output Total 900 Balance 980 - Medications Medications: Current Medications Dexamethasone (Decadron) 2 mg PO BID [facility] Last Admin: 03/22/18 18:13 Dose: 2 mg Docusate Sodium (Colace) 100 mg PO BID [facility] Last Admin: 03/22/18 18:12 Dose: 100 mg Piperacillin Sod/Tazobactam Sod (Zosyn 3.375 In Ns 100ml) 100 mls @ 25 mls/hr IVPB Q8 [facility]; Protocol Stop: 03/28/18 14:01 Last Admin: 03/22/18 16:01 Dose: 25 mls/hr Sodium Chloride (Sodium Chloride 0.9%) 1,000 mls @ 60 mls/hr IV .[id number] [facility] Last Admin: 03/22/18 18:17 Dose: 60 mls/hr Levothyroxine Sodium (Synthroid) 112 mcg PO 0600 [facility] Last Admin: 03/22/18 06:07 Dose: 112 mcg Levothyroxine Sodium (Synthroid) 25 mcg PO 0600 [facility] Last Admin: 03/22/18 06:07 Dose: 25 mcg Methadone HCl (Methadone) 10 mg PO Q12H [facility] Last Admin: 03/22/18 09:49 Dose: 10 mg Morphine Sulfate (Morphine) 2 mg IVP Q3H PRN PRN Reason: Pain, severe (8-10) Last Admin: 03/22/18 11:23 Dose: 2 mg Nystatin (Nystatin Oral Susp) 5 ml PO QID [facility] Last Admin: 03/22/18 18:14 Dose: 5 ml Pantoprazole Sodium (Protonix Ec Tab) 20 mg PO 0600 [facility] Last Admin: 03/22/18 06:07 Dose: 20 mg Polyethylene Glycol (Miralax) 17 gm PO DAILY PRN PRN Reason: Constipation Zolpidem Tartrate (Ambien) 5 mg PO HS [facility]; Protocol Last Admin: 03/21/18 22:01 Dose: 5 mg - Labs Labs: 03/22/18 06:00 03/22/18 06:00 PT 11.5 SECONDS (9.4-12.5) 03/19/18 15:30 INR 1.01 03/19/18 15:30 APTT 23.7 Seconds (25.1-36.5) L 03/19/18 15:30 - Constitutional Appears: Chronically Ill - Head Exam Head Exam: NORMAL INSPECTION - Respiratory Exam Respiratory Exam: Decreased Breath Sounds - Cardiovascular Exam Cardiovascular Exam: +S1, +S2 - GI/Abdominal Exam GI & Abdominal Exam: Soft. 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
--- NOTE | 2018-03-23 19:55 | PN ---
DATE: 03/23/2018 LOCATION: The patient is in room 375, bed 1. SUBJECTIVE: The patient is seen lying in bed. She is awake, alert, and oriented. She tells me that her appetite has been good. The pain is recently well controlled on morphine, getting 2 mg every 3 hours as needed along with oral methadone she is already on. The patient tells me that her appetite is basically better without any fevers or chills. No nausea. No vomiting. PHYSICAL EXAMINATION: GENERAL: The patient is icteric. On the left side of the face, swelling appears to be less. The patient still has boss facies. VITAL SIGNS: T-max of 97.7, blood pressure is 137/91, pulse rate is 89, O2 saturation is 95% on room air. HEENT: Examination of the oropharynx reveals swelling in the left buccal mucosa has reduced significantly. The mass on the buccal mucosa also has reduced dramatically on the current antibiotics. The patient still has some induration and adenopathy on the left side of the neck. Examination of the oropharynx does not reveal any fungal infection at this time. NECK: Supple. LUNGS: Reveal decreased breath sounds in both lungs posteriorly. BREASTS: Reveal the right breast to be indurated, actually are negative. Left breast is unremarkable. The patient is complaining of pain with inability to raise her arm above the shoulder, specifically the left arm. The right arm is also weak. The patient complaints of some shoulder and scapular tenderness as well related to the metastatic disease. CARDIOVASCULAR SYSTEM: Reveals PMI to be in the fifth intercostal space, inside the midclavicular line. S1 and S2 are normal. No gallops or murmurs heard. ABDOMEN: Soft, nontender. Liver is not palpable. There is no evidence of ascites. No other masses are felt. Bowel sounds are present. EXTREMITIES: Reveal no significant cyanosis, clubbing, or edema at this time. NEUROLOGIC: Higher functions are normal. No focal deficits are noted. The patient definitely has weakness in both arms and able to raise them above the shoulders for multifactorial reasons. The patient is able to move both her extremities with gravity eliminated. The patient has limitation of movements in the right hip secondary to progressive fracture in the right acetabulum previously documented. LABORATORY DATA: From today was reviewed. White count of 8.2, hemoglobin 9, hematocrit 28, and platelet count is 55,000. Chemistries from today reveal sodium of 131, K is 3.7, total bili is 9.8, AST is 347, ALT 342. Alkaline phosphatase is 1294. MEDICATIONS: The patient's medications were reviewed. She is on Ambien 5 mg p.o. at bedtime p.r.n., Colace 100 b.i.d., Decadron 2 mg p.o. b.i.d., methadone 10 mg p.o. every 12 hours, MiraLAX 17 g p.o. daily, morphine 2 mg IV every 3 hours p.r.n., nystatin 5 mL 4 times a day, pantoprazole 20 mg p.o. daily, IV fluids at 60 mL an hour of normal saline, levothyroxine 12 mcg daily. The patient is on Zosyn 3.375 mg IV piggyback every 8 hours for the infection involving her left buccal area entering the left carotid. ASSESSMENT, NOTES, AND PLAN: The patient has progressive metastatic stage IV carcinoma of the right breast, admitted for parotitis and infection of left buccal mucosa, currently on intravenous antibiotics, anemia, failure to thrive with rising hyperbilirubinemia related to progressive liver disease. I had detailed discussion with the patient, care assistant plant controller and palliative care nurse, Christina Tubbs, who has also interacted with the patient and the patient's family, specifically her daughter, Maureen. We are trying to treat the active infections and make plans for what needs to be done. In view of progressive disease and with the hyperbilirubinemia, it may be difficult to treat the patient at this point in time, enough to make a calculated guess as to what needs to be done and our opinion at this point in time is comfort measures alone. We will see how she is doing. If she continues to improve, then we will ask the family if they want us to continue therapy as she has had paradoxically sensational improvement as far as ____ are concerned, as the most recent CAT scan shows complete disappearance of the mass. The patient has evidence of metastasis in the bone and the liver at this point, which needs to be managed. Unfortunately, with that bilirubin being elevated, it limits our ability to continue with certain types of chemotherapy and again within the limitations, we will have to discern whether the patient can be able to get it, especially in a hospital situation. We will have to get palliative service to look into long term placement and possibly hospice as a downside as well. Decisions will be made over the next two to three days. Please make a note, this is a complex patient with multiple comorbid medical issues. We will continue to modify treatment plan depending on the patient's progression as far as the illness is concerned. Kashif Penn MD
[2018-03-23] MEDS: Sodium Chloride 0.9% 1,000 ML IV SCH ×2 (20:24→20:30)
[2018-03-24] MEDS: Morphine 2 mg/ml ISec IVP PRN ×6 (02:08→23:05)
[2018-03-24] MEDS: Piperacillin/Tazobact 3.375 gm 100 ML IVPB SCH ×3 (05:46→22:35)
[2018-03-24] MEDS: Levothyroxine 25 MCG TAB PO SCH (05:52)
[2018-03-24] MEDS: Pantoprazole 20 mg EC Tab PO SCH (05:52)
[2018-03-24] MEDS: Levothyroxine 112 MCG TAB PO SCH (05:52)
[2018-03-24] MEDS: Nystatin 100,000 Units/ml Oral Susp 5 ml UD PO SCH ×3 (09:29→22:35)
--- NOTE | 2018-03-24 11:02 | CP.PCM.PN ---
<Norbert Valente - Last Filed: 03/24/18 10:58> Subjective - Date & Time of Evaluation Date of Evaluation: 03/24/18 Time of Evaluation: 08:20 - Subjective Subjective: PGY6 GI Fellow Progress Note Patient seen and examined bedside this morning. The patient states that she is feeling better but continues to note severe back and left should pain. No events overnight. 12 system ROS performed and negative except where stated Objective - Vital Signs/Intake and Output Vital Signs (last 24 hours): Temp Pulse Resp BP Pulse Ox 98.2 F 92 H 20 142/83 94 L 03/24/18 08:11 03/24/18 08:11 03/24/18 08:11 03/24/18 08:11 03/24/18 08:11 Intake and Output: 03/24/18 03/24/18 06:59 18:59 Intake Total 240 Balance 240 - Medications Medications: Current Medications Dexamethasone (Decadron) 2 mg PO BID [facility] Last Admin: 03/24/18 09:29 Dose: 2 mg Docusate Sodium (Colace) 100 mg PO BID [facility] Last Admin: 03/24/18 09:29 Dose: 100 mg Piperacillin Sod/Tazobactam Sod (Zosyn 3.375 In Ns 100ml) 100 mls @ 25 mls/hr IVPB Q8 [facility]; Protocol Stop: 03/28/18 14:01 Last Admin: 03/24/18 05:46 Dose: 25 mls/hr Sodium Chloride (Sodium Chloride 0.9%) 1,000 mls @ 60 mls/hr IV .[id number] [facility] Last Admin: 03/23/18 20:30 Dose: 60 mls/hr Levothyroxine Sodium (Synthroid) 112 mcg PO 0600 [facility] Last Admin: 03/24/18 05:52 Dose: 112 mcg Levothyroxine Sodium (Synthroid) 25 mcg PO 0600 [facility] Last Admin: 03/24/18 05:52 Dose: 25 mcg Methadone HCl (Methadone) 10 mg PO Q12H [facility] Last Admin: 03/24/18 09:29 Dose: 10 mg Morphine Sulfate (Morphine) 2 mg IVP Q3H PRN PRN Reason: Pain, severe (8-10) Last Admin: 03/24/18 08:36 Dose: 2 mg Nystatin (Nystatin Oral Susp) 5 ml PO QID [facility] Last Admin: 03/24/18 09:29 Dose: 5 ml Pantoprazole Sodium (Protonix Ec Tab) 20 mg PO 0600 [facility] Last Admin: 03/24/18 05:52 Dose: 20 mg Polyethylene Glycol (Miralax) 17 gm PO DAILY PRN PRN Reason: Constipation Last Admin: 03/22/18 20:13 Dose: 17 gm Zolpidem Tartrate (Ambien) 5 mg PO HS [facility]; Protocol Last Admin: 03/23/18 21:28 Dose: 5 mg - Labs Labs: 03/22/18 06:00 03/23/18 06:20 PT 11.5 SECONDS (9.4-12.5) 03/19/18 15:30 INR 1.01 03/19/18 15:30 APTT 23.7 Seconds (25.1-36.5) L 03/19/18 15:30 - Constitutional Appears: Non-toxic, Older Than Stated Age, Chronically Ill - Head Exam Additional comments: left facial fullness - Eye Exam Eye Exam: EOMI, PERRL - ENT Exam ENT Exam: Mucous Membranes Moist - Respiratory Exam Respiratory Exam: Clear to Ausculation Bilateral. absent: Rales, Rhonchi, Wheezes - Cardiovascular Exam Cardiovascular Exam: RRR, +S1, +S2 - GI/Abdominal Exam GI & Abdominal Exam: Soft, Tenderness (diffusely), Normal Bowel Sounds. absent: Distended, Firm, Guarding, Rigid, Organomegaly - Extremities Exam Additional comments: LE edema, limited ROM - Neurological Exam Neurological Exam: Alert, Awake, Oriented x3 - Psychiatric Exam Psychiatric exam: Normal Affect, Normal Mood - Skin Skin Exam: Dry, Warm Assessment and Plan - Assessment and Plan (Free Text) Assessment: Patient is a 52yo female with PMHx significant for breast cancer with metastases to brain, liver and bone on chemotherapy and s/p whole brain XRT with near complete resolution of brain metastases who presented to the hospital with progressive weakness and malaise -Abnormal LFTs -Breast cancer with metastases to brain/liver/bone on chemotherapy and s/p whole brain XRT -Parotitis Plan: -LFTs relatively unchanged and remain elevated with exception of T bili which continues to rise -Concern for malignant obstruction in the setting of advanced malignant disease with liver mets -Patient/family decision regarding goals of care - most recently focus seems to be on palliation and comfort care measures -If a more aggressive approach is sought, consider MRCP to evaluate biliary tree - offered to patient but she declines currently as she states she cannot lay down for the examination -U/S duplex reviewed and unremarkable -Pain management per primary service -Bowel regimen with Miralax 17g PO QHS -Will monitor clinical course <Braden Rivera V - Last Filed: 03/24/18 23:58> Objective - Vital Signs/Intake and Output Vital Signs (last 24 hours): Temp Pulse Resp BP Pulse Ox 98.1 F 94 H 19 122/79 92 L 03/24/18 17:03 03/24/18 17:03 03/24/18 17:03 03/24/18 17:03 03/24/18 17:03 Intake and Output: 03/24/18 03/25/18 18:59 06:59 Intake Total 1820 Output Total 0 Balance 1820 - Medications Medications: Current Medications Dexamethasone (Decadron) 2 mg PO BID [facility] Last Admin: 03/24/18 17:57 Dose: 2 mg Docusate Sodium (Colace) 100 mg PO BID [facility] Last Admin: 03/24/18 17:57 Dose: 100 mg Piperacillin Sod/Tazobactam Sod (Zosyn 3.375 In Ns 100ml) 100 mls @ 25 mls/hr IVPB Q8 [facility]; Protocol Stop: 03/28/18 14:01 Last Admin: 03/24/18 22:35 Dose: 25 mls/hr Sodium Chloride (Sodium Chloride 0.9%) 1,000 mls @ 60 mls/hr IV .[id number] [facility] Last Admin: 03/23/18 20:30 Dose: 60 mls/hr Levothyroxine Sodium (Synthroid) 112 mcg PO 0600 [facility] Last Admin: 03/24/18 05:52 Dose: 112 mcg Levothyroxine Sodium (Synthroid) 25 mcg PO 0600 [facility] Last Admin: 03/24/18 05:52 Dose: 25 mcg Methadone HCl (Methadone) 10 mg PO Q12H [facility] Last Admin: 03/24/18 22:35 Dose: 10 mg Morphine Sulfate (Morphine) 2 mg IVP Q3H PRN PRN Reason: Pain, severe (8-10) Last Admin: 03/24/18 23:05 Dose: 2 mg Nystatin (Nystatin Oral Susp) 5 ml PO QID [facility] Last Admin: 03/24/18 22:35 Dose: 5 ml Pantoprazole Sodium (Protonix Ec Tab) 20 mg PO 0600 [facility] Last Admin: 03/24/18 05:52 Dose: 20 mg Polyethylene Glycol (Miralax) 17 gm PO DAILY PRN PRN Reason: Constipation Last Admin: 03/22/18 20:13 Dose: 17 gm Zolpidem Tartrate (Ambien) 5 mg PO HS [facility]; Protocol Last Admin: 03/24/18 22:35 Dose: 5 mg - Labs Labs: 03/22/18 06:00 03/23/18 06:20 PT 11.5 SECONDS (9.4-12.5) 03/19/18 15:30 INR 1.01 03/19/18 15:30 APTT 23.7 Seconds (25.1-36.5) L 03/19/18 15:30 Attending/Attestation - Attestation I have personally seen and examined this patient.: Yes I have fully participated in the care of the patient.: Yes I have reviewed all pertinent clinical information, including history, physical exam and plan: Yes Notes (Text): p 03/24/18 23:58
--- NOTE | 2018-03-24 13:20 | CP.PCM.PN ---
Subjective - Date & Time of Evaluation Date of Evaluation: 03/24/18 Time of Evaluation: 09:55 - Subjective Subjective: Face is better, no fevers. Objective - Vital Signs/Intake and Output Vital Signs (last 24 hours): Temp Pulse Resp BP Pulse Ox 97.7 F 89 19 137/91 H 95 03/23/18 08:15 03/23/18 08:15 03/23/18 08:15 03/23/18 08:15 03/23/18 08:15 Intake and Output: 03/23/18 03/24/18 18:59 06:59 Intake Total 1300 Output Total 800 Balance 500 - Medications Medications: Current Medications Dexamethasone (Decadron) 2 mg PO BID [facility] Last Admin: 03/23/18 17:15 Dose: 2 mg Docusate Sodium (Colace) 100 mg PO BID [facility] Last Admin: 03/23/18 17:15 Dose: 100 mg Piperacillin Sod/Tazobactam Sod (Zosyn 3.375 In Ns 100ml) 100 mls @ 25 mls/hr IVPB Q8 [facility]; Protocol Stop: 03/28/18 14:01 Last Admin: 03/23/18 14:15 Dose: 25 mls/hr Sodium Chloride (Sodium Chloride 0.9%) 1,000 mls @ 60 mls/hr IV .[id number] [facility] Last Admin: 03/22/18 18:17 Dose: 60 mls/hr Levothyroxine Sodium (Synthroid) 112 mcg PO 0600 [facility] Last Admin: 03/23/18 06:17 Dose: 112 mcg Levothyroxine Sodium (Synthroid) 25 mcg PO 0600 [facility] Last Admin: 03/23/18 06:17 Dose: 25 mcg Methadone HCl (Methadone) 10 mg PO Q12H [facility] Last Admin: 03/23/18 09:07 Dose: 10 mg Morphine Sulfate (Morphine) 2 mg IVP Q3H PRN PRN Reason: Pain, severe (8-10) Last Admin: 03/23/18 16:30 Dose: 2 mg Nystatin (Nystatin Oral Susp) 5 ml PO QID [facility] Last Admin: 03/23/18 17:16 Dose: 5 ml Pantoprazole Sodium (Protonix Ec Tab) 20 mg PO 0600 [facility] Last Admin: 03/23/18 06:17 Dose: 20 mg Polyethylene Glycol (Miralax) 17 gm PO DAILY PRN PRN Reason: Constipation Last Admin: 03/22/18 20:13 Dose: 17 gm Zolpidem Tartrate (Ambien) 5 mg PO HS [facility]; Protocol Last Admin: 03/22/18 21:31 Dose: 5 mg - Labs Labs: 03/22/18 06:00 03/23/18 06:20 PT 11.5 SECONDS (9.4-12.5) 03/19/18 15:30 INR 1.01 03/19/18 15:30 APTT 23.7 Seconds (25.1-36.5) L 03/19/18 15:30 - Constitutional Appears: Chronically Ill - Head Exam Head Exam: NORMAL INSPECTION - Respiratory Exam Respiratory Exam: Decreased Breath Sounds - Cardiovascular Exam Cardiovascular Exam: +S1, +S2 - GI/Abdominal Exam GI & Abdominal Exam: Soft. 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
--- NOTE | 2018-03-24 14:43 | CP.PCM.PN ---
Subjective - Date & Time of Evaluation Date of Evaluation: 03/24/18 Time of Evaluation: 13:00 - Subjective Subjective: no new complaints Objective - Vital Signs/Intake and Output Vital Signs (last 24 hours): Temp Pulse Resp BP Pulse Ox 98.2 F 92 H 20 142/83 94 L 03/24/18 08:11 03/24/18 08:11 03/24/18 08:11 03/24/18 08:11 03/24/18 08:11 Intake and Output: 03/24/18 03/24/18 06:59 18:59 Intake Total 240 Balance 240 - Medications Medications: Current Medications Dexamethasone (Decadron) 2 mg PO BID [facility] Last Admin: 03/24/18 09:29 Dose: 2 mg Docusate Sodium (Colace) 100 mg PO BID [facility] Last Admin: 03/24/18 09:29 Dose: 100 mg Piperacillin Sod/Tazobactam Sod (Zosyn 3.375 In Ns 100ml) 100 mls @ 25 mls/hr IVPB Q8 [facility]; Protocol Stop: 03/28/18 14:01 Last Admin: 03/24/18 13:52 Dose: 25 mls/hr Sodium Chloride (Sodium Chloride 0.9%) 1,000 mls @ 60 mls/hr IV .[id number] [facility] Last Admin: 03/23/18 20:30 Dose: 60 mls/hr Levothyroxine Sodium (Synthroid) 112 mcg PO 0600 [facility] Last Admin: 03/24/18 05:52 Dose: 112 mcg Levothyroxine Sodium (Synthroid) 25 mcg PO 0600 [facility] Last Admin: 03/24/18 05:52 Dose: 25 mcg Methadone HCl (Methadone) 10 mg PO Q12H [facility] Last Admin: 03/24/18 09:29 Dose: 10 mg Morphine Sulfate (Morphine) 2 mg IVP Q3H PRN PRN Reason: Pain, severe (8-10) Last Admin: 03/24/18 11:41 Dose: 2 mg Nystatin (Nystatin Oral Susp) 5 ml PO QID [facility] Last Admin: 03/24/18 13:53 Dose: 5 ml Pantoprazole Sodium (Protonix Ec Tab) 20 mg PO 0600 [facility] Last Admin: 03/24/18 05:52 Dose: 20 mg Polyethylene Glycol (Miralax) 17 gm PO DAILY PRN PRN Reason: Constipation Last Admin: 03/22/18 20:13 Dose: 17 gm Zolpidem Tartrate (Ambien) 5 mg PO HS [facility]; Protocol Last Admin: 03/23/18 21:28 Dose: 5 mg - Labs Labs: 03/22/18 06:00 03/23/18 06:20 PT 11.5 SECONDS (9.4-12.5) 03/19/18 15:30 INR 1.01 03/19/18 15:30 APTT 23.7 Seconds (25.1-36.5) L 03/19/18 15:30 - Constitutional Appears: Chronically Ill - Head Exam Head Exam: NORMOCEPHALIC Additional comments: facial swelling - Eye Exam Eye Exam: PERRL, Scleral icterus - ENT Exam ENT Exam: Mucous Membranes Moist - Neck Exam Neck Exam: Normal Inspection - Respiratory Exam Respiratory Exam: Decreased Breath Sounds, NORMAL BREATHING PATTERN - Cardiovascular Exam Cardiovascular Exam: REGULAR RHYTHM, +S1, +S2 - GI/Abdominal Exam GI & Abdominal Exam: Soft, Normal Bowel Sounds - Exam Additional comments: incontinent - Back Exam Back Exam: vertebral tenderness - Neurological Exam Neurological Exam: Alert Additional comments: confused at times - Skin Skin Exam: Dry, Pallor Additional comments: jaundice Assessment and Plan - Assessment and Plan (Free Text) Assessment: 52 year old female with history of 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 I spoke with patients daughter Maureen at length, via phone this morning. Maureen recognizes that he mother's health is declining and undermost that she will likely not be able to continue cancer treatment. Ella states that her mother is no longer able to ambulate with walker and to weak to get out of bed. Maureen feels that it might be best for her mother to transition to hospice care at this time. Maureen with discuss concerns with her mother. The patient has intractable pain and Maureen is not physically able to provide the care her mother needs. Recommended placement in a hospice facility such as [facility] Plan: Goals of care and advance care planning End of life counseling Pain: Methadone 10 mg twice daily, Morphine 2 mg IV as needed for breakthrough pain Per ID, IV antibiotic can be switched to PO Augmentin
[2018-03-25] MEDS: Morphine 2 mg/ml ISec IVP PRN ×7 (02:13→23:14)
--- NOTE | 2018-03-25 02:45 | PN ---
DATE: 03/24/2018 LOCATION: The patient is in room 375, bed 1. SUBJECTIVE: The patient is seen lying in bed. She is awake, alert, and oriented. She tells me that her appetite is descent, pain is well controlled on the morphine given 2 mg every 3 hours along with methadone that she is already on 10 mg b.i.d.. The patient tells me that her appetite is basically better. There is no fever, chills, nausea, or vomiting. PHYSICAL EXAMINATION: GENERAL: The patient is awake, alert and oriented. The patient is icteric. On the left side of the face, the swelling appears to be less where she had a vomit and infection of the inferior buccal mucosa along with parotid swelling. The patient still has boss facies. VITAL SIGNS: Stable as stated in the chart. HEENT: Head is normocephalic and atraumatic. Examination of the oropharynx reveals swelling in the left buccal mucosa has reduced significantly and the mass has reduced dramatically on the current antibiotics. The patient has some indurations and adenopathy on the left side of the neck. Examination of the oropharynx does not reveal any fungal infection at this time. NECK: Supple. LUNGS: Examination of the lungs reveals decreased breath sounds in both lungs posteriorly. BREASTS: Examination of the right breast reveals this to be indurated, axillae are negative. Left breast is unremarkable. The patient is complaining of pain with inability to raise her arm above the shoulder, specifically the left arm. The right arm is also weak. The patient complains of some shoulder and scapular tenderness as well related to her metastatic cancer. CARDIOPULMONARY: Examination of the cardiovascular system reveals PMI to be in the fifth intercostal space, inside the midclavicular line. S1 and S2 are normal. No gallop or murmur is heard. ABDOMEN: Protuberant, soft, nontender. Liver is not palpable. There is no evidence of ascites. Bowel sounds are present. EXTREMITIES: Reveal no cyanosis, clubbing or edema at this time. NEUROLOGIC: The patient's higher functions are normal. No focal deficits are noted. The patient definitely has weakness in both arms and is able to raise them above the shoulders with great difficulty. The patient is able to move her both lower extremities with gravity eliminated. The patient has limitation of movements in the right hip secondary to progressive fracture in the right acetabulum previously documented. MEDICATIONS: The patient's medications were reviewed. She is on Ambien 5 mg p.o. at bedtime p.r.n., Colace 100 mg b.i.d., Decadron 2 mg p.o. b.i.d., methadone 10 mg every 12 hours, MiraLAX 17 g p.o. daily, morphine sulfate 2 mg IV every 3 hours p.r.n., nystatin 5 mL four times a day, pantoprazole 20 mg p.o. daily, IV fluids at 60 mL an hour, levothyroxine 125 mcg daily. The patient is on Zosyn 3.375 g intravenously every 8 hours for the infection involving her face and the left buccal mucosa. LABORATORY DATA: Labs from today were reviewed. Electrolytes from yesterday are stable. Sodium is 131. LFTs revealed AST of 347, ALT of 482, alkaline phosphatase of 1294. from 03/22/2018 showed a hemoglobin of 9, hematocrit 28, and platelet count of 55,000. ASSESSMENT, NOTES, AND PLAN: The patient has progressive stage IV metastatic carcinoma of the breast with recently progressively worsening jaundice secondary to probably liver involvement which is progressive. In the fact of history of having stage IV metastatic carcinoma of the breast, ER/MD negative, HER-2/cale 3+, status post radiation to the bladder, to the brain, to pelvis, right shoulder brachial plexopathy who was currently admitted to have failure to thrive, intractable pain and hyperbilirubinemia. Christina Tubbs, palliative care nurse and I have spoken with the daughter, Maureen. The patient's condition continued to progress and limited the fact that we are not able to give her any other drugs that might be feasible to be given because of her worsening liver function. Her daughter feels that her mother is no longer able to ambulate with the walker, too weak to get out of the bed. The daughter feels that it may be the best for her mother to be transitioned to hospice care at this time. I will also discuss my findings and my concerns to the patient as well. In the meantime, the patient has intractable pain and her daughter is not physically able to provide the care for her mother's need. The patient may be recommended placement in a hospice facility such as [facility]. Goals of this I am going to be explored, and advance care planning is in progress. In the meantime, end-of-life counseling was given to the patient's daughter. We will continue the methadone right now as it is along with intravenous morphine for pain control. We will also give the patient intravenous antibiotics to complete the course as per Infection Disease and then make further decisions about transitioning the patient. Blood work for a.m. will be requested. Time spent with the patient and in the management in addition to talking to the nurses and palliative care personal. Time was spent to an excess of 80 minutes. Please make a note that this is a complex patient with multiple comorbid medical issues. Kashif Penn MD
[2018-03-25] MEDS: Levothyroxine 112 MCG TAB PO SCH (05:58)
[2018-03-25] MEDS: Sodium Chloride 0.9% 1,000 ML IV SCH (05:58)
[2018-03-25] MEDS: Levothyroxine 25 MCG TAB PO SCH (05:59)
[2018-03-25] MEDS: Piperacillin/Tazobact 3.375 gm 100 ML IVPB SCH (05:59)
[2018-03-25] MEDS: Pantoprazole 20 mg EC Tab PO SCH (05:59)
[2018-03-25 07:21] LABS: BASO # 0.05 K/mm3 (0.0-2.0); BASO % 0.5 % (0.0-3.0); EOS % 0.1 % (1.5-5.0); GRAN # 9.13 (1.4-6.5); GRAN % 82.3 % (50.0-68.0); HEMOGLOBIN 8.5 g/dL (12.0-16.0); LYMPH # 1.5 (1.2-3.4); LYMPH % 13.8 % (22.0-35.0); MEAN CELL VOLUME 97.2 fl (80.0-105.0); MEAN CORPUSCULAR HEMOGLOBIN 29.8 pg (25.0-35.0); MEAN CORPUSCULAR HGB CONC 30.7 g/dl (31.0-37.0); MEAN PLATELET VOLUME 10.4 fl (7.0-11.0); MONO # 0.4 (0.1-0.6); MONO % 3.3 % (1.0-6.0); PLATELET COUNT 59 10^3/uL (120.0-450.0); RBC 2.85 10^6/uL (3.5-6.1); RED CELL DISTRIBUTION WIDTH 21.5 % (11.5-14.5); WHITE BLOOD COUNT 11.1 10^3/uL (4.5-11.0)
[2018-03-25 08:01] LABS: ALB/GLOB RATIO 0.8 (1.1-1.8); ALBUMIN 2.9 g/dL (3.0-4.8); ALT/SGPT 516 U/L (7-56); AST/SGOT 361 U/L (14-36); BLOOD UREA NITROGEN 15 mg/dL (7-21); CALCIUM 8.5 mg/dL (8.4-10.5); GFR NON-AFRICAN AMERICAN > 60
[2018-03-25] MEDS: Nystatin 100,000 Units/ml Oral Susp 5 ml UD PO SCH ×4 (09:08→21:27)
[2018-03-25 09:53] LABS: NEUTROPHIL 90 % (50.0-70.0)
[2018-03-25 09:54] LABS: ATYPICAL LYMPHOCYTE 1 % (0.0-0.0); BAND 2 % (0-2); CORRECTED WBC 10.4 K/mm3 (4.5-11.0); LYMPHOCYTE 5 % (22.0-35.0); MONOCYTE 2 % (1.0-6.0); NUCLEATED RED BLOOD CELL 7 %
--- NOTE | 2018-03-25 13:24 | CP.PCM.PN ---
Subjective - Date & Time of Evaluation Date of Evaluation: 03/25/18 Time of Evaluation: 09:10 - Subjective Subjective: Afebrile, face feels better. Objective - Vital Signs/Intake and Output Vital Signs (last 24 hours): Temp Pulse Resp BP Pulse Ox 98.2 F 92 H 20 142/83 94 L 03/24/18 08:11 03/24/18 08:11 03/24/18 08:11 03/24/18 08:11 03/24/18 08:11 Intake and Output: 03/24/18 03/24/18 06:59 18:59 Intake Total 240 Balance 240 - Medications Medications: Current Medications Dexamethasone (Decadron) 2 mg PO BID [facility] Last Admin: 03/24/18 09:29 Dose: 2 mg Docusate Sodium (Colace) 100 mg PO BID [facility] Last Admin: 03/24/18 09:29 Dose: 100 mg Piperacillin Sod/Tazobactam Sod (Zosyn 3.375 In Ns 100ml) 100 mls @ 25 mls/hr IVPB Q8 [facility]; Protocol Stop: 03/28/18 14:01 Last Admin: 03/24/18 05:46 Dose: 25 mls/hr Sodium Chloride (Sodium Chloride 0.9%) 1,000 mls @ 60 mls/hr IV .[id number] [facility] Last Admin: 03/23/18 20:30 Dose: 60 mls/hr Levothyroxine Sodium (Synthroid) 112 mcg PO 0600 [facility] Last Admin: 03/24/18 05:52 Dose: 112 mcg Levothyroxine Sodium (Synthroid) 25 mcg PO 0600 [facility] Last Admin: 03/24/18 05:52 Dose: 25 mcg Methadone HCl (Methadone) 10 mg PO Q12H [facility] Last Admin: 03/24/18 09:29 Dose: 10 mg Morphine Sulfate (Morphine) 2 mg IVP Q3H PRN PRN Reason: Pain, severe (8-10) Last Admin: 03/24/18 11:41 Dose: 2 mg Nystatin (Nystatin Oral Susp) 5 ml PO QID [facility] Last Admin: 03/24/18 09:29 Dose: 5 ml Pantoprazole Sodium (Protonix Ec Tab) 20 mg PO 0600 [facility] Last Admin: 03/24/18 05:52 Dose: 20 mg Polyethylene Glycol (Miralax) 17 gm PO DAILY PRN PRN Reason: Constipation Last Admin: 03/22/18 20:13 Dose: 17 gm Zolpidem Tartrate (Ambien) 5 mg PO HS [facility]; Protocol Last Admin: 03/23/18 21:28 Dose: 5 mg - Labs Labs: 03/22/18 06:00 03/23/18 06:20 PT 11.5 SECONDS (9.4-12.5) 03/19/18 15:30 INR 1.01 03/19/18 15:30 APTT 23.7 Seconds (25.1-36.5) L 03/19/18 15:30 - Constitutional Appears: Chronically Ill - Head Exam Head Exam: NORMAL INSPECTION - Respiratory Exam Respiratory Exam: Decreased Breath Sounds - Cardiovascular Exam Cardiovascular Exam: +S1, +S2 - GI/Abdominal Exam GI & Abdominal Exam: Soft. absent: Tenderness Assessment and Plan - Assessment and Plan (Free Text) Plan: Assessment Left facial cellulitis, clinically improving stage 4 breast cancer with metastases to brain, liver, bone, on chemotherapy S/P port-a-cath placement Plan on day 6 of antibiotics and will switch to PO Augmentin for another 3-4 days overall prognosis is poor
[2018-03-25] MEDS: POLYETHYLENE GLYCOL 3350 17 GM/Dose PACKET PO PRN (17:38)
[2018-03-25] MEDS ORDERED: HYDROmorphone 0.5 mg/0.5 ml ISec IVP STA (20:16)
[2018-03-25] MEDS: Amoxicillin-Clav 875-125 mg Tab PO SCH (21:27)
--- NOTE | 2018-03-25 22:20 | PN ---
DATE: 03/25/2018 Room number 375, bed 1. SUBJECTIVE: The patient is seen lying in bed. She is awake, alert, and oriented. Appetite is improved. Pain is well controlled. She has been taking the methadone 10 mg every 12 hours, morphine sulfate 2 mg probably every 8 hours as needed, but she tell me the pain on pain score of 0 to 10 is around 3. Appetite is also improved. No nausea, vomiting. No fever. No chills. No leg swelling at this point in time. PHYSICAL EXAMINATION: GENERAL: The patient is awake, alert, and oriented, in no acute distress. VITAL SIGNS: Stable, as stated in the chart. HEENT: The patient is icteric. The patient has boss facies. Swelling on the left side of her buccal mucosa both on the outside and inside of examination. Buccal mucosa has been remarkably improved on IV antibiotics, which means the infection has been better controlled with the current treatment she is on. Head is normocephalic, atraumatic. Conjunctivae pale. Sclerae are anicteric. Pupils are equally reactive to light and accommodation. The patient has alopecia post chemotherapy. Examination of the oropharynx reveal swelling on the left side of the buccal mucosa, reduced significantly on the current antibiotics. Apparently, swelling on the left side is also decreased, the induration and adenopathy on the left side of the neck has also decreased. Examination to the oropharynx reveals no obvious fungal infections at this time. NECK: Supple. There is no adenopathy. No jugular venous distension noted. LUNGS: Clear to percussion and auscultation, decrease breath sounds in bases both side posteriorly. BREASTS: Unchanged at this time. The patient's original breast tumor is in the right side which still has induration noted. Left breast is unremarkable. CARDIOVASCULAR SYSTEM: Reveals S1 and S2 to be normal. No gallop or murmur is heard. ABDOMEN: Protuberant, soft, nontender. Liver is not palpable. There is no rebound, rigidity, or guarding noted. LABORATORY DATA: Reveals steadily rising elevation of total bilirubin consistent with progressive metastatic cancer in the liver. ASSESSMENT AND PLAN: The patient has progressive stage IV metastatic carcinoma of the breast with recently progressing worsening jaundice secondary to probably liver involvement, which is also getting worse. In the fact of the history of end-stage IV metastatic carcinoma of the breast ER/[place] negative HER-2/cale 3+, status post radiation to the brain to the pelvis to right shoulder, brachial plexus spectroscopy who was recently admitted to the hospital with failure to thrive, intractable pain, hyperbilirubinemia is slowly progressing clinically though her underlying factors for the cancer are progressively worsening. Christina Tubbs, our palliative care nurse and I have spoken to the daughter in great length, Maureen, as in agreement that currently we should finish the antibiotics since there is no active drugs that could not be given safely currently in the presence of worsening liver dysfunction. Our plan is to just give her a supportive care. I have discussed in detail these findings with the patient's daughter, spoke at length with the patient herself who is not agreeable to stopping on chemotherapy for now, but wants to wait and see how she progresses over the next several days. The patient has been recommended to be placed in a hospice facilities such as [facility] one of the facilities that are very close her place . Goals for this I am hoping to go explore are already in process and hopefully the patient will have comfortable care during the last days of her life. The patient may need to be on IV morphine for pain control if the symptoms get worse. Time spent with the patient and the management in addition to talking to the nurse in the palliative care personnel, talking to the primary doctor and the team, took more than 80 minutes. Plan is to keep the patient involve at least emotionally while giving her pain medicines and narcotics. Please make a note, this is a complex patient with multiple comorbid medical issues could needs to be followed rather closely. The patient has a POLST and is a DNR/DNI at this time. Kashif Penn MD
[2018-03-26] MEDS ORDERED: HYDROmorphone 0.5 mg/0.5 ml ISec IVP STA (01:41)
[2018-03-26] MEDS: Morphine 2 mg/ml ISec IVP PRN ×2 (04:08→06:42)
[2018-03-26] MEDS: Pantoprazole 20 mg EC Tab PO SCH (05:38)
[2018-03-26] MEDS: Levothyroxine 112 MCG TAB PO SCH (05:38)
[2018-03-26] MEDS: Levothyroxine 25 MCG TAB PO SCH (05:38)
[2018-03-26 06:27] LABS: BASO # 0.08 K/mm3 (0.0-2.0); BASO % 0.6 % (0.0-3.0); EOS % 0.1 % (1.5-5.0); GRAN # 10.47 (1.4-6.5); GRAN % 80.2 % (50.0-68.0); HEMOGLOBIN 8.7 g/dL (12.0-16.0); LYMPH % 15.5 % (22.0-35.0); MEAN CELL VOLUME 98.3 fl (80.0-105.0); MEAN CORPUSCULAR HEMOGLOBIN 29.8 pg (25.0-35.0); MEAN CORPUSCULAR HGB CONC 30.3 g/dl (31.0-37.0); MEAN PLATELET VOLUME 9.7 fl (7.0-11.0); MONO # 0.5 (0.1-0.6); MONO % 3.6 % (1.0-6.0); PLATELET COUNT 61 10^3/uL (120.0-450.0); RBC 2.92 10^6/uL (3.5-6.1); RED CELL DISTRIBUTION WIDTH 21.3 % (11.5-14.5); WHITE BLOOD COUNT 13.1 10^3/uL (4.5-11.0)
[2018-03-26 07:41] LABS: ALB/GLOB RATIO 0.8 (1.1-1.8); ALT/SGPT 543 U/L (7-56); AST/SGOT 375 U/L (14-36); BLOOD UREA NITROGEN 19 mg/dL (7-21); CALCIUM 8.6 mg/dL (8.4-10.5); GFR NON-AFRICAN AMERICAN > 60
[2018-03-26] MEDS ORDERED: Morphine 4 mg/ml ISec IVP STA (07:43)
[2018-03-26] MEDS ORDERED: HYDROmorphone 2 mg/ml ISec IVP STA (08:24)
[2018-03-26] MEDS ORDERED: HYDROmorphone 2 mg/ml ISec IVP SCH (09:00)
[2018-03-26] MEDS: Amoxicillin-Clav 875-125 mg Tab PO SCH ×2 (10:04→22:12)
[2018-03-26] MEDS: Nystatin 100,000 Units/ml Oral Susp 5 ml UD PO SCH ×4 (10:06→21:54)
[2018-03-26 11:43] LABS: BAND 1 % (0-2); CORRECTED WBC 11.8 K/mm3 (4.5-11.0); LYMPHOCYTE 1 % (22.0-35.0); METAMYELOCYTE 3 %; MONOCYTE 1 % (1.0-6.0); MYELOCYTE 1 %; NEUTROPHIL 93 % (50.0-70.0); NUCLEATED RED BLOOD CELL 11 %
[2018-03-26] MEDS: HYDROmorphone 2 mg/ml ISec IVP PRN ×4 (11:54→23:40)
--- NOTE | 2018-03-26 12:56 | CP.PCM.PN ---
Subjective - Date & Time of Evaluation Date of Evaluation: 03/26/18 Time of Evaluation: 09:45 - Subjective Subjective: Comfortable in bed, no fevers, face feels better. Objective - Vital Signs/Intake and Output Vital Signs (last 24 hours): Temp Pulse Resp BP Pulse Ox 97.4 F L 92 H 20 138/91 H 93 L 03/25/18 08:48 03/25/18 08:48 03/25/18 08:48 03/25/18 08:48 03/25/18 08:48 Intake and Output: 03/25/18 03/25/18 06:59 18:59 Intake Total 275 Output Total 450 Balance -175 - Medications Medications: Current Medications Amoxicillin/Clavulanate Potassium (Augmentin 875 Mg-125 Mg Tab) 1 tab PO Q12 [facility]; Protocol Dexamethasone (Decadron) 2 mg PO BID [facility] Last Admin: 03/25/18 09:07 Dose: 2 mg Docusate Sodium (Colace) 100 mg PO BID [facility] Last Admin: 03/25/18 09:07 Dose: 100 mg Sodium Chloride (Sodium Chloride 0.9%) 1,000 mls @ 60 mls/hr IV .[id number] [facility] Last Admin: 03/25/18 05:58 Dose: 60 mls/hr Levothyroxine Sodium (Synthroid) 112 mcg PO 0600 [facility] Last Admin: 03/25/18 05:58 Dose: 112 mcg Levothyroxine Sodium (Synthroid) 25 mcg PO 0600 [facility] Last Admin: 03/25/18 05:59 Dose: 25 mcg Methadone HCl (Methadone) 10 mg PO Q12H [facility] Last Admin: 03/25/18 09:07 Dose: 10 mg Morphine Sulfate (Morphine) 2 mg IVP Q3H PRN PRN Reason: Pain, severe (8-10) Last Admin: 03/25/18 12:25 Dose: 2 mg Nystatin (Nystatin Oral Susp) 5 ml PO QID [facility] Last Admin: 03/25/18 09:08 Dose: 5 ml Pantoprazole Sodium (Protonix Ec Tab) 20 mg PO 0600 [facility] Last Admin: 03/25/18 05:59 Dose: 20 mg Polyethylene Glycol (Miralax) 17 gm PO DAILY PRN PRN Reason: Constipation Last Admin: 03/22/18 20:13 Dose: 17 gm Zolpidem Tartrate (Ambien) 5 mg PO HS [facility]; Protocol Last Admin: 03/24/18 22:35 Dose: 5 mg - Labs Labs: 03/25/18 06:00 03/25/18 06:00 PT 11.5 SECONDS (9.4-12.5) 03/19/18 15:30 INR 1.01 03/19/18 15:30 APTT 23.7 Seconds (25.1-36.5) L 03/19/18 15:30 - Constitutional Appears: Chronically Ill - Head Exam Head Exam: NORMAL INSPECTION - Neck Exam Neck Exam: absent: Meningismus - Respiratory Exam Respiratory Exam: Decreased Breath Sounds - Cardiovascular Exam Cardiovascular Exam: +S1, +S2 - GI/Abdominal Exam GI & Abdominal Exam: Soft. absent: Tenderness Assessment and Plan - Assessment and Plan (Free Text) Plan: Assessment Left facial cellulitis, clinically improving stage 4 breast cancer with metastases to brain, liver, bone, on chemotherapy S/P port-a-cath placement Plan on day 7 of antibiotics and continue PO Augmentin for another 2-3 days overall prognosis is poor
--- NOTE | 2018-03-26 23:01 | PN ---
DATE: 03/26/2018 ONCOLOGY PROGRESS NOTE LOCATION: The patient is in room 375, bed 1. SUBJECTIVE: The patient is seen lying in bed. She is awake, but is in lot of pain over the left shoulder today. Appetite is fair, because of the pain she has not been able to eat anything. Denies any nausea or vomiting. No fever or chills. The patient is currently on methadone 10 mg every 12 hours and she has also been g getting morphine 2 mg, which was doubled over the night to 4 mg every 3 hours not touched her. The patient got dose of Dilaudid, which seems to have helped her 2 mg IV every 3 hours. We are planning to start the patient on AIR VALVE MECHANIC. We are waiting for the patient for placement to an inpatient hospice as she has been requiring increasing narcotics and for comfort measures since the patient is completely dependent from nursing care and the patient will not be able to be discharged in home setting. The patient denies any history of fever, chills, or neck pain at this point in time. PHYSICAL EXAMINATION: GENERAL: Reveals the patient to be icteric, in significant pain. VITAL SIGNS: Today in the morning revealed T-max is 97, pulse rate is 93, blood pressure is 128/74, respirations are 19, and O2 sat is 93% on room air. HEENT: Head is normocephalic and atraumatic. Alopecia is noted. The patient is icteric on examination of the sclerae. Conjunctivae pale. The patient has boss facies, swelling on the buccal mucosa and swelling of the parotid is decreased substantially on IV antibiotics, which was just stopped yesterday. Examination of the oropharynx with no significant oral infection. Swelling on the left side of the neck is also decreased substantially. NECK: No jugular venous distention is noted. LUNGS: Clear to percussion and auscultation. Decreased breath sounds on both sides posteriorly. BREASTS: Unchanged at this time. The patient's breast tumor is on the right side, which still has induration with some axillary fullness on the right axilla, left axilla is unremarkable. The patient is complaining of significant pain on the left scapula region and left shoulder extending into the mid back. CARDIOVASCULAR: Reveals S1 and S2 to be normal. No gallops or murmur is heard. ABDOMEN: Soft, nontender and protuberant. No rebound, rigidity or guarding is noted. EXTREMITIES: Reveals no cyanosis, clubbing or edema. The patient is able to move the lower extremities with gravity eliminated. Unable to move the left arm above the shoulder because of the excruciating pain. LYMPHS: The patient has lymph edema right arm, but no new changes in the right hand. LABORATORY DATA: Reveals progressively worsening liver dysfunction with total bili now greater than 11 mg/dL. ASSESSMENT, NOTES AND PLAN: The patient has intractable pain with progressive metastatic stage IV breast cancer with abnormal liver function, some progressive disease in the liver. Long talk with the patient and I spoken to the daughter Maureen, spoken to the palliative care nurse who is Christina Tubbs as well. Our plan is comfort measures alone. We will titrate and adjust the Dilaudid and increase the methadone to 10 mg every 8 hours and then if need be start her on AIR VALVE MECHANIC or start her on Duragesic patches. Concern about the Duragesic patches affecting because of progressive liver metastasis. Goal of therapy at this point is comfort of course and will do our best to keep her comfortable. Placement into an inpatient hospice has been facilitated as soon as when bed is available. In the meantime, we will try to do our best to keep the patient comfortable from the pain management point of view. Time spent with the patient in correlating all the information, adjusting the medicines more than 80 minutes. Please make a note, this is a complex patient with multiple comorbid medical issues, family and everybody else and the treating team are aware of the coexisting comorbid problems the patient has and we are trying our very best to help her to our best abilities. Kashif Penn MD
[2018-03-27] MEDS: HYDROmorphone 2 mg/ml ISec IVP PRN ×5 (03:15→18:33)
[2018-03-27] MEDS: Levothyroxine 112 MCG TAB PO SCH (05:57)
[2018-03-27] MEDS: Pantoprazole 20 mg EC Tab PO SCH (05:57)
[2018-03-27] MEDS: Levothyroxine 25 MCG TAB PO SCH (05:57)
[2018-03-27 06:49] LABS: BASO # 0.12 K/mm3 (0.0-2.0); BASO % 0.8 % (0.0-3.0); EOS % 0.1 % (1.5-5.0); GRAN # 11.38 (1.4-6.5); GRAN % 77.4 % (50.0-68.0); HEMOGLOBIN 8.4 g/dL (12.0-16.0); LYMPH # 2.6 (1.2-3.4); LYMPH % 17.6 % (22.0-35.0); MEAN CELL VOLUME 99.6 fl (80.0-105.0); MEAN CORPUSCULAR HEMOGLOBIN 30.2 pg (25.0-35.0); MEAN CORPUSCULAR HGB CONC 30.3 g/dl (31.0-37.0); MEAN PLATELET VOLUME 10.7 fl (7.0-11.0); MONO # 0.6 (0.1-0.6); MONO % 4.1 % (1.0-6.0); PLATELET COUNT 61 10^3/uL (120.0-450.0); RBC 2.78 10^6/uL (3.5-6.1); RED CELL DISTRIBUTION WIDTH 21.2 % (11.5-14.5); WHITE BLOOD COUNT 14.7 10^3/uL (4.5-11.0)
[2018-03-27 06:55] LABS: ALB/GLOB RATIO 0.8 (1.1-1.8); ALBUMIN 2.8 g/dL (3.0-4.8); ALT/SGPT 558 U/L (7-56); AST/SGOT 413 U/L (14-36); BLOOD UREA NITROGEN 21 mg/dL (7-21); CALCIUM 8.5 mg/dL (8.4-10.5); GFR NON-AFRICAN AMERICAN > 60
[2018-03-27 08:02] VITALS: O2SAT 92
[2018-03-27 08:35] LABS: BAND 7 % (0-2); CORRECTED WBC 12.4 K/mm3 (4.5-11.0); LYMPHOCYTE 5 % (22.0-35.0); MONOCYTE 1 % (1.0-6.0); NEUTROPHIL 87 % (50.0-70.0); NUCLEATED RED BLOOD CELL 19 %; PLATELET ESTIMATE LOW (NORMAL)
[2018-03-27] MEDS: Amoxicillin-Clav 875-125 mg Tab PO SCH (09:43)
[2018-03-27] MEDS: Nystatin 100,000 Units/ml Oral Susp 5 ml UD PO SCH ×3 (09:44→17:46)
[2018-03-27] MEDS: Sodium Chloride 0.9% 1,000 ML IV SCH (09:45)
--- NOTE | 2018-03-27 13:32 | CP.PCM.PN ---
Subjective - Date & Time of Evaluation Date of Evaluation: 03/27/18 Time of Evaluation: 09:30 - Subjective Subjective: Afebrile, non-toxic. Objective - Vital Signs/Intake and Output Vital Signs (last 24 hours): Temp Pulse Resp BP Pulse Ox 97.7 F 93 H 19 128/74 93 L 03/26/18 06:00 03/26/18 06:00 03/26/18 06:00 03/26/18 06:00 03/26/18 06:00 Intake and Output: 03/26/18 03/26/18 06:59 18:59 Intake Total 960 Output Total 600 Balance 360 - Medications Medications: Current Medications Amoxicillin/Clavulanate Potassium (Augmentin 875 Mg-125 Mg Tab) 1 tab PO Q12 [facility]; Protocol Last Admin: 03/26/18 10:04 Dose: 1 tab Dexamethasone (Decadron) 2 mg PO BID [facility] Last Admin: 03/26/18 10:04 Dose: 2 mg Docusate Sodium (Colace) 100 mg PO BID [facility] Last Admin: 03/26/18 10:04 Dose: 100 mg Hydromorphone HCl (Dilaudid) 2 mg IVP Q3 PRN PRN Reason: Pain, severe (8-10) Last Admin: 03/26/18 11:54 Dose: 2 mg Sodium Chloride (Sodium Chloride 0.9%) 1,000 mls @ 60 mls/hr IV .[id number] [facility] Last Admin: 03/25/18 05:58 Dose: 60 mls/hr Levothyroxine Sodium (Synthroid) 112 mcg PO 0600 [facility] Last Admin: 03/26/18 05:38 Dose: 112 mcg Levothyroxine Sodium (Synthroid) 25 mcg PO 0600 [facility] Last Admin: 03/26/18 05:38 Dose: 25 mcg Methadone HCl (Methadone) 10 mg PO Q8 [facility] Last Admin: 03/26/18 09:06 Dose: 10 mg Nystatin (Nystatin Oral Susp) 5 ml PO QID [facility] Last Admin: 03/26/18 10:06 Dose: 5 ml Pantoprazole Sodium (Protonix Ec Tab) 20 mg PO 0600 [facility] Last Admin: 03/26/18 05:38 Dose: 20 mg Polyethylene Glycol (Miralax) 17 gm PO DAILY PRN PRN Reason: Constipation Last Admin: 03/25/18 17:38 Dose: 17 gm Zolpidem Tartrate (Ambien) 5 mg PO HS [facility]; Protocol Last Admin: 03/25/18 21:26 Dose: 5 mg - Labs Labs: 03/26/18 06:10 03/26/18 06:10 PT 11.5 SECONDS (9.4-12.5) 03/19/18 15:30 INR 1.01 03/19/18 15:30 APTT 23.7 Seconds (25.1-36.5) L 03/19/18 15:30 - Constitutional Appears: Chronically Ill - Head Exam Head Exam: NORMAL INSPECTION - Respiratory Exam Respiratory Exam: Decreased Breath Sounds - Cardiovascular Exam Cardiovascular Exam: +S1, +S2 - GI/Abdominal Exam GI & Abdominal Exam: Soft. absent: Tenderness Assessment and Plan - Assessment and Plan (Free Text) Plan: Assessment Left facial cellulitis, clinically improving stage 4 breast cancer with metastases to brain, liver, bone, on chemotherapy S/P port-a-cath placement Plan on day 8 of antibiotics and continue PO Augmentin for another 1-2 days overall prognosis is poor
[2018-03-27 17:28] VITALS: RESP 19; TEMP 97.4
[2018-03-27] MEDS ORDERED: HYDROmorphone 1 mg/ml PCA 30 ML IV PRN (20:12)
[2018-03-28] MEDS: HYDROmorphone 2 mg/ml ISec IVP PRN (00:52)
[2018-03-28 07:47] VITALS: BP 116/82; PULSE 100
[2018-03-28] MEDS ORDERED: HYDROmorphone 1 mg/ml PCA 30 ML IV PRN (11:40)
--- NOTE | 2018-03-28 15:05 | CP.PCM.PN ---
Subjective - Date & Time of Evaluation Date of Evaluation: 03/28/18 Time of Evaluation: 10:00 - Subjective Subjective: Comfortable, but at times confused, no fevers. Objective - Vital Signs/Intake and Output Vital Signs (last 24 hours): Temp Pulse Resp BP Pulse Ox 97.6 F 95 H 20 132/79 92 L 03/27/18 08:02 03/27/18 08:02 03/27/18 08:02 03/27/18 08:02 03/27/18 08:02 Intake and Output: 03/27/18 03/27/18 06:59 18:59 Intake Total 540 Output Total 60 Balance 480 - Medications Medications: Current Medications Amoxicillin/Clavulanate Potassium (Augmentin 875 Mg-125 Mg Tab) 1 tab PO Q12 [facility]; Protocol Last Admin: 03/27/18 09:43 Dose: 1 tab Dexamethasone (Decadron) 2 mg PO BID [facility] Last Admin: 03/27/18 09:43 Dose: 2 mg Docusate Sodium (Colace) 100 mg PO BID [facility] Last Admin: 03/27/18 09:44 Dose: 100 mg Hydromorphone HCl (Dilaudid) 2 mg IVP Q3 PRN PRN Reason: Pain, severe (8-10) Last Admin: 03/27/18 11:25 Dose: 2 mg Sodium Chloride (Sodium Chloride 0.9%) 1,000 mls @ 60 mls/hr IV .[id number] [facility] Last Admin: 03/27/18 09:45 Dose: 60 mls/hr Levothyroxine Sodium (Synthroid) 112 mcg PO 0600 [facility] Last Admin: 03/27/18 05:57 Dose: 112 mcg Levothyroxine Sodium (Synthroid) 25 mcg PO 0600 [facility] Last Admin: 03/27/18 05:57 Dose: 25 mcg Methadone HCl (Methadone) 10 mg PO Q8 [facility] Last Admin: 03/27/18 05:57 Dose: 10 mg Nystatin (Nystatin Oral Susp) 5 ml PO QID [facility] Last Admin: 03/27/18 09:44 Dose: 5 ml Pantoprazole Sodium (Protonix Ec Tab) 20 mg PO 0600 [facility] Last Admin: 03/27/18 05:57 Dose: 20 mg Polyethylene Glycol (Miralax) 17 gm PO DAILY PRN PRN Reason: Constipation Last Admin: 03/25/18 17:38 Dose: 17 gm Zolpidem Tartrate (Ambien) 5 mg PO HS [facility]; Protocol Last Admin: 03/26/18 21:54 Dose: 5 mg - Labs Labs: 03/27/18 06:20 03/27/18 06:20 PT 11.5 SECONDS (9.4-12.5) 03/19/18 15:30 INR 1.01 03/19/18 15:30 APTT 23.7 Seconds (25.1-36.5) L 03/19/18 15:30 - Constitutional Appears: Chronically Ill - Head Exam Head Exam: NORMAL INSPECTION - Respiratory Exam Respiratory Exam: Decreased Breath Sounds - Cardiovascular Exam Cardiovascular Exam: +S1, +S2 - GI/Abdominal Exam GI & Abdominal Exam: Soft. absent: Tenderness Assessment and Plan - Assessment and Plan (Free Text) Plan: Assessment Left facial cellulitis, clinically improving stage 4 breast cancer with metastases to brain, liver, bone, on chemotherapy S/P port-a-cath placement Plan on day 9 of antibiotics and continue PO Augmentin for another day overall prognosis is poor
--- NOTE | 2018-03-28 17:01 | PN ---
DATE: 03/28/2018 This is [facility]'s hospital visit on the medical floor. For Dr. Penn. SUBJECTIVE: The patient is a 52-year-old female moaning with severe pain to the left shoulder area, now on PCI Dilaudid and Ativan with arrangements to be made for inpatient hospice to relieve her suffering. Dr. Penn had spoken to her daughter regarding the plan as well as Ms. ____, palliative care nurse regarding her needs. At present, the patient is now, after a dose of Ativan, and is now resting comfortably. We will discontinue laboratory testing and oral medications at this point and await hospice evaluation. The patient is known to suffer from end-stage, stage IV breast cancer, metastasis to the bone, brain and liver, now with intractable pain of cancer. OBJECTIVE PHYSICAL EXAMINATION: VITAL SIGNS: Temperature 97.4, pulse 100, respirations 19, blood pressure 116/82, and pulse ox 92%. HEENT: Agustin face. Icteric sclerae. NECK: Supple. HEART: Tachy rate. LUNGS: Decreased breath sounds. ABDOMEN: Obese and soft. EXTREMITIES: Marked discomfort to range of motion on yesterday's exam of her upper extremities. NEUROLOGIC: The patient is sedated. SKIN: Icteric. LABORATORY DATA: The patient's labs were done yesterday. White blood cell count of 14.7, hemoglobin 8.3, hematocrit 27.7, and platelet count of 61,000. The chem metabolic panel showing a total bilirubin of 15.6, AST 413, and ALT of 558, alk phos of 1734. ASSESSMENT: The assessment for this patient is that of end-stage, stage IV metastatic breast cancer with metastasis to the bone, liver and brain with intractable pain of cancer. PLAN: The plan for this patient is to have hospice evaluation for inpatient hospice with palliative care and relief of her suffering with analgesics as indicated. The patient remains DNR/DNI with hospice evaluation pending. This is a complex patient with comprehensive medically necessary and appropriate visit carried out with phone call conversations as per Dr. Penn, family members and hospice and personnel in the hospital associated with her care discussed at length in excess of 40 minutes. Alan MD [facility] # [id number]
== END 2018-03-28 19:00 | disposition hospice, inpatient (51) | DRG 277 ==
LOC: ED 14:37 → ERH 16:18 → 3RSO 18:50
PROVIDERS: ADMIT Family Medicine; ATTEND Family Medicine
DX: L03.211 Cellulitis of face (principal); C79.31 Secondary malignant neoplasm of brain; C78.7 Secondary malignant neoplasm of liver and intrahepatic bile duct; C79.51 Secondary malignant neoplasm of bone; B37.0 Candidal stomatitis; M84.459A Pathological fracture, hip, unspecified, initial encounter for fracture; D69.6 Thrombocytopenia, unspecified; C50.911 Malignant neoplasm of unspecified site of right female breast; E86.0 Dehydration; R62.7 Adult failure to thrive; G89.3 Neoplasm related pain (acute) (chronic); D64.9 Anemia, unspecified; E03.9 Hypothyroidism, unspecified; E11.9 Type 2 diabetes mellitus without complications; E66.9 Obesity, unspecified; Z68.31 Body mass index [BMI] 31.0-31.9, adult; F17.210 Nicotine dependence, cigarettes, uncomplicated; G54.0 Brachial plexus disorders; G93.6 Cerebral edema; K21.9 Gastro-esophageal reflux disease without esophagitis; K59.00 Constipation, unspecified; Z51.5 Encounter for palliative care; M19.012 Primary osteoarthritis, left shoulder; R13.10 Dysphagia, unspecified; Z66 Do not resuscitate; Z91.041 Radiographic dye allergy status

== ENCOUNTER 2018-03-28 19:00 | Inpatient (IN) | payer OTHER ==
[2018-03-28] MEDS ORDERED: HYDROmorphone 1 mg/ml PCA IV PRN (19:43)
[2018-03-30 07:15] VITALS: BP 109/67; PULSE 109; RESP 20; TEMP 97.9; O2SAT 98
[2018-03-30] MEDS ORDERED: HYDROmorphone 0.5 mg/0.5 ml ISec IVP PRN (14:02)
--- NOTE | 2018-03-30 14:32 | HP ---
[facility] # [id number] MTDD
[2018-03-30] MEDS ORDERED: HYDROmorphone 1 mg/ml PCA IV PRN (15:44)
--- NOTE | 2018-03-30 18:24 | PN ---
DATE: 03/30/2018 This is [facility] hospice visit on the medical floor. For Dr. Penn. SUBJECTIVE: The patient is a 52-year-old female, now resting comfortably with narcotic analgesics and anti-anxiety medications given. The patient is now in inpatient hospice for her end-stage stage IV metastatic breast cancer with metastasis to the bone, liver, and brain with intractable pain of cancer. At present, she is sedated, lethargic, and in no acute distress. PHYSICAL EXAMINATION: VITAL SIGNS: Temperature 97.9, pulse 109, respirations 20, blood pressure 109/67, and pulse ox 98%. HEENT: Unremarkable. Sclerae are icteric . NECK: Supple. HEART: Regular rate. LUNGS: Scattered rhonchi. ABDOMEN: Obese, soft. EXTREMITIES: Faint +1 edema. NEUROLOGIC: Obtunded with [employer] narcotic analgesics being given. SKIN: Markedly icteric. ASSESSMENT: The assessment for this patient is that of end-stage stage IV metastatic breast cancer with metastasis to the bone, liver, and brain with intractable pain of cancer. PLAN: The plan for this patient is to continue hospice protocol for comfort measures including narcotic analgesics via [employer]ER pump along with scopolamine patch and lorazepam. Prognosis for this patient is grave. Continue DNR/DNI. This is a complex patient with comprehensive evaluation for hospice done at the bedside in excess of 10 minutes. Alan Choudhary MD
--- NOTE | 2018-03-31 00:50 | CP.PCM.PRO ---
<Garima Marcelinoony - Last Filed: 03/31/18 01:51> Pronouncement of Note - Clinical Findings Physical Exam: No Response Verbal/Painful Stimuli, Absent Peripheral Pulses{Carotid & Femoral}, Absent Heart & Breath Sounds, No Pupillary Light Reflex, No Corneal Reflex, Pupils Fixed & Dilated, Absence of Vital Signs - Pronouncement Time Time of Pronouncement of : 00:30 - Notifications Pronouncement Notifications: Family Notified, Atending Notified <Michael Lynch - Last Filed: 03/31/18 06:43> Attending/Attestation - Attestation I have personally seen and examined this patient.: No I have fully participated in the care of the patient.: No I have reviewed all pertinent clinical information: No <Brooklynn Gordon - Last Filed: 03/31/18 15:36> Pronouncement of Note - [place] [id number]
--- NOTE | 2018-03-31 08:29 | HP ---
DATE OF EXAM: 03/28/2018 She is now admitted to hospice as per her family's request. This is history and physical for Dr. Penn. CHIEF COMPLAINT: Intractable pain of cancer. HISTORY OF PRESENT ILLNESS: The patient is a 52-year-old female suffering from end-stage stage IV metastatic breast cancer with metastasis to the bone, liver, brain with intractable pain of cancer. After conversations as per Dr. Penn with the patient's daughter at length, Maureen, it is now recommended for the patient to be placed on inpatient hospice for relief of her intractable pain. She is on a [employer] pump with Dilaudid with palliative measures implemented. OBJECTIVE GENERAL: Patient appears obtunded, jaundiced, resting, in no acute distress. VITAL SIGNS: Temperature 97.4,.pulse of 100, respirations 19, blood pressure 116/82. HEENT: Agustin face. Icteric sclerae. NECK: Supple. HEART: Tachy rate. LUNGS: Decreased breath sounds. ABDOMEN: Obese, soft. EXTREMITIES: She has +1 edema. NEUROLOGIC: The patient is sedated. SKIN: Icteric. ASSESSMENT: End-stage stage IV metastatic breast cancer, metastases to the bone, liver, brain with intractable pain of cancer. PLAN: Hospice with palliative care and relief of her suffering as per family's request, as per hospice protocols. A comprehensive evaluation of this patient was done with family members aware of recommendations as per Dr. Penn. Alan Choudhary MD
== END 2018-03-31 00:30 | DRG 598 ==
LOC: 3RSO 19:00
PROVIDERS: ADMIT Family Medicine; ATTEND Family Medicine
DX: C50.919 Malignant neoplasm of unspecified site of unspecified female breast (principal); C78.7 Secondary malignant neoplasm of liver and intrahepatic bile duct; C79.31 Secondary malignant neoplasm of brain; C79.51 Secondary malignant neoplasm of bone; G89.3 Neoplasm related pain (acute) (chronic); Z51.5 Encounter for palliative care; Z66 Do not resuscitate